=== PATIENT | male | born 1965 | race Caucasian/White ===

== ENCOUNTER → 2019-06-21 | Outpatient (CLI) | payer OTHER, SELFPAY ==
[2019-06-21 08:38] LABS: ALB/GLOB Ratio 1.2 RATIO (0.9-2.4); AST(SGOT) 18 U/L (15-37); Alanine Aminotransfer ALT/SGPT 21 U/L (16-61); Albumin, Serum 4.2 g/dL (3.2-5.0); Alkaline Phosphatase 65 U/L (45-117); Anion Gap 5 (5-15); BUN 21 mg/dL (7-18); BUN/Creat Ratio 21.1 RATIO (10-20); Chloride 108 mmol/L (98-107); Cholesterol 165 mg/dL (200); EST Glomerular Filtration Rate 83 mL/min (>60); Est Glom Filt Rate - Afr Amer 100 mL/min (>60); Globulin 3.4 g/dL (2.2-4.2); Glucose 100 mg/dL (74-106); High Density Lipoprotein 60 mg/dL; Potassium 3.8 mmol/L (3.5-5.1); Protein, Total 7.6 g/dL (6.4-8.2); Sodium Level 138 mmol/L (136-145); T4 Free Direct 0.85 ng/dL (0.76-1.46); Triglycerides 77 mg/dL; Very Low Density Lipoprotein 15 mg/dL (5-40)
[2019-06-24 08:08] LABS: Testosterone, Free 11.79 ng/dL (5.00-21.00)
[2019-06-24 12:48] LABS: Testosterone, % Free 3.12 % (1.50-4.20); Testosterone, Total 378 ng/dL (264-916)
== END | disposition home or self-care (01) ==
PROVIDERS: Referring Provider Internal Medicine Endocrinology, Diabetes & Metabolism; Visit Provider Internal Medicine Endocrinology, Diabetes & Metabolism
DX: E88.81 Metabolic syndrome and other insulin resistance (principal); E78.2 Mixed hyperlipidemia; D35.2 Benign neoplasm of pituitary gland
CPT/HCPCS: 36415; 80053; 80061; 82533; 84153; 84402; 84403; 84439; G0103

== ENCOUNTER → 2019-12-17 06:58 | Outpatient (CLI) | payer OTHER, SELFPAY ==
[2019-12-17 09:44] LABS: PSA,Total- Diagnostic 1.21 ng/mL (0.0-4.0); Prolactin 9.1 ng/mL; T4 Free Direct 1.06 ng/dL (0.76-1.46); Thyroid Stim Hormone (TSH) 1.38 uIU/mL (0.358-3.74)
[2019-12-21 09:07] LABS: Testosterone, % Free 2.95 % (1.50-4.20); Testosterone, Free 9.94 ng/dL (5.00-21.00)
[2019-12-21 12:10] LABS: Insulin Like Growth Factor 90 ng/mL (61-200); Testosterone, Total 337 ng/dL (264-916)
== END ==
PROVIDERS: PCP Internal Medicine; Referring Provider Internal Medicine Endocrinology, Diabetes & Metabolism; Visit Provider Internal Medicine Endocrinology, Diabetes & Metabolism
DX: D35.2 Benign neoplasm of pituitary gland (principal); N42.9 Disorder of prostate, unspecified; E29.1 Testicular hypofunction
CPT/HCPCS: 36415; 84146; 84153; 84305; 84402; 84403; 84439; 84443

== ENCOUNTER → 2020-07-03 06:12 | Outpatient (CLI) | payer OTHER, SELFPAY ==
[2020-07-03 08:15] LABS: ALB/GLOB Ratio 1.2 RATIO (0.9-2.4); AST(SGOT) 17 U/L (15-37); Alanine Aminotransfer ALT/SGPT 24 U/L (16-61); Albumin, Serum 4.1 g/dL (3.2-5.0); Alkaline Phosphatase 57 U/L (45-117); Anion Gap 5 (5-15); BUN 22 mg/dL (7-18); BUN/Creat Ratio 19.8 RATIO (10-20); Calcium,Total 8.9 mg/dL (8.5-10.1); Chloride 106 mmol/L (98-107); Creatinine, Serum 1.11 mg/dL (0.70-1.30); EST Glomerular Filtration Rate 73 mL/min (>60); Est Glom Filt Rate - Afr Amer 88 mL/min (>60); Globulin 3.3 g/dL (2.2-4.2); Glucose 95 mg/dL (74-106); Potassium 3.9 mmol/L (3.5-5.1); Protein, Total 7.4 g/dL (6.4-8.2); Sodium Level 139 mmol/L (136-145); T4 Free Direct 0.99 ng/dL (0.76-1.46); Thyroid Stim Hormone (TSH) 1.59 uIU/mL (0.358-3.74)
[2020-07-06 08:08] LABS: Testosterone, % Free 2.35 % (1.50-4.20)
[2020-07-06 16:39] LABS: Somatomedin C 94 ng/mL (68-247); Testosterone, Total 366 ng/dL (264-916)
== END ==
PROVIDERS: PCP Internal Medicine; Referring Provider Internal Medicine Endocrinology, Diabetes & Metabolism; Visit Provider Internal Medicine Endocrinology, Diabetes & Metabolism
DX: D35.2 Benign neoplasm of pituitary gland (principal); E88.81 Metabolic syndrome and other insulin resistance
CPT/HCPCS: 36415; 80053; 82533; 84146; 84305; 84402; 84403; 84439; 84443

== ENCOUNTER 2020-10-17 09:53 | Emergency (ER) | payer OTHER, SELFPAY ==
[2020-10-17 09:54] VITALS: BP 133/86; PULSE 86; RESP 16; TEMP 36.6; O2SAT 100; BMI 29.0
--- NOTE | 2020-10-17 10:13 | RAD_ITS ---
STUDY: X-RAY - LEFT HAND REASON FOR EXAM: Male, 55 years old. PT''S HAND SWOLLEN SINCE LAST NIGHT. UNSURE WHY, NO INJURY TECHNIQUE: 3 view(s) of the hand. COMPARISON: None. FINDINGS: Normal radiocarpal articulation. Normal distal radioulnar joint. Normal visualized carpal bones. Normal carpal articulations Normal carpometacarpal articulation of the thumb. Normal second through fifth carpometacarpal joints. Normal metacarpi. Normal metacarpophalangeal joint of the thumb. Normal interphalangeal joint of the thumb. Normal proximal and distal phalanges of the thumb. Normal metacarpophalangeal joints of the second through fifth fingers. Normal proximal and distal interphalangeal joints of the second through fifth fingers. Normal phalanges of the second through fifth fingers. Diffuse dorsal soft tissue swelling. There is a 2 cm x 0.3 cm bony density adjacent to the base of the first metacarpal. This may represent either a radiopaque foreign body or ossification secondary to prior injury. RAD/Hand Min 3 Views IMPRESSION: Diffuse dorsal soft tissue swelling. 2 cm x 0.3 cm bony density adjacent to the asymmetry of the first metacarpal. This may represent either calcification secondary to old injury or possible foreign body. Clinical correlation is recommended. Electronically Signed: Eduardo Clemons, at 10:49 EST , Service support ,
--- NOTE | 2020-10-17 10:20 | ED.VIS.GEN ---
History of Present Illness Chief Complaint: Upper Extremity Injury Informant: Patient Onset: Days - Onset of symptoms 2 days ago. Onset of swelling last evening. Onset of redness noted this morning Context: Sudden Onset Timing: Continuous Quality: Pain and swelling Location: located over the dorsal surface proximal phalanx and firs metacarpal L Current Severity: Moderate Maximum Severity: Moderate Worsened by: Movement left thumb Relieved by: Nothing Associated Symptoms: No fever, no chills, no history of trauma, no history of crystal induced ar Narrative: Patient is a 55-year-old [id number] male who presents with swelling of the right wrist/hand that was followed by pain then slight erythema. The area involvement is the left thumb and radial dorsal left hand. He denies paresthesia, anesthesia or motor weakness. He denies history of gout or pseudogout. He states he is unable to touch his thumb to his ring or little finger. He has history of hypertension without renal involvement. He denies history of peptic ulcer disease or diabetes. Prior similar symptoms: No Recent Illness/Hospitalization: No - Past Medical History (1) History of hypertension Status: Acute (2) History of hypercholesterolemia Status: Acute Past Medical History - Allergies and Home Meds Allergies/Adverse Reactions: Allergies atorvastatin [From Lipitor] Allergy (Verified 10/17/20 09:56) Abd cramps/diarrhea Primary Care Physician: Peter Wild DO [Primary Care Provider] - Prior records reviewed: Yes Surgical History: noncontributory Lives: Spouse/ Significant Other Smoking Status: Never smoker Alcohol: Rare Drugs: None Review of Systems General: Denies: Chills, Fever, Malaise, Subjective Cardiovascular: Denies: Chest pain, Palpitations Respiratory: Denies: Dyspnea, Dyspnea on exertion Gastrointestinal: Denies: Nausea, Vomiting Musculoskeletal: Reports: Swelling, Extremity Pain. Denies: Myalgias, Arthralgias, Neck pain Skin: Reports: Rash. Denies: Abscess, Abrasions, Wounds Neurological: Denies: Headache, Weakness, Parasthesia, Numbness Hematologic: Denies: Easy bruising, Easy bleeding Allergy: Denies: Uticaria Physical Exam Vital Signs/Narrative: Vital Signs Temp Pulse Resp BP Pulse Ox 10/17/20 09:54 97.8 F 86 16 133/86 H 100 Inital Vital Signs reviewed: Yes General: Well nourished, Well developed, No Acute Distress Head: Normocephalic, Atraumatic Eyes: Perrl, EOMI. Negative for: Pale conjunctiva ENT: Negative for: Moist mucous membranes Neck: Supple, Nontender Cardiovascular: Regular rate, Regular rhythm Respiratory: No distress Extremities: Tenderness - There is tenderness over the extensor pollicis longus tendon. Positive Que test. There is no fluctuance of the wrist joint. There is no pain with passive flexion extension or radial or ulnar deviation. There is pain with passive range of motion of the thumb. , - - There is erythema without warmth or induration. There is no lymphangitis. There is no epitrochlear lymphadenopathy.. Negative for: Nontender Skin: Normal color, Rash Neurological: Alert, Oriented x3, Cranial nerves II-XII grossly intact, Normal Strength, Normal Sensation Psychological: Normal affect Diagnostic/Tx/Re-eval Chest X-Ray - ED: Read by ED Physician, - - 3 view x-ray of the left hand was obtained. There is calcification of the extensor tendon noted. The radiology interpretation was read and I am in disagreement. - Medical Decision Making With no pain with passive range of motion of the wrist doubt crystal induced or pyogenic arthritis. With a positive Que test soft tissue swelling predominantly radial side of the wrist and pain outpatient over the EPL suspect patient has decreased tenosynovitis. X-ray was obtained. Patient has no contraindication to NSAIDs. ED Disposition - Plan for ED Patient: Disposition: Home or Assisted Living Diagnosis: Calcific tendinitis of hand Instructions: ED Tendinitis Calcific Prescriptions: Naproxen [Naprosyn] 500 mg PO BID #14 tab Transmission [facility]: [id number] Referrals: Peter Wild DO [Primary Care Provider] - Gilmer House DO [STAFF PHYSICIAN] - 5-7 Days Additional Instructions: Near the thumb spica splint during the day.
== END 2020-10-17 11:51 | disposition home or self-care (01) ==
PROVIDERS: Emergency Provider Emergency Medicine; PCP Internal Medicine
DX: M65.242 Calcific tendinitis, left hand (principal); I10 Essential (primary) hypertension; E78.00 Pure hypercholesterolemia, unspecified; Z79.899 Other long term (current) drug therapy
CPT/HCPCS: 73130; 99283

== ENCOUNTER → 2020-10-20 07:54 | Outpatient (CLI) | payer OTHER, SELFPAY ==
[2020-10-17 09:54] VITALS: BMI 29.0
[2020-10-20 09:17] LABS: Hematocrit 44.2 % (40-54); Hemoglobin 14.2 g/dL (13.0-16.5); Mean Corp Hgb Conc 32.1 g/dL (32-36); Mean Corpuscular Hgb 29.6 pg (27.0-32.0); Mean Corpuscular Volume 92.1 fL (80-94); Mean Platelet Vol. 8.5 fl (6.2-12.0); Platelet Count 256 K/mm3 (150-450); RBC Distribution Width CV 12.5 % (11.6-14.6); RBC Distribution Width SD 42.8 fl (35.1-43.9); White Blood Count 4.9 K/mm3 (4.4-11.0)
[2020-10-20 09:48] LABS: ALB/GLOB Ratio 1.2 RATIO (0.9-2.4); AST(SGOT) 22 U/L (15-37); Alanine Aminotransfer ALT/SGPT 40 U/L (16-61); Albumin, Serum 4.1 g/dL (3.2-5.0); Alkaline Phosphatase 75 U/L (45-117); Anion Gap 3 (5-15); BUN 29 mg/dL (7-18); BUN/Creat Ratio 26.4 RATIO (10-20); Calcium,Total 9.1 mg/dL (8.5-10.1); Chloride 108 mmol/L (98-107); Cholesterol 159 mg/dL (200); EST Glomerular Filtration Rate 73 mL/min (>60); Est Glom Filt Rate - Afr Amer 89 mL/min (>60); Globulin 3.4 g/dL (2.2-4.2); Glucose 91 mg/dL (74-106); High Density Lipoprotein 59 mg/dL; PSA,Total - Annual Screen 1.33 ng/mL (0.00-4.00); Potassium 4.2 mmol/L (3.5-5.1); Protein, Total 7.5 g/dL (6.4-8.2); Sodium Level 139 mmol/L (136-145); Thyroid Stim Hormone (TSH) 1.03 uIU/mL (0.358-3.74); Triglycerides 64 mg/dL; Very Low Density Lipoprotein 13 mg/dL (5-40)
== END ==
PROVIDERS: PCP Internal Medicine; Referring Provider Internal Medicine; Visit Provider Internal Medicine
DX: I10 Essential (primary) hypertension (principal); Z12.5 Encounter for screening for malignant neoplasm of prostate; E78.5 Hyperlipidemia, unspecified; Z79.899 Other long term (current) drug therapy
CPT/HCPCS: 80053; 80061; 84153; 84443; 85027; G0103

== ENCOUNTER → 2021-06-25 06:40 | Outpatient (CLI) | payer OTHER, SELFPAY ==
[2021-06-25 07:39] LABS: ALB/GLOB Ratio 1.2 RATIO (0.9-2.4); AST(SGOT) 20 U/L (15-37); Alanine Aminotransfer ALT/SGPT 30 U/L (16-61); Albumin, Serum 4.3 g/dL (3.2-5.0); Alkaline Phosphatase 64 U/L (45-117); Anion Gap 5 (5-15); BUN 20 mg/dL (7-18); Calcium,Total 8.8 mg/dL (8.5-10.1); Chloride 107 mmol/L (98-107); Cholesterol 178 mg/dL (200); Creatinine, Serum 1.25 mg/dL (0.70-1.30); EST Glomerular Filtration Rate 63 mL/min (>60); Est Glom Filt Rate - Afr Amer 77 mL/min (>60); Globulin 3.5 g/dL (2.2-4.2); Glucose 103 mg/dL (74-106); High Density Lipoprotein 68 mg/dL; Potassium 3.8 mmol/L (3.5-5.1); Prolactin 9.9 ng/mL; Protein, Total 7.8 g/dL (6.4-8.2); Sodium Level 138 mmol/L (136-145); T4 Free Direct 0.97 ng/dL (0.76-1.46); Thyroid Stim Hormone (TSH) 1.31 uIU/mL (0.358-3.74); Triglycerides 98 mg/dL; Very Low Density Lipoprotein 20 mg/dL (5-40)
[2021-07-01 03:06] LABS: Testosterone, % Free 3.41 % (1.50-4.20); Testosterone, Free 14.59 ng/dL (5.00-21.00)
[2021-07-02 13:22] LABS: Somatomedin C 101 ng/mL (68-247); Testosterone, Total 428 ng/dL (264-916)
== END ==
PROVIDERS: PCP Internal Medicine; Referring Provider Internal Medicine Endocrinology, Diabetes & Metabolism; Visit Provider Internal Medicine Endocrinology, Diabetes & Metabolism
DX: D35.2 Benign neoplasm of pituitary gland (principal); E78.2 Mixed hyperlipidemia; E29.1 Testicular hypofunction
CPT/HCPCS: 36415; 80053; 80061; 82533; 84146; 84305; 84402; 84403; 84439; 84443

== ENCOUNTER 2021-07-01 16:42 | Emergency (ER) | payer OTHER, SELFPAY ==
[2021-07-01 16:44] VITALS: BP 131/100; PULSE 94; RESP 16; TEMP 36.9; O2SAT 99; BMI 27.6
--- NOTE | 2021-07-01 17:26 | EKG12_ITS ---
Test Reason : Blood Pressure : / mmHG Vent. Rate : 080 BPM Atrial Rate : 080 BPM P-R Int : 184 ms QRS Dur : 108 ms QT Int : 380 ms P-R-T Axes : 037 -32 -07 degrees QTc Int : 438 ms Normal sinus rhythm Left axis deviation Nonspecific ST abnormality Abnormal ECG Confirmed by MODESTO FONTANEZ, BRICE ([id number]), photographic editor TEREZA ANDERSON ([id number]) on 07/05/2021 1:26:36 PM Referred By: CAITLYN Confirmed By:BRICE SALVADOR MD
[2021-07-01 17:54] LABS: Bacteria 0 SEEN /hpf (None Seen); Mucous, Urine 0 SEEN /hpf (<or=2+); Squamous Epithelial Cells - UA 0 SEEN /hpf (0-5); White Blood Cells 0 SEEN /hpf (0-5)
[2021-07-01 17:55] LABS: Absolute Neutrophil Count 4.4 X10^3/uL (2.0-7.7); Basophil# 0.11 X10^3/uL; Basophil% 1.6 % (0-1); Eosinophil# 0.06 X10^3/uL; Eosinophils% 0.9 % (0-5); Hematocrit 45.2 % (40-54); Hemoglobin 15.5 g/dL (13.0-16.5); Lymphocyte % 24.9 % (19-41); Mean Corp Hgb Conc 34.3 g/dL (32-36); Mean Corpuscular Hgb 29.9 pg (27.0-32.0); Mean Corpuscular Volume 87.3 fL (80-94); Mean Platelet Vol. 8.2 fl (6.2-12.0); Monocyte# 0.57 X10^3/uL; Monocyte% 8.3 % (0-10); NRBC Flagged by Analyzer 0 % (0-5); Neutrophil # 4.37 X10^3/uL (2.7-7.7); Platelet Count 240 K/mm3 (150-450); RBC Distribution Width CV 12.2 % (11.6-14.6); RBC Distribution Width SD 39.1 fl (35.1-43.9); Red Blood Count 5.18 M/mm3 (4.6-6.2); White Blood Count 6.8 K/mm3 (4.4-11.0)
[2021-07-01] MEDS: 0.9% Normal Saline 1,000 ML 150 ML IV (17:55)
[2021-07-01 17:58] LABS: Color, Urine Yellow (Yellow); Glucose, Dipstick Normal (Normal); Ketone-Dipstick Negative (Negative); Leukocyte Esterase-Dipstick Negative /ul (Negative); Nitrite-Dipstick Negative (Negative); Occult Blood-Urine 50 /ul (Negative); Protein-Dipstick Negative (Negative); Specific Gravity, Urine 1.015 (1.002-1.030); Urine Bilirubin Dipstick Negative (Negative); Urine Clarity Clear (Clear); Urine Urobilinogen 1 mg/dl (Normal)
[2021-07-01 18:04] LABS: Red Blood Cells-Urine 0-5 SEEN /hpf (0-5)
[2021-07-01 18:21] LABS: AST(SGOT) 20 U/L (15-37); Alanine Aminotransfer ALT/SGPT 29 U/L (16-61); Albumin, Serum 4.1 g/dL (3.2-5.0); Alkaline Phosphatase 66 U/L (45-117); Anion Gap 8 (5-15); BUN 20 mg/dL (7-18); Bilirubin, Direct 0.32 mg/dL (0.00-0.30); Calcium,Total 8.7 mg/dL (8.5-10.1); Chloride 102 mmol/L (98-107); Creatinine, Serum 1.05 mg/dL (0.70-1.30); EST Glomerular Filtration Rate 77 mL/min (>60); Est Glom Filt Rate - Afr Amer 94 mL/min (>60); Estimated Creatinine Clearance 87.72 ml/min; Globulin 3.4 g/dL (2.2-4.2); Glucose 95 mg/dL (74-106); Lipase 148 U/L (73-393); Potassium 3.7 mmol/L (3.5-5.1); Protein, Total 7.5 g/dL (6.4-8.2); Sodium Level 136 mmol/L (136-145); Thyroid Stim Hormone (TSH) 1.31 uIU/mL (0.358-3.74); Troponin-I HS < 3.0 pg/mL (3.0-78.5)
[2021-07-01 18:22] VITALS: BP 137/89; PULSE 78; RESP 18
--- NOTE | 2021-07-01 19:37 | EDS_ITS ---
HPI History of Present Illness Chief Complaint: General Illness Informant: patient and spouse/S.O. Onset/Context/Timing Onset: Weeks (1.5-week) Context: Gradual Onset Current Severity: Moderate Maximum Severity: Moderate Narrative Narrative: Patient presents with generally not feeling well for the last week and a half. He describes weakness and nausea. He does report increasing urination and a 10 pound weight loss over the past week. He describes having hot flashes. He denies fever, chest pain, shortness of breath. He reports a poor appetite but no nausea, vomiting, or diarrhea. He did get the Covid vaccine. He states that he had some blood work drawn Friday and noted there were some abnormalities noted in his kidney tests. He has an appointment to see his doctor the end of July. [facility] Medical History Depression High cholesterol HTN (hypertension) Parotid tumor Pituitary tumor Home Medications amlodipine-benazepril 1 ea PO DAILY 10/17/20 [History Last Taken Unknown] duloxetine 20 mg PO DAILY 10/17/20 [History Last Taken Unknown] pravastatin 80 mg PO QHS 10/17/20 [History Last Taken Unknown] trazodone 50 mg PO QHS 10/17/20 [History Last Taken Unknown] aspirin 81 mg chewable tablet 81 mg PO DAILY 10/23/20 [History Last Taken Unknown] cholecalciferol (vitamin D3) 25 mcg (1,000 unit) capsule 25 mcg PO DAILY 10/23/20 [History Last Taken Unknown] multivitamin 1 tab PO DAILY 10/23/20 [History Last Taken Unknown] Allergy/AdvReac Type Severity Reaction Status Date / Time atorvastatin [From Lipitor] Allergy Abd Verified 07/01/21 16:47 cramps/diarrhea Family History Mother Hypertension Father Heart disease Social History Smoking Status: Never smoker ROS ROS ED Constitutional Constitutional ED: Denies chills or fever(s) Eyes Eyes: Denies change in vision ENT ENT ED: Denies sore throat Cardiovascular Cardiovascular: Denies chest pain Respiratory/Chest Respiratory/Chest: Denies cough or dyspnea Gastrointestinal Gastrointestinal: Denies abdominal pain, diarrhea, nausea or vomiting Genitourinary Genitourinary ED: Reports dysuria and urinary frequency Musculoskeletal Musculoskeletal: Denies back pain Integumentary Denies rash Neurologic Neurologic: Denies headache(s) or weakness Psychiatric Psychiatric: Denies anxiety or depression Endocrine Endocrinology: Denies polydipsia or polyuria Allergic/Immunologic Allergic/Immunologic ED: Denies urticaria EXAM Physical Exam Const Vital Signs: 07/01/21 16:44 07/01/21 17:10 07/01/21 18:22 Temperature 98.4 F Temperature Source Temporal Pulse Rate 94 78 Respiratory Rate 16 18 Respiratory Effort Normal Respiratory Pattern Normal Blood Pressure 131/100 H 137/89 H Blood Pressure Mean 110 105 Pulse Ox 99 Oxygen Delivery Method Room Air 07/01/21 20:08 07/01/21 20:11 Temperature Temperature Source Pulse Rate 74 Respiratory Rate 16 16 Respiratory Effort Respiratory Pattern Blood Pressure 117/93 H Blood Pressure Mean Pulse Ox 98 Oxygen Delivery Method Positive well nourished and well developed General Appearance ED: well developed HEENT Reports normocephalic and head/scalp atraumatic Eyes PERRL and EOMs intact bilaterally Neck supple Chest Wall inspection of chest normal and palpation of chest normal Resp normal respiratory effort and clear to auscultation bilaterally Cardio regular rate and regular rhythm GI non-tender Auscultation: hypoactive bowel sounds Palpation: soft Back/Spine no CVA tenderness Extremity normal to inspection Neuro oriented x3 and no sensory deficits noted Neuro Narrative: No focal neurologic deficits. Sensorium / Orientation: alert Motor Exam: strength 5/5 throughout Psych mental status grossly normal Skin no rashes or lesions noted MDM MDM MDM Narrative Medical decision making narrative: Lab work and EKG are obtained. Urinalysis is obtained. Lab Data Attestation: I reviewed the patient's lab results. Labs: Laboratory Results - last 24 hr 07/01/21 07/01/21 07/01/21 17:45 17:45 17:45 WBC 6.8 RBC 5.18 Hgb 15.5 Hct 45.2 MCV 87.3 MCH 29.9 MCHC 34.3 RDW Std Deviation 39.1 RDW Coeff of Miguel 12.2 Plt Count 240 MPV 8.2 Immature Gran % (Auto) 0.300 Neut % (Auto) 64.0 Lymph % (Auto) 24.9 [place] % (Auto) 8.3 Eos % (Auto) 0.9 Baso % (Auto) 1.6 H Absolute Neuts (auto) 4.4 Absolute Lymphs (auto) 1.70 Nucleated RBC % 0 Sodium 136 Potassium 3.7 Chloride 102 Carbon Dioxide 26.0 Anion Gap 8 BUN 20 H Creatinine 1.05 Estim Creat Clear Calc 87.72 Est GFR (MDRD) Af Amer 94 Est GFR (MDRD) Non-Af 77 BUN/Creatinine Ratio 19.0 Glucose 95 Calcium 8.7 Total Bilirubin 1.50 H Direct Bilirubin 0.32 H AST 20 ALT 29 Alkaline Phosphatase 66 Troponin I High Sens < 3.0 L Total Protein 7.5 Albumin 4.1 Globulin 3.4 Lipase 148 TSH 1.31 Urine Color Yellow Urine Clarity Clear Urine pH 6.0 Ur Specific [place] 1.015 Urine Protein Negative Urine Glucose (UA) Normal Urine Ketones Negative Urine Occult Blood 50 H Urine Nitrite Negative Urine Bilirubin Negative Urine Urobilinogen 1 H Ur Leukocyte Esterase Negative Urine RBC 0-5 SEEN Urine WBC 0 SEEN Ur Squamous Epith Cells 0 SEEN Urine Bacteria 0 SEEN Urine Mucus 0 SEEN EKG Initial EKG: Attestation: I personally reviewed and interpreted this EKG as follows: Interpretation: Sinus Rhythm (Sinus 80 with no acute ischemia.) Treatment and Re-Evaluation Comments:: Test results reviewed with patient and at bedside. Patient's GFR has been slowly dropping over the past couple years but today seems to be improved. TSH is normal. Remainder of labs and urinalysis are unremarkable. Patient will continue with his current supportive care and follow-up with his doctor. I did recommend calling the office to see if he can be placed on a cancellation list to potentially be seen sooner. Discharge Plan Triage Chief Complaint: General Illness ED Provider: Lulú Snowden Dx/Rx/DC Orders Clinical Impression: Fatigue Instructions: ED Weakness (Uncertain Cause) Prescriptions: No Action multivitamin Tablet 1 tab PO DAILY RF: 0 cholecalciferol (vitamin D3) 25 mcg (1,000 unit) capsule 25 mcg PO DAILY RF: 0 aspirin 81 mg tablet,chewable 81 mg PO DAILY RF: 0 trazodone 50 MG tablet 50 mg PO QHS RF: 0 pravastatin 80 MG tablet 80 mg PO QHS RF: 0 amlodipine-benazepril 1 EACH capsule 1 ea PO DAILY RF: 0 duloxetine 20 MG capsule 20 mg PO DAILY RF: 0 Primary Care Provider: Peter Wild Referrals: Peter Wild DO [Primary Care Provider] - As soon as possible Disposition Disposition: Home, Self Care Discharge Date/Time: 07/01/21 20:13
[2021-07-01 20:08] VITALS: BP 117/93; PULSE 74; RESP 16; O2SAT 98
[2021-07-01 20:11] VITALS: RESP 16
== END 2021-07-01 20:13 | disposition home or self-care (01) ==
PROVIDERS: Emergency Provider Emergency Medicine; PCP Internal Medicine
DX: R53.83 Other fatigue (principal); R53.1 Weakness; R11.0 Nausea; R30.0 Dysuria; R35.0 Frequency of micturition; I10 Essential (primary) hypertension; F32.9 Major depressive disorder, single episode, unspecified; E78.00 Pure hypercholesterolemia, unspecified; Z79.82 Long term (current) use of aspirin; Z79.899 Other long term (current) drug therapy
CPT/HCPCS: 80048; 80076; 81001; 83690; 84443; 84484; 85025; 93005; 96360; 96361; 99284; J7030

== ENCOUNTER → 2021-08-25 08:28 | Outpatient (CLI) | payer OTHER, SELFPAY ==
[2021-08-25 09:02] LABS: Hematocrit 44.5 % (40-54); Hemoglobin 14.9 g/dL (13.0-16.5); Mean Corp Hgb Conc 33.5 g/dL (32-36); Mean Corpuscular Hgb 30.2 pg (27.0-32.0); Mean Corpuscular Volume 90.3 fL (80-94); Mean Platelet Vol. 8.3 fl (6.2-12.0); Platelet Count 220 K/mm3 (150-450); RBC Distribution Width CV 12.5 % (11.6-14.6); RBC Distribution Width SD 41.3 fl (35.1-43.9); Red Blood Count 4.93 M/mm3 (4.6-6.2); White Blood Count 5.6 K/mm3 (4.4-11.0)
[2021-08-25 09:03] LABS: Color, Urine Yellow (Yellow); Glucose, Dipstick Normal (Normal); Ketone-Dipstick Negative (Negative); Leukocyte Esterase-Dipstick Negative /ul (Negative); Nitrite-Dipstick Negative (Negative); Occult Blood-Urine 10 /ul (Negative); Protein-Dipstick Negative (Negative); Specific Gravity, Urine 1.015 (1.002-1.030); Urine Bilirubin Dipstick Negative (Negative); Urine Clarity Clear (Clear); Urine Urobilinogen Normal (Normal)
[2021-08-25 09:12] LABS: Protein, Urine (Random) < 6.0 mg/dL (<11.9)
[2021-08-25 09:22] LABS: Anion Gap 7 (5-15); BUN 23 mg/dL (7-18); Calcium,Total 8.7 mg/dL (8.5-10.1); Chloride 103 mmol/L (98-107); Creatinine, Serum 1.21 mg/dL (0.70-1.30); EST Glomerular Filtration Rate 66 mL/min (>60); Est Glom Filt Rate - Afr Amer 79 mL/min (>60); Ferritin 31 ng/mL (26-388); Glucose 99 mg/dL (74-106); Iron 69 ug/dL (65-175); Iron Binding Capacity,Total 351 ug/dL (250-450); PERCENT IRON SATURATION 19.7 % (15.0-55.0); Sodium Level 135 mmol/L (136-145); Uric Acid 5.6 mg/dL (3.5-7.2)
[2021-08-27 08:43] LABS: PTHIN 70.5 pg/mL (18.4-80.1)
[2021-08-27 08:46] LABS: Vitamin D,25 Hydroxy 42.7 ng/mL
== END ==
PROVIDERS: PCP Internal Medicine; Referring Provider Student in an Organized Health Care Education/Training Program; Visit Provider Student in an Organized Health Care Education/Training Program
DX: N40.1 Benign prostatic hyperplasia with lower urinary tract symptoms (principal); N18.2 Chronic kidney disease, stage 2 (mild); I12.9 Hypertensive chronic kidney disease with stage 1 through stage 4 chronic kidney disease, or unspecified chronic kidney disease
CPT/HCPCS: 36415; 80048; 81002; 82306; 82570; 82728; 83540; 83550; 83970; 84156; 84550; 85027

== ENCOUNTER → 2021-08-27 08:42 | Outpatient (CLI) | payer OTHER, SELFPAY ==
--- NOTE | 2021-08-27 08:45 | US_ITS ---
STUDY: RENAL ULTRASOUND - COMPLETE REASON FOR EXAM: Male, 56 years old. CKDIII/IV TECHNIQUE: Ultrasound evaluation of the kidneys was performed with real-time and static bashir-scale imaging. COMPARISON: None. FINDINGS: RIGHT KIDNEY: Normal location of the right kidney, which is normal in size. The right kidney measures 11.3 cm x 5.7 cm x 5.2 cm. There is a normal cortex of the right kidney. The renal cortex measures 1.9 cm. There is a 9.6 x 8.4 cm x 7.7 cm cyst in the upper pole of the kidney. There are no right renal calculi. There is no right hydronephrosis. DISTAL RIGHT URETER: There is non-visualization of the distal right ureter. There is no demonstrated right ureterovesical junction calculus. There is a visualized right ureteral jet. LEFT KIDNEY: Normal location of the left kidney, which is normal in size. The left kidney measures 12.5 cm x 6.3 cm x 6.7 cm. There is a normal cortex of the left kidney. The renal cortex measures 2 cm. There is no left renal mass or cyst. There are no left renal calculi. There is no left hydronephrosis. DISTAL LEFT URETER: There is non-visualization of the distal left ureter. There is no demonstrated left ureterovesical junction calculus. There is a visualized left ureteral jet. BLADDER: The distended urinary bladder has a volume of 632 ml. There is a normal wall thickness of the distended urinary bladder. There is no demonstrated mass within the urinary bladder. There are no demonstrated bladder calculi. US/Kidney and Bladder IMPRESSION: 9.6 cm x 8.4 cm x 7.7 cm cyst in the upper pole of the right kidney. Electronically Signed: Eduardo Clemons MD at 11:07 EDT , Service support ,
== END ==
PROVIDERS: PCP Internal Medicine; Referring Provider Student in an Organized Health Care Education/Training Program; Visit Provider Student in an Organized Health Care Education/Training Program
DX: I12.9 Hypertensive chronic kidney disease with stage 1 through stage 4 chronic kidney disease, or unspecified chronic kidney disease (principal); N40.1 Benign prostatic hyperplasia with lower urinary tract symptoms; N18.2 Chronic kidney disease, stage 2 (mild)
CPT/HCPCS: 76770

== ENCOUNTER → 2021-10-17 06:14 | Outpatient (CLI) | payer OTHER, SELFPAY ==
[2021-10-17 07:37] LABS: Hematocrit 42.8 % (40-54); Hemoglobin 14.7 g/dL (13.0-16.5); Mean Corp Hgb Conc 34.3 g/dL (32-36); Mean Corpuscular Hgb 30.5 pg (27.0-32.0); Mean Corpuscular Volume 88.8 fL (80-94); Mean Platelet Vol. 8.7 fl (6.2-12.0); Platelet Count 207 K/mm3 (150-450); RBC Distribution Width CV 12.6 % (11.6-14.6); RBC Distribution Width SD 41.4 fl (35.1-43.9); Red Blood Count 4.82 M/mm3 (4.6-6.2); White Blood Count 5.3 K/mm3 (4.4-11.0)
[2021-10-17 08:10] LABS: ALB/GLOB Ratio 1.1 RATIO (0.9-2.4); AST(SGOT) 35 U/L (15-37); Alanine Aminotransfer ALT/SGPT 47 U/L (16-61); Albumin, Serum 3.8 g/dL (3.2-5.0); Alkaline Phosphatase 53 U/L (45-117); Anion Gap 4 (5-15); BUN 19 mg/dL (7-18); BUN/Creat Ratio 18.3 RATIO (10-20); Calcium,Total 8.9 mg/dL (8.5-10.1); Chloride 105 mmol/L (98-107); Cholesterol 156 mg/dL (200); Creatinine, Serum 1.04 mg/dL (0.70-1.30); EST Glomerular Filtration Rate 78 mL/min (>60); Est Glom Filt Rate - Afr Amer 94 mL/min (>60); Globulin 3.6 g/dL (2.2-4.2); Glucose 96 mg/dL (74-106); High Density Lipoprotein 60 mg/dL; Protein, Total 7.4 g/dL (6.4-8.2); Sodium Level 136 mmol/L (136-145); Triglycerides 89 mg/dL; Very Low Density Lipoprotein 18 mg/dL (5-40)
== END ==
PROVIDERS: PCP Internal Medicine; Referring Provider Internal Medicine; Visit Provider Internal Medicine
DX: I10 Essential (primary) hypertension (principal); Z79.899 Other long term (current) drug therapy
CPT/HCPCS: 36415; 80053; 80061; 85027

== ENCOUNTER → 2022-04-11 | Outpatient (CLI) | payer BC, SELFPAY ==
[2022-04-11 08:15] LABS: Absolute Lymphocyte Count 1.49 X10^3/uL (0.83-4.51); Absolute Neutrophil Count 3.8 X10^3/uL (2.0-7.7); Basophil# 0.12 X10^3/uL; Eosinophil# 0.09 X10^3/uL; Eosinophils% 1.5 % (0-5); Hematocrit 43.1 % (40-54); Hemoglobin 14.6 g/dL (13.0-16.5); Lymphocyte # 1.49 X10^3/ul (0.83-4.51); Lymphocyte % 25.2 % (19-41); Mean Corp Hgb Conc 33.9 g/dL (32-36); Mean Corpuscular Hgb 30.3 pg (27.0-32.0); Mean Corpuscular Volume 89.4 fL (80-94); Mean Platelet Vol. 8.3 fl (6.2-12.0); Monocyte# 0.44 X10^3/uL; Monocyte% 7.4 % (0-10); NRBC Flagged by Analyzer 0 % (0-5); Neutrophil # 3.75 X10^3/uL (2.7-7.7); Neutrophil % 63.6 % (47-70); Platelet Count 222 K/mm3 (150-450); RBC Distribution Width CV 12.3 % (11.6-14.6); RBC Distribution Width SD 40.4 fl (35.1-43.9); Red Blood Count 4.82 M/mm3 (4.6-6.2); White Blood Count 5.9 K/mm3 (4.4-11.0)
[2022-04-11 08:49] LABS: ALB/GLOB Ratio 1.2 RATIO (0.9-2.4); AST(SGOT) 29 U/L (15-37); Alanine Aminotransfer ALT/SGPT 37 U/L (16-61); Alkaline Phosphatase 54 U/L (45-117); Anion Gap 4 (5-15); BUN 20 mg/dL (7-18); BUN/Creat Ratio 18.2 RATIO (10-20); Calcium,Total 8.9 mg/dL (8.5-10.1); Chloride 104 mmol/L (98-107); Cholesterol 158 mg/dL (200); EST Glomerular Filtration Rate 73 mL/min (>60); Est Glom Filt Rate - Afr Amer 88 mL/min (>60); Globulin 3.2 g/dL (2.2-4.2); Glucose 98 mg/dL (74-106); High Density Lipoprotein 57 mg/dL; PSA,Total - Annual Screen 1.15 ng/mL (0.00-4.00); Potassium 3.9 mmol/L (3.5-5.1); Protein, Total 7.2 g/dL (6.4-8.2); Sodium Level 136 mmol/L (136-145); Thyroid Stim Hormone (TSH) 1.02 uIU/mL (0.358-3.74); Triglycerides 76 mg/dL; Very Low Density Lipoprotein 15 mg/dL (5-40)
== END | disposition home or self-care (01) ==
LOC: LAB 07:24
PROVIDERS: PCP Internal Medicine; Referring Provider Internal Medicine; Visit Provider Internal Medicine
DX: Z00.00 Encounter for general adult medical examination without abnormal findings (principal); Z12.5 Encounter for screening for malignant neoplasm of prostate
CPT/HCPCS: 36415; 80053; 80061; 84153; 84443; 85025; G0103

== ENCOUNTER → 2022-07-03 | Outpatient (CLI) | payer BC, SELFPAY ==
[2022-07-03 08:32] LABS: ALB/GLOB Ratio 1.3 RATIO (0.9-2.4); AST(SGOT) 28 U/L (15-37); Alanine Aminotransfer ALT/SGPT 32 U/L (16-61); Albumin, Serum 4.1 g/dL (3.2-5.0); Alkaline Phosphatase 57 U/L (45-117); Anion Gap 6 (5-15); BUN 19 mg/dL (7-18); BUN/Creat Ratio 15.8 RATIO (10-20); Calcium,Total 8.8 mg/dL (8.5-10.1); Chloride 104 mmol/L (98-107); Cholesterol 157 mg/dL (200); EST Glomerular Filtration Rate 66 mL/min (>60); Est Glom Filt Rate - Afr Amer 80 mL/min (>60); Globulin 3.2 g/dL (2.2-4.2); Glucose 98 mg/dL (74-106); High Density Lipoprotein 55 mg/dL; Prolactin 10.1 ng/mL; Protein, Total 7.3 g/dL (6.4-8.2); Sodium Level 136 mmol/L (136-145); T4 Free Direct 1.05 ng/dL (0.76-1.46); Thyroid Stim Hormone (TSH) 1.09 uIU/mL (0.358-3.74); Triglycerides 88 mg/dL; Very Low Density Lipoprotein 18 mg/dL (5-40)
[2022-07-08 16:09] LABS: Testosterone, % Free 2.55 % (1.50-4.20); Testosterone, Free 10.63 ng/dL (5.00-21.00)
[2022-07-08 16:52] LABS: Somatomedin C 80 ng/mL (68-247); Testosterone, Total 417 ng/dL (264-916)
== END | disposition home or self-care (01) ==
PROVIDERS: PCP Internal Medicine
DX: D35.2 Benign neoplasm of pituitary gland (principal); E78.2 Mixed hyperlipidemia
CPT/HCPCS: 36415; 80053; 80061; 82533; 84146; 84305; 84402; 84403; 84439; 84443

== ENCOUNTER → 2023-04-09 | Outpatient (CLI) | payer BC, SELFPAY ==
[2023-04-09 08:12] LABS: ALB/GLOB Ratio 1.2 RATIO (0.9-2.4); AST(SGOT) 27 U/L (15-37); Alanine Aminotransfer ALT/SGPT 33 U/L (16-61); Alkaline Phosphatase 59 U/L (45-117); Anion Gap 4 (5-15); BUN 20 mg/dL (7-18); BUN/Creat Ratio 17.4 RATIO (10-20); Calcium,Total 8.7 mg/dL (8.5-10.1); Chloride 108 mmol/L (98-107); Cholesterol 168 mg/dL (200); Creatinine, Serum 1.15 mg/dL (0.70-1.30); EST Glomerular Filtration Rate 69 mL/min (>60); Est Glom Filt Rate - Afr Amer 84 mL/min (>60); Globulin 3.4 g/dL (2.2-4.2); Glucose 107 mg/dL (74-106); High Density Lipoprotein 58 mg/dL; Potassium 3.9 mmol/L (3.5-5.1); Protein, Total 7.4 g/dL (6.4-8.2); Sodium Level 138 mmol/L (136-145); Triglycerides 96 mg/dL; Very Low Density Lipoprotein 19 mg/dL (5-40)
== END | disposition home or self-care (01) ==
LOC: LAB 07:10
PROVIDERS: PCP Internal Medicine; Referring Provider Internal Medicine; Visit Provider Internal Medicine
DX: E78.5 Hyperlipidemia, unspecified (principal); Z79.899 Other long term (current) drug therapy; I10 Essential (primary) hypertension
CPT/HCPCS: 36415; 80053; 80061

== ENCOUNTER → 2023-06-11 | Outpatient (CLI) | payer BC, SELFPAY ==
[2023-06-11 08:30] LABS: ALB/GLOB Ratio 1.2 RATIO (0.9-2.4); AST(SGOT) 21 U/L (15-37); Alanine Aminotransfer ALT/SGPT 28 U/L (16-61); Alkaline Phosphatase 55 U/L (45-117); Anion Gap 4 (5-15); BUN 21 mg/dL (7-18); BUN/Creat Ratio 18.4 RATIO (10-20); Calcium,Total 8.8 mg/dL (8.5-10.1); Chloride 106 mmol/L (98-107); Cholesterol 170 mg/dL (200); Creatinine, Serum 1.14 mg/dL (0.70-1.30); EST Glomerular Filtration Rate 70 mL/min (>60); Est Glom Filt Rate - Afr Amer 85 mL/min (>60); Globulin 3.4 g/dL (2.2-4.2); Glucose 96 mg/dL (74-106); High Density Lipoprotein 58 mg/dL; Potassium 3.7 mmol/L (3.5-5.1); Protein, Total 7.4 g/dL (6.4-8.2); Sodium Level 137 mmol/L (136-145); T4 Free Direct 0.95 ng/dL (0.76-1.46); Thyroid Stim Hormone (TSH) 1.12 uIU/mL (0.358-3.74); Triglycerides 113 mg/dL; Very Low Density Lipoprotein 23 mg/dL (5-40)
[2023-06-18 12:09] LABS: Somatomedin C 83 ng/mL (68-247); Testosterone, % Free 3.16 % (1.50-4.20); Testosterone, Free 10.71 ng/dL (5.00-21.00); Testosterone, Total 339 ng/dL (264-916)
== END | disposition home or self-care (01) ==
LOC: LAB 07:13
PROVIDERS: PCP Internal Medicine; Referring Provider Internal Medicine Endocrinology, Diabetes & Metabolism; Visit Provider Internal Medicine Endocrinology, Diabetes & Metabolism
DX: D35.2 Benign neoplasm of pituitary gland (principal); E78.2 Mixed hyperlipidemia; E88.81 Metabolic syndrome and other insulin resistance
CPT/HCPCS: 36415; 80053; 80061; 84146; 84305; 84402; 84403; 84439; 84443

== ENCOUNTER → 2023-06-19 | Outpatient (CLI) | payer BC, SELFPAY | END | disposition home or self-care (01) | PROVIDERS: PCP Internal Medicine; Referring Provider Internal Medicine Endocrinology, Diabetes & Metabolism; Visit Provider Internal Medicine Endocrinology, Diabetes & Metabolism | DX: D35.2 Benign neoplasm of pituitary gland (principal) | CPT/HCPCS: 36415; 82533 ==

== ENCOUNTER → 2023-10-10 | Outpatient (CLI) | payer BC, SELFPAY ==
[2023-10-10 08:12] LABS: PSA,Total - Annual Screen 1.58 ng/mL (0.00-4.00)
== END | disposition home or self-care (01) ==
LOC: LAB 06:56
PROVIDERS: PCP Internal Medicine; Referring Provider Internal Medicine; Visit Provider Internal Medicine
DX: Z12.5 Encounter for screening for malignant neoplasm of prostate (principal)
CPT/HCPCS: 36415; 84153; G0103

== ENCOUNTER → 2024-04-15 | Outpatient (CLI) | payer OTHER, SELFPAY ==
[2024-04-15 07:40] LABS: Hematocrit 42.3 % (40-54); Hemoglobin 13.9 g/dL (13.0-16.5); Mean Corp Hgb Conc 32.9 g/dL (32-36); Mean Corpuscular Hgb 28.6 pg (27.0-32.0); Mean Platelet Vol. 8.8 fl (6.2-12.0); Platelet Count 275 K/mm3 (150-450); RBC Distribution Width CV 13.1 % (11.6-14.6); RBC Distribution Width SD 41.7 fl (35.1-43.9); Red Blood Count 4.86 M/mm3 (4.6-6.2); White Blood Count 5.6 K/mm3 (4.4-11.0)
[2024-04-15 08:32] LABS: ALB/GLOB Ratio 1.2 RATIO (0.9-2.4); AST(SGOT) 22 U/L (15-37); Alanine Aminotransfer ALT/SGPT 27 U/L (16-61); Alkaline Phosphatase 56 U/L (45-117); Anion Gap 6 (5-15); BUN 26 mg/dL (7-18); Calcium,Total 8.8 mg/dL (8.5-10.1); Chloride 106 mmol/L (98-107); Creatinine, Serum 1.04 mg/dL (0.70-1.30); EST Glomerular Filtration Rate 77 mL/min (>60); Est Glom Filt Rate - Afr Amer 94 mL/min (>60); Globulin 3.4 g/dL (2.2-4.2); Glucose 94 mg/dL (74-106); Potassium 3.7 mmol/L (3.5-5.1); Protein, Total 7.4 g/dL (6.4-8.2); Sodium Level 135 mmol/L (136-145); Thyroid Stim Hormone (TSH) 1.21 uIU/mL (0.358-3.74)
[2024-04-16 15:08] LABS: Folate, Hemolysate Test > 620.0 ng/mL (Not Estab.); Folate, RBC (Hct) Test 42.4 % (37.5-51.0); Folates, RBC Test > 1462 ng/mL (>498)
== END | disposition home or self-care (01) ==
LOC: LAB 06:17
PROVIDERS: PCP Internal Medicine; Referring Provider Internal Medicine; Visit Provider Internal Medicine
DX: Z00.00 Encounter for general adult medical examination without abnormal findings (principal)
CPT/HCPCS: 36415; 80053; 82747; 84443; 85014; 85027

== ENCOUNTER → 2024-04-20 | Outpatient (CLI) | payer OTHER, SELFPAY ==
[2024-04-20 08:48] LABS: Cholesterol 184 mg/dL (200); High Density Lipoprotein 55 mg/dL; Triglycerides 148 mg/dL; Very Low Density Lipoprotein 30 mg/dL (5-40)
== END | disposition home or self-care (01) ==
LOC: LAB 06:14
PROVIDERS: PCP Internal Medicine; Referring Provider Internal Medicine; Visit Provider Internal Medicine
DX: E78.5 Hyperlipidemia, unspecified (principal)
CPT/HCPCS: 36415; 80061

== ENCOUNTER → 2024-06-04 | Outpatient (CLI) | payer OTHER, SELFPAY ==
[2024-06-04 07:36] LABS: ALB/GLOB Ratio 1.2 RATIO (0.9-2.4); AST(SGOT) 30 U/L (15-37); Alanine Aminotransfer ALT/SGPT 32 U/L (16-61); Albumin, Serum 4.1 g/dL (3.2-5.0); Alkaline Phosphatase 57 U/L (45-117); Anion Gap 7 (5-15); BUN 18 mg/dL (7-18); BUN/Creat Ratio 15.1 RATIO (10-20); Calcium,Total 9.2 mg/dL (8.5-10.1); Chloride 105 mmol/L (98-107); Cholesterol 175 mg/dL (200); Creatinine, Serum 1.19 mg/dL (0.70-1.30); EST Glomerular Filtration Rate 66 mL/min (>60); Est Glom Filt Rate - Afr Amer 80 mL/min (>60); Globulin 3.5 g/dL (2.2-4.2); Glucose 97 mg/dL (74-106); High Density Lipoprotein 54 mg/dL; Potassium 3.9 mmol/L (3.5-5.1); Protein, Total 7.6 g/dL (6.4-8.2); Sodium Level 137 mmol/L (136-145); T4 Free Direct 0.94 ng/dL (0.76-1.46); Thyroid Stim Hormone (TSH) 1.33 uIU/mL (0.358-3.74); Triglycerides 132 mg/dL; Very Low Density Lipoprotein 26 mg/dL (5-40)
[2024-06-04 14:10] LABS: Prolactin 13.5 ng/mL
[2024-06-09 11:10] LABS: Testosterone, % Free 2.44 % (1.50-4.20); Testosterone, Free 9.13 ng/dL (5.00-21.00); Testosterone, Total 374 ng/dL (264-916)
== END | disposition home or self-care (01) ==
PROVIDERS: PCP Internal Medicine; Referring Provider Internal Medicine Endocrinology, Diabetes & Metabolism; Visit Provider Internal Medicine Endocrinology, Diabetes & Metabolism
DX: D35.2 Benign neoplasm of pituitary gland (principal); E29.1 Testicular hypofunction; E78.2 Mixed hyperlipidemia
CPT/HCPCS: 36415; 80053; 80061; 82533; 84146; 84402; 84403; 84439; 84443

== ENCOUNTER → 2024-09-23 | Outpatient (CLI) | payer OTHER, SELFPAY ==
--- NOTE | 2024-09-23 07:25 | RAD_ITS ---
STUDY: X-RAY - ABDOMEN/PELVIS REASON FOR EXAM: Male, 59 years old. Sitz marker3 TECHNIQUE: Two AP supine views of the abdomen and pelvis. COMPARISON: None. FINDINGS: Sitz markers are in the ascending colon, ileocolic junction, distal transverse colon, and the proximal aspect of the descending colon. Moderate stool retention is present from the base of the cecum to the splenic flexure. Normal visualized lung bases. There is an unremarkable bowel gas pattern. Surgical clips are present in the right lower quadrant as well as the left and right upper abdominal regions. The visualized liver, spleen and kidneys are grossly normal in size and morphology. Normal soft tissue structures. There are diffuse degenerative changes of the visualized lumbar spine. RAD/Abdomen Single View IMPRESSION: 1. Sitz markers are in the ascending colon, ileocolic junction, distal transverse colon, and the proximal aspect of the descending colon. Moderate stool retention is present from the base of the cecum to the splenic flexure. Electronically Signed: Saleem Loya MD at 11:06 EDT ,
--- OUTSIDE RECORDS SUMMARY | 2024-09-23 07:37 | XMS RPT_ITS | CCD ---
Author Organization [facility] Care Team Providers Care Community Development Manager Name Role Phone KORABLEVA, BRODY B Unavailable Unavailable KORCANVA, BRODY B Unavailable Unavailable HILDA BRODY B Unavailable Unavailable CK KC Unavailable Unavailable PROVIDER, UNKNOWN Unavailable Unavailable PROVIDER, UNKNOWN Unavailable Unavailable FRANCISCO DOMINIQUE MD Unavailable Unavailable FRANCISCO DOMINIQUE MD Unavailable Unavailable FRANCISCO DOMINIQUE MD Unavailable Unavailable CK KC Unavailable Unavailable PROVIDER, UNKNOWN Unavailable Unavailable PROVIDER, UNKNOWN Unavailable Unavailable DAHLIAVA, BRODY B Unavailable Unavailable HILDA, BRODY B Unavailable Unavailable Ck Gale DO Primary Care Provider [phone] YAMINI CASAS, DR. CK Rene Attending Venessa KC DO, DR. CK Rene Primary Care DR. CK Byrne DO Attending Venessa KC DO, DR. CK Rene Primary Care Ck Calzada DO Primary Care Provider [phone] Ck Gale DO Primary Care Provider [phone] CK GALE Primary Care Unavailable MISBAH CRAWFORD Attending Unavailable CK GALE Primary Care Unavailable ENRIQUETA STANLEY Attending Unavailable CK GALE Primary Care Unavailable MADIE APODACA Referring Unavailable Allergies Allergy Classification Reported Allergen(s) Allergy Type Date of Onset Reaction(s) Facility HMG-CoA Reductase Inhibitors (statins) (1 source) atorvastatin Drug Allergy 08-18-2019 Myalgia [facility] (16 sources) atorvastatin; Translations: [ATORVASTATIN] Drug Allergy 08-18-2019 Myalgia [facility] Work Phone: Medications Current Medications Medication Drug Class(es) Dates Sig (Normalized) Sig (Original) ALPRAZolam 0.5 mg oral tablet (9 sources) Benzodiazepine Start: 01-20-2022 take 1 tablet by mouth every twelve hours as needed ALPRAZolam (XANAX) 0.5 mg tablet Take 0.5 mg by mouth twice daily as needed. 0 01/20/2022 Active Comment on above: Take 0.5 mg by mouth twice daily as needed. amLODIPine 10 mg / benazepril hydrochloride 20 mg oral capsule (11 sources) Dihydropyridine Calcium Channel Ariel, Angiotensin Converting Enzyme Inhibitor Start: 08-28-2020 take 1 capsule by mouth once daily in the evening amLODIPine-benazep ril (LOTREL) 10-20 mg per capsule Take 1 capsule by mouth every evening. 0 08/28/2020 Active Comment on above: Take 1 capsule by mo ut every evening. aspirin 81 mg oral tablet (11 sources) Platelet Aggregation Inhibitor, Nonsteroidal Anti-inflammatory Drug take 81 mg by mouth once daily BABY ASPIRIN ORAL Take 81 mg by mouth once daily. 0 Active Comment on above: Take 81 mg by mouth once daily. calcium polycarbophil (9 sources) calcium polycarbophil (FIBERCON ORAL) Take by mouth once daily. 0 Active Comment on above: Take by mouth once d aily. cholecalciferol 0.05 mg oral capsule (11 sources) Vitamin D take 1 capsule by mouth once daily Cholecalciferol, Vitamin D3, 50 mcg (2,000 unit) cap Take 2,000 Units by mouth once daily. 0 Active Comment on above: Take 2,000 Units by mouth once daily. DULoxetine 30 mg delayed release oral capsule (12 sources) Serotonin and Norepinephrine Reuptake Inhibitor Start: 04-28-2022 take 1 capsule by mouth once daily DULoxetine (CYMBALTA) 30 mg capsule Take 30 mg by mouth once daily. 0 04/28/2022 Active Start: 08-28-2020 End: 05-01-2022 take 1 capsule by mouth once daily in the evening DULoxetine (CYMBALTA) 20 mg capsule Take 1 capsule by mouth every evening. 0 08/28/2020 05/01/2022 Discontinued (Other) Comment on above: Take 1 capsule by mo uth every evening. 30 mg once daily. famotidine 20 mg oral tablet (9 sources) Histamine-2 Receptor Antagonist famotidine (PEPCID) 20 mg tablet Take 20 mg by mouth as needed. 0 Active Comment on above: Take 20 mg by mouth as needed. linseed oil 1000 mg oral capsule (11 sources) take 1 capsule by mouth once daily Flaxseed Oil 1,000 mg cap Take 1,000 mg by mouth once daily. 0 Active Comment on above: Take 1,000 mg by bruce th once daily. MULTIVITAMIN ORAL (9 sources) Start: 9 MULTIVITAMIN ORAL Take by mouth once daily. 0 07/26/2009 Active Comment on above: Take by mouth once d aily. pravastatin sodium 80 mg oral tablet (11 sources) HMG-CoA Reductase Inhibitor Start: 0 take 1 tablet by mouth once daily in the evening pravastatin (PRAVACHOL) 80 mg tablet Take 1 tablet by mouth every evening. 0 08/28/2020 Active Comment on above: Take 1 tablet by bruce th every evening. traZODone hydrochloride 50 mg oral tablet (11 sources) Serotonin Reuptake Inhibitor traZODone (DESYREL) 50 mg tablet Take 75 mg by mouth daily at bedtime. 0 Active Comment on above: Take 75 mg by mouth daily at bedtime. Completed/Discontinued Medications Medication Drug Class(es) Dates Sig (Normalized) Sig (Original) bisacodyl 5 mg delayed release oral tablet (3 sources) Stimulant Laxative Start: 06-28-2021 End: 05-01-2022 Bisacodyl (DULCOLAX) 5 mg tab Indications: Gastroesophageal reflux disease, unspecified whether esophagitis present , Constipation, unspecified constipation type , History of colonic polyps Use as directed for Miralax / Gatorade Bowel Prep Kit 4 tablet 0 06/28/2021 05/01/2022 Discontinued (Other) Comment on above: Use as directed for Miralax / Gatorade Bowel Prep Kit esomeprazole 20 mg delayed release oral capsule (3 sources) Proton Pump Inhibitor End: 05-01-2022 take 1 capsule by mouth once daily as needed esomeprazole (NEXIUM) 20 mg capsule Take 20 mg by mouth once daily as needed. 0 05/01/2022 Discontinued (Other) Comment on above: Take 20 mg by mouth once daily as needed. Gatorade Sports Drink (3 sources) Start: 06-28-2021 End: 05-01-2022 Gatorade Sports Drink Indications: Gastroesophageal reflux disease, unspecified whether esophagitis present , Constipation, unspecified constipation type , History of colonic polyps Use as directed for Miralax / Gatorade Bowel Prep Kit 64 oz 0 06/28/2021 05/01/2022 Discontinued (Other) Comment on above: Use as directed for Miralax / Gatorade Bowel Prep Kit Magnesium Sulfate / potassium sulfate / sodium sulfate (3 sources) Start: 06-28-2021 End: 05-01-2022 sodium sulfate-potassium sulfate-magnesium sulfate (SUPREP BOWEL PREP KIT) 17.5-3.13-1.6 gram oral liquid Indications: Gastroesophageal reflux disease, unspecified whether esophagitis present , Constipation, unspecified constipation type , History of colonic polyps Refer to instructions given by your provider. 1 Kit 0 06/28/2021 05/01/2022 Discontinued (Other) Comment on above: Refer to instruction s given by your provider. polyethylene glycol 3350 76946 mg powder for oral solution (8 sources) Osmotic Laxative Start: 06-28-2021 End: 05-10-2024 polyethylene glycol 3350 (MIRALAX, GLYCOLAX) 17 gram/dose powder Indications: Gastroesophageal reflux disease, unspecified whether esophagitis present , Constipation, unspecified constipation type , History of colonic polyps Use as directed for Miralax / Gatorade Bowel Prep Kit 238 g 0 06/28/2021 05/10/2024 Discontinued (Other) Comment on above: Use as directed for Miralax / Gatorade Bowel Prep Kit Problems Active Problems Problem Classification Problem Date Documented Da te Episodic/Chronic Disorders of lipid metabolism (17 sources) Mixed hyperlipidemia; Translations: [Mixed hyperlipidemia] Onset: 08-19-2019 04-25-2022 Chronic Essential hypertension (20 sources) Benign essential hypertension; Translations: [Essential (primary) hypertension] Onset: 08-19-2019 Resolved: 04-25-2022 Chronic Mood disorders (14 sources) Depressive disorder; Translations: [Depression] Onset: 08-19-2019 08-19-2019 Chronic Other and unspecified benign neoplasm (3 sources) Pituitary adenoma; Translations: [Benign neoplasm of pituitary gland] Episodic Other and unspecified benign neoplasm (1 source) Benign neoplasm of pituitary gland; Translations: [Pituitary adenoma (HCC)] Onset: 05-31-2024 Episodic Other screening for suspected conditions (not mental disorders or infectious disease) (2 sources) Encounter for screening for malignant neoplasm of prostate; Translations: [Encounter for screening for malignant neoplasm of prostate] Onset: 10-23-2022 Episodic Residual codes; unclassified (1 source) Never smoked tobacco; Translations: [Other specified health status] 05-08-2024 Episodic Residual codes; unclassified (1 source) Other specified health status; Translations: [Never smoked cigarettes] Onset: 05-10-2024 Episodic Unclassified (1 source) Unknown / UNK(Unknown) Onset: 07-06-2018 Past or Other Problems Problem Classification Problem Date Documented Date Episodic/Chronic Blindness and vision defects (14 sources) Unspecified amblyopia, right eye; Translations: [Amblyopia, unspecified] Onset: 1965 08-19-2019 Episodic Diseases of mouth; excluding dental (14 sources) Lesion of salivary gland; Translations: [Disease of salivary gland, unspecified] Onset: 08-23-2020 08-23-2020 Episodic Neoplasms of unspecified nature or uncertain behavior (15 sources) Neoplasm of pituitary gland; Translations: [Neoplasm of unspecified behavior of endocrine glands and other parts of nervous system] Onset: 07-26-2019 08-19-2019 Episodic Nonspecific chest pain (14 sources) Chest pain; Translations: [Chest pain, unspecified] Onset: 04-18-2020 04-18-2020 Episodic Other connective tissue disease (3 sources) Adhesive capsulitis of left shoulder; Translations: [Adhesive capsulitis of left shoulder] Onset: 10-09-2017 Episodic Residual codes; unclassified (16 sources) History of cardiac catheterization; Translations: [Other specified postprocedural states] Onset: 01-18-2010 04-25-2022 Episodic Residual codes; unclassified (16 sources) Past history of procedure; Translations: [Personal history of other medical treatment] Onset: 02-05-2010 04-25-2022 Episodic Residual codes; unclassified (15 sources) Non-smoker; Translations: [Other specified health status] Onset: 04-30-2022 04-30-2022 Episodic Residual codes; unclassified (1 source) Other specified postprocedural states; Translations: [History of cardiac cath] Onset: 04-25-2022 Episodic Residual codes; unclassified (1 source) Personal history of other medical treatment; Translations: [History of stress test] Onset: 04-25-2022 Episodic Unclassified (1 source) 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 Palm. Is he concerned about growth? Patient requesting return call ? Yes Enriqueta Stanley APRN.[facility] 07/05/2024 1:29 PM Signed Reviewed case with Dr. Apodaca who states growth is so minimalover 2yr. At this rate of growth, hewould expect it would take >10yr more likely 15-20yr to reach his eye nerves and start causing any symptoms also offered GK.Patient wishes to continue with observation and will get new MRI in two years. Enriqueta Stanley APRN.[facility] Allergies As of Date: 07/05/2024 Noted Allergy Reaction ATORVASTATIN 08/18/2019 17 - Myalgia Date Reviewed: 05/10/2024 Reviewed by: Angi Carbajal Tech - Fully Assessed Reason for Visit: Patient Question [2127] Prescriptions as of 07/05/2024 - ALPRAZolam (XANAX) 0.5 mg tablet Take 0.5 mg by mouth twice daily as needed. - DULoxetine (CYMBALTA) 30 mg capsule Take 30 mg by mouth once daily. - MULTIVITAMIN ORAL Take by mouth once daily. - calcium polycarbophil (FIBERCON ORAL) Take by mouth once daily. - famotidine (PEPCID) 20 mg tablet Take 20 mg by mouth as needed. - pravastatin (PRAVACHOL) 80 mg tablet Take 1 tablet by mouth every evening. - amLODIPine-benazepril (LOTREL) 10-20 mg per capsule Take 1 capsule by mouth every evening. - traZODone (DESYREL) 50 mg tablet Take 75 mg by mouth daily at bedtime. - BABY ASPIRIN ORAL Take 81 mg by mouth once daily. - Cholecalciferol, Vitamin D3, 50 mcg (2,000 unit) cap Take 2,000 Units by mouth once daily. - Flaxseed Oil 1,000 mg cap Take 1,000 mg by mouth once daily. Problem List As Of Date 07/05/2024 Noted Resolved Pituitary tumor [D49.7] 07/26/2019 Hypertension [I10] 08/19/2019 04/25/2022 Mixed hyperlipidemia [E78.2] 08/19/2019 Depression [F32.A] 08/19/2019 Amblyopia ex anopsia of right eye [H53.001] 1965 Chest pain in adult [R07.9] 04/18/2020 Essential hypertension, benign [I10] 04/18/2020 Lesion of parotid gland [K11.9] 08/23/2020 History of cardiac cath [Z98.890] 01/18/2010 History of stress test [Z92.89] 02/05/2010 Non-smoker [Z78.9] 04/30/2022 Encounter Status:Closed by ENRIQUETA STANLEY on 07/05/24 Normal [facility] MR Pituitary and Sella turci ca WO and W contrast Grady 05-31-2024 IMPRESSION: Slight interval increase in volume of enhancing soft tissue within the lateral aspects of the sella bilaterally following transsphenoidal hypophysectomy, compatible with residual/recurrent adenoma. No substantial suprasellar extension or mass effect on the optic chiasm, however there is likely mild invasion of the cavernous sinuses bilaterally. Fur Mixer Operator: PSCB Transcribe Date/Time: May 31 2024 9:25A Dictated by : HE HERNANDEZ MD This examination was interpreted and the report reviewed and electronically signed by: HE HERNANDEZ MD on May 31 2024 9:36AM [facility] DIVISION OF RADIOLOGY * * *Final Report* * * DATE OF EXAM: May 31 2024 8:57AM [facility] 0314 - MRI PITUITARY WO/W IVCON / PROCEDURE REASON: Pituitary adenoma (HCC) * * * * Physician Interpretation * * * * EXAMINATION: MRI PITUITARY WO/W IVCON CLINICAL HISTORY: Pituitary adenoma TECHNIQUE: High resolution sagittal and coronal T1, coronal T2, and gadolinium enhanced, fat-suppressed sagittal and coronal T1-weighted images of the pituitary region. Contrast: 10 mL Dotarem IV COMPARISON: MRI 05/22/2022 RESULT: Adenohypophysis: Postsurgical changes of transsphenoidal hypophysectomy and partial resection of pituitary adenoma. Slight interval increase in volume of enhancing soft tissue within lateral aspects of the sella bilaterally measuring up to 12 mm in greatest craniocaudal dimension in the left aspect of the sella. Neurohypophysis: Not well evaluated. Suprasellar Region: No evidence of a suprasellar mass. The optic apparatus is normal in appearance. Cavernous Sinuses: Similar insinuation of the aforementioned enhancing sellar soft tissue into the cavernous sinuses bilaterally extending at least to the median intercarotid line without evidence of circumferential encasement of the cavernous ICAs. Brain Parenchyma: The overlying hypothalamus is normal in appearance. The visualized parenchyma is otherwise normal in signal intensity and morphology. Skull Base: No evidence of a marrow replacement process in the underlying skull base. DIVISION OF RADIOLOGY Provider, [facility] - 05/31/2024 * * *Final Report* * * DATE OF EXAM: May 31 2024 8:57AM [facility] 0314 - MRI PITUITARY WO/W IVCON / PROCEDURE REASON: Pituitary adenoma (HCC) * * * * Physician Interpretation * * * * EXAMINATION: MRI PITUITARY WO/W IVCON CLINICAL HISTORY: Pituitary adenoma TECHNIQUE: High resolution sagittal and coronal T1, coronal T2, and gadolinium enhanced, fat-suppressed sagittal and coronal T1-weighted images of the pituitary region. Contrast: 10 mL Dotarem IV COMPARISON: MRI 05/22/2022 RESULT: Adenohypophysis: Postsurgical changes of transsphenoidal hypophysectomy and partial resection of pituitary adenoma. Slight interval increase in volume of enhancing soft tissue within lateral aspects of the sella bilaterally measuring up to 12 mm in greatest craniocaudal dimension in the left aspect of the sella. Neurohypophysis: Not well evaluated. Suprasellar Region: No evidence of a suprasellar mass. The optic apparatus is normal in appearance. Cavernous Sinuses: Similar insinuation of the aforementioned enhancing sellar soft tissue into the cavernous sinuses bilaterally extending at least to the median intercarotid line without evidence of circumferential encasement of the cavernous ICAs. Brain Parenchyma: The overlying hypothalamus is normal in appearance. The visualized parenchyma is otherwise normal in signal intensity and morphology. Skull Base: No evidence of a marrow replacement process in the underlying skull base. IMPRESSION IMPRESSION: Slight interval increase in volume of enhancing soft tissue within the lateral aspects of the sella bilaterally following transsphenoidal hypophysectomy, compatible with residual/recurrent adenoma. No substantial suprasellar extension or mass effect on the optic chiasm, however there is likely mild invasion of the cavernous sinuses bilaterally. Fur Mixer Operator: DEVONTE Transcribe Date/Time: May 31 2024 9:25A Dictated by : HE HERNANDEZ MD This examination was interpreted and the report reviewed and electronically signed by: HE HERNANDEZ MD on May 31 2024 9:36AM EST [facility] Radiology Study observation (narrative) [facility] MR Pituitary and Sella turci ca WO and W contrast IVOrdered By: [facility] Provider on 05-31-2024 [facility] MRI PITUITARY WO/W IVCONon 0 05-31-2024 MRI PITUITARY WO/W IVCON * * *Final Report* * * DATE OF EXAM: May 31 2024 8:57AM [facility] 0314 - MRI PITUITARY WO/W IVCON / PROCEDURE REASON: Pituitary adenoma (HCC) * * * * Physician Interpretation * * * * EXAMINATION: MRI PITUITARY WO/W IVCON CLINICAL HISTORY: Pituitary adenoma TECHNIQUE: High resolution sagittal and coronal T1, coronal T2, and gadolinium enhanced, fat-suppressed sagittal and coronal T1-weighted images of the pituitary region. Contrast: 10 mL Dotarem IV COMPARISON: MRI 05/22/2022 RESULT: Adenohypophysis: Postsurgical changes of transsphenoidal hypophysectomy and partial resection of pituitary adenoma. Slight interval increase in volume of enhancing soft tissue within lateral aspects of the sella bilaterally measuring up to 12 mm in greatest craniocaudal dimension in the left aspect of the sella. Neurohypophysis: Not well evaluated. Suprasellar Region: No evidence of a suprasellar mass. The optic apparatus is normal in appearance. Cavernous Sinuses: Similar insinuation of the aforementioned enhancing sellar soft tissue into the cavernous sinuses bilaterally extending at least to the median intercarotid line without evidence of circumferential encasement of the cavernous ICAs. Brain Parenchyma: The overlying hypothalamus is normal in appearance. The visualized parenchyma is otherwise normal in signal intensity and morphology. Skull Base: No evidence of a marrow replacement process in the underlying skull base. IMPRESSION: Slight interval increase in volume of enhancing soft tissue within the lateral aspects of the sella bilaterally following transsphenoidal hypophysectomy, compatible with residual/recurrent adenoma. No substantial suprasellar extension or mass effect on the optic chiasm, however there is likely mild invasion of the cavernous sinuses bilaterally. Fur Mixer Operator: [facility] Transcribe Date/Time: May 31 2024 9:25A Dictated by : HE HERNANDEZ MD This examination was interpreted and the report reviewed and electronically signed by: HE HERNANDEZ MD on May 31 2024 9:36AM EST [id number] Normal [facility] CNOVon 05-10-2024 CNOV Office Visit ([facility] ) -- CARLOS BACON ([id number]) 1965 M Date Time Provider Department 05/10/24 7:40 AM MISBAH CRAWFORD During your visit today, we recorded the following information about you: Pulse Blood pressure Weight Height 72/minute 130/88 105.7 kg 1.854 m Misbah Crawford APRN.NURSING HOME ASSISTANT ADMINISTRATOR 05/10/2024 8:48 AM Signed [facility] Department of Cardiology Referring Provider: No ref. provider found Date: May 10, 2024 Chief Complaint: Hypertension Subjective: Carlos Bacon is a 59 year old male who presents established patient for hypertension and hyperlipidemia assessment management. Patient denies any headaches, dizziness, syncope or near syncopal episodes. Patient has had no chest pain, palpitations, PND, or orthopnea. ALLERGIES Allergen Reactions Atorvastatin Myalgia PAST MEDICAL HISTORY: PAST MEDICAL HISTORY Diagnosis Date Amblyopia of eye, right Depression GERD (gastroesophageal reflux disease) History of cardiac cath 01/18/2010 normal L ventricular function normal L ventricular hemodynamics normal coronary cineangiography History of stress test 02/05/2010 small anteroapical scar no reversible ischemia small inferior wall scar no reversible ischemia evidence of R ventricular strain suggesting elevated R ventricular pressures normal wall motion EF 55% History of stress test 05/03/2020 no evidence of reversible ischemia or infarction EF 59% Hyperlipidemia Hypertension Poor vision Right eye PAST SURGICAL HISTORY Procedure Laterality Date HYPOPHYSECTOMY-TRANSPHEN APROACH W/PIT KATHY 01/2002 PAST SURGICAL HISTORY OF 08/2020 benign tumor removed from L cheek TONSILLECTOMY AND ADENOIDECTOMY HX FAMILY HISTORY Problem Relation Age of Onset Hypertension Mother Migraines Father Coronary Artery Disease Father other ([place] in 50's) Father SOCIAL HISTORY: Tobacco Use: Never Alcohol Use: Approximately .78 oz/week [which includes 1 Mixed Drinks per week] (OCCATIONALLY) Drug Use: Never Employer And Job Title: None on file Years Of Education Completed: Not specified Marital Status: MEDICATIONS: Current Outpatient Medications Medication Sig ALPRAZolam (XANAX) 0.5 mg tablet Take 0.5 mg by mouth twice daily as needed. DULoxetine (CYMBALTA) 30 mg capsule Take 30 mg by mouth once daily. MULTIVITAMIN ORAL Take by mouth once daily. calcium polycarbophil (FIBERCON ORAL) Take by mouth once daily. famotidine (PEPCID) 20 mg tablet Take 20 mg by mouth as needed. pravastatin (PRAVACHOL) 80 mg tablet Take 1 tablet by mouth every evening. amLODIPine-benazepril (LOTREL) 10-20 mg per capsule Take 1 capsule by mouth every evening. traZODone (DESYREL) 50 mg tablet Take 75 mg by mouth daily at bedtime. Cholecalciferol, Vitamin D3, 50 mcg (2,000 unit) cap Take 2,000 Units by mouth once daily. Flaxseed Oil 1,000 mg cap Take 1,000 mg by mouth once daily. polyethylene glycol 3350 (MIRALAX, GLYCOLAX) 17 gram/dose powder Use as directed for Miralax / Gatorade Bowel Prep Kit BABY ASPIRIN ORAL Take 81 mg by mouth once daily. (Patient not taking: Reported on 05/10/2024) No current facility-administered medications for this visit. I have personally reviewed the patients past medical history including social, family, surgical, diagnostics, and medications./AB REVIEW OF SYSTEMS: Review of Systems Constitutional: Negative for chills and fatigue. Respiratory: Negative for chest tightness and shortness of breath. Cardiovascular: Negative for chest pain, palpitations and leg swelling. Neurological: Positive for dizziness. Negative for syncope, weakness and light-headedness. Hematological: Does not bruise/bleed easily. Psychiatric/Behavioral: Negative for confusion and hallucinations. Vitals: BP 130/88 (BP Site: Left Arm, BP Position: Sitting) Pulse 72 Ht 185.4 cm (6' 1 ) Wt 105.7 kg (233 lb 0.4 oz) BMI 30.74 kg/m? PHYSICAL EXAMINATION: BP 130/88 (BP Site: Left Arm, BP Position: Sitting) Pulse 72 Ht 185.4 cm (6' 1 ) Wt 105.7 kg (233 lb 0.4 oz) BMI 30.74 kg/m? Last 3 Encounter BP Readings: Date: BP: 05/07/2023 142/84 05/01/2022 132/84 04/23/2021 122/82 Last 3 Encounter Pulse Readings: Date: Pulse: 05/07/2023 62 05/01/2022 73 04/23/2021 72 Last 3 Encounter Wt Readings: Date: Wt: 05/07/2023 103.9 kg (229 lb 1.3 oz) 05/01/2022 102.1 kg (225 lb) 08/09/2021 101.2 kg (223 lb) Physical Exam Vitals reviewed. Constitutional: General: He is not in acute distress. Appearance: Normal appearance. He is not ill-appearing or diaphoretic. HENT: Head: Normocephalic. Right Ear: External ear normal. Left Ear: External ear normal. Nose: Nose normal. Mouth/Throat: Mouth: Mucous membranes are moist. Eyes: Extraocular Movements: Extraocular movements intact. Cardiovascular: Rate and Rhythm: Normal rate and regul (more content not included)... Normal [facility] ECG COMPLETEon 05-10-2024 ECG COMPLETE Ventricular Rate : 7 2 BPM Atrial Rate : 72 BPM P-R Interval : 180 ms QRS Duration : 108 ms Q-T Interval : 400 ms QTC Calculation(Bazett) : 438 ms Calculated P Perry : 41 degrees Calculated R Perry : -33 degrees Calculated T Perry : 15 degrees Normal sinus rhythm Left axis deviation Nonspecific ST abnormality Confirmed by LEW GUNTER DO ([id number]) on 05/14/2024 5:15:18 AM NAME : CARLOS BACON PID : [id number] : 1965 Gender : Male Race : ORD : [id number] Procedure Date : May 10 2024 07:53:21 Edit Date : May 14 2024 05:15:22 Diagnosis: Normal sinus rhythm Left axis deviation Nonspecific ST abnormality Confirmed by LEW GUNTER DO ([id number]) on 05/14/2024 5:15:18 AM Test Reason : HCS Location : 2 : [facility] Overread By : LEW GUNTER DO Edited By : LEW GUNTER DO Referred By : , Acquired by : , [facility] PSAon 10-23-2022 Prostate Specific Antigen 1.75 ng/mL Normal 0.00-4.00 [facility] ([place]) Comment on above: Performed By: #### P #### [address] [address] MRI PITUITARY WO/W IVCONon 0 05-22-2022 [facility] SURGICALon 07-25-2021 SURGICAL ANTRUM - GE JUNCTION - COLON BIOPSY 35 CM - POLYP FINAL DIAGNOSIS: A. GASTRIC MUCOSAL, BIOPSY: MINIMAL CHRONIC INFLAMMATION. NO HELICOBACTER-LIKE ORGANISM IS IDENTIFIED. B. GE JUNCTION, BIOPSY: BENIGN ESOPHAGEAL SQUAMOUS MUCOSA AND ADJACENT GASTRIC MUCOSA WITH A MILD CHRONIC GASTRITIS. NO SPECIALIZED INTESTINAL (GOBLET CELL) METAPLASIA. C. COLON, POLYP AT 35 CM: COLONIC MUCOSAL BENIGN TUBULAR ADENOMATOUS CHANGE. Dictated by: [facility] UP D.O MICROSCOPIC DESCRIPTION: Slide(s) reviewed. [facility] 07/27/2021 GROSS DESCRIPTION: Specimen received in three appropriately labeled containers. A. The first is antrum biopsy. Specimen consists of one portion of boswell tissue, 2 mm in diameter. (1,ns). B. Next specimen is designated GE junction biopsy. Specimen consists of one portion of boswell tissue, 2 mm in diameter. (1,ns) C. Colon polyp at 35 cm. Specimen consists of one portion of boswell tissue, 3 mm in diameter. (1,ns) [facility] 07/26/2021 CLINICAL DATA: PROCEDURE: EGD/Colonoscopy - A. Antrum biopsy, B. GE junction biopsy, C. Colon polyp at 35 cm PRE-OP: Heartburn, constipation, colon polyps POST-OP: Same, esophagitis, mild gastritis, diverticulosis HISTORY: N/A Signed *Electronically Signed* [facility] UP D.O 07/27/21 1306 [facility] Comment on above: Performed By: #### P -S #### ML - [facility] [address] [place] [address] CARD.[facility] 05-03-2020 CARD.[facility] Patient Name: CARLOS BACON [address] Date of : [address] [address] Unit Number: [id number] Stress Test (EKG) Patient Status: REG CLI Attending Doctor: Lew Gunter DO Service Date: 05/03/20 1219 Stress Test EKG Study Date: 05/03/20 Allergies: Coded Allergies: LOVASTATIN (MUSCLE ACHES 04/25/20) Summary: Stress test EKG portion report: Reason for study: chest pain, hypertension, hyperlipidemia, family history of premature CAD. Stress Protocol: Standard Bernardo Tread mill stress: Total exercise time 9: 00 minutes and achieved 10.10 METS. Reason for termination of test: Fatigue. No chest pain noted Rest: Heart rate 66 bpm. Blood pressure 137/71 mm of Hg EKG: NSR 68 bpm with incomplete right bundle branch block without significant ST-T abnormalities Stress: Peak heart rate 142 bpm, 86 % MPHR, Peak blood pressure 140/80 mm of Hg EKG: sinus rhythm without any significant ST-T abnormalities to suggest ischemia. No any significant cardiac arrthymias were noted. Radiopharmaceutical was injected 1 minute prior to termination of stress test. Impression: 1. Average exercise tolerance. 2. Blunted blood pressure hemodynamic response to exercise. 3. No Chest pain during treadmill stress. 4. EKG is not suggestive of stress induced ischemia. 5. Please see separate report of nuclear stress test portion. Disclaimer This dictation was created using voice recognition software. Phonetic and/or minor grammatical errors may exist. eSign Date and Time Alonzo Urbina MD Verified/Reviewed by 05/03/20 [facility] Stress Test (EKG) [facility] CARD.[facility] 05-03-2020 CARD.[facility] Patient Name: CARLOS BACON [address] Date of : [address] [address] Unit Number: [id number] Stress Test (Nuclear) Patient Status: REG CLI Attending Doctor: Lew Gunter DO Service Date: 05/03/20 1222 Stress Test Nuclear Imaging Study Date: 05/03/20 Allergies: Coded Allergies: LOVASTATIN (MUSCLE ACHES 04/25/20) Summary: Nuclear Stress Myocardial Perfusion Report: Reason for study: Chest pain, hypertension, hyperlipidemia, family history of premature CAD. Stress test data: Standard Bernardo protocol with adequate heart rate response, workload achieved 10.10 METS Radionuclide data: Rest 12.3 mCi, Tc99m, Myoview IV. Stress 33.1 mCi, Tc99m, Myoview IV. Single day protocol, [employer] low dose rest and high dose stress SPECT images were acquired after appropriate delay post rest and stress separately. Stress SPECT images were acquired in supine position. SPECT images were constructed and reoriented in short, vertical and horizontal tomography views. EKG gating was done for construction of gated SPECT for calculation of LVEF. Analysis of data: At the time of stress SPECT reveals normal myocardial perfusion in all segments of the left ventricle. At rest SPECT shows no significant change from Stress SPECT. Computer generated myocardial perfusion quantification map correlates with SPECT findings. Total perfusion defect is 3 % at stress and 0 % at rest. Gated SPECT shows normal size left ventricle with normal wall motion and contractility with LVEF 64 % post stress and 59 % at post rest. Transient ischemic index is 0.84 and lung heart ratio is 0.35. Rotating planar images reveal no significant motion artifact. Mild diaphragmatic attenuation artifact is noted. Conclusion: 1. Normal study 2. No evidence of reversible ischemia or prior myocardial infarction. 3. Normal Left ventricle ejection fraction. 4. Test predicts low probability of obstructive coronary artery disease. Disclaimer This dictation was created using voice recognition software. Phonetic and/or minor grammatical errors may exist. eSign Date and Time Alonzo Urbina MD Verified/Reviewed by 05/03/20 1224 Normal [facility] Stress Test (Nuclear) Normal [facility] MRI BRAIN W/WO CONTRASTon MRI BRAIN W/WO CONTRAST [place] [address]Name: CARLOS BACON DPhys: BRODY STEVENS M.D.: 63 Age: 53 Sex: MAcct: [id number] Loc: RAD MRIExam Date: 07/06/18 Status: REG CLIRadiology No.: [id number] Number: [id number] # [id number] MRI / MRI BRAIN W/WO CONTRASTPROCEDURE:MAGNETIC RESONANCE IMAGING OF THE BRAIN:HISTORY: Benign neoplasm of the pituitary gland, prior surgical resection.Followup exam..TECHNIQUE: Multiplanar, multiphasic MRI of the brain without contrast wasperformed.COMPARISON: 08/02/2011 and 07/05/2009 MRI brain and pituitary..FINDINGS:Residu al enhancing tissue in the posterior aspect of the sella hassignificantly increased in size compared to the prior study, it measuresapproximately 2.2 x 0.8 x 0.8 cm in transverse by AP by craniocaudaldimensions on today's exam, it measured approximately 1.8 x 0.6 x 0.5 cm onthe prior study, there is now a 5 mm cystic component in the left aspect ofthe lesion. The lesion does not appear to infiltrate or encase the carotidarteries.Pituitary stalk is in the midline. Optic chiasm is unremarkable.There is no restricted diffusion. No intracranial hemmorhage. No intra orextra-axial fluid collections. The major intracranial flow voids arepreserved. The ventricles and sulci are normal in size and configuration.The brain stem, thalami and basal ganglia are normal. No mass effect ormidline shift. The sellar, pineal gland and cerebellopontine angle regionsare free of abnormality otherwise. The mastoids, paranasal sinuses and orbitsare unremarkable in appearance.IMPRESSION:Inte rval increase in the size of the posterior pituitary lesion compared tothe prior study, there is now a small cystic component on the left, this isconsistent with new or recurrence of the pituitary neoplasmProfessional interpretation provided by [facility]60.Thank you for this referral.< >Reported By: CK BARAHONA M.D.Signed In NovaPro By: CK BARAHONA M.D. << Signature on File>> Reported By: CK BARAHONA M.D. Signed By: CK BARAHONA M.D.Tests performed at:[address] [phone] Normal [facility] CMPon 07-03-2018 A:G RATIO 1.81 Normal 1.1-2.5 [facility] Comment on above: Performed By: #### L 100.0005, L100.0040, L304.0140, L304.0155, L304.0295, L304.0162, L304.0480 ####ML - [facility] HJPNLXOPTH455 [place] [address] Albumin mass conc 4.9 g/dL Normal 3.5-5.2 [facility] Comment on above: Performed By: #### L 100.0005, L100.0040, L304.0140, L304.0155, L304.0295, L304.0162, L304.0480 ####[facility] SNPLVTLNER058 [place] [address] ALK. PHOS 61 U/L Normal 40-130 [facility] Comment on above: Performed By: #### L 100.0005, L100.0040, L304.0140, L304.0155, L304.0295, L304.0162, L304.0480 ####[facility] [address] [place] [address] ALT enzyme act/vol 13 U/L Normal 5-41 [facility] Comment on above: Performed By: #### L 100.0005, L100.0040, L304.0140, L304.0155, L304.0295, L304.0162, L304.0480 ####[facility] FETSGRZMJJ090 [place] [address] Anion gap 3 molar conc 19.0 mmol/L Normal 15-22 [facility] Comment on above: Performed By: #### L 100.0005, L100.0040, L304.0140, L304.0155, L304.0295, L304.0162, L304.0480 ####[facility] KWXHRUFTOJ694 [place] [address] AST enzyme act/vol 17 U/L Normal 5-40 [facility] Comment on above: Performed By: #### L 100.0005, L100.0040, L304.0140, L304.0155, L304.0295, L304.0162, L304.0480 ####[facility] DWWQLJEDWR167 [place] [address] Bilirubin Ql (U) 1.5 mg/dL High 0.2-1.2 [facility] Comment on above: Performed By: #### L 100.0005, L100.0040, L304.0140, L304.0155, L304.0295, L304.0162, L304.0480 ####[facility] VOXUSNKFXT022 [place] [address] Calcium mass conc 9.8 mg/dL Normal 8.6-10.0 [facility] Comment on above: Performed By: #### L 100.0005, L100.0040, L304.0140, L304.0155, L304.0295, L304.0162, L304.0480 ####[facility] MECGEKJKQK463 [place] [address] Chloride molar conc 102 mmol/L Normal 98-107 [facility] Comment on above: Performed By: #### L 100.0005, L100.0040, L304.0140, L304.0155, L304.0295, L304.0162, L304.0480 ####[facility] [address] [place] [address] Creatinine mass conc 1.00 mg/dL Normal 0.70-1.20 [facility] Comment on above: Performed By: #### L 100.0005, L100.0040, L304.0140, L304.0155, L304.0295, L304.0162, L304.0480 ####[facility] DAZNGKLXCD899 [place] [address] eGFR if AFR MAGGIE > 60 ml/min/1.73m2 Normal [facility] Comment on above: Result Comment: eGFR >= 60 Indicates normal kidney function. * eGFR IS AN ESTIMATE * (AFR MAGGIE = ) (non-AFR AM = NON-) _ MDRD calculation used in the eGFR should not be used to dose medications. For further limitations of the eGFR please refer to the Physician Website or the National Kidney Disease Education Program website (www.nkdep.nih.gov). Performed By: #### L 100.0005, L100.0040, L304.0140, L304.0155, L304.0295, L304.0162, L304.0480 ####[facility] ZLCWWPNNKZ205 [place] [address] eGFR nonAFR Maggie > 60 ml/Min/1.73m2 Normal U [facility] Comment on above: Performed By: #### L 100.0005, L100.0040, L304.0140, L304.0155, L304.0295, L304.0162, L304.0480 ####[facility] [address]ALV[address] [place] [address] Globulin Calculated mass conc (S) 2.7 g/dL Normal 1.5-4.5 [facility] Comment on above: Performed By: #### L 100.0005, L100.0040, L304.0140, L304.0155, L304.0295, L304.0162, L304.0480 ####[facility] [address]ZJQCOEXJ[address] [place] [address] Glucose mass conc 89 mg/dL Normal 74-106 [facility] Comment on above: Performed By: #### L 100.0005, L100.0040, L304.0140, L304.0155, L304.0295, L304.0162, L304.0480 ####[facility] [address]NSF[address] [place] [address] Potassium molar conc 4.0 mmol/L Normal 3.5-5.0 [facility] Comment on above: Performed By: #### L 100.0005, L100.0040, L304.0140, L304.0155, L304.0295, L304.0162, L304.0480 ####[facility] Z[address]VIJA[address] [place] [address] Protein mass conc 7.6 g/dL Normal 6.4-8.3 [facility] Comment on above: Performed By: #### L 100.0005, L100.0040, L304.0140, L304.0155, L304.0295, L304.0162, L304.0480 ####[facility] EMJAMVEPMD156 [place] [address] Sodium molar conc 141 mmol/L Normal 135-145 [facility] Comment on above: Performed By: #### L 100.0005, L100.0040, L304.0140, L304.0155, L304.0295, L304.0162, L304.0480 ####[facility] QFAPGACUCV656 [place] [address] TCO2 24 mmol/L Normal 22-29 [facility] Comment on above: Performed By: #### L 100.0005, L100.0040, L304.0140, L304.0155, L304.0295, L304.0162, L304.0480 ####[facility] XLZEESGIQV473 [place] [address] Urea nitrogen mass conc 23 mg/dL High 6-20 [facility] Comment on above: Performed By: #### L 100.0005, L100.0040, L304.0140, L304.0155, L304.0295, L304.0162, L304.0480 ####[facility] [address] [place] [address] CORTISOL (RANDOon 07-03-2018 CORTISOL (RANDO 15.6 ug/dL Normal 2.7-18.4 [facility] Comment on above: Performed By: #### L 100.0005, L100.0040, L304.0140, L304.0155, L304.0295, L304.0162, L304.0480 ####[facility] EAESQPUTBW837 [place] [address] Free T4on 07-03-2018 T4 free mass conc 1.29 ng/dL Normal 0.93-1.7 [facility] Comment on above: Performed By: #### L 100.0005, L100.0040, L304.0140, L304.0155, L304.0295, L304.0162, L304.0480 ####[facility] PHLDFOURGD830 [place] [address] LIPID PANELon 07-03-2018 Cholesterol in HDL mass conc 58 mg/dL [facility] Comment on above: Result Comment: Sylvia onal Cholesterol Education Program (NCEP) guidelines:<40 mg/dL: Low HDL-Cholesterol(major risk factor for CHD)> or = 60 mg/dL: High HDL-Cholesterol(negative risk factor for CHD)HDL-cholesterol is affected by a number of factors,e.g., smoking, exercise, hormones, sex, and age.4th Generation Test; Results may be approximately 7% lowerthan previous values. Performed By: #### L 100.0005, L100.0040, L304.0140, L304.0155, L304.0295, L304.0162, L304.0480 ####ML [facility] EKCRNYLEDO616 [place] [address] Cholesterol in LDL mass conc 96 mg/dL [facility] Comment on above: Result Comment: LDL: OPTIMAL FOR PEOPLE AT VERY HIGH RISK <70 OPTIMAL <100 NEAR OPTIMAL 100-129 BORDERLINE HIGH 130-159 HIGH 160-189 VERY HIGH >=190Source: 2008 NCEP ATP III, ADA GuidelinesReviewed: March, Performed By: #### L 100.0005, L100.0040, L304.0140, L304.0155, L304.0295, L304.0162, L304.0480 ####[facility] VBJUESKYLW245 [place] [address] Cholesterol in LDL/Cholesterol in HDL mass ratio 1.7 [facility] Comment on above: Performed By: #### L 100.0005, L100.0040, L304.0140, L304.0155, L304.0295, L304.0162, L304.0480 ####[facility] GCEBPHUDUY588 [place] [address] Cholesterol in VLDL mass conc 15 mg/dL [place] [address] Comment on above: Performed By: #### L 100.0005, L100.0040, L304.0140, L304.0155, L304.0295, L304.0162, L304.0480 ####ML - [facility] QQLOWFNGVH007 [place] [address] Cholesterol mass conc 169 mg/dL Normal 130-200 [facility] Comment on above: Performed By: #### L 100.0005, L100.0040, L304.0140, L304.0155, L304.0295, L304.0162, L304.0480 ####ML - [facility] [address]DS[address] [place] [address] Triglyceride mass conc 76 mg/dL Normal [facility] Comment on above: Result Comment: TRIG : DESIRABLE: <150 mg/dL Performed By: #### L 100.0005, L100.0040, L304.0140, L304.0155, L304.0295, L304.0162, L304.0480 ####ML - [facility] KCZQKZDQXP589 [place] [address] TESTOSTERONE TOon 07-03-2018 TESTOSTERONE TO 339.0 ng/dL Normal 193-740 [facility] Comment on above: Performed By: #### L 100.0005, L100.0040, L304.0140, L304.0155, L304.0295, L304.0162, L304.0480 ####ML - [facility] FKOMGXWVYP200 [place] [address] TSHon 07-03-2018 Thyrotropin Qn 1.81 uIU/mL Normal 0.45-4.50 [facility] Comment on above: Performed By: #### L 100.0005, L100.0040, L304.0140, L304.0155, L304.0295, L304.0162, L304.0480 ####ML - [facility] [place] [address] CORTISOL (AM) [QUEST]on 05-31 CORTISOL (AM) [QUEST] Normal [facility] Comment on above: Result Comment: _COR TISOL (AM)_CORTISOL, A.M.Reported: 06/17/2017 16:37 Status=F TEST RESULT FLAG RANGE UNITS CORTISOL, A.M. 6.6 4.0-22.0 mcg/dL 06/17/17.1649.Ju.AMRR .9813-7Test Performed by Kenzei Burdette,[facility],[address] [place] [address]Uthgivamichi Robison M.D., Ph.D., Director of [phone], [facility] [id number] Performed By: #### 2 96532 ####[facility],[address] [place] [address] DHEA-SULFATE [QUEST]on 06-16 DHEA-SULFATE [QUEST] Normal [facility] Comment on above: Result Comment: _DHE Z-ZRZIJIW_FIZM-UGCCBYHUpjixsni: 06/16/2017 11:24 Status=F TEST RESULT FLAG RANGE UNITS DHEA-SULFATE 45 38-313 mcg/dL 06/16/17.1135.rflTHOMAS.AMRR .4529-7DPNO-A values fall with advancing age. For reference,the reference intervals for 31-40 year old patientsare: Female 23-266 mcg/dL and Male 106-464 mcg/dL.Test Performed by [facility],[employer] [employer],[address] [place] [address] 799[address]UcqxzghTyson Robison M.D., Ph.D., Director of [phone], [place] [id number] Performed By: #### 2 61181 ####[facility],[address] [place] [address] TESTOSTERONE, TOTALon 2016 Testosterone Normal [facility] Comment on above: Result Comment: _TES TOSTERONE, TOTAL_TESTOSTERONE,TOT,MALEADULTReported: 06/16/2017 09:18 Status=F TEST RESULT FLAG RANGE UNITS TESTOSTERONE,TOT,MALEADUL 256 250-827 ng/dL 06/16/17.0929.rflTHOMAS.AMRR .2986-8TMen with clinically significant hypogonadal symptomsand testosterone values repeatedly less than approxi-mately 300 ng/dL may benefit from testosteronetreatment after adequate risk and benefits counseling.Test Performed by [facility],[address] [address], [place] [address]Aovzctumichi Robison M.D., Ph.D., Director of [phone], DWAIN [id number] Performed By: #### 2 27380 ####[facility],[address] [place] [address] CMP with eGFRon 06-14-2017 Age 52 years Normal [facility] Comment on above: Performed By: #### 2 73292 ####[facility],[address] [place] [address] Albumin 4.5 g/dL Normal 3.4 - 4.8 [facility] Comment on above: Performed By: #### 2 62361 ####[facility],[address] [place], [place] [id number] Albumin/Globulin Ratio 1.7 {ratio} High 0.9 - 1.6 [facility] Comment on above: Performed By: #### 2 77497 ####[facility],[address] [place] [address] ALK PHOS 49 U/L Normal 38 - 126 [facility] Comment on above: Performed By: #### 2 04063 ####[facility],[address] [place] [address] ALT/SGPT 21 U/L Normal 10 - 40 [facility] Comment on above: Performed By: #### 2 42814 ####[facility],[address] [place] [address] Anion gap 11 mmol/L Normal 10 - 20 [facility] Comment on above: Performed By: #### 2 75572 ####[facility],[address] [place] [address] AST/SGOT 19 U/L Normal 13 - 39 [facility] Comment on above: Performed By: #### 2 02318 ####[facility],[address] [place] [address] B/C RATIO 23 ratio Normal 0 - 30 [facility] Comment on above: Performed By: #### 2 39425 ####[facility],[address] [place] [address] Bilirubin (total) 1.5 mg/dL Normal 0.0 - 1.5 [facility] Comment on above: Performed By: #### 2 71803 ####[facility],[address] [place] [address] Calcium 9.3 mg/dL Normal 8.6 - 10.2 [facility] Comment on above: Performed By: #### 2 29065 ####[facility],[address] [place] [address] Chloride 106 mmol/L Normal 98 - 107 [facility] Comment on above: Performed By: #### 2 32942 ####[facility],[address] [place] [address]270 CO2 24.5 mmol/L Normal 21.0 - 31.0 [facility] Comment on above: Performed By: #### 2 99918 ####[facility],[address] [place] [address] Creatinine 1.0 mg/dL Normal 0.7 - 1.3 [facility] Comment on above: Performed By: #### 2 28179 ####[facility],[address] [place] [address] eGFR (non-black) Normal [facility] Comment on above: Result Comment: COMP REHENSIVE METABOLIC PANEL Performed By: #### 2 00544 ####[facility],[address] [place] [address]993 eGFR (non-black) mL/min/{1.73_m2} Normal 60 - 999 [facility] Comment on above: Performed By: #### 2 68546 ####[facility],[address] [place] [address] Result Comment: ACCO RDING TO THE NATIONAL KIDNEY DISEASE EDUCATION PROGRAM(NKDE), A NORMAL eGFRIS A VALUE GREATER THAN OR EQUAL TO 60 ML/MIN/1.73 SQ METERS.CHRONIC KIDNEY DISEASE: <60mL/MIN/1.73 SQ METERSKIDNEY FAILURE: <15mL/MIN/1.73 SQ METERSTHIS TEST SHOULD ONLY BE USED FOR PATIENTS 18 YEARS OF AGE AND OLDER. Globulin 2.7 g/dL Normal 1.5 - 3.8 [facility] Comment on above: Performed By: #### 2 74292 ####[facility],[address] [place] [address] Glucose mass conc 92 mg/dL Normal 74 - 106 [facility] Comment on above: Performed By: #### 2 75387 ####[facility],[address] [place] [address] Potassium molar conc 3.8 mmol/L Normal 3.5 - 5.1 [facility] Comment on above: Performed By: #### 2 34667 ####[facility],[address] [place] [address] Protein 7.2 g/dL Normal 6.4 - 8.3 [facility] Comment on above: Performed By: #### 2 78569 ####[facility],[address] [place] [address] Sodium 138 mmol/L Normal 136 - 145 [facility] Comment on above: Performed By: #### 2 78843 ####[facility],[address] [address] [place], [place] [id number] Urea nitrogen 23 mg/dL High 6 - 20 [facility] Comment on above: Performed By: #### [id number] ####[facility],[address] [place], [place] [id number] PSA CANCER SCREENING (G0103) on 06-14-2017 PSA 0.91 ng/ml Normal 0.00 - 4.00 [facility] Comment on above: Performed By: #### [id number] ####[facility],[address] [place] [address] T4-FREE (FREE THYROXINE)on 0 06-14-2017 Thyroxine (T4) free 0.80 ng/dL Normal 0.61 - 1.12 [facility] Comment on above: Result Comment: *SPE CIMENS FROM PATIENTS WHO ARE UNDERGOING BIOTIN THERAPY AND/OR INGESTINGBIOTIN SUPPLEMENTS MAY HAVE FALSE HIGH RESULTS. Performed By: #### 2 [id number] ####[facility],[address] [place] [address] TSHon 06-14-2017 Thyroid stimulating hormone (TSH) 0.87 uIU/ml Normal 0.34 - 5.60 [facility] Comment on above: Performed By: #### 2 [id number] ####[facility],[address] [place] [address] SURGICAL PATHOLOGY, CONVERTE Don 01-08-2012 [facility] SURGICAL PATHOLOGY, CONVERTE Don 06-06-2009 [facility] SURGICAL PATHOLOGY, CONVERTE Don 10-29-2006 [facility] Vital Signs Date Time Vital Sign Value Performing Clinician Riaz jovel 05-10-2024 07:50-0400 Body height 185.4 cm Misbah Crawford APRN.CNP Work Phone: [facility] 05-10-2024 07:50-0400 Body mass index (BMI) [Ratio] 30.74 kg/m2 Misbah Crawford APRN.CNP Work Phone: [facility] 05-10-2024 07:50-0400 Body weight 105.7 kg Misbah Crawford APRN.NURSING HOME ASSISTANT ADMINISTRATOR Work Phone: [facility] 05-10-2024 07:50-0400 Diastolic blood pressure 88 mm[Hg] Misbah Crawford APRN.NURSING HOME ASSISTANT ADMINISTRATOR Work Phone: [facility] 05-10-2024 07:50-0400 Heart rate 72 /min Misbah Crawford APRN.NURSING HOME ASSISTANT ADMINISTRATOR Work Phone: [facility] 05-10-2024 07:50-0400 Systolic blood pressure 130 mm[Hg] Misbah Crawford APRN.NURSING HOME ASSISTANT ADMINISTRATOR Work Phone: [facility] 05-01-2022 13:170400 Body height 185.4 cm LewPharmAssistant Work Phone: [facility] 05-01-2022 13:17040 Body weight 102.06 kg LewPharmAssistant Work Phone: [facility] 05-01-2022 13:17-0400 Diastolic blood pressure 84 mm[Hg] LewPharmAssistant Work Phone: [facility] 05-01-2022 13:17-0400 Heart rate 73 /min LewPharmAssistant Work Phone: [facility] 05-01-2022 13:17-0400 Systolic blood pressure 132 mm[Hg] LewPharmAssistant Work Phone: [facility] Encounters Encounter Date Encounter Type Care Provider Facility Start: 07-05-2024 Telephone encounter Enriqueta carlos APRN.NURSING HOME ASSISTANT ADMINISTRATOR Work Phone: [facility] Comment on above: Patient Question Start: 06-02-2024 End: 06-02-2024 ambulatory Enriqueta Stanley APRN.NURSING HOME ASSISTANT ADMINISTRATOR Work Phone: [facility] Comment on above: Pituitary tumor (Marleni morgan Dx) Start: 06-02-2024 End: 06-02-2024 Telemedicine consultation with patient Enriqueta Stanley APRN.NURSING HOME ASSISTANT ADMINISTRATOR Work Phone: [facility] Start: 05-31-2024 End: 05-31-2024 ambulatory [facility] Facility:[facility] Start: 05-31-2024 End: 05-31-2024 Subsequent hospital visit by physician Mri [facility] (I-Stat/1.5t) Work Phone: Radiology Comment on above: Pituitary adenoma (H CC) [D35.2] Start: 05-10-2024 End: 05-10-2024 Patient encounter procedure Misbah Crawford APRN.NURSING HOME ASSISTANT ADMINISTRATOR Work Phone: [facility] Comment on above: Essential hypertensi on, benign (Primary Dx); Mixed hyperlipidemia; History of cardiac cath; History of stress test; Never smoked cigarettes Start: 05-10-2024 End: 05-10-2024 ambulatory CK GALE Facility:[id number] Start: 10-23-2022 End: 10-28-[address] CK KC DO Facility:B Start: 05-31-2022 End: 05-31-2022 ambulatory Madie Apodaca MD Work Phone: [facility] Comment on above: Pituitary adenoma (H CC) (Primary Dx) Start: 05-31-2022 End: 05-31-2022 Telemedicine consultation with patient Madie Apodaca MD Work Phone: [facility] Start: 05-22-2022 End: 05-22-2022 Subsequent hospital visit by physician [facility] (I-Stat/1.5t) Work Phone: Radiology Comment on above: Pituitary adenoma (H CC) [D35.2] Start: 05-07-2022 Telephone encounter Madie ivey MD Work Phone: [facility] Comment on above: Patient Question Start: 05-01-2022 End: 05-01-2022 Orders Only Lew Gunter DO Work Phone: [facility] Comment on above: Essential hypertensi on, benign (Primary Dx) Essential hypertensi on, benign (Primary Dx); Mixed hyperlipidemia; History of stress test; History of cardiac cath; Non-smoker Start: 07-06-2018 Patient encounter procedure BRODY STEVENS Facility:[facility] Start: 07-03-2018 Patient encounter procedure BRODYBea STEVENS Facility:[facility] Start: 10-09-2017 End: 10-31-2017 Ambulatory FRANCISCO DOMINIQUE [facility] Start: 06-14-2017 End: 06-14-2017 Ambulatory BRODY STEVENS [facility] Start: 01-08-2012 Documentation procedure Stephen Carter MD Work Phone: [facility] Start: 01-08-2012 Historic EMR Stephen houston MD Work Phone: [facility] Start: 06-07-2009 Documentation procedure Mc Evans Work Phone: [facility] Start: 06-07-2009 Historic EMR Mc Agrawal shobha Work Phone: [facility] Start: 10-30-2006 Documentation procedure Stephen Carter MD Work Phone: [facility] Start: 10-30-2006 Historic EMR Stephen houston MD Work Phone: [facility] Procedures Date Procedure Procedure Detail Performing Clinician Start: 05-31-2024 Mri brain brain stem w/o w/contrast material Madie Apodaca MD Work Phone: Start: 05-10-2024 Ecg routine ecg w/le ast 12 lds i&r only Misbah Crawford HOTEL BAGGAGE HANDLER.NURSING HOME ASSISTANT ADMINISTRATOR Work Phone: Start: 05-22-2022 Mri brain brain stem w/o w/contrast material Madie Apodaca MD Work Phone: Start: 07-25-2021 Colonoscopy Lew Antonio s DO Work Phone: Start: 07-03-2018 PSA screening BRODY JOSEPH Comment on above: Result Comment: Limi tations:Elevations may also be associated with urethralinstrumentation including catheterization of the bladder,TUR, prostatic needle biopsy, urinary retention, orprostatic infarct.Because PSA is also present in para-urethral and analglands, as well as in breast tissue or with breast cancer,low levels of PSA can also be detected in sera from women.PSA may still be detectable even after radicalprostatectomy. Performed By: #### L 100.0005, L100.0040, L304.0140, L304.0155, L304.0295, L304.0162, L304.0480 ####[facility] - [facility] [id number] [place] [address] Start: 07-03-2018 Lipid 1996 panel - S sofia or Plasma Stephen Carter MD Work Phone: Start: 01-08-2012 SURGICAL PATHOLOGY, CONVERTED Stephen Carter MD Work Phone: Start: 06-06-2009 SURGICAL PATHOLOGY, CONVERTED Mc Evans Work Phone: Start: 10-29-2006 SURGICAL PATHOLOGY, CONVERTED Stephen Carter MD Work Phone: Plan of Treatment Date Care Activity Detail Author Start: 05-10-2025 End: 05-10-2025 Patient encounter procedure [facility] Comment on above: 1 year follow up, hx of HTN. Start: 08-01-2024 Influenza vaccination Influenza Vacc ine (#1) [facility] Start: 06-02-2024 End: 06-02-2024 Follow-up encounter 06/02/2024 8:45 AM EDT [facility] [address] [place] [address] Enriqueta Stanley, CARLOS ALBERTO.NURSING HOME ASSISTANT ADMINISTRATOR [address] [place] [address] 2 year follow up/Pituitary adenoma (HCC) [D35.2] [facility] Comment on above: 2 year follow up/Pit uitary adenoma (HCC) [D35.2] Start: 05-31-2024 End: 05-31-2024 Patient encounter procedure 05/31/2024 8:40 AM EDT Appointment Radiology [address] [place] [address] Pituitary adenoma (HCC) [D35.2] Radiology Comment on above: Pituitary adenoma (H CC) [D35.2] Start: 2024 RSV Vaccine (1 - 1-d ose 60+ series) RSV Vaccine (1 - 1-dose 60+ series) [facility] Start: 08-31-2023 DIABETES SCREEN DIABETES SCREEN [facility] Start: 08-31-2023 Diabetes Screening Diabetes Screenin g [facility] Start: 08-01-2023 Influenza vaccination Influenza Vacc ine (#1) [facility] Start: 07-03-2023 Lipid 1996 panel - S sofia or Plasma Lipid Screening [facility] Start: 07-03-2023 Lipid panel Lipid Screening [facility] Start: 07-03-2023 LIPID SCREEN LIPID SCREEN [facility] Start: 07-03-2023 PROSTATE CANCER SCREENING DISCUSSION PROSTATE CANCER SCREENING DISCUSSION [facility] Start: 07-03-2023 Prostate specific antigen measurement Prostate Cancer Screening Discussion [facility] Start: 09-01-2022 COVID-19 VACCINE (4 - Booster for Moderna series) COVID-19 VACCINE (4 - Booster for Moderna series) [facility] Start: 08-01-2022 Influenza vaccination INFLUENZA (#1) [facility] Start: 07-25-2022 Colonoscopy COLONOSCOPY [facility] Start: 07-25-2022 COLORECTAL CANCER SCREENING COLORECTAL CANCER SCREENING [facility] Start: 07-25-2022 Screening for malign ant neoplasm of colon [facility] Start: 03-19-2022 COVID-19 VACCINE (3 - Booster for Moderna series) COVID-19 VACCINE (3 - Booster for Moderna series) [facility] Start: 02-06-2014 SHINGRIX VACCINE (1 of 2) SHINGRIX VACCINE (1 of 2) [facility] Start: 02-06-2009 COLOGUARD (FIT-DNA) COLOGUARD (FIT-D NA) [facility] Start: 02-06-[address] [facility] Start: 02-06-2009 FECAL OCCULT BLOOD FECAL OCCULT BLOO D [facility] Start: 02-06-2009 Screening for malign ant neoplasm of colon [facility] Start: 02-06-2009 SIGMOIDOSCOPY SIGMOIDOSCOPY [facility] Start: 02-06-1983 Urine microalbumin profile [facility] Start: 02-06-1982 ANNUAL PCP TEAM HEALTH SAFETY INSTRUCTOR FARRUKH DISEASE VISIT ANNUAL PCP TEAM CHRONIC DISEASE VISIT [facility] Start: 02-06-1982 Anxiety Screening Anxiety Screening [facility] Start: 02-06-1982 BP CONTROLLED (<130/80) BP CONTROLLE D (<130/80) [facility] Start: 02-06-1982 HEPATITIS C SCREENING HEPATITIS C [facility] Start: 02-06-1982 Hepatitis C screening Hepatitis C [place] Start: 02-06-1982 HIV SCREENING HIV SCREENING [facility] Start: 02-06-1982 HIV screening HIV Screening [facility] ECG B/O W INTERP (ME D OFFICE) ECG B/O W INTERP (MED OFFICE) ECG Routine Essential hypertension, benign Ordered: 05/01/2022 [facility] Work Phone: Comment on above: Ordered: 05/01/2022 ECG COMPLETE ECG COMPLETE ECG Routine Essential hypertension, benign 05/01/2022 1:13 PM EDT [facility] Work Phone: End: 05-01-2023 ECG COMPLETE ECG COMPLETE ECG Routine Essential hypertension, benign 1 Occurrences starting 05/01/2022 until 05/01/2023 [facility] Work Phone: Comment on above: 1 Occurrences starti ng 05/01/2022 until 05/01/2023 ECG COMPLETE ECG COMPLETE ECG Routine Essential hypertension, benign 05/10/2024 7:53 AM EDT [facility] Work Phone: [facility] Immunizations Immunization Date Immunization Notes Care Provider Jerrell kenyon 08-28-2023 influenza virus vacc ine, unspecified formulation Mri (I-Stat/1.5t) Work Phone: [facility] 08-30-2022 influenza virus vacc ine, unspecified formulation Stephen Carter MD Work Phone: [facility] 08-31-2020 influenza, injectabl e, quadrivalent, preservative free Lew Gross DO Work Phone: [facility] 10-01-2019 influenza virus vacc ine, unspecified formulation Lew Gross DO Work Phone: [facility] 10-05-2018 influenza virus vacc ine, unspecified formulation Lew Gross DO Work Phone: [facility] 08-28-2015 influenza virus vacc ine, unspecified formulation Lew Gross DO Work Phone: [facility] Payers Date Payer Category Payer Private Health Insurance [facility] [employer] [id number] 2023-Present [phone] [address] [address] [place] [address] HMO [id number] 2023 Unknown [id number] 2022 Unknown [id number] 2021 Unknown AN[employer] BLUE CARD PPO OOS [id number] 2021-Present [phone] [address] [place] [address] PPO [id number] 2016 Unknown [id number] 2001 Unknown MMO [employer] MED PLUS [id number] 2001-2019 [address] [place] [address] PPO [id number] 1964 Unknown [id number] 1964 Unknown [id number] Unknown [id number] Unknown [id number] Social History Date Type Detail Facility Start: 08-18-2019 End: 05-07-2023 Tobacco smoking status NHIS Never smoked tobacco [facility] Work Phone: Start: 08-18-2019 End: 05-07-2023 Tobacco use and exposure Smokeless tobacco non-user [facility] Work Phone: Start: 05-01-2022 End: 05-10-2024 Alcohol intake Current drinker of alcohol (finding) [facility] Start: 05-01-2022 End: 05-07-2023 Alcohol intake [facility] Start: 09-11-2020 History SDOH Alcohol Frequency 2 [facility] Start: 09-11-2020 History SDOH Alcohol Std Drinks 1 [facility] Start: 1965 Sex Assigned At Male [facility] Start: 04-21-2022 End: 05-22-2022 Exposure to SARS-CoV-2 (event) Not sure [facility] Tobacco smoking stat us NHIS Tobacco smoking consumption unknown [facility] Start: 09-11-2020 End: 05-07-2023 Alcohol Use Disorder Identification Test - Consumption [AUDIT-C] [facility] How often to you hav e a drink containing alcohol? Monthly or less [facility] How many standard dr inks containing alcohol do you have on a typical day? 1 or 2 [facility] How often do you hav e 6 or more drinks on 1 occasion? Never [facility] National Score (1-10 0), lower number is lower risk 35 [facility] Start: 08-13-2019 Gender identity Identifies as male gender (finding) [facility] Start: 08-13-2019 Sexual orientation Heterosexual (finding) [facility] Start: 05-07-2023 Alcohol Comment OCCATIONALLY [facility] Goals Date Patient Goal Desired Activity /State Personal health goal Clinical Notes 08-19-2019 to 07-05-2024 Telephone Encounter - Enriqueta Stanley APRN.CNP - 07/05/2024 1:28 PM EDTTelephone Encounter - Enriqueta Stanley APRN.CNP - 07/05/2024 1:28 PM Enriqueta Pressley APRN.CNP - 06/02/2024 8:45 AM EDT Note Date & Type Note Facility 07-05-2024 Telephone encounter Note Reviewed case with Dr. Apodaca who states growth is so minimalover 2yr. At this rate of growth, hewould expect it would take >10yr more likely 15-20yr to reach his eye nerves and start causing any symptoms also offered GK.Patient wishes to continue with observation and will get new MRI in two years. Enriqueta Stanley APRN.CNP [facility] Work Phone: 07-05-2024 Miscellaneous Notes Reviewed case with Dr. Apodaca who states growth is so minimalover 2yr. At this rate of growth, hewould expect it would take >10yr more likely 15-20yr to reach his eye nerves and start causing any symptoms also offered GK.Patient wishes to continue with observation and will get new MRI in two years. Enriqueta Stanley APRN.YOSELYN General Call Caller : Jania Contact Reason for Call : Wanted to make sure you reviewed CT results with Dr. Palm. Is he concerned about growth? Patient requesting return call ? Yes documented in this encounter [facility] 07-05-2024 Telephone encounter Note General Call Caller : Jania Contact Reason for Call : Wanted to make sure you reviewed CT results with Dr. Palm. Is he concerned about growth? Patient requesting return call ? Yes [facility] 06-02-2024 History of Presen t illness Narrative Images from the original note were not included. Neurological [facility] NEURO-ONCOLOGY VIRTUAL VISIT NOTE I have communicated my name and active licensure. The patient's identity and physical location were verified at the time of this visit. Either the patient or their legal traffic representative has been informed of the risks and benefits of -- and alternatives to -- treatment through a remote evaluation and consents to proceed with the evaluation remotely. This is a virtual visit using [employer] Zoom Video Visit. It required patient-provider interaction for the medical decision making as documented below. PURPOSE OF VISIT: Ongoing patient management CHIEF COMPLAINT : Non-functional pituitary adenoma s/p resection in 01/2002 (pathology c/w non-secretory benign pituitary adenoma) Subjective HISTORY OF PRESENT ILLNESS: Carlos Bacon is a 59 year old year old male who is here for a follow-up visit for a Non-functional pituitary adenoma s/p resection in 01/2002 (pathology c/w non-secretory benign pituitary adenoma) and right amblyopia (baseline poor vision in right eye). The patient last saw Dr. Apodaca on 05/31/22 and the residual tumor showed a slight interval growth since 2010. The plan was observation with a new MRI pituitary in 2 years. He follows with Dr. Marquez from endocrine. He presents today for follow up. INTERVAL HISTORY 06/02/24 He is feeling well. Saw Dr. Marquez from endocrine and had a full endocrine panel and states all labs normal. SOCIAL HISTORY: Social History Tobacco Use Smoking status: Never Smokeless tobacco: Never Vaping Use Vaping Use: Never used Substance Use Topics Alcohol use: Yes Alcohol/week: 1.3 standard drinks of alcohol Types: 1 Mixed Drinks per week Comment: OCCATIONALLY Drug use: Never PAST MEDICAL HISTORY Diagnosis Date Amblyopia of eye, right Depression GERD (gastroesophageal reflux disease) History of cardiac cath 01/18/2010 normal L ventricular function normal L ventricular hemodynamics normal coronary cineangiography History of stress test 02/05/2010 small anteroapical scar no reversible ischemia small inferior wall scar no reversible ischemia evidence of R ventricular strain suggesting elevated R ventricular pressures normal wall motion EF 55% History of stress test 05/03/2020 no evidence of reversible ischemia or infarction EF 59% Hyperlipidemia Hypertension Poor vision Right eye FAMILY HISTORY Problem Relation Age of Onset Hypertension Mother Migraines Father Coronary Artery Disease Father other ([place] in 50's) Father Current Outpatient Medications Medication Sig ALPRAZolam (XANAX) 0.5 mg tablet Take 0.5 mg by mouth twice daily as needed. DULoxetine (CYMBALTA) 30 mg capsule Take 30 mg by mouth once daily. MULTIVITAMIN ORAL Take by mouth once daily. calcium polycarbophil (FIBERCON ORAL) Take by mouth once daily. famotidine (PEPCID) 20 mg tablet Take 20 mg by mouth as needed. pravastatin (PRAVACHOL) 80 mg tablet Take 1 tablet by mouth every evening. amLODIPine-benazepril (LOTREL) 10-20 mg per capsule Take 1 capsule by mouth every evening. traZODone (DESYREL) 50 mg tablet Take 75 mg by mouth daily at bedtime. BABY ASPIRIN ORAL Take 81 mg by mouth once daily. (Patient not taking: Reported on 05/10/2024) Cholecalciferol, Vitamin D3, 50 mcg (2,000 unit) cap Take 2,000 Units by mouth once daily. Flaxseed Oil 1,000 mg cap Take 1,000 mg by mouth once daily. No current facility-administered medications for this visit. REVIEW OF SYSTEMS: Neurological : No complaint of headache No complaint of tinnitus No complaint of decreased hearing No complaint of diplopia No complaints of blurred vision. No complaint of arm/leg numbness No problem with limb coordination No complaint of syncope No complaints of seizures. No complaints of memory changes or disorientation. General : Constitutional: No recent fever or weight loss. Eyes: No history of glaucoma or cataracts ENMT: No recent ear infection, nasal congestion, mouth sores or sore throat. CV: No history of chest pain, palpitations or leg swelling Respiratory: No history of SOB, wheezing or recent cough. Gastrointestinal: No history of nausea, vomiting, dysphagia or abdominal pain. Genitourinary: No history of hematuria or dysuria. Musculoskeletal: No complaint of arthritis, unstable gait or arm/leg weakness Psychiatric: No history of hallucinations, depression, or anxiety Objective PHYSICAL EXAMINATION: VIDEO EXAM: (if completed, performed via video enabled technology) NEUROLOGICAL EXAM: Higher integrative functions: Oriented to person, place & time. Memory: Good recent and remote. Attention Span and Concentration: Good. Language: Accurate naming of objects. Good comprehension. Fund of Knowledge: Good. IMAGING STUDIES: MRI Pituitary WO/W IVCON 05/31/24 MRI Pituitary Report MRI PITUITARY WO/W IVCON Exam End: 05/31/2024 9:08 AM (Final result) Narrative: * * *Final Report* * * DATE OF EXAM: May 31 2024 8:57AM [facility] [id number] - MRI PITUITARY WO/W IVCON / PROCEDURE REASON: Pituitary adenoma (HCC) * * * * Physician Interpretation * * * * EXAMINATION: MRI PITUITARY WO/W IVCON CLINICAL HISTORY: Pituitary adenoma TECHNIQUE: High resolution sagittal and coronal T1, coronal T2, and gadolinium enhanced, fat-suppressed sagittal and coronal T1-weighted images of the pituitary region. Contrast: 10 mL Dotarem IV COMPARISON: MRI 05/22/2022 RESULT: Adenohypophysis: Postsurgical changes of transsphenoidal hypophysectomy and partial resection of pituitary adenoma. Slight interval increase in volume of enhancing soft tissue within lateral aspects of the sella bilaterally measuring up to 12 mm in greatest craniocaudal dimension in the left aspect of the sella. Neurohypophysis: Not well evaluated. Suprasellar Region: No evidence of a suprasellar mass. The optic apparatus is normal in appearance. Cavernous Sinuses: Similar insinuation of the aforementioned enhancing sellar soft tissue into the cavernous sinuses bilaterally extending at least to the median intercarotid line without evidence of circumferential encasement of the cavernous ICAs. Brain Parenchyma: The overlying hypothalamus is normal in appearance. The visualized parenchyma is otherwise normal in signal intensity and morphology. Skull Base: No evidence of a marrow replacement process in the underlying skull base. Impression: IMPRESSION: Slight interval increase in volume of enhancing soft tissue within the lateral aspects of the sella bilaterally following transsphenoidal hypophysectomy, compatible with residual/recurrent adenoma. No substantial suprasellar extension or mass effect on the optic chiasm, however there is likely mild invasion of the cavernous sinuses bilaterally. Fur Mixer Operator: PSCB Transcribe Date/Time: May 31 2024 9:25A Dictated by : HE HERNANDEZ MD This examination was interpreted and the report reviewed and electronically signed by: HE HERNANDEZ MD on May 31 2024 9:36AM EST K[employer] and [employer] Provider Data Form MEDICAL DECISION MAKING Assessment & Plan 1. Non-functional pituitary adenoma s/p resection in 01/2002 (pathology c/w non-secretory benign pituitary adenoma) - MRI Pituitary today appears to show slight increase in size of pituitary adenoma - Images reviewed with the patient - Recommend follow up appointment with myself via virtual and new MRI Pituitary in 2 years - Reviewed signs and symptoms that would prompt sooner evaluation - The patient has our contact information and was advised to call if new symptoms, questions or concerns arise prior to next scheduled visit. - All questions were answered. I spent a total of 20 minutes on the date of the service which included completing clinical documentation and obtaining and/or reviewing separately obtained history Enriqueta Stanley APRN.CNP Certified Nurse Practitioner cc: Madie Apodaca MD--EPIC documented in this encounter [facility] 06-02-2024 Note HNO ID: [id number] Author: ENRIQUETA STANLEY APRN.CNP Service: ? Author Type: Nurse Practitioner Type: Progress Notes Filed: 06/02/2024 08:50 Note Text: [facility] [place] [facility] NEURO-ONCOLOGY VIRTUAL VISIT NOTE I have communicated my name and active licensure. The patient's identity and physical location were verified at the time of this visit. Either the patient or their legal traffic representative has been informed of the risks and benefits of -- and alternatives to -- treatment through a remote evaluation and consents to proceed with the evaluation remotely. This is a virtual visit using [employer] Zoom Video Visit. It required patient-provider interaction for the medical decision making as documented below. PURPOSE OF VISIT: Ongoing patient management CHIEF COMPLAINT : Non-functional pituitary adenoma s/p resection in 01/2002 (pathology c/w non-secretory benign pituitary adenoma) Subjective HISTORY OF PRESENT ILLNESS: Carlos Bacon is a 59 year old year old male who is here for a follow-up visit for a Non-functional pituitary adenoma s/p resection in 01/2002 (pathology c/w non-secretory benign pituitary adenoma) and right amblyopia (baseline poor vision in right eye). The patient last saw Dr. Apodaca on 05/31/22 and the residual tumor showed a slight interval growth since 2010. The plan was observation with a new MRI pituitary in 2 years. He follows with Dr. Marquez from endocrine. He presents today for follow up. INTERVAL HISTORY 06/02/24 He is feeling well. Saw Dr. Marquez from endocrine and had a full endocrine panel and states all labs normal. SOCIAL HISTORY: Social History Tobacco Use Smoking status: Never Smokeless tobacco: Never Vaping Use Vaping Use: Never used Substance Use Topics Alcohol use: Yes Alcohol/week: 1.3 standard drinks of alcohol Types: 1 Mixed Drinks per week Comment: OCCATIONALLY Drug use: Never PAST MEDICAL HISTORY Diagnosis Date Amblyopia of eye, right Depression GERD (gastroesophageal reflux disease) History of cardiac cath 01/18/2010 normal L ventricular function normal L ventricular hemodynamics normal coronary cineangiography History of stress test 02/05/2010 small anteroapical scar no reversible ischemia small inferior wall scar no reversible ischemia evidence of R ventricular strain suggesting elevated R ventricular pressures normal wall motion EF 55% History of stress test 05/03/2020 no evidence of reversible ischemia or infarction EF 59% Hyperlipidemia Hypertension Poor vision Right eye FAMILY HISTORY Problem Relation Age of Onset Hypertension Mother Migraines Father Coronary Artery Disease Father other ([place] in 50's) Father Current Outpatient Medications Medication Sig ALPRAZolam (XANAX) 0.5 mg tablet Take 0.5 mg by mouth twice daily as needed. DULoxetine (CYMBALTA) 30 mg capsule Take 30 mg by mouth once daily. MULTIVITAMIN ORAL Take by mouth once daily. calcium polycarbophil (FIBERCON ORAL) Take by mouth once daily. famotidine (PEPCID) 20 mg tablet Take 20 mg by mouth as needed. pravastatin (PRAVACHOL) 80 mg tablet Take 1 tablet by mouth every evening. amLODIPine-benazepril (LOTREL) 10-20 mg per capsule Take 1 capsule by mouth every evening. traZODone (DESYREL) 50 mg tablet Take 75 mg by mouth daily at bedtime. BABY ASPIRIN ORAL Take 81 mg by mouth once daily. (Patient not taking: Reported on 05/10/2024) Cholecalciferol, Vitamin D3, 50 mcg (2,000 unit) cap Take 2,000 Units by mouth once daily. Flaxseed Oil 1,000 mg cap Take 1,000 mg by mouth once daily. No current facility-administered medications for this visit. REVIEW OF SYSTEMS: Neurological : No complaint of headache No complaint of tinnitus No complaint of decreased hearing No complaint of diplopia No complaints of blurred vision. No complaint of arm/leg numbness No problem with limb coordination No complaint of syncope No complaints of seizures. No complaints of memory changes or disorientation. General : Constitutional: No recent fever or weight loss. Eyes: No history of glaucoma or cataracts ENMT: No recent ear infection, nasal congestion, mouth sores or sore throat. CV: No history of chest pain, palpitations or leg swelling Respiratory: No history of SOB, wheezing or recent cough. Gastrointestinal: No history of nausea, vomiting, dysphagia or abdominal pain. Genitourinary: No history of hematuria or dysuria. Musculoskeletal: No complaint of arthritis, unstable gait or arm/leg weakness Psychiatric: No history of hallucinations, depression, or anxiety Objective PHYSICAL EXAMINATION: VIDEO EXAM: (if completed, performed via video enabled technology) NEUROLOGICAL EXAM: Higher integrative functions: Oriented to person, place AND time. Memory: Good recent and remote. Attention Span and Concentration: Good. Language: Accurate naming of objects. Good comprehension. Fund of Knowledge: Good. (more content not included)... [facility] 05-31-2024 History of Presen t illness Narrative Radiology Service Progress Note DATE OF SERVICE: May 31, 2024 TIME: 8:46 AM PATIENT IDENTITY VERIFICATION COMPLETED USING TWO (2) STANDARD IDENTIFIERS: Name and Date of confirmed by patient verbally. FALL SCREENING: Has the patient had 2 falls in the last year or 1 fall with injury or currently using an Ambulatory Assistive Device (Walker, Cane, Wheelchair, Crutches, etc.)? No PATIENT GENDER DATA: Male PATIENT RELEVANT IMPLANT DATA REVIEWED: Yes PATIENT PRESENTS WITH AN IMPLANTABLE OR ATTACHED CIRCUS ARTIST: No ALLERGIES: Reviewed and unchanged CONTRAST ALLERGY: NO. EXAM: MRI - CONTRAST TYPE: GROUP II PERIPHERAL IV DATA: Ambulatory: A peripheral IV was started in the Right antecubital site with a Angio cath: 22 gauge. RADIOLOGY DEPARTMENT: MR; Exam(s) Completed: Head: Pituitary SIGNATURE: RT Russell(Juan Pablo) PATIENT NAME: Carlos Bacon DATE: May 31, 2024 TIME: 8:46 AM documented in this encounter [facility] 05-31-2024 Note HNO ID: [id number] Author: TERI GUTIERREZ RT (R) Service: ? Author Type: Technologist Type: Progress Notes Filed: 05/31/2024 08:46 Note Text: Radiology Service Progress Note DATE OF SERVICE: May 31, 2024 TIME: 8:46 AM PATIENT IDENTITY VERIFICATION COMPLETED USING TWO (2) STANDARD IDENTIFIERS: Name and Date of confirmed by patient verbally. FALL SCREENING: Has the patient had 2 falls in the last year or 1 fall with injury or currently using an Ambulatory Assistive Device (Walker, Cane, Wheelchair, Crutches, etc.)? No PATIENT GENDER DATA: Male PATIENT RELEVANT IMPLANT DATA REVIEWED: Yes PATIENT PRESENTS WITH AN IMPLANTABLE OR ATTACHED CIRCUS ARTIST: No ALLERGIES: Reviewed and unchanged CONTRAST ALLERGY: NO. EXAM: MRI - CONTRAST TYPE: GROUP II PERIPHERAL IV DATA: Ambulatory: A peripheral IV was started in the Right antecubital site with a Angio cath: 22 gauge. RADIOLOGY DEPARTMENT: MR; Exam(s) Completed: Head: Pituitary SIGNATURE: RT Russell(Juan Pablo) PATIENT NAME: Carlos Bacon DATE: May 31, 2024 TIME: 8:46 AM [facility] 05-10-2024 Note HNO ID: [id number] Author: MISBAH CRAWFORD APRN.NURSING HOME ASSISTANT ADMINISTRATOR Service: ? Author Type: Nurse Practitioner Type: Progress Notes Filed: 05/10/2024 08:48 Note Text: [facility] Department of Cardiology Referring Provider: No ref. provider found Date: May 10, 2024 Chief Complaint: Hypertension Subjective: Carlos Bacon is a 59 year old male who presents established patient for hypertension and hyperlipidemia assessment management. Patient denies any headaches, dizziness, syncope or near syncopal episodes. Patient has had no chest pain, palpitations, PND, or orthopnea. ALLERGIES Allergen Reactions Atorvastatin Myalgia PAST MEDICAL HISTORY: PAST MEDICAL HISTORY Diagnosis Date Amblyopia of eye, right Depression GERD (gastroesophageal reflux disease) History of cardiac cath 01/18/2010 normal L ventricular function normal L ventricular hemodynamics normal coronary cineangiography History of stress test 02/05/2010 small anteroapical scar no reversible ischemia small inferior wall scar no reversible ischemia evidence of R ventricular strain suggesting elevated R ventricular pressures normal wall motion EF 55% History of stress test 05/03/2020 no evidence of reversible ischemia or infarction EF 59% Hyperlipidemia Hypertension Poor vision Right eye PAST SURGICAL HISTORY Procedure Laterality Date HYPOPHYSECTOMY-TRANSPHEN APROACH W/PIT KATHY 01/2002 PAST SURGICAL HISTORY OF 08/2020 benign tumor removed from L cheek TONSILLECTOMY AND ADENOIDECTOMY HX FAMILY HISTORY Problem Relation Age of Onset Hypertension Mother Migraines Father Coronary Artery Disease Father other ([place] in 50's) Father SOCIAL HISTORY: Tobacco Use: Never Alcohol Use: Approximately .78 oz/week [which includes 1 Mixed Drinks per week] (OCCATIONALLY) Drug Use: Never Employer And Job Title: None on file Years Of Education Completed: Not specified Marital Status: MEDICATIONS: Current Outpatient Medications Medication Sig ALPRAZolam (XANAX) 0.5 mg tablet Take 0.5 mg by mouth twice daily as needed. DULoxetine (CYMBALTA) 30 mg capsule Take 30 mg by mouth once daily. MULTIVITAMIN ORAL Take by mouth once daily. calcium polycarbophil (FIBERCON ORAL) Take by mouth once daily. famotidine (PEPCID) 20 mg tablet Take 20 mg by mouth as needed. pravastatin (PRAVACHOL) 80 mg tablet Take 1 tablet by mouth every evening. amLODIPine-benazepril (LOTREL) 10-20 mg per capsule Take 1 capsule by mouth every evening. traZODone (DESYREL) 50 mg tablet Take 75 mg by mouth daily at bedtime. Cholecalciferol, Vitamin D3, 50 mcg (2,000 unit) cap Take 2,000 Units by mouth once daily. Flaxseed Oil 1,000 mg cap Take 1,000 mg by mouth once daily. polyethylene glycol 3350 (MIRALAX, GLYCOLAX) 17 gram/dose powder Use as directed for Miralax / Gatorade Bowel Prep Kit BABY ASPIRIN ORAL Take 81 mg by mouth once daily. (Patient not taking: Reported on 05/10/2024) No current facility-administered medications for this visit. I have personally reviewed the patients past medical history including social, family, surgical, diagnostics, and medications./AB REVIEW OF SYSTEMS: Review of Systems Constitutional: Negative for chills and fatigue. Respiratory: Negative for chest tightness and shortness of breath. Cardiovascular: Negative for chest pain, palpitations and leg swelling. Neurological: Positive for dizziness. Negative for syncope, weakness and light-headedness. Hematological: Does not bruise/bleed easily. Psychiatric/Behavioral: Negative for confusion and hallucinations. Vitals: BP 130/88 (BP Site: Left Arm, BP Position: Sitting) Pulse 72 Ht 185.4 cm (6' 1 ) Wt 105.7 kg (233 lb 0.4 oz) BMI 30.74 kg/m? PHYSICAL EXAMINATION: BP 130/88 (BP Site: Left Arm, BP Position: Sitting) Pulse 72 Ht 185.4 cm (6' 1 ) Wt 105.7 kg (233 lb 0.4 oz) BMI 30.74 kg/m? Last 3 Encounter BP Readings: Date: BP: 05/07/2023 142/84 05/01/2022 132/84 04/23/2021 122/82 Last 3 Encounter Pulse Readings: Date: Pulse: 05/07/2023 62 05/01/2022 73 04/23/2021 72 Last 3 Encounter Wt Readings: Date: Wt: 05/07/2023 103.9 kg (229 lb 1.3 oz) 05/01/2022 102.1 kg (225 lb) 08/09/2021 101.2 kg (223 lb) Physical Exam Vitals reviewed. Constitutional: General: He is not in acute distress. Appearance: Normal appearance. He is not ill-appearing or diaphoretic. HENT: Head: Normocephalic. Right Ear: External ear normal. Left Ear: External ear normal. Nose: Nose normal. Mouth/Throat: Mouth: Mucous membranes are moist. Eyes: Extraocular Movements: Extraocular movements intact. Cardiovascular: Rate and Rhythm: Normal rate and regular rhythm. Pulses: Normal pulses. Carotid pulses are 2+ on the right side and 2+ on the left side. Radial pulses are 2+ on the right side and 2+ on the left side. Posterior tibial pulses are 2+ on the right side and 2+ on the left side. Heart s (more content not included)... [facility] 05-10-2024 History of Presen t illness Narrative Images from the original note were not included. [facility] Department of Cardiology Referring Provider: No ref. provider found Date: May 10, 2024 Chief Complaint: Hypertension Subjective: Cralos Bacon is a 59 year old male who presents established patient for hypertension and hyperlipidemia assessment management. Patient denies any headaches, dizziness, syncope or near syncopal episodes. Patient has had no chest pain, palpitations, PND, or orthopnea. ALLERGIES Allergen Reactions Atorvastatin Myalgia PAST MEDICAL HISTORY: PAST MEDICAL HISTORY Diagnosis Date Amblyopia of eye, right Depression GERD (gastroesophageal reflux disease) History of cardiac cath 01/18/2010 normal L ventricular function normal L ventricular hemodynamics normal coronary cineangiography History of stress test 02/05/2010 small anteroapical scar no reversible ischemia small inferior wall scar no reversible ischemia evidence of R ventricular strain suggesting elevated R ventricular pressures normal wall motion EF 55% History of stress test 05/03/2020 no evidence of reversible ischemia or infarction EF 59% Hyperlipidemia Hypertension Poor vision Right eye PAST SURGICAL HISTORY Procedure Laterality Date HYPOPHYSECTOMY-TRANSPHEN APROACH W/PIT KATHY 01/2002 PAST SURGICAL HISTORY OF 08/2020 benign tumor removed from L cheek TONSILLECTOMY AND ADENOIDECTOMY HX FAMILY HISTORY Problem Relation Age of Onset Hypertension Mother Migraines Father Coronary Artery Disease Father other ([place] in 50's) Father SOCIAL HISTORY: Tobacco Use: Never Alcohol Use: Approximately .78 oz/week [which includes 1 Mixed Drinks per week] (OCCATIONALLY) Drug Use: Never Employer And Job Title: None on file Years Of Education Completed: Not specified Marital Status: MEDICATIONS: Current Outpatient Medications Medication Sig ALPRAZolam (XANAX) 0.5 mg tablet Take 0.5 mg by mouth twice daily as needed. DULoxetine (CYMBALTA) 30 mg capsule Take 30 mg by mouth once daily. MULTIVITAMIN ORAL Take by mouth once daily. calcium polycarbophil (FIBERCON ORAL) Take by mouth once daily. famotidine (PEPCID) 20 mg tablet Take 20 mg by mouth as needed. pravastatin (PRAVACHOL) 80 mg tablet Take 1 tablet by mouth every evening. amLODIPine-benazepril (LOTREL) 10-20 mg per capsule Take 1 capsule by mouth every evening. traZODone (DESYREL) 50 mg tablet Take 75 mg by mouth daily at bedtime. Cholecalciferol, Vitamin D3, 50 mcg (2,000 unit) cap Take 2,000 Units by mouth once daily. Flaxseed Oil 1,000 mg cap Take 1,000 mg by mouth once daily. polyethylene glycol 3350 (MIRALAX, GLYCOLAX) 17 gram/dose powder Use as directed for Miralax / Gatorade Bowel Prep Kit BABY ASPIRIN ORAL Take 81 mg by mouth once daily. (Patient not taking: Reported on 05/10/2024) No current facility-administered medications for this visit. I have personally reviewed the patients past medical history including social, family, surgical, diagnostics, and medications./AB REVIEW OF SYSTEMS: Review of Systems Constitutional: Negative for chills and fatigue. Respiratory: Negative for chest tightness and shortness of breath. Cardiovascular: Negative for chest pain, palpitations and leg swelling. Neurological: Positive for dizziness. Negative for syncope, weakness and light-headedness. Hematological: Does not bruise/bleed easily. Psychiatric/Behavioral: Negative for confusion and hallucinations. Vitals: BP 130/88 (BP Site: Left Arm, BP Position: Sitting) Pulse 72 Ht 185.4 cm (6' 1 ) Wt 105.7 kg (233 lb 0.4 oz) BMI 30.74 kg/m PHYSICAL EXAMINATION: BP 130/88 (BP Site: Left Arm, BP Position: Sitting) Pulse 72 Ht 185.4 cm (6' 1 ) Wt 105.7 kg (233 lb 0.4 oz) BMI 30.74 kg/m Last 3 Encounter BP Readings: Date: BP: 05/07/2023 142/84 05/01/2022 132/84 04/23/2021 122/82 Last 3 Encounter Pulse Readings: Date: Pulse: 05/07/2023 62 05/01/2022 73 04/23/2021 72 Last 3 Encounter Wt Readings: Date: Wt: 05/07/2023 103.9 kg (229 lb 1.3 oz) 05/01/2022 102.1 kg (225 lb) 08/09/2021 101.2 kg (223 lb) Physical Exam Vitals reviewed. Constitutional: General: He is not in acute distress. Appearance: Normal appearance. He is not ill-appearing or diaphoretic. HENT: Head: Normocephalic. Right Ear: External ear normal. Left Ear: External ear normal. Nose: Nose normal. Mouth/Throat: Mouth: Mucous membranes are moist. Eyes: Extraocular Movements: Extraocular movements intact. Cardiovascular: Rate and Rhythm: Normal rate and regular rhythm. Pulses: Normal pulses. Carotid pulses are 2+ on the right side and 2+ on the left side. Radial pulses are 2+ on the right side and 2+ on the left side. Posterior tibial pulses are 2+ on the right side and 2+ on the left side. Heart sounds: Normal heart sounds. No murmur heard. Pulmonary: Effort: Pulmonary effort is normal. Breath sounds: Normal breath sounds. No wheezing, rhonchi or rales. Abdominal: General: Abdomen is flat. Bowel sounds are normal. Palpations: Abdomen is soft. Tenderness: There is no abdominal tenderness. There is no guarding. Musculoskeletal: General: Normal range of motion. Cervical back: Normal range of motion. Right lower leg: No edema. Left lower leg: No edema. Skin: General: Skin is warm. Capillary Refill: Capillary refill takes 2 to 3 seconds. Coloration: Skin is not jaundiced or pale. Findings: No bruising, rash or wound. Neurological: General: No focal deficit present. Mental Status: He is alert and oriented to person, place, and time. Mental status is at baseline. Coordination: Coordination is intact. Psychiatric: Mood and Affect: Mood normal. Thought Content: Thought content normal. Judgment: Judgment normal. LABS: Glucose (mg/dL) Date Value 08/31/2020 156 Potassium (mmol/L) Date Value 08/31/2020 4.0 Sodium (mmol/L) Date Value 08/31/2020 137 Chloride (mmol/L) Date Value 08/31/2020 101 CO2 (mmol/L) Date Value 08/31/2020 21 Creatinine (mg/dL) Date Value 08/31/2020 0.83 BUN (mg/dL) Date Value 08/31/2020 18 Anion Gap (mmol/L) Date Value 08/31/2020 15 Calcium (mg/dL) Date Value 08/31/2020 8.8 Protein, Total (g/dL) Date Value 07/03/2018 7.6 Albumin (g/dL) Date Value 07/03/2018 4.9 Bilirubin, Total (mg/dL) Date Value 07/03/2018 1.5 Alkaline Phosphatase (U/L) Date Value 07/03/2018 61 AST (U/L) Date Value 07/03/2018 17 ALT (U/L) Date Value 07/03/2018 13 Hemoglobin (g/dL) Date Value 08/31/2020 13.5 Hematocrit (%) Date Value 08/31/2020 40.3 WBC (k/uL) Date Value 08/31/2020 7.52 Cholesterol, Total (mg/dL) Date Value 07/03/2018 169 HDL Cholesterol (mg/dL) Date Value 07/03/2018 58 LDL (mg/dL) Date Value 07/03/2018 96 Triglyceride (mg/dL) Date Value 07/03/2018 76 EKG: .I have provided a picture of today's EKG for your convenience and easy access. please note the interpretation on the EKG image is computer-generated and not the official interpretation. DIAGNOSTIC RESULTS: ASSESSMENT/PLAN: 1. Essential hypertension, benign - ICD9: 401.1, ICD10: I10 (primary diagnosis) - Controlled - Continue current medications - Recommend home blood pressure monitoring, to bring results to next visit - Encouraged sodium restriction, DASH or Mediterranean diet - Recommend regular aerobic exercise 2. Mixed hyperlipidemia - ICD9: 272.2, ICD10: E78.2 -LDL from 04/20/2024 is 99 decreased (labs are scanned in) -Patient currently taking pravastatin 80 mg nightly 3. History of cardiac cath - ICD9: V45.89, ICD10: Z98.890 -History of a cardiac stent catheterization 01/18/2010 -Normal L ventricular function normal L ventricular hemodynamics normal coronary cineangiography 4. History of stress test - ICD9: V15.89, ICD10: Z92.89 History of cardiac stress test 05/03/2020 -No evidence of reversible ischemia or infarction EF 59% 5. Never smoked cigarettes - ICD9: V49.89, ICD10: Z78.9 Misbah Crawford APRN.CNP Follow up in: 1 year-hypertension/hyperlipidemi a Greater than 50% of this > 20 minute visit was spent face to face discussing current diagnosis and treatment plan consisting of above outlined plan. Follow-up as documented above. I have discussed the recommended treatment, alternative treatments and other treatment options in detail. I have discussed the risks, benefits and side effect of the recommended treatment. I have attempted to answer all their questions to their satisfaction and understanding of the explanation has been voiced. With approval we will pursue the recommended treatment. During this office visit I reviewed the patients previous Cardiac testing and procedures results and reviewed the results with the patient. I, Misbah Crawford CNP have reviewed and agree with the information in the medical record transcribed by Magali Loo. Misbah Crawford APRN.CNP This patient note was partially generated from using the [employer] voice recognition system. There may be some incorrect words, spelling, and punctuation that were not noted in checking the note prior to saving documented in this encounter [facility] 05-31-2022 History of Presen t illness Narrative Images from the original note were not included. SECTION OF SKULL BASE SURGERY MINIMALLY INVASIVE CRANIAL BASE & PITUITARY SURGERY PROGRAM [facility] [place], [facility] TELEMEDICINE FOLLOW-UP VISIT This is a virtual visit. It required patient-provider interaction for the medical decision making as documented below. Carlos Bacon has consented for this telemedicine encounter CC: Patient Care Team: Ck Gale DO as PCP - General (Internal Medicine) Dr. Ana Marquez ([facility]) Eliel Michael (Ophtho) Assessment/Plan: Carlos Bacon presents for follow-up of recurrent Non-functional pituitary adenoma s/p resection in 01/2002 (pathology c/w non-secretory benign pituitary adenoma) and right amblyopia (baseline poor vision in right eye). 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 We discussed observation vs radiosurgery vs surgery. We agreed for observation [facility] and virtual visit with our [facility]. He will see Dr. Marquez for continued endocrine follow-up. I spent approximately 20 minutes of total time for evaluation and management services provided on the date of the encounter which included preparing to see the patient, [id number] patient care, completing clinical documentation, performing a medically appropriate examination, counseling and educating the patient/family/caregiver, communicating with other HCPs, independently interpreting results and care coordination. Madie Apodaca MD Staff, Skull Base & Cerebrovascular Surgery Department of Neurological Surgery [facility] Subjective: Patient is accompanied by . 1wk ago sinoplasty by local [facility] No KURTZ, no vision complaints No new endocrinopathy Medications Current Outpatient Medications Medication Sig ALPRAZolam (XANAX) 0.5 mg tablet Take 0.5 mg by mouth twice daily as needed. DULoxetine (CYMBALTA) 30 mg capsule 30 mg once daily. MULTIVITAMIN ORAL Take by mouth once daily. calcium polycarbophil (FIBERCON ORAL) Take by mouth once daily. famotidine (PEPCID AC) 20 mg tablet Take 20 mg by mouth as needed. polyethylene glycol 3350 (MIRALAX, GLYCOLAX) 17 gram/dose powder Use as directed for Miralax / Gatorade Bowel Prep Kit pravastatin (PRAVACHOL) 80 mg tablet Take 1 tablet by mouth every evening. amLODIPine-benazepril (LOTREL) 10-20 mg per capsule Take 1 capsule by mouth every evening. traZODone (DESYREL) 50 mg tablet Take 75 mg by mouth daily at bedtime. BABY ASPIRIN ORAL Take 81 mg by mouth once daily. Cholecalciferol, Vitamin D3, (VITAMIN D-3) 2,000 unit cap Take 2,000 Units by mouth once daily. Flaxseed Oil 1,000 mg cap Take 1,000 mg by mouth once daily. No current facility-administered medications for this visit. Exam: Awake, alert, conversant Oriented to person, place, and time Speech: Normal fluency and comprehension EOMI grossly intact Face symmetric No gross motor deficits Data: MRI pituitary wwo: stable from 2019, mild increase from 2010; no suprasellar extension documented in this encounter [facility] 05-22-2022 History of Presen t illness Narrative Radiology Service Progress Note DATE OF SERVICE: May 22, 2022 TIME: 9:16 AM PATIENT IDENTITY VERIFICATION COMPLETED USING TWO (2) STANDARD IDENTIFIERS: Name and Date of confirmed by patient verbally. FALL SCREENING: Has the patient had 2 falls in the last year or 1 fall with injury or currently using an Ambulatory Assistive Device (Walker, Cane, Wheelchair, Crutches, etc.)? No PATIENT GENDER DATA: Male PATIENT RELEVANT IMPLANT DATA REVIEWED: Yes ALLERGIES: Reviewed and unchanged CONTRAST ALLERGY: NO. EXAM: MRI - CONTRAST TYPE: GROUP II PERIPHERAL IV DATA: Ambulatory: A peripheral IV was started in the Right antecubital site with a Angio cath: 22 gauge. RADIOLOGY DEPARTMENT: MR; Exam(s) Completed: Head: Pituitary SIGNATURE: RT Russell(R) PATIENT NAME: Carlos Bacon DATE: May 22, 2022 TIME: 9:16 AM documented in this encounter [facility] 05-07-2022 Miscellaneous Notes Called and spoke with Jania. Ok to reschedule MRI and appointment with Dr. Apodaca. Patient is agreeable to this plan and verbalized understanding. Patient is aware to call with any change in condition, questions or concerns. AMISH Boyd, RN Baseball Inspector General Call Caller : Patient's spouse/Jania Contact Reason for Call : Patient is expected to have MRI on 05/22, but is also scheduled to have a balloon sinuplasty on 05/20. Spouse would like to know if patient should still have MRI post sinuplasty procedure Patient requesting return call ? Yes documented in this encounter [facility] 05-01-2022 History of Presen t illness Narrative Referring Provider: Lew Gunter, Date: May 01, 2022 Chief Complaint: Established Patient Follow-Up (1 year follow up for HTN) HISTORY OF PRESENT ILLNESS: Carlos Bacon is a 57 year old male who presents for Established Patient Follow-Up (1 year follow up for HTN). ALLERGIES Allergen Reactions Atorvastatin Myalgia PAST MEDICAL HISTORY: PAST MEDICAL HISTORY Diagnosis Date Amblyopia of eye, right Depression GERD (gastroesophageal reflux disease) History of cardiac cath 01/18/2010 normal L ventricular function normal L ventricular hemodynamics normal coronary cineangiography History of stress test 02/05/2010 small anteroapical scar no reversible ischemia small inferior wall scar no reversible ischemia evidence of R ventricular strain suggesting elevated R ventricular pressures normal wall motion EF 55% History of stress test 05/03/2020 no evidence of reversible ischemia or infarction EF 59% Hyperlipidemia Hypertension Poor vision Right eye io PAST SURGICAL HISTORY Procedure Laterality Date HYPOPHYSECTOMY-TRANSPHEN APROACH W/PIT KATHY 01/2002 PAST SURGICAL HISTORY OF 08/2020 benign tumor removed from L cheek TONSILLECTOMY AND ADENOIDECTOMY HX ns Medication Sig ALPRAZolam (XANAX) 0.5 mg tablet Take 0.5 mg by mouth twice daily as needed. DULoxetine (CYMBALTA) 30 mg capsule 30 mg once daily. MULTIVITAMIN ORAL Take by mouth once daily. calcium polycarbophil (FIBERCON ORAL) Take by mouth once daily. famotidine (PEPCID AC) 20 mg tablet Take 20 mg by mouth as needed. polyethylene glycol 3350 (MIRALAX, GLYCOLAX) 17 gram/dose powder Use as directed for Miralax / Gatorade Bowel Prep Kit pravastatin (PRAVACHOL) 80 mg tablet Take 1 tablet by mouth every evening. amLODIPine-benazepril (LOTREL) 10-20 mg per capsule Take 1 capsule by mouth every evening. traZODone (DESYREL) 50 mg tablet Take 75 mg by mouth daily at bedtime. BABY ASPIRIN ORAL Take 81 mg by mouth once daily. Cholecalciferol, Vitamin D3, (VITAMIN D-3) 2,000 unit cap Take 2,000 Units by mouth once daily. Flaxseed Oil 1,000 mg cap Take 1,000 mg by mouth once daily. No current facility-administered medications for this visit. I have personally reviewed the patients past medical history including social, family, surgical, diagnostics, and medications./AB REVIEW OF SYSTEMS: Review of Systems Constitutional: Negative for chills and fatigue. Respiratory: Negative for chest tightness and shortness of breath. Cardiovascular: Negative for chest pain, palpitations and leg swelling. Neurological: Negative for dizziness, syncope, weakness and light-headedness. Hematological: Does not bruise/bleed easily. Psychiatric/Behavioral: Negative for confusion and hallucinations. Vitals: BP 132/84 Pulse 73 Ht 185.4 cm (6' 1 ) Wt 102.1 kg (225 lb) BMI 29.69 kg/m PHYSICAL EXAMINATION: BP 132/84 Pulse 73 Ht 185.4 cm (6' 1 ) Wt 102.1 kg (225 lb) BMI 29.69 kg/m Last 3 Encounter BP Readings: Date: BP: 04/23/2021 122/82 08/28/2020 113/73 08/10/2020 153/86 Last 3 Encounter Pulse Readings: Date: Pulse: 04/23/2021 72 08/28/2020 75 08/10/2020 82 Last 3 Encounter Wt Readings: Date: Wt: 08/09/2021 101.2 kg (223 lb) 04/23/2021 101.2 kg (223 lb) 08/28/2020 102.1 kg (225 lb) Physical Exam Vitals reviewed. Constitutional: General: He is not in acute distress. Appearance: Normal appearance. HENT: Head: Normocephalic. Right Ear: External ear normal. Left Ear: External ear normal. Nose: Nose normal. Mouth/Throat: Mouth: Mucous membranes are moist. Eyes: Extraocular Movements: Extraocular movements intact. Cardiovascular: Rate and Rhythm: Normal rate and regular rhythm. Pulses: Normal pulses. Carotid pulses are 2+ on the right side and 2+ on the left side. Radial pulses are 2+ on the right side and 2+ on the left side. Posterior tibial pulses are 2+ on the right side and 2+ on the left side. Heart sounds: Normal heart sounds. No murmur heard. Pulmonary: Effort: Pulmonary effort is normal. Breath sounds: Normal breath sounds. Abdominal: General: Abdomen is flat. Bowel sounds are normal. Palpations: Abdomen is soft. Tenderness: There is no abdominal tenderness. Musculoskeletal: General: Normal range of motion. Cervical back: Normal range of motion. Right lower leg: No edema. Left lower leg: No edema. Skin: General: Skin is warm. Capillary Refill: Capillary refill takes 2 to 3 seconds. Findings: No rash or wound. Neurological: General: No focal deficit present. Mental Status: He is alert and oriented to person, place, and time. Mental status is at baseline. Coordination: Coordination is intact. Psychiatric: Mood and Affect: Mood normal. Thought Content: Thought content normal. Judgment: Judgment normal. LABS: Glucose (mg/dL) Date Value 08/31/2020 156 Potassium (mmol/L) Date Value 08/31/2020 4.0 Sodium (mmol/L) Date Value 08/31/2020 137 Chloride (mmol/L) Date Value 08/31/2020 101 CO2 (mmol/L) Date Value 08/31/2020 21 Creatinine (mg/dL) Date Value 08/31/2020 0.83 BUN (mg/dL) Date Value 08/31/2020 18 Anion Gap (mmol/L) Date Value 08/31/2020 15 Calcium (mg/dL) Date Value 08/31/2020 8.8 Protein, Total (g/dL) Date Value 07/03/2018 7.6 Albumin (g/dL) Date Value 07/03/2018 4.9 Bilirubin, Total (mg/dL) Date Value 07/03/2018 1.5 Alkaline Phosphatase (U/L) Date Value 07/03/2018 61 AST (U/L) Date Value 07/03/2018 17 ALT (U/L) Date Value 07/03/2018 13 Hemoglobin (g/dL) Date Value 08/31/2020 13.5 Hematocrit (%) Date Value 08/31/2020 40.3 WBC (k/uL) Date Value 08/31/2020 7.52 Cholesterol, Total (mg/dL) Date Value 07/03/2018 169 HDL Cholesterol (mg/dL) Date Value 07/03/2018 58 LDL (mg/dL) Date Value 07/03/2018 96 Triglyceride (mg/dL) Date Value 07/03/2018 76 EKG: DIAGNOSTIC TEST RESULTS: Recent Results (from the past 24 hour(s)) ECG COMPLETE Collection Time: 05/01/22 1:13 PM Result Value Ref Range Ventricular Rate 73 BPM Atrial Rate 73 BPM P-R Interval 186 ms QRS Duration 112 ms QT Interval 396 ms QTC Calculation (Bazett) 436 ms Calculated P Perry 23 degrees Calculated R Perry -32 degrees Calculated T Perry 1 degrees Narrative NAME : CARLOS BACON PID : [id number] : 1965 Gender : Male Race : ORD : [id number] Procedure Date : May 01 2022 13:13:45 Edit Date : May 01 2022 13:14:47 Diagnosis: NORMAL SINUS RHYTHM LEFT AXIS DEVIATION LEFT VENTRICULAR HYPERTROPHY NONSPECIFIC ST ABNORMALITY ABNORMAL ECG Test Reason : Location : [facility] [place] : [facility] Overread By : , Edited By : , Referred By : LEW GUNTER Acquired by : [id number], Impression NORMAL SINUS RHYTHM LEFT AXIS DEVIATION LEFT VENTRICULAR HYPERTROPHY NONSPECIFIC ST ABNORMALITY ABNORMAL ECG ASSESSMENT/PLAN: 1. Essential hypertension, benign - ICD9: 401.1, ICD10: I10 (primary diagnosis) Patient's blood pressure in the office today was recorded as 132/84. Target systolic BP 140 or less and diastolic BP 90 or less. Continue current medications. EKG done in office today. 2. Mixed hyperlipidemia - ICD9: 272.2, ICD10: E78.2 Patient is currently taking Pravastatin 80 mg every day. Patients last BW was 04/11/22 and the LDL was 86. Lipids are managed by PCP. 3. History of stress test - ICD9: V15.89, ICD10: Z92.89 Patient had Stress Test done on 05/03/20 and it showed no evidence of reversible ischemia or infarction EF 59% 4. History of cardiac cath - ICD9: V45.89, ICD10: Z98.890 Patient had Cath done on 01/18/10 and it showed normal L ventricular function normal L ventricular hemodynamics normal coronary cineangiography. 5. Non-smoker - ICD9: V49.89, ICD10: Z78.9 Patient has never been a smoker. I, Nasrin Javier MA, scribing for Dr. Lew Gunter. Follow up in: 1 year follow up for HTN Prior to entering the room, I reviewed the last progress note including the diagnosis and plan of action. When available, I then reviewed the last heart catheterization, stress test, echocardiogram and EKG. I proceeded to review the medial therapy and any side effects the patient may have had in the past. I was able to look at the past several EKG's. A new EKG was performed today and interpretation was noted. I reviewed this interpretation with the patient, and the family when available, and compared it to the previous EKG's that we have in the medical record. Since my office visit was carried out with a scribe, while in the exam room I was able to devote one hundred percent of my time in [id number] conversation with the patient. I answered all the questions and explained the diagnosis of high blood pressure. Greater that 51% of my time was spent with [id number] conversation with the patient. I have discussed the recommended treatment, alternative therapies and other options in detail. I've discussed the best benefit and side effects of these recommended treatments. I've attempted to answer all the questions to the patient's satisfaction and understanding. With approval, we would recommend an pursue the current therapy such as no change . After leaving the exam room, I went back into the patient's chart and coordinated care with my nurse ordering the proper testing and medicinal changes. Letter was performed with voice recognition algorithms and sent to the referring team. The chart was completed. Including the pre-exam, exam and post-exam, the total time spent in the patient's management was greater than 15 minutes I, Dr. Lew Gunter, have reviewed and agree with the information in the medical record. Lew Gunter DO documented in this encounter [facility] 08-19-2019 History of Past i llness Narrative Problem Noted Date Resolved Date Hypertension 08/19/2019 04/25/2022 documented as of this encounter (statuses as of 05/01/2022) [facility] History of Past illness Narrative* Problem Noted Date Resolved Date Hypertension 08/19/2019 04/25/2022 documented as of this encounter (statuses as of 05/01/2022) [address]19-2019 History of Past illness Narrative* Problem Noted Date Resolved Date Hypertension 08/19/2019 04/25/2022 documented as of this encounter (statuses as of 05/01/2022) [address]19-2019 History of Past illness Narrative* Problem Noted Date Resolved Date Hypertension 08/19/2019 04/25/2022 documented as of this encounter (statuses as of 05/05/2022) [address]19-2019 History of Past illness Narrative* Problem Noted Date Resolved Date Hypertension 08/19/2019 04/25/2022 documented as of this encounter (statuses as of 05/07/2022) [address]19-2019 History of Past illness Narrative* Problem Noted Date Resolved Date Hypertension 08/19/2019 04/25/2022 documented as of this encounter (statuses as of 05/23/2022) [address]19-2019 History of Past illness Narrative* Problem Noted Date Resolved Date Hypertension 08/19/2019 04/25/2022 documented as of this encounter (statuses as of 06/13/2022) [address]19-2019 History of Past illness Narrative* Problem Noted Date Diagnosed Date Resolved Date Hypertension 08/19/2019 04/25/2022 documented as of this encounter (statuses as of 08/21/2023) [address]19-2019 History of Past illness Narrative* Problem Noted Date Diagnosed Date Resolved Date Hypertension 08/19/2019 04/25/2022 documented as of this encounter (statuses as of 08/22/2023) [facility] [place] [facility] Diagnosis Essential hypertension, benign- [facility], benign- [facility] Essential hypertension, benign- Primary [facility] Diagnosis Essential hypertension, benign- Primary Mixed hyperlipidemia History of stress test Other specified conditions influencing health status History of cardiac cath Other postprocedural status Non-smoker Other specified conditions influencing health status [facility] Diagnosis Pituitary adenoma (HCC) Benign neoplasm of pituitary gland and craniopharyngeal duct (pouch) documented in this encounter [facility] note* Diagnosis Pituitary adenoma (HCC)- Primary Benign neoplasm of pituitary gland and craniopharyngeal duct (pouch) documented in this encounter [facility] note* Diagnosis Essential hypertension, benign- Primary Mixed hyperlipidemia History of cardiac cath Other postprocedural status History of stress test Other specified conditions influencing health status Never smoked cigarettes Other specified conditions influencing health status documented in this encounter [facility] note* Diagnosis Pituitary adenoma (HCC) Benign neoplasm of pituitary gland and craniopharyngeal duct (pouch) documented in this encounter [facility] note* Diagnosis Pituitary tumor- Primary Neoplasm of unspecified nature of endocrine glands and other parts of nervous system documented in this encounter [facility] for referral (narrative)* Outpatient Procedure (Routine) - Pending Review Specialty Diagnoses / Procedures Referred By Wendy houston Referred To [facility] [place] Diagnoses Essential hypertension, benign Procedures ECG COMPLETE ECG ROUTINE ECG W/LEAST 12 LDS W/I&R Lew Gunter DO [address] [place] [address] [facility] [id number] [place] [address] Referral ID Status Reason Start Date Expiration Date Visits Requested Visits Authorized [id number] Pending Review Auto-Generat ed Referral 05/01/2022 05/01/[address] [facility] for referral (narrative)* Outpatient Procedure (Routine) - Pending Review Specialty Diagnoses / Procedures Referred By Wendy houston Referred To [facility] Diagnoses Essential hypertension, benign Procedures ECG COMPLETE ECG ROUTINE ECG W/LEAST 12 LDS W/I&R Lew Gunter DO [address] [place] [address] [address] Referral ID Status Reason Start Date Expiration Date Visits Requested Visits Authorized [id number] Pending Review Auto-Generat ed Referral 05/01/2022 05/01/[address] [facility] for referral (narrative)* Diagnostic Procedure Only (Routine) - Closed Specialty Diagnoses / Procedures Referred By Contac t Referred To Contact [facility] IMAGING Diagnoses Pituitary adenoma (HCC) Procedures MRI PITUITARY WO/W IVCON MRI BRAIN Madie Sarmiento MD [address] [place] [address] Mr Imaging Referral ID Status Reason Start Date Expiration Date V isits Requested Visits Authorized [id number] Closed Auto-Generat ed Referral Clearance Not Met - Admin/Chairm an/Director Advise to Postpone/Res chedule or Not Proceed 05/22/2022 06/21/[address] [facility] for referral (narrative)* Outpatient Procedure (Routine) - Pending Review Specialty Diagnoses / Procedures Referred By Contac t Referred [facility] Diagnoses Essential hypertension, benign Procedures ECG COMPLETE ECG ROUTINE ECG W/LEAST 12 LDS W/I&R Misbah Crawford, HOTEL BAGGAGE HANDLER.NURSING HOME ASSISTANT ADMINISTRATOR [address] [place] [id number] [facility] [address] [address] Referral ID Status Reason Start Date Expiration Date Visits Requested Visits Authorized [id number] Pending Review Auto-Generat ed Referral 05/10/2024 05/10/[address] [facility] for visit Narrative* Diagnostic Procedure Only (Routine) - Closed Specialty Diagnoses / Procedures Referred By Contac t Referred To Contact MR IMAGING Diagnoses Pituitary adenoma (HCC) Procedures MRI PITUITARY WO/W IVCON MRI BRAIN Madie Sarmiento MD [address] [place] [address] Mr Imaging Referral ID Status Reason Start Date Expiration Date V isits Requested Visits Authorized [id number] Closed Auto-Generat ed Referral Clearance Not Met - Admin/Chairm an/Director Advise to Postpone/Res chedule or Not Proceed 05/22/2022 06/21/2022 1 1 [facility] Diagnostic Procedure Only (Routine) - Closed Specialty Diagnoses / Procedures Referred By Wendy houston Referred To Contact RADIO [facility] Diagnoses Pituitary adenoma (HCC) Pituitary adenoma (HCC) [D35.2] Procedures MRI BRAIN BRAIN STEM W/O W/CONTRAST MATERIAL MRI WWO NEU1 B 300 MRI PITUITARY WO/W IVCON Madie Apodaca MD [address] [place] [address] [facility] [address] [place] [address] Referral ID Status Reason Start Date Expiration Date V isits Requested Visits Authorized [id number] Closed Patient Cleared - Admin/Chairm an/Director advise to proceed or did not respond 05/27/2024 05/31/2024 1 1 [facility] Summary Purpose Family History No Family History Records FoundNo Family History Records FoundNo Family History Records FoundNo Family History Records FoundNo Family History Records FoundNo Family History Records FoundNo Family History Records Found Advance Directives No Advanced Directives Records FoundDocuments on File Type Date Recorded 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 Advance Directive(s) 08/30/2020 11:49 AM Documents on File Type Date Recorded 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 Advance Directive(s) 08/30/2020 11:49 AM Reason for Referral Specialty Diagnoses / Procedures Referred By Wendy houston Referred To Contact MR IMAGING Diagnoses Pituitary adenoma (HCC) Procedures MRI PITUITARY WO/W IVCON MRI BRAIN BRAIN STEM W/O W/CONTRAST MATERIAL Madie Apodaca MD [address] [place] [address] Mr Imaging [place] [address] Referral ID Status Reason Start Date Expiration Date V isits Requested Visits Authorized [id number] Closed Auto-Generate d Referral 05/27/2024 05/31/2024 1 1 Additional Source Comments (unrecognized sect ion and content) No Status Records FoundNo Status Records FoundNo Status Records FoundNo Status Records FoundNo Status Records FoundNo Status Records FoundNo Status Records Found INFORMATION SOURCE (unrecogn ized section and content) DATE CREATED AUTHOR 05/26/2018 Edwin Munozduyen [facility] DATE CREATED AUTHOR AUTHOR'S ORGANIZ ATION 11/09/2018 [facility] DATE CREATED AUTHOR AUTHOR'S ORGANIZ ATION 05/11/2020 [facility] rao Nielsen DATE CREATED AUTHOR AUTHOR'S ORGANIZ ATION 08/03/2021 [facility] DATE CREATED AUTHOR AUTHOR'S ORGANIZ ATION 10/28/2022 [facility] ([place]) DATE CREATED AUTHOR AUTHOR'S ORGANIZ ATION 05/15/2024 [facility] DATE CREATED AUTHOR AUTHOR'S ORGANIZ ATION 07/07/2024 [facility] Source Comments (unrecognize d section and content) In the event this informatio n is protected by the Federal Confidentiality of Alcohol and Drug Abuse Patient Records regulations: The Federal rules restrict any use of the information to criminally investigate or prosecute any alcohol or drug abuse patient.[facility] the event this information is protected by the Federal Confidentiality of Alcohol and Drug Abuse Patient Records regulations: The Federal rules restrict any use of the information to criminally investigate or prosecute any alcohol or drug abuse patient.[facility] the event this information is protected by the Federal Confidentiality of Alcohol and Drug Abuse Patient Records regulations: The Federal rules restrict any use of the information to criminally investigate or prosecute any alcohol or drug abuse patient.[facility] the event this information is protected by the Federal Confidentiality of Alcohol and Drug Abuse Patient Records regulations: The Federal rules restrict any use of the information to criminally investigate or prosecute any alcohol or drug abuse patient.[facility] the event this information is protected by the Federal Confidentiality of Alcohol and Drug Abuse Patient Records regulations: The Federal rules restrict any use of the information to criminally investigate or prosecute any alcohol or drug abuse patient.[facility] the event this information is protected by the Federal Confidentiality of Alcohol and Drug Abuse Patient Records regulations: The Federal rules restrict any use of the information to criminally investigate or prosecute any alcohol or drug abuse patient.[facility] the event this information is protected by the Federal Confidentiality of Alcohol and Drug Abuse Patient Records regulations: The Federal rules restrict any use of the information to criminally investigate or prosecute any alcohol or drug abuse patient.[facility] the event this information is protected by the Federal Confidentiality of Alcohol and Drug Abuse Patient Records regulations: The Federal rules restrict any use of the information to criminally investigate or prosecute any alcohol or drug abuse patient.[facility] the event this information is protected by the Federal Confidentiality of Alcohol and Drug Abuse Patient Records regulations: The Federal rules restrict any use of the information to criminally investigate or prosecute any alcohol or drug abuse patient.[facility] Hospital[facility] the event this information is protected by the Federal Confidentiality of Alcohol and Drug Abuse Patient Records regulations: The Federal rules restrict any use of the information to criminally investigate or prosecute any alcohol or drug abuse patient.[facility] Hospital[facility] the event this information is protected by the Federal Confidentiality of Alcohol and Drug Abuse Patient Records regulations: The Federal rules restrict any use of the information to criminally investigate or prosecute any alcohol or drug abuse patient.[facility] Hospital[facility] the event this information is protected by the Federal Confidentiality of Alcohol and Drug Abuse Patient Records regulations: The Federal rules restrict any use of the information to criminally investigate or prosecute any alcohol or drug abuse patient.[facility] Hospital[facility] the event this information is protected by the Federal Confidentiality of Alcohol and Drug Abuse Patient Records regulations: The Federal rules restrict any use of the information to criminally investigate or prosecute any alcohol or drug abuse patient.[facility] Hospital[facility] the event this information is protected by the Federal Confidentiality of Alcohol and Drug Abuse Patient Records regulations: The Federal rules restrict any use of the information to criminally investigate or prosecute any alcohol or drug abuse patient.[facility] HospitalIn the event this information is protected by the Federal Confidentiality of Alcohol and Drug Abuse Patient Records regulations: The Federal rules restrict any use of the information to criminally investigate or prosecute any alcohol or drug abuse patient.[facility] Teams (unrecognized sec tion and content) Community Development Manager Relationship Specialty Start Date End Date Ck Gale, DO PCP - General Internal Medicine 08/18/19 Community Development Manager Relationship Specialty Start Date End Date Ck Gale DO PCP - General Internal Medicine 08/18/19 Community Development Manager Relationship Specialty Start Date End Date Ck Gale DO PCP - General Internal Medicine 08/18/19 Community Development Manager Relationship Specialty Start Date End Date Ck Gale DO PCP - General Internal Medicine 08/18/19 Community Development Manager Relationship Specialty Start Date End Date Ck Gale DO PCP - General Internal Medicine 08/18/19 Community Development Manager Relationship Specialty Start Date End Date Ck Gale DO PCP - General Internal Medicine 08/18/19 Community Development Manager Relationship Specialty Start Date End Date Ck Gale DO PCP - General Internal Medicine 08/18/19 Community Development Manager Relationship Specialty Start Date End Date Ck Gale DO PCP - General Internal Medicine 08/18/19 Community Development Manager Relationship Specialty Start Date End Date Ck Gale, DO PCP - General Internal Medicine 08/18/19 Community Development Manager Relationship Specialty Start Date End Date Ck Gale, DO PCP - General Internal Medicine 08/18/19 Community Development Manager Relationship Specialty Start Date End Date Ck Gale, DO PCP - General Internal Medicine 08/18/19 Reason for Visit (unrecogniz ed section and content) Reason Comments Established Patient Follow-Up 1 year fol low up for HTN Reason Comments Patient Question Reason Comments Established Patient Reason Comments Established Patient 1 yr follow up Reason Comments Follow Up FOR RECORDS PERTAINING TO PATIENTS WHO ARE OR HAVE BEEN ENROLLED IN A CHEMICAL DEPENDENCY/SUBSTANCEABUSE PROGRAM, SOME INFORMATION MAY BE OMITTED. This clinical summary was aggregated from multiple sources. Caution should be exercised in using it in the provision of clinical care. This summary normalizes information from multiple sources, and as a consequence, information in this document may materially change the coding, format and clinical context of patient data. In addition, data may be omitted in some cases. CLINICAL DECISIONS SHOULD BE BASED ON THE PRIMARY CLINICAL RECORDS. [facility] provides no warranty or guarantee of the accuracy or completeness of information in this document.
== END | disposition home or self-care (01) ==
LOC: RAD 07:22
PROVIDERS: PCP Internal Medicine; Referring Provider Internal Medicine Gastroenterology; Visit Provider Internal Medicine Gastroenterology
DX: K59.00 Constipation, unspecified (principal)
CPT/HCPCS: 74018

== ENCOUNTER → 2024-09-25 | Outpatient (CLI) | payer OTHER, SELFPAY ==
--- OUTSIDE RECORDS SUMMARY | 2024-09-25 07:29 | XMS RPT_ITS | CCD ---
Author Organization [facility] Care Team Providers Care Chief Minister Name Role Phone KORABLEVA, BRODY B Unavailable [...] Ck Gale DO Primary Care Provider [phone] YAMINI CASAS, DR. CK Rene Attending Venessa KC DO, DR. CK Rene Primary Care DR. CK Byrne DO Attending Venessa KC DO, DR. CK Rene Primary Care Ck Calzada DO Primary Care Provider Ck Gale DO Primary Care Provider [phone] CK GALE Primary Care Unavailable MISBAH CRAWFORD Attending Unavailable CK GALE Primary Care Unavailable ENRIQUETA STANLEY Attending Unavailable CK GALE Primary Care Unavailable MADIE APODACA Referring Unavailable Allergies Allergy Classification Reported Allergen(s) Allergy Type Date of Onset Reaction(s) Facility HMG-CoA Reductase Inhibitors (statins) (1 source) atorvastatin Drug Allergy 08-18-2019 Myalgia [facility] (16 sources) atorvastatin; Translations: [ATORVASTATIN] Drug Allergy 08-18-2019 Myalgia [facility] Work Phone: Medications Current Medications Medication Drug [...] given by your provider. polyethylene glycol 3350 09821 mg powder for oral solution (8 sources) [...] Test Name Value Interpretation Reference Range Facility [facility] -- CARLOS BACON ([id number]) 1965 M Date Time Provider Department 07/05/24 ENRIQUETA STANLEY [facility] During your visit today, we recorded the following information about you: Teri Almaraz 07/05/2024 12:21 PM Signed General Call Caller : Jania Contact Reason for Call : Wanted to make sure you reviewed CT results with Dr. Palm. Is he concerned about growth? Patient requesting return call ? Yes Enriqueta Stanley APRN.[facility] 07/05/2024 1:29 PM Signed Reviewed case with Dr. Apodaca who states growth is so minimalover 2yr. At this rate of growth, hewould expect it would take >10yr more likely 15-20yr to reach his eye nerves and start causing any symptoms also offered GK.Patient wishes to continue with observation and will get new MRI in two years. Enriqueta Stanley APRN.[facility] Allergies As of Date: 07/05/2024 Noted Allergy Reaction ATORVASTATIN 08/18/2019 17 - Myalgia Date Reviewed: 05/10/2024 Reviewed by: Angi Carbajal Tech - Fully Assessed Reason for Visit: Patient Question [5117] Prescriptions as of 07/05/2024 - ALPRAZolam (XANAX) [...] Status:Closed by ENRIQUETA STANLEY on 07/05/24 Normal [facility] MR Pituitary and Sella turci ca WO and W contrast Grady 05-31-2024 IMPRESSION: Slight interval increase in volume of enhancing soft tissue within the lateral aspects of the sella bilaterally following transsphenoidal hypophysectomy, compatible with residual/recurrent adenoma. No substantial suprasellar extension or mass effect on the optic chiasm, however there is likely mild invasion of the cavernous sinuses bilaterally. Plant Electrical Engineer: PSCB Transcribe Date/Time: May 31 2024 9:25A Dictated by : HE HERNANDEZ MD This examination was interpreted and the report reviewed and electronically signed by: HE HERNANDEZ MD on May 31 2024 9:36AM [facility] DIVISION OF RADIOLOGY * * *Final Report* * * DATE OF EXAM: May 31 2024 8:57AM [facility] 0314 - MRI PITUITARY WO/W IVCON [...] DATE OF EXAM: May 31 2024 8:57AM [facility] 0314 - MRI PITUITARY WO/W IVCON [...] mild invasion of the cavernous sinuses bilaterally. Plant Electrical Engineer: DEVONTE Transcribe Date/Time: May 31 2024 9:25A Dictated by : HE HERNANDEZ MD This examination was interpreted and the report reviewed and electronically signed by: HE HERNANDEZ MD on May 31 2024 9:36AM EST [facility] Radiology Study observation (narrative) [facility] MR Pituitary and Sella turci ca WO and W contrast IVOrdered By: Ccf Provider on 05-31-2024 [facility] MRI PITUITARY WO/W IVCONon 0 05-31-2024 MRI PITUITARY WO/W IVCON * * *Final Report* * * DATE OF EXAM: May 31 2024 8:57AM [facility] 0314 - MRI PITUITARY WO/W IVCON [...] mild invasion of the cavernous sinuses bilaterally. Plant Electrical Engineer[facility] Transcribe Date/Time: May 31 2024 9:25A Dictated by : HE HERNANDEZ MD This examination was interpreted and the report reviewed and electronically signed by: HE HERNANDEZ MD on May 31 2024 9:36AM EST [id number] Normal [facility] CNOVon 05-10-2024 CNOV Office Visit ([facility]DO ) -- CARLOS BACON ([id number]) 1965 M Date Time Provider Department 05/10/24 7:40 AM MISBAH CRAWFORD During your visit today, we recorded the following information about you: Pulse Blood pressure Weight Height 72/minute 130/88 105.7 kg 1.854 m Misbah Crawford APRN.PLANT MAINTENANCE MECHANIC 05/10/2024 8:48 AM Signed [facility] Department of Cardiology Referring Provider: No [...] Migraines Father Coronary Artery Disease Father other (DE in 50's) Father SOCIAL HISTORY: Tobacco Use: [...] and regul (more content not included)... Normal [facility] ECG COMPLETEon 05-10-2024 ECG COMPLETE Ventricular Rate : 7 2 BPM Atrial Rate : 72 BPM P-R Interval : 180 ms QRS Duration : 108 ms Q-T Interval : 400 ms QTC Calculation(Bazett) : 438 ms Calculated P Smiley : 41 degrees Calculated R Smiley : -33 degrees Calculated T Smiley : 15 degrees Normal sinus rhythm Left axis deviation Nonspecific ST abnormality Confirmed by LEW GUNTER DO ([id number]) on 05/14/2024 5:15:18 AM NAME : CARLOS BACON PID : [id number] : 1965 Gender : Male Race : ORD : [id number] Procedure Date : May 10 2024 07:53:21 Edit Date : May 14 2024 05:15:22 Diagnosis: Normal sinus rhythm Left axis deviation Nonspecific ST abnormality Confirmed by LEW GUNTER DO ([id number]) on 05/14/2024 5:15:18 AM Test Reason : HCS Location : 2 : [place] Overread By : LEW GUNTER DO Edited By : LEW GUNTER DO Referred By : , Acquired by : , [facility] PSAon 10-23-2022 Prostate Specific Antigen 1.75 ng/mL Normal 0.00-4.00 [facility] ([place]) Comment on above: Performed By: #### P #### [address] [address] MRI PITUITARY WO/W IVCONon 0 05-22-2022 [facility] SURGICALon 07-25-2021 SURGICAL ANTRUM - GE JUNCTION [...] [facility] D.O MICROSCOPIC DESCRIPTION: Slide(s) reviewed. [facility] 07/27/2021 GROSS DESCRIPTION: Specimen received in [...] boswell tissue, 3 mm in diameter. (1,ns) [facility] 07/26/2021 CLINICAL DATA: PROCEDURE: EGD/Colonoscopy - A. Antrum biopsy, B. GE junction biopsy, C. Colon polyp at 35 cm PRE-OP: Heartburn, constipation, colon polyps POST-OP: Same, esophagitis, mild gastritis, diverticulosis HISTORY: N/A Signed *Electronically Signed* [facility] D.O 07/27/21 1306 [facility] Comment on above: Performed By: #### P -S #### [facility] [address] [place] [address] CARD.[facility] 05-03-2020 CARD.[facility] Patient Name: CARLOS BACON [id number] [employer] Date of : [address] [place] [address] Unit Number: [id number] Stress Test (EKG) Patient Status: REG CLI [...] Time Alonzo Urbina MD Verified/Reviewed by 05/03/20 [facility] Stress Test (EKG) [facility] CARD.[facility] 05-03-2020 CARD.[facility] Patient Name: CARLOS BACON [id number] [employer] Date of : [address] [place] [address] Unit Number: [id number] Stress Test (Nuclear) Patient Status: REG CLI [...] Urbina MD Verified/Reviewed by 05/03/20 1224 Normal [facility] Stress Test (Nuclear) Normal [facility] MRI BRAIN W/WO CONTRASTon MRI BRAIN W/WO CONTRAST [place] [id number]: CARLOS BACON DPhys: BRODY STEVENS M.D.: 63 Age: 53 Sex: MAcct: [id number] Loc: RAD MRIExam Date: 07/06/18 Status: REG CLIRadiology No.: [id number] Number: [id number] # Type/[id number] MRI / MRI BRAIN W/WO CONTRASTPROCEDURE:MAGNETIC RESONANCE [...] neoplasmProfessional interpretation provided by [facility]60.Thank you for this referral.< >Reported By: CK BARAHONA M.D.Signed In NovaPro By: CK BARAHONA M.D. << Signature on File>> Reported By: CK BARAHONA M.D. Signed By: CK BARAHONA M.D.Tests performed at:[address] [phone] Normal [facility] CMPon 07-03-2018 A:G RATIO 1.81 Normal 1.1-2.5 [facility] Comment on above: Performed By: #### L 100.0005, L100.0040, L304.0140, L304.0155, L304.0295, L304.0162, L304.0480 ####[facility] - [facility] [id number] [place] [address] Albumin mass conc 4.9 g/dL Normal 3.5-5.2 [facility] Comment on above: Performed By: #### L 100.0005, L100.0040, L304.0140, L304.0155, L304.0295, L304.0162, L304.0480 ####[facility] FRWAELLHNH639 [place] [address] ALK. PHOS 61 U/L Normal 40-130 [facility] Comment on above: Performed By: #### L 100.0005, L100.0040, L304.0140, L304.0155, L304.0295, L304.0162, L304.0480 ####[facility] [address] [place] [address] ALT enzyme act/vol 13 U/L Normal 5-41 [facility] Comment on above: Performed By: #### L 100.0005, L100.0040, L304.0140, L304.0155, L304.0295, L304.0162, L304.0480 ####[facility] HKEYIHLIPF707 [place] [address] Anion gap 3 molar conc 19.0 mmol/L Normal 15-22 [facility] Comment on above: Performed By: #### L 100.0005, L100.0040, L304.0140, L304.0155, L304.0295, L304.0162, L304.0480 ####[facility] CBSLXJFYIL985 [place] [address] AST enzyme act/vol 17 U/L Normal 5-40 [facility] Comment on above: Performed By: #### L 100.0005, L100.0040, L304.0140, L304.0155, L304.0295, L304.0162, L304.0480 ####[facility] LPEGRQYYUG374 [place] [address] Bilirubin Ql (U) 1.5 mg/dL High 0.2-1.2 [facility] Comment on above: Performed By: #### L 100.0005, L100.0040, L304.0140, L304.0155, L304.0295, L304.0162, L304.0480 ####[facility] MYEGPQPEQE489 [place] [address] Calcium mass conc 9.8 mg/dL Normal 8.6-10.0 [facility] Comment on above: Performed By: #### L 100.0005, L100.0040, L304.0140, L304.0155, L304.0295, L304.0162, L304.0480 ####[facility] FZXROGNLLW438 [place] [address] Chloride molar conc 102 mmol/L Normal 98-107 [facility] Comment on above: Performed By: #### L 100.0005, L100.0040, L304.0140, L304.0155, L304.0295, L304.0162, L304.0480 ####[facility] [address] [place] [address] Creatinine mass conc 1.00 mg/dL Normal 0.70-1.20 [facility] Comment on above: Performed By: #### L 100.0005, L100.0040, L304.0140, L304.0155, L304.0295, L304.0162, L304.0480 ####[facility] ZVVSYRQZGZ169 [place] [address] eGFR if AFR MAGGIE > 60 ml/min/1.73m2 Normal U [facility] Comment on above: Result Comment: eGFR >= [...] 100.0005, L100.0040, L304.0140, L304.0155, L304.0295, L304.0162, L304.0480 ####[facility] YCIXEJWJGY670 [place] [address] eGFR nonAFR Maggie > 60 ml/Min/1.73m2 Normal U [facility] Comment on above: Performed By: #### L 100.0005, L100.0040, L304.0140, L304.0155, L304.0295, L304.0162, L304.0480 ####[facility] [address] [place] [address] Globulin Calculated mass conc (S) 2.7 g/dL Normal 1.5-4.5 [facility] Comment on above: Performed By: #### L 100.0005, L100.0040, L304.0140, L304.0155, L304.0295, L304.0162, L304.0480 ####[facility] [address] [place] [address] Glucose mass conc 89 mg/dL Normal 74-106 [facility] Comment on above: Performed By: #### L 100.0005, L100.0040, L304.0140, L304.0155, L304.0295, L304.0162, L304.0480 ####[facility] [address] [place] [address] Potassium molar conc 4.0 mmol/L Normal 3.5-5.0 [facility] Comment on above: Performed By: #### L 100.0005, L100.0040, L304.0140, L304.0155, L304.0295, L304.0162, L304.0480 ####[facility] [address] [place] [address] Protein mass conc 7.6 g/dL Normal 6.4-8.3 [facility] Comment on above: Performed By: #### L 100.0005, L100.0040, L304.0140, L304.0155, L304.0295, L304.0162, L304.0480 ####[facility] CCSGNMECAT996 [place] [address] Sodium molar conc 141 mmol/L Normal 135-145 [facility] Comment on above: Performed By: #### L 100.0005, L100.0040, L304.0140, L304.0155, L304.0295, L304.0162, L304.0480 ####[facility] AGJKRMDLEJ675 [place] [address] TCO2 24 mmol/L Normal 22-29 [facility] Comment on above: Performed By: #### L 100.0005, L100.0040, L304.0140, L304.0155, L304.0295, L304.0162, L304.0480 ####[facility] XCFALSQHNH265 [place] [address] Urea nitrogen mass conc 23 mg/dL High 6-20 [facility] Comment on above: Performed By: #### L 100.0005, L100.0040, L304.0140, L304.0155, L304.0295, L304.0162, L304.0480 ####[facility] [address] [place] [address] CORTISOL (RANDOon 07-03-2018 CORTISOL (RANDO 15.6 ug/dL Normal 2.7-18.4 [facility] Comment on above: Performed By: #### L 100.0005, L100.0040, L304.0140, L304.0155, L304.0295, L304.0162, L304.0480 ####[facility] VTGPRGUJJT193 [place] [address] Free T4on 07-03-2018 T4 free mass conc 1.29 ng/dL Normal 0.93-1.7 [facility] Comment on above: Performed By: #### L 100.0005, L100.0040, L304.0140, L304.0155, L304.0295, L304.0162, L304.0480 ####[facility] WOAQYQPFMV655 [place] [address] LIPID PANELon 07-03-2018 Cholesterol in HDL mass conc 58 mg/dL [facility] Comment on above: Result Comment: Sylvia onal [...] L100.0040, L304.0140, L304.0155, L304.0295, L304.0162, L304.0480 ####ML [facility] [id number] [place] [address] Cholesterol in LDL mass conc 96 mg/dL [facility] Comment on above: Result Comment: LDL: OPTIMAL FOR PEOPLE AT VERY HIGH RISK <70 OPTIMAL <100 NEAR OPTIMAL 100-129 BORDERLINE HIGH 130-159 HIGH 160-189 VERY HIGH >=190Source: 2008 NCEP ATP III, ADA GuidelinesReviewed: March, Performed By: #### L 100.0005, L100.0040, L304.0140, L304.0155, L304.0295, L304.0162, L304.0480 ####[facility] QIAGKUBXZY695 [place] [address] Cholesterol in LDL/Cholesterol in HDL mass ratio 1.7 [facility] Comment on above: Performed By: #### L 100.0005, L100.0040, L304.0140, L304.0155, L304.0295, L304.0162, L304.0480 ####[facility] KVVRMOBIQV760 [place] [address] Cholesterol in VLDL mass conc 15 mg/dL [place] [address] Comment on above: Performed By: #### L 100.0005, L100.0040, L304.0140, L304.0155, L304.0295, L304.0162, L304.0480 ####[facility] - [facility] UOFJWDRGZF508 [place] [address] Cholesterol mass conc 169 mg/dL Normal 130-200 [facility] Comment on above: Performed By: #### L 100.0005, L100.0040, L304.0140, L304.0155, L304.0295, L304.0162, L304.0480 ####ML - [facility] [place] [address] Triglyceride mass conc 76 mg/dL Normal [facility] Comment on above: Result Comment: TRIG : DESIRABLE: <150 mg/dL Performed By: #### L 100.0005, L100.0040, L304.0140, L304.0155, L304.0295, L304.0162, L304.0480 ####[facility] - [facility] EXWUSYEALG508 [place] [address] TESTOSTERONE TOon 07-03-2018 TESTOSTERONE TO 339.0 ng/dL Normal 193-740 [facility] Comment on above: Performed By: #### L 100.0005, L100.0040, L304.0140, L304.0155, L304.0295, L304.0162, L304.0480 ####[facility] - [facility] CDVKEVNFWH109 [place] [address] TSHon 07-03-2018 Thyrotropin Qn 1.81 uIU/mL Normal 0.45-4.50 [facility] Comment on above: Performed By: #### L 100.0005, L100.0040, L304.0140, L304.0155, L304.0295, L304.0162, L304.0480 ####ML - [facility] [place] [address] CORTISOL (AM) [QUEST]on 05-31 CORTISOL (AM) [QUEST] Normal [facility] Comment on above: Result Comment: _COR TISOL (AM)_CORTISOL, A.M.Reported: 06/17/2017 16:37 Status=F TEST RESULT FLAG RANGE UNITS CORTISOL, A.M. 6.6 4.0-22.0 mcg/dL 06/17/17.1649.Ju.AMRR .9813-7Test Performed by [facility] [place],[facility],[address] [place] [address] 524[address]Tlwdkysmichi Robison M.D., Ph.D., Director of [phone], [facility] [id number] Performed By: #### 2 18305 ####[facility],[address] [place] [address] DHEA-SULFATE [QUEST]on 06-16 DHEA-SULFATE [QUEST] Normal [facility] Comment on above: Result Comment: _DHE R-OPPIYCC_BMTY-MBLITHJFgomjuwb: 06/16/2017 11:24 Status=F TEST RESULT FLAG RANGE UNITS DHEA-SULFATE 45 38-313 mcg/dL 06/16/17.1135.rflTHOMAS.AMRR .3220-8FQSG-I values fall with advancing age. For reference,the reference intervals for 31-40 year old patientsare: Female 23-266 mcg/dL and Male 106-464 mcg/dL.Test Performed by [facility],[address] [place] [address] 62[address]LkugllgTyson Robison M.D., Ph.D., Director of [phone], [place] [id number] Performed By: #### 2 78342 ####[facility],[address] [place] [address] TESTOSTERONE, TOTALon 2016 Testosterone Normal [facility] Comment on above: Result Comment: _TES TOSTERONE, TOTAL_TESTOSTERONE,TOT,MALEADULTReported: 06/16/2017 09:18 Status=F TEST RESULT FLAG RANGE UNITS TESTOSTERONE,TOT,MALEADUL 256 250-827 ng/dL 06/16/17.0929.rflTHOMAS.AMRR .2986-8TMen with clinically significant hypogonadal symptomsand testosterone values repeatedly less than approxi-mately 300 ng/dL may benefit from testosteronetreatment after adequate risk and benefits counseling.Test Performed by [facility],[address] [place], [place] [address]Ciyflzkmichi Robison M.D., Ph.D., Director of [phone], [place] [id number] Performed By: #### 2 71988 ####[facility],[address] [place] [address] CMP with eGFRon 06-14-2017 Age 52 years Normal [facility] Comment on above: Performed By: #### 2 99402 ####[facility],[address] [place] [address] Albumin 4.5 g/dL Normal 3.4 - 4.8 [facility] Comment on above: Performed By: #### 2 76633 ####[facility],[address] [place], [place] [address] Albumin/Globulin Ratio 1.7 {ratio} High 0.9 - 1.6 [facility] Comment on above: Performed By: #### 2 58099 ####[facility],[address] [place] [address] ALK PHOS 49 U/L Normal 38 - 126 [facility] Comment on above: Performed By: #### 2 97169 ####[facility],[address] [place] [address] ALT/SGPT 21 U/L Normal 10 - 40 [facility] Comment on above: Performed By: #### 2 72603 ####[facility],[address] [place] [address] Anion gap 11 mmol/L Normal 10 - 20 [facility] Comment on above: Performed By: #### 2 39152 ####[facility],[address] [place] [address] AST/SGOT 19 U/L Normal 13 - 39 [facility] Comment on above: Performed By: #### 2 67271 ####[facility],[address] [place] [address] B/C RATIO 23 ratio Normal 0 - 30 [facility] Comment on above: Performed By: #### 2 00886 ####[facility],[address] [place] [address] Bilirubin (total) 1.5 mg/dL Normal 0.0 - 1.5 [facility] Comment on above: Performed By: #### 2 83084 ####[facility],[address] [place] [address] Calcium 9.3 mg/dL Normal 8.6 - 10.2 [facility] Comment on above: Performed By: #### 2 12532 ####[facility],[address] [place] [address] Chloride 106 mmol/L Normal 98 - 107 [facility] Comment on above: Performed By: #### 2 02721 ####[facility],[address] [place] [address] CO2 24.5 mmol/L Normal 21.0 - 31.0 [facility] Comment on above: Performed By: #### 2 38838 ####[facility],[address] [place] [address] Creatinine 1.0 mg/dL Normal 0.7 - 1.3 [facility] Comment on above: Performed By: #### 2 38329 ####[facility],[address] [place] [address] eGFR (non-black) Normal [facility] Comment on above: Result Comment: COMP REHENSIVE METABOLIC PANEL Performed By: #### 2 86756 ####[facility],[address] [place] [address]158 eGFR (non-black) mL/min/{1.73_m2} Normal 60 - 999 [facility] Comment on above: Performed By: #### 2 25717 ####[facility],[address] [place] [address] Result Comment: ACCO RDING TO THE NATIONAL KIDNEY DISEASE EDUCATION PROGRAM(NKDE), A NORMAL eGFRIS A VALUE GREATER THAN OR EQUAL TO 60 ML/MIN/1.73 SQ METERS.CHRONIC KIDNEY DISEASE: <60mL/MIN/1.73 SQ METERSKIDNEY FAILURE: <15mL/MIN/1.73 SQ METERSTHIS TEST SHOULD ONLY BE USED FOR PATIENTS 18 YEARS OF AGE AND OLDER. Globulin 2.7 g/dL Normal 1.5 - 3.8 [facility] Comment on above: Performed By: #### 2 88435 ####[facility],[address] [place] [address] Glucose mass conc 92 mg/dL Normal 74 - 106 [facility] Comment on above: Performed By: #### 2 43140 ####[facility],[address] [place] [address] Potassium molar conc 3.8 mmol/L Normal 3.5 - 5.1 [facility] Comment on above: Performed By: #### 2 74987 ####[facility],[address] [place] [address] Protein 7.2 g/dL Normal 6.4 - 8.3 [facility] Comment on above: Performed By: #### 2 96801 ####[facility],[address] [place] [address] Sodium 138 mmol/L Normal 136 - 145 [facility] Comment on above: Performed By: #### 2 11251 ####[facility],[address] [place], [place] [address] Urea nitrogen 23 mg/dL High 6 - 20 [facility] Comment on above: Performed By: #### 2 99923 ####[facility],[address] [place], [place] [address] PSA CANCER SCREENING (G0103) on 06-14-2017 PSA 0.91 ng/ml Normal 0.00 - 4.00 [facility] Comment on above: Performed By: #### 2 73970 ####[facility],[address] [place] [address] T4-FREE (FREE THYROXINE)on 0 06-14-2017 Thyroxine (T4) free 0.80 ng/dL Normal 0.61 - 1.12 [facility] Comment on above: Result Comment: *SPE CIMENS FROM PATIENTS WHO ARE UNDERGOING BIOTIN THERAPY AND/OR INGESTINGBIOTIN SUPPLEMENTS MAY HAVE FALSE HIGH RESULTS. Performed By: #### 2 72698 ####[facility],[address] [place] [address] TSHon 06-14-2017 Thyroid stimulating hormone (TSH) 0.87 uIU/ml Normal 0.34 - 5.60 [facility] Comment on above: Performed By: #### 2 31444 ####[facility],[address] [place] [address] SURGICAL PATHOLOGY, CONVERTE Don 01-08-2012 [facility] SURGICAL PATHOLOGY, CONVERTE Don 06-06-2009 [facility] SURGICAL PATHOLOGY, CONVERTE Don 10-29-2006 [facility] Vital Signs Date Time Vital Sign Value Performing Clinician Riaz jovel 05-10-2024 07:50-0400 Body height 185.4 cm Misbah Crawford APRN.CNP Work Phone: [facility] 05-10-2024 07:50-0400 Body mass index (BMI) [Ratio] 30.74 kg/m2 Misbah Crawford APRN.CNP Work Phone: [facility] 05-10-2024 07:50-0400 Body weight 105.7 kg Misbah Crawford APRN.PLANT MAINTENANCE MECHANIC Work Phone: [facility] 05-10-2024 07:50-0400 Diastolic blood pressure 88 mm[Hg] Misbah Crawford APRN.PLANT MAINTENANCE MECHANIC Work Phone: [facility] 05-10-2024 07:50-0400 Heart rate 72 /min Misbah Crawford APRN.PLANT MAINTENANCE MECHANIC Work Phone: [facility] 05-10-2024 07:50-0400 Systolic blood pressure 130 mm[Hg] Misbah Crawford APRN.PLANT MAINTENANCE MECHANIC Work Phone: [facility] 05-01-2022 13:170400 Body height 185.4 cm [employer]itick Work Phone: [facility] 05-01-2022 13:17040 Body weight 102.06 kg [employer] Work Phone: [facility] 05-01-2022 13:17-0400 Diastolic blood pressure 84 mm[Hg] [employer] Work Phone: [facility] 05-01-2022 13:17-0400 Heart rate 73 /min [employer] Work Phone: [facility] 05-01-2022 13:17-0400 Systolic blood pressure 132 mm[Hg] [employer] Work Phone: [facility] Encounters Encounter Date Encounter Type Care Provider Facility Start: 07-05-2024 Telephone encounter Enriqueta carlos APRN.PLANT MAINTENANCE MECHANIC Work Phone: [facility] Comment on above: Patient Question Start: 06-02-2024 End: 06-02-2024 ambulatory Enriqueta Stanley APRN.PLANT MAINTENANCE MECHANIC Work Phone: [facility] Comment on above: Pituitary tumor (Marleni morgan Dx) Start: 06-02-2024 End: 06-02-2024 Telemedicine consultation with patient Enriqueta Stanley APRN.PLANT MAINTENANCE MECHANIC Work Phone: [facility] Start: 05-31-2024 End: 05-31-2024 ambulatory [facility] Facility:[facility] Start: 05-31-2024 End: 05-31-2024 Subsequent hospital visit by physician Mri Radio [facility] (I-Stat/1.5t) Work Phone: Radiology Comment on above: Pituitary adenoma (H CC) [D35.2] Start: 05-10-2024 End: 05-10-2024 Patient encounter procedure Misbah Crawford APRN.PLANT MAINTENANCE MECHANIC Work Phone: [facility] Comment on above: Essential hypertensi on, benign (Primary Dx); Mixed hyperlipidemia; History of cardiac cath; History of stress test; Never smoked cigarettes Start: 05-10-2024 End: 05-10-2024 ambulatory CK GALE Facility:[id number] Start: 10-23-2022 End: 10-28-[address] CK KC DO Facility:B Start: 05-31-2022 End: 05-31-2022 ambulatory Madie Apodaca MD Work Phone: [facility] Comment on above: Pituitary adenoma (H CC) (Primary Dx) Start: 05-31-2022 End: 05-31-2022 Telemedicine consultation with patient Madie Apodaca MD Work Phone: [facility] Start: 05-22-2022 End: 05-22-2022 Subsequent hospital visit by physician Mri Radio [facility] (I-Stat/1.5t) Work Phone: Radiology Comment on above: Pituitary adenoma (H CC) [D35.2] Start: 05-07-2022 Telephone encounter Madie ivey MD Work Phone: [facility] Comment on above: Patient Question Start: 05-01-2022 End: 05-01-2022 Orders Only Lew Gunter DO Work Phone: [facility] Comment on above: Essential hypertensi on, benign (Primary Dx) Essential hypertensi on, benign (Primary Dx); Mixed hyperlipidemia; History of stress test; History of cardiac cath; Non-smoker Start: 07-06-2018 Patient encounter procedure BRODY STEVENS Facility:[facility] Start: 07-03-2018 Patient encounter procedure BRODYBea STEVENS Facility:[facility] Start: 10-09-2017 End: 10-31-2017 Ambulatory FRANCISCO DOMINIQUE [facility] Start: 06-14-2017 End: 06-14-2017 Ambulatory BRODY STEVENS [facility] Start: 01-08-2012 Documentation procedure Stephen Carter MD Work Phone: [facility] Start: 01-08-2012 Historic EMR Stephen houston MD Work Phone: [facility] Start: 06-07-2009 Documentation procedure Mc Evans Work Phone: [facility] Start: 06-07-2009 Historic EMR Mc Agrawal shobha Work Phone: [facility] Start: 10-30-2006 Documentation procedure Stephen Carter MD Work Phone: [facility] Start: 10-30-2006 Historic EMR Stephen houston MD Work Phone: [facility] Procedures Date Procedure Procedure Detail Performing Clinician Start: 05-31-2024 Mri brain brain stem w/o w/contrast material Madie Apodaca MD Work Phone: Start: 05-10-2024 Ecg routine ecg w/le ast 12 lds i&r only Misbah Crawford TENNIS BALL COVERER HAND.PLANT MAINTENANCE MECHANIC Work Phone: Start: 05-22-2022 Mri brain brain [...] L304.0155, L304.0295, L304.0162, L304.0480 ####ML - [facility] [id number] [place] [address] Start: 07-03-2018 Lipid 1996 panel - S sofia or Plasma Stephen Carter MD Work Phone: Start: 01-08-2012 SURGICAL PATHOLOGY, CONVERTED Stephen Carter MD Work Phone: Start: 06-06-2009 SURGICAL PATHOLOGY, CONVERTED Mc Evans Work Phone: Start: 10-29-2006 SURGICAL PATHOLOGY, CONVERTED Stephen Carter MD Work Phone: Plan of Treatment Date Care Activity Detail Author Start: 05-10-2025 End: 05-10-2025 Patient encounter procedure [facility] Comment on above: 1 year follow up, hx of HTN. Start: 08-01-2024 Influenza vaccination Influenza Vacc ine (#1) [facility] Start: 06-02-2024 End: 06-02-2024 Follow-up encounter 06/02/2024 8:45 AM EDT [facility] [place] [address] [place] [address] Enriqueta Stanley, CARLOS ALBERTO.PLANT MAINTENANCE MECHANIC [address] [place] [address] 2 year follow up/Pituitary adenoma (HCC) [D35.2] [facility] [place] Comment on above: 2 year follow up/Pit uitary adenoma (HCC) [D35.2] Start: 05-31-2024 End: 05-31-2024 Patient encounter procedure 05/31/2024 8:40 AM EDT Appointment Radiology [address] [place] [address] Pituitary adenoma (HCC) [D35.2] Radiology Comment on above: Pituitary adenoma (H CC) [D35.2] Start: 2024 RSV Vaccine (1 - 1-d ose 60+ series) RSV Vaccine (1 - 1-dose 60+ series) [facility] Start: 08-31-2023 DIABETES SCREEN DIABETES SCREEN [facility] Start: 08-31-2023 Diabetes Screening Diabetes Screenin g [facility] Start: 08-01-2023 Influenza vaccination Influenza Vacc ine (#1) [facility] Start: 07-03-2023 Lipid 1996 panel - S sofia or Plasma Lipid Screening [facility] Start: 07-03-2023 Lipid panel Lipid Screening [facility] Start: 07-03-2023 LIPID SCREEN LIPID SCREEN [facility] Start: 07-03-2023 PROSTATE CANCER SCREENING DISCUSSION PROSTATE CANCER SCREENING DISCUSSION [facility] Start: 07-03-2023 Prostate specific antigen measurement Prostate Cancer Screening Discussion [facility] Start: 09-01-2022 COVID-19 VACCINE (4 - Booster for Moderna series) COVID-19 VACCINE (4 - Booster for Moderna series) [facility] Start: 08-01-2022 Influenza vaccination INFLUENZA (#1) [facility] Start: 07-25-2022 Colonoscopy COLONOSCOPY [facility] Start: 07-25-2022 COLORECTAL CANCER SCREENING COLORECTAL CANCER SCREENING [facility] Start: 07-25-2022 Screening for malign ant neoplasm of colon [facility] Start: 03-19-2022 COVID-19 VACCINE (3 - Booster for Moderna series) COVID-19 VACCINE (3 - Booster for Moderna series) [facility] Start: 02-06-2014 SHINGRIX VACCINE (1 of 2) SHINGRIX VACCINE (1 of 2) [facility] Start: 02-06-2009 COLOGUARD (FIT-DNA) COLOGUARD (FIT-D NA) [facility] Start: 02-06-[address] COLONOGRAPHY [facility] Start: 02-06-2009 FECAL OCCULT BLOOD FECAL OCCULT BLOO D [facility] Start: 02-06-2009 Screening for malign ant neoplasm of colon [facility] Start: 02-06-2009 SIGMOIDOSCOPY SIGMOIDOSCOPY [facility] Start: 02-06-1983 Urine microalbumin profile [facility] Start: 02-06-1982 ANNUAL PCP TEAM CREDIT HISTORIAN FARRUKH DISEASE VISIT ANNUAL PCP TEAM CHRONIC DISEASE VISIT [facility] Start: 02-06-1982 Anxiety Screening Anxiety Screening [facility] Start: 02-06-1982 BP CONTROLLED (<130/80) BP CONTROLLE D (<130/80) [facility] Start: 02-06-1982 HEPATITIS C SCREENING HEPATITIS C [facility] Start: 02-06-1982 Hepatitis C screening Hepatitis C [facility] Start: 02-06-1982 HIV SCREENING HIV SCREENING [facility] Start: 02-06-1982 HIV screening HIV Screening [facility] ECG B/O W INTERP (ME D OFFICE) ECG B/O W INTERP (MED OFFICE) ECG Routine Essential hypertension, benign Ordered: 05/01/2022 [facility] Work Phone: Comment on above: Ordered: 05/01/2022 ECG COMPLETE ECG COMPLETE ECG Routine Essential hypertension, benign 05/01/2022 1:13 PM EDT [facility] Work Phone: End: 05-01-2023 ECG COMPLETE ECG COMPLETE ECG Routine Essential hypertension, benign 1 Occurrences starting 05/01/2022 until 05/01/2023 [facility] Work Phone: Comment on above: 1 Occurrences starti ng 05/01/2022 until 05/01/2023 ECG COMPLETE ECG COMPLETE ECG Routine Essential hypertension, benign 05/10/2024 7:53 AM EDT [facility] Immunizations Immunization Date Immunization Notes Care Provider Jerrell kenyon 08-28-2023 influenza virus vacc ine, unspecified formulation Mri (I-Stat/1.5t) Work Phone: [facility] 08-30-2022 influenza virus vacc ine, unspecified formulation Stephen Carter MD Work Phone: [facility] 08-31-2020 influenza, injectabl e, quadrivalent, preservative free Lew Gross DO Work Phone: [facility] 10-01-2019 influenza virus vacc ine, unspecified formulation Lew Gross DO Work Phone: [facility] 10-05-2018 influenza virus vacc ine, unspecified formulation Lew Gross DO Work Phone: [facility] 08-28-2015 influenza virus vacc ine, unspecified formulation Lew Gross DO Work Phone: [facility] Payers Date Payer Category Payer Private Health Insurance [facility] UMR CHOICE PLUS [id number] 2023-Present [phone] [address] [address] [place] [address] HMO [id number] 2023 Unknown [id number] 2022 Unknown [id number] 2021 Unknown ANTHEM BLUE CARD PPO OOS [id number] 2021-Present [phone] [address] [place] [address] PPO [id number] 2016 Unknown [id number] 2001 Unknown MMO [employer] SU[employer] MED PLUS [id number] 2001-2019 [address] [place] [address] PPO [id number] 1964 Unknown [id number] 1964 Unknown [id number] Unknown [id number] Unknown [id number] Social History Date Type Detail Facility Start: 08-18-2019 End: 05-07-2023 Tobacco smoking status NHIS Never smoked tobacco [facility] Work Phone: Start: 08-18-2019 End: 05-07-2023 Tobacco use and exposure Smokeless tobacco non-user [facility] Work Phone: Start: 05-01-2022 End: 05-10-2024 Alcohol intake Current drinker of alcohol (finding) [facility] Start: 05-01-2022 End: 05-07-2023 Alcohol intake [facility] Start: 09-11-2020 History SDOH Alcohol Frequency 2 [facility] Start: 09-11-2020 History SDOH Alcohol Std Drinks 1 [facility] Start: 1965 Sex Assigned At Male [facility] Start: 04-21-2022 End: 05-22-2022 Exposure to SARS-CoV-2 (event) Not sure [facility] Tobacco smoking stat us NHIS Tobacco smoking consumption unknown [facility] Start: 09-11-2020 End: 05-07-2023 Alcohol Use Disorder Identification Test - Consumption [AUDIT-C] [facility] How often to you hav e a drink containing alcohol? Monthly or less [facility] How many standard dr inks containing alcohol do you have on a typical day? 1 or 2 [facility] How often do you hav e 6 or more drinks on 1 occasion? Never [facility] National Score (1-10 0), lower number is lower risk 35 [facility] Start: 08-13-2019 Gender identity Identifies as male gender (finding) [facility] Start: 08-13-2019 Sexual orientation Heterosexual (finding) [facility] Start: 05-07-2023 Alcohol Comment OCCATIONALLY [facility] Goals Date Patient Goal Desired Activity /State [...] MRI in two years. Enriqueta Stanley APRN.CNP [facility] Work Phone: 07-05-2024 Miscellaneous Notes Reviewed case [...] call ? Yes documented in this encounter [facility] 07-05-2024 Telephone encounter Note General Call Caller : Jania Contact Reason for Call : Wanted to make sure you reviewed CT results with Dr. Palm. Is he concerned about growth? Patient requesting return call ? Yes [facility] 06-02-2024 History of Presen t illness Narrative Images from the original note were not included. [facility] [place] [facility] NEURO-ONCOLOGY VIRTUAL VISIT NOTE I have communicated my name and active licensure. The patient's identity and physical location were verified at the time of this visit. Either the patient or their legal retention representative has been informed of the risks and benefits of -- and alternatives to -- treatment through a remote evaluation and consents to proceed with the evaluation remotely. This is a virtual visit using [employer] Zoom Video Visit. It required patient-provider interaction [...] Migraines Father Coronary Artery Disease Father other ([place] in 50's) Father Current Outpatient Medications Medication [...] DATE OF EXAM: May 31 2024 8:57AM [facility] 0314 - MRI PITUITARY WO/W IVCON [...] mild invasion of the cavernous sinuses bilaterally. Plant Electrical Engineer: PSCB Transcribe Date/Time: May 31 2024 9:25A [...] Madie Apodaca MD--EPIC documented in this encounter [facility] 06-02-2024 Note HNO ID: [id number] Author: ENRIQUETA STANLEY APRN.CNP Service: ? Author Type: Nurse Practitioner Type: Progress Notes Filed: 06/02/2024 08:50 Note Text: [facility] [place] [facility] NEURO-ONCOLOGY VIRTUAL VISIT NOTE I have communicated my name and active licensure. The patient's identity and physical location were verified at the time of this visit. Either the patient or their legal retention representative has been informed of the risks and benefits of -- and alternatives to -- treatment through a remote evaluation and consents to proceed with the evaluation remotely. This is a virtual visit using [employer] Zoom Video Visit. It required patient-provider interaction [...] Migraines Father Coronary Artery Disease Father other ([place] in 50's) Father Current Outpatient Medications Medication [...] of Knowledge: Good. (more content not included)... [facility] 05-31-2024 History of Presen t illness Narrative [...] PATIENT PRESENTS WITH AN IMPLANTABLE OR ATTACHED GEOLOGY INSTRUCTOR: No ALLERGIES: Reviewed and unchanged CONTRAST ALLERGY: NO. EXAM: MRI - CONTRAST TYPE: GROUP II PERIPHERAL IV DATA: Ambulatory: A peripheral IV was started in the Right antecubital site with a Angio cath: 22 gauge. RADIOLOGY DEPARTMENT: MR; Exam(s) Completed: Head: Pituitary SIGNATURE: RT Russell(Juan Pablo) PATIENT NAME: Carlos Bacon DATE: May 31, 2024 TIME: 8:46 AM documented in this encounter [facility] 05-31-2024 Note HNO ID: [id number] Author: TERI GUTIERREZ RT (R) Service: ? [...] PATIENT PRESENTS WITH AN IMPLANTABLE OR ATTACHED GEOLOGY INSTRUCTOR: No ALLERGIES: Reviewed and unchanged CONTRAST ALLERGY: NO. EXAM: MRI - CONTRAST TYPE: GROUP II PERIPHERAL IV DATA: Ambulatory: A peripheral IV was started in the Right antecubital site with a Angio cath: 22 gauge. RADIOLOGY DEPARTMENT: MR; Exam(s) Completed: Head: Pituitary SIGNATURE: RT Russell(Juan Pablo) PATIENT NAME: Carlos Bacon DATE: May 31, 2024 TIME: 8:46 AM [facility] 05-10-2024 Note HNO ID: [id number] Author: MISBAH CRAWFORD APRN.PLANT MAINTENANCE MECHANIC Service: ? Author Type: Nurse Practitioner Type: Progress Notes Filed: 05/10/2024 08:48 Note Text: [facility] Department of Cardiology Referring Provider: No [...] Migraines Father Coronary Artery Disease Father other ([place] in 50's) Father SOCIAL HISTORY: Tobacco Use: [...] side. Heart s (more content not included)... [facility] 05-10-2024 History of Presen t illness Narrative Images from the original note were not included. [facility] Department of Cardiology Referring Provider: No [...] HISTORY Procedure Laterality Date HYPOPHYSECTOMY-TRANSPHEN APROACH W/PIT KATYH 01/2002 PAST SURGICAL HISTORY OF 08/2020 benign tumor removed from L cheek TONSILLECTOMY AND ADENOIDECTOMY HX FAMILY HISTORY Problem Relation Age of Onset Hypertension Mother Migraines Father Coronary Artery Disease Father other ([place] in 50's) Father SOCIAL HISTORY: Tobacco Use: [...] note was partially generated from using the [employer] voice recognition system. There may be some incorrect words, spelling, and punctuation that were not noted in checking the note prior to saving documented in this encounter [facility] 05-31-2022 History of Presen t illness Narrative Images from the original note were not included. SECTION OF SKULL BASE SURGERY MINIMALLY INVASIVE CRANIAL BASE & PITUITARY SURGERY PROGRAM [facility] [place] TELEMEDICINE FOLLOW-UP VISIT This is a virtual visit. It required patient-provider interaction for the medical decision making as documented below. Carlos Bacon has consented for this telemedicine encounter CC: Patient Care Team: Ck Gale DO as PCP - General (Internal Medicine) Dr. Ana Marquez ([facility]) Eliel Michael (Ophtho) Assessment/Plan: Carlos Bacon presents [...] [facility] and virtual visit with our VERENA. He will see Dr. Marquez for continued endocrine follow-up. I spent approximately 20 minutes of total time for evaluation and management services provided on the date of the encounter which included preparing to see the patient, coqc-[id number] patient care, completing clinical documentation, performing a medically appropriate examination, counseling and educating the patient/family/caregiver, communicating with other HCPs, independently interpreting results and care coordination. Madie Apodaca MD Staff, Skull Base & Cerebrovascular Surgery Department of Neurological Surgery [facility] Subjective: Patient is accompanied by . 1wk ago sinoplasty by local [facility] No KRUTZ, no vision complaints No new endocrinopathy Medications [...] no suprasellar extension documented in this encounter [facility] 05-22-2022 History of Presen t illness Narrative [...] TIME: 9:16 AM documented in this encounter [facility] 05-07-2022 Miscellaneous Notes Called and spoke with Jania. Ok to reschedule MRI and appointment with Dr. Apodaca. Patient is agreeable to this plan and verbalized understanding. Patient is aware to call with any change in condition, questions or concerns. AMISH Boyd, RN Wellness Coordinator General Call Caller : Patient's spouse/Jania Contact Reason for Call : Patient is expected to have MRI on 05/22, but is also scheduled to have a balloon sinuplasty on 05/20. Spouse would like to know if patient should still have MRI post sinuplasty procedure Patient requesting return call ? Yes documented in this encounter [facility] 05-01-2022 History of Presen t illness Narrative [...] QTC Calculation (Bazett) 436 ms Calculated P Smiley 23 degrees Calculated R Smiley -32 degrees Calculated T Smiley 1 degrees Narrative NAME : CARLOS BACON PID : [id number] : 1965 Gender : Male Race : ORD : [id number] Procedure Date : May 01 2022 13:13:45 Edit Date : May 01 2022 13:14:47 Diagnosis: NORMAL SINUS RHYTHM LEFT AXIS DEVIATION LEFT VENTRICULAR HYPERTROPHY NONSPECIFIC ST ABNORMALITY ABNORMAL ECG Test Reason : Location : [facility] [place] : [facility] Overread By : , Edited By [...] one hundred percent of my time in gwym-ea-[id number] conversation with the patient. I answered all the questions and explained the diagnosis of high blood pressure. Greater that 51% of my time was spent with [id number]-[id number] conversation with the patient. I have discussed [...] Lew Gunter DO documented in this encounter [facility] 08-19-2019 History of Past i llness Narrative Problem Noted Date Resolved Date Hypertension 08/19/2019 04/25/2022 documented as of this encounter (statuses as of 05/01/2022) [facility] of Past illness Narrative* Problem Noted Date Resolved Date Hypertension 08/19/2019 04/25/2022 documented as of this encounter (statuses as of 05/01/2022) [address]19-2019 History of Past illness Narrative* Problem Noted Date Resolved Date Hypertension 08/19/2019 04/25/2022 documented as of this encounter (statuses as of 05/01/2022) [address]19[address]2019 History of Past illness Narrative* Problem Noted Date Resolved Date Hypertension 08/19/2019 04/25/2022 documented as of this encounter (statuses as of 05/05/2022) [address]19[address]2019 History of Past illness Narrative* Problem Noted Date Resolved Date Hypertension 08/19/2019 04/25/2022 documented as of this encounter (statuses as of 05/07/2022) [address]19[address]2019 History of Past illness Narrative* Problem Noted Date Resolved Date Hypertension 08/19/2019 04/25/2022 documented as of this encounter (statuses as of 05/23/2022) [address]19[address]2019 History of Past illness Narrative* Problem Noted Date Resolved Date Hypertension 08/19/2019 04/25/2022 documented as of this encounter (statuses as of 06/13/2022) [address]19[address]2019 History of Past illness Narrative* Problem Noted Date Diagnosed Date Resolved Date Hypertension 08/19/2019 04/25/2022 documented as of this encounter (statuses as of 08/21/2023) [address] History of Past illness Narrative* Problem Noted Date Diagnosed Date Resolved Date Hypertension 08/19/2019 04/25/2022 documented as of this encounter (statuses as of 08/22/2023) [facility] Diagnosis Essential hypertension, benign- Primary [facility] Essential hypertension, benign- Primary [facility] Essential hypertension, benign- Primary [facility] Diagnosis Essential hypertension, benign- Primary Mixed hyperlipidemia History of stress test Other specified conditions influencing health status History of cardiac cath Other postprocedural status Non-smoker Other specified conditions influencing health status [facility] Pituitary adenoma (HCC) Benign neoplasm of pituitary gland and craniopharyngeal duct (pouch) documented in this encounter [facility] note* Diagnosis Pituitary adenoma (HCC)- Primary Benign neoplasm of pituitary gland and craniopharyngeal duct (pouch) documented in this encounter [facility] note* Diagnosis Essential hypertension, benign- Primary Mixed hyperlipidemia History of cardiac cath Other postprocedural status History of stress test Other specified conditions influencing health status Never smoked cigarettes Other specified conditions influencing health status documented in this encounter [facility] note* Diagnosis Pituitary adenoma (HCC) Benign neoplasm of pituitary gland and craniopharyngeal duct (pouch) documented in this encounter [facility] note* Diagnosis Pituitary tumor- Primary Neoplasm of unspecified nature of endocrine glands and other parts of nervous system documented in this encounter [facility] for referral (narrative)* Outpatient Procedure (Routine) - Pending Review Specialty Diagnoses / Procedures Referred By Wendy houston Referred To [facility] VASCULAR LANSING Diagnoses Essential hypertension, benign Procedures ECG COMPLETE ECG ROUTINE ECG W/LEAST 12 LDS W/I&R Lew Gunter DO [address] [place] [address] [facility] Vascular [id number] [place] [address] Referral ID Status Reason Start Date Expiration Date Visits Requested Visits Authorized [id number] Pending Review Auto-Generat ed Referral 05/01/2022 05/01/2023 1 1 [facility] for referral (narrative)* Outpatient Procedure (Routine) - Pending Review Specialty Diagnoses / Procedures Referred By Wendy houston Referred To [facility] Diagnoses Essential hypertension, benign Procedures ECG COMPLETE ECG ROUTINE ECG W/LEAST 12 LDS W/I&R Lew Gunter DO [address] [place] [address] [address] Referral ID Status Reason Start Date Expiration Date Visits Requested Visits Authorized [id number] Pending Review Auto-Generat ed Referral 05/01/2022 05/01/2023 1 1 [facility] for referral (narrative)* Diagnostic Procedure Only (Routine) - Closed Specialty Diagnoses / Procedures Referred By Contac t Referred To Contact MR IMAGING Diagnoses Pituitary adenoma (HCC) Procedures MRI PITUITARY WO/W IVCON MRI BRAIN Madie Sarmiento MD [address] [place] [address] Mr Imaging Referral ID Status Reason Start Date Expiration Date V isits Requested Visits Authorized [id number] Closed Auto-Generat ed Referral Clearance Not Met - Admin/Chairm an/Director Advise to Postpone/Res chedule or Not Proceed 05/22/2022 06/21/2022 1 1 [facility] for referral (narrative)* Outpatient Procedure (Routine) - Pending Review Specialty Diagnoses / Procedures Referred By Contac t Ref[facility] Diagnoses Essential hypertension, benign Procedures ECG COMPLETE ECG ROUTINE ECG W/LEAST 12 LDS W/I&R Misbah Crawford, TENNIS BALL COVERER HAND.PLANT MAINTENANCE MECHANIC [address] [place] [address] [facility] Vascular [address] [address] Referral ID Status Reason Start Date Expiration Date Visits Requested Visits Authorized [id number] Pending Review Auto-Generat ed Referral 05/10/2024 05/10/2025 1 1 T [facility] for visit Narrative* Diagnostic Procedure Only (Routine) - Closed Specialty Diagnoses / Procedures Referred By Contac t Referred To Contact MR IMAGING Diagnoses Pituitary adenoma (HCC) Procedures MRI PITUITARY WO/W IVCON MRI BRAIN Madie Sarmiento MD [address] [place] [address] Mr Imaging Referral ID Status Reason Start Date Expiration Date V isits Requested Visits Authorized [id number] Closed Auto-Generat ed Referral Clearance Not Met - Admin/Chairm an/Director Advise to Postpone/Res chedule or Not Proceed 05/22/2022 06/21/2022 1 1 [facility] Diagnostic Procedure Only (Routine) - Closed Specialty Diagnoses / Procedures Referred By Wendy houston Referred To Contact RADIO MRI [facility] Diagnoses Pituitary adenoma (HCC) Pituitary adenoma (HCC) [D35.2] Procedures MRI BRAIN BRAIN STEM W/O W/CONTRAST MATERIAL MRI WWO NEU1 B 300 MRI PITUITARY WO/W IVCON Madie Apodaca MD [address] [place] [address] [facility] [address] [place] [address] Referral ID Status Reason Start Date Expiration Date V isits Requested Visits Authorized [id number] Closed Patient Cleared - Admin/Chairm an/Director advise to proceed or did not respond 05/27/2024 05/31/2024 1 1 [facility] Summary Purpose Family History No Family History Records FoundNo Family History Records FoundNo Family History Records FoundNo Family History Records FoundNo Family History Records FoundNo Family History Records FoundNo Family History Records Found Advance Directives No Advanced Directives Records FoundDocuments on File Type Date Recorded 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 Advance Directive(s) 08/30/2020 11:49 AM Documents on File Type Date Recorded 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 Advance Directive(s) 08/30/2020 11:49 AM Reason for Referral Specialty Diagnoses / Procedures Referred By Wendy houston Referred To Contact MR IMAGING Diagnoses Pituitary adenoma (HCC) Procedures MRI PITUITARY WO/W IVCON MRI BRAIN BRAIN STEM W/O W/CONTRAST MATERIAL Madie Apodaca MD [address] [place] [address] Mr Imaging [place] [address] Referral ID Status Reason Start Date Expiration Date V isits Requested Visits Authorized [id number] Closed Auto-Generate d Referral 05/27/2024 05/31/2024 1 1 Additional Source Comments (unrecognized sect ion and content) No Status Records FoundNo Status Records FoundNo Status Records FoundNo Status Records FoundNo Status Records FoundNo Status Records FoundNo Status Records Found INFORMATION SOURCE (unrecogn ized section and content) DATE CREATED AUTHOR 05/26/2018 Edwin Munozduyen [facility] DATE CREATED AUTHOR AUTHOR'S ORGANIZ ATION 11/09/2018 [facility] DATE CREATED AUTHOR AUTHOR'S ORGANIZ ATION 05/11/2020 [facility] rao Nielsen DATE CREATED AUTHOR AUTHOR'S ORGANIZ ATION 08/03/2021 [facility] DATE CREATED AUTHOR AUTHOR'S ORGANIZ ATION 10/28/2022 [facility] ([place]) DATE CREATED AUTHOR AUTHOR'S ORGANIZ ATION 05/15/2024 [facility] DATE CREATED AUTHOR AUTHOR'S ORGANIZ ATION 07/07/2024 [facility] Source Comments (unrecognize d section and content) In the event this informatio n is protected by the Federal Confidentiality of Alcohol and Drug Abuse Patient Records regulations: The Federal rules restrict any use of the information to criminally investigate or prosecute any alcohol or drug abuse patient.[facility] the event this information is protected by the Federal Confidentiality of Alcohol and Drug Abuse Patient Records regulations: The Federal rules restrict any use of the information to criminally investigate or prosecute any alcohol or drug abuse patient.[facility] System[facility] the event this information is protected by the Federal Confidentiality of Alcohol and Drug Abuse Patient Records regulations: The Federal rules restrict any use of the information to criminally investigate or prosecute any alcohol or drug abuse patient.[facility] System[facility] the event this information is protected by the Federal Confidentiality of Alcohol and Drug Abuse Patient Records regulations: The Federal rules restrict any use of the information to criminally investigate or prosecute any alcohol or drug abuse patient.[facility] System[facility] the event this information is protected by the Federal Confidentiality of Alcohol and Drug Abuse Patient Records regulations: The Federal rules restrict any use of the information to criminally investigate or prosecute any alcohol or drug abuse patient.[facility] SystemIn the event this information is protected by the Federal Confidentiality of Alcohol and Drug Abuse Patient Records regulations: The Federal rules restrict any use of the information to criminally investigate or prosecute any alcohol or drug abuse patient.[facility] System[facility] the event this information is protected by the Federal Confidentiality of Alcohol and Drug Abuse Patient Records regulations: The Federal rules restrict any use of the information to criminally investigate or prosecute any alcohol or drug abuse patient.[facility] System[facility] the event this information is protected by the Federal Confidentiality of Alcohol and Drug Abuse Patient Records regulations: The Federal rules restrict any use of the information to criminally investigate or prosecute any alcohol or drug abuse patient.[facility] SystemIn the event this information is protected by the Federal Confidentiality of Alcohol and Drug Abuse Patient Records regulations: The Federal rules restrict any use of the information to criminally investigate or prosecute any alcohol or drug abuse patient.[facility] SystemIn the event this information is protected by the Federal Confidentiality of Alcohol and Drug Abuse Patient Records regulations: The Federal rules restrict any use of the information to criminally investigate or prosecute any alcohol or drug abuse patient.[facility] System[facility] the event this information is protected by the Federal Confidentiality of Alcohol and Drug Abuse Patient Records regulations: The Federal rules restrict any use of the information to criminally investigate or prosecute any alcohol or drug abuse patient.[facility] System[facility] the event this information is protected by the Federal Confidentiality of Alcohol and Drug Abuse Patient Records regulations: The Federal rules restrict any use of the information to criminally investigate or prosecute any alcohol or drug abuse patient.[facility] SystemIn the event this information is protected by the Federal Confidentiality of Alcohol and Drug Abuse Patient Records regulations: The Federal rules restrict any use of the information to criminally investigate or prosecute any alcohol or drug abuse patient.[facility] SystemIn the event this information is protected by the Federal Confidentiality of Alcohol and Drug Abuse Patient Records regulations: The Federal rules restrict any use of the information to criminally investigate or prosecute any alcohol or drug abuse patient.[facility] SystemIn the event this information is protected by the Federal Confidentiality of Alcohol and Drug Abuse Patient Records regulations: The Federal rules restrict any use of the information to criminally investigate or prosecute any alcohol or drug abuse patient.[facility] Teams (unrecognized sec tion and content) Chief Minister Relationship Specialty Start Date End Date Ck Gale, DO PCP - General Internal Medicine 08/18/19 Chief Minister Relationship Specialty Start Date End Date Ck Gale DO PCP - General Internal Medicine 08/18/19 Chief Minister Relationship Specialty Start Date End Date Ck Gale DO PCP - General Internal Medicine 08/18/19 Chief Minister Relationship Specialty Start Date End Date Ck Gale DO PCP - General Internal Medicine 08/18/19 Chief Minister Relationship Specialty Start Date End Date Ck Gale DO PCP - General Internal Medicine 08/18/19 Chief Minister Relationship Specialty Start Date End Date Ck Gale DO PCP - General Internal Medicine 08/18/19 Chief Minister Relationship Specialty Start Date End Date Ck Gale DO PCP - General Internal Medicine 08/18/19 Chief Minister Relationship Specialty Start Date End Date Ck Gale DO PCP - General Internal Medicine 08/18/19 Chief Minister Relationship Specialty Start Date End Date Ck Gale, DO PCP - General Internal Medicine 08/18/19 Chief Minister Relationship Specialty Start Date End Date Ck Gale, DO PCP - General Internal Medicine 08/18/19 Chief Minister Relationship Specialty Start Date End Date Ck [...] BE BASED ON THE PRIMARY CLINICAL RECORDS. [employer] [facility]. provides no warranty or guarantee of the accuracy or completeness of information in this document.
--- NOTE | 2024-09-25 07:30 | RAD_ITS ---
INDICATION: Sitz Marker EXAMINATION/TECHNIQUE: X-RAY - XR Abdomen 1 View COMPARISON: 09/23/2024 FINDINGS: Stable bowel gas pattern with extensive colonic fecal retention. No significant change in the distribution of the Sitzmarks markers. RAD/Abdomen Single View IMPRESSION: No significant interval change. Electronically Signed: Rogerio Silva MD at 20:00 EDT ,
== END | disposition home or self-care (01) ==
LOC: RAD 07:26
PROVIDERS: PCP Internal Medicine; Referring Provider Internal Medicine Gastroenterology; Visit Provider Internal Medicine Gastroenterology
DX: K59.00 Constipation, unspecified (principal)
CPT/HCPCS: 74018

== ENCOUNTER 2024-10-26 11:57 | Day surgery (SDC) | payer OTHER, SELFPAY ==
[2024-10-26] VITALS (8 sets, daily range): BP systolic 105–118; BP diastolic 68–87; PULSE 68–89; RESP 12–18; TEMP 36.1–36.6; O2SAT 95–99; BMI 29.9
--- NOTE | 2024-10-26 | ESO_PTH ---
PATIENT: CARLOS MACKEY LOC: EN U#:[id number] AGE/SX: 59/M ROOM: RE10/26/[address]: Dr. Boyd Gama DO : 1965 BED: DIS: 10/26/2024 SPEC #: [id number] RECD: 10/26/24 18:17 STATUS: NADIRA REElvia #: [id number] EDUARD: 10/26/24 00:[address]: Boyd Gama DEPT: SURGICAL PATHOLOGY RECD BY: Acosta Saavedra ENTERED: 10/27/24 12:14 SP TYPE: VENTURA ZALDIVAR DR: Dr. Peter Wild DO Tissues: A - Esophagus, NOS B - Duodenum, NOS C - Sigmoid colon biopsy Procedures: Surgery Specimen Level IV HEADER OPERATION: Colonoscopy with biopsy, EGD with biopsy PRE-OP DIAGNOSIS: GERD, irritable bowel syndrome TISSUE SUBMITTED: A- Distal esophagus biopsy, B- Duodenum biopsy, C- Sigmoid colon biopsy MICROSCOPIC DIAGNOSIS A. Distal esophagus, biopsy: Gastroesophageal junctional mucosa with mild chronic inflammation. Focal changes of reflux. No evidence of goblet cell metaplasia. See comment. B. Duodenum, biopsy: Mild non-specific chronic inflammation. Fragments of gastric mucosa with mild chronic inflammation. See comment. C. Sigmoid colon, biopsy: No pathologic change. . 10/29/2024 COMMENT A. Alcian blue/PAS stain with matched control supports the above diagnosis. B. Gastric metaplasia is a possibility. Clinical correlation is suggested. MICROSCOPIC DESCRIPTION Slides are reviewed. GROSS DESCRIPTION A. Received in fixative is one container labeled with the patient's name and designated Distal esophagus biopsy. The specimen consists of multiple irregular fragments of light boswell soft tissue that in aggregate measure 1.5 x 0.5 x 0.1 cm. The specimen is totally submitted in one cassette. B. Received in fixative is one container labeled with the patient's name and designated Duodenum biopsy. The specimen consists of multiple irregular fragments of light boswell soft tissue that in aggregate measure 2.0 x 0.6 x 0.1 cm. The specimen is totally submitted in one cassette. C. Received in fixative is one container labeled with the patient's name and designated Sigmoid colon biopsy. The specimen consists of multiple irregular fragments of light boswell soft tissue that in aggregate measure 1.0 x 0.3 x 0.1 cm. The specimen is totally submitted in one cassette. 10/27/2024 TC:3 CPT:34513r6
--- NOTE | 2024-10-26 12:23 | HP.PCM_ITS ---
History and Physical Date of Admission: 10/26/24 CARLOS MACKEY, is a 59 M who presents to the office today for initial consult. PCP referred for acid reflux. States he's had reflux for over 20 years. Is controlled with prn OTC Omeprazole. Denied nausea, vomiting or dysphagia. Also has IBS. Intermittent abdominal pain and cramping. Will have constipation for 5- 6 days and then will have a day of diarrhea. Says last scopes were 5 years ago. He was told he Has a tortuous colon. He feels like his IBS is getting worse. He has worsening abdominal pain, bloating and some intermittent nausea. He has a 30-year history of hypertension. He has not lost any weight. He does not have any chest pain or shortness of breath. He does not take any medicines for IBS. He does eat a very high fiber diet and tries to maintain good nutritional health. He does get full sometimes. He denies any rashes, arthralgia or weakness. He does struggle with anxiety, stress and depression. I do not think he has been in a vicious cycle between recurrent IBS, helplessness, avoidance of responsibility,and anxious/stressful conditions. ROS Const Constitutional: No fatigue, fever(s) or weight change ENT ENT: No difficulty swallowing Gastro GI: Positive for abdominal pain and constipation; No belching, bloating, change in bowel habits, change in stool character, coffee ground emesis, cramping, diarrhea, heartburn, difficulty swallowing, feeling full early, excessive flatus, incontinent of stools, Vomiting blood/hematemesis, Blood in stool, loose stools, Black,tarry stools, nausea/dyspepsia, pain with swallowing, vomiting or other Musc Musculoskeletal: No joint pain Skin Skin: No yellowing of the eye or itchy eyes Psych Psychiatric: Positive for anxiety and No depression Endo Endocrine: No fatigue or weight change Aller/Imm Allergy/Immunologic: No itchy eyes Daniel/Lymp Hematologic/Lymphatic: No easy bleeding or easy bruising Exam Const General: cooperative and comfortable Nutritional Appearance: average body habitus and well nourished [facility] Head: normal to inspection Ears: hearing grossly normal bilaterally Nose: external nose normal Face and sinus: normal facial exam Mouth: oral mucosae normal Throat: posterior oropharynx normal Eyes General: appearance normal, both eyes and all related structures Neck Neck: normal visual inspection Chest Chest palpation & inspection: normal inspection of the chest and normal palpation of entire chest wall Resp Effort & Inspection: normal respiratory effort Auscultation: Bilateral: Clear to Auscultation Cardio Palpation: normal PMI Rate: regular rate Rhythm: regular rhythm GI Inspection: normal to inspection Auscultation: normal bowel sounds Percussion: normal to percussion Palpation: no hepatosplenomegaly Skin General: no rashes or lesions noted Neuro General: patient alert Extrem General: normal to inspection Psych Affect: normal affect Assessment and Plan Assessment and Plan (1) GERD (gastroesophageal reflux disease): Status: Acute (2) Irritable bowel syndrome with constipation: Status: Acute Plan: 59-year-old gentleman with past medical history of anxiety and depression presents with a longstanding history of abdominal pain, bloating and chronic idiopathic constipation. We will undergo biochemical testing along with a sits marker test to hopefully determine his colonic transit and whether it is slow transit constipation or pelvic floor dysfunction or both. Once he undergoes endoscopic evaluation and biochemical testing along with functional testing hopefully will have a better hold on his GI motility problems. Orders: Orders Abdomen Single View 09/17/24 K59.00 - Constipation, unspecified Abdomen Single View 3 Days K59.00 - Constipation, unspecified I have examined the patient and the H&P has been reviewed. There are no clinical changes since date of exam.
--- NOTE | 2024-10-26 12:41 | PCM.PRE.AN2 ---
ASA Classification* ASA Classification ASA Classification: 2 Assessment & Plan Anesthesia* Anesthesia Assessment Anesthesia Assessment: Discussed sedation and/or anesthesia options, risks, benefits, and alternatives with patient/parents/legal guardian/POA. Questions invited. The patient/parents/legal guardian/POA seems to understand and agrees to proceed with anesthesia plan. Reviewed the physical assessment, medical history, allergy history and patient home medications list prior to surgery/procedure/anesthetic and documented any changes. Performed airway and anesthesia risk assessments. Anesthesia Type Anesthesia Type: MAC (see written pre anesthesia record for full assessment) Anesthesia Focused Assessment* Temperature: 97.8 F Pulse Rate: 89 Blood Pressure: 118/87 Respiratory Rate: 16 Pulse Ox: 99 Airway Assessment Mouth opens: >3 cm Mallampati Score: II Focused Labs Anesthesia Preop lab: CBC WBC 5.6 K/mm3 (4.4-11.0) 04/15/24 06:22 RBC 4.86 M/mm3 (4.6-6.2) 04/15/24 06:22 Hgb 13.9 g/dL (13.0-16.5) 04/15/24 06:22 Hct 42.3 % (40-54) 04/15/24 06:22 Plt Count 275 K/mm3 (150-450) 04/15/24 06:22 CHEMISTRY Potassium 3.9 mmol/L (3.5-5.1) 06/04/24 06:18 Sodium 137 mmol/L (136-145) 06/04/24 06:18 BUN 18 mg/dL (7-18) 06/04/24 06:18 Creatinine 1.19 mg/dL (0.70-1.30) 06/04/24 06:18 Glucose 97 mg/dL (74-106) 06/04/24 06:18 TSH 1.33 uIU/mL (0.358-3.74) 06/04/24 06:18 COAG Pre-Assessment Diagnosis/Proposed Procedure Planned Operative Procedure(s): egd, cscope Anesthesia History 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 When Was Last Pacemaker Check QUESTION #4 FULL TEXT: You/Your Family Experience fever (hyperthermia) with Anesthesia Last Oral Intake Last Oral intake: Last Oral Intake NPO since Meds taken in AM with sips of water? Meds patient instructed to take am of surgery PONV PONV - internet security specialist: PONV - internet security specialist Female No 10/21/24 15:39 HX of Motion Sickness No 10/21/24 15:39 HX of N/V After Surgery No 10/21/24 15:39 Non-Smoker Yes 10/21/24 15:39 Duration of Surgery greater No 10/21/24 15:39 than 60 minutes Number of Risk Factors 1 10/21/24 15:39 PONV Score Low Risk 10/21/24 15:39 Height & Weight Height & Weight: Anesthesia: Height & Weight Height 6 ft 1 in 10/26/24 12:25 Weight: 102.9 kg 10/26/24 12:25 Body Mass Index (BMI) 29.9 10/26/24 12:25 Respiratory Assessment Respiratory Assessment - internet security specialist: Respiratory Tract Infection Hx - internet security specialist Hx Respiratory Tract Infection No 10/21/24 15:39 STOP Sleep Apnea STOP Sleep Apnea - internet security specialist: STOP Sleep Apnea - internet security specialist Hx Hypertension Yes: controlled with med 10/21/24 15:39 Hx Sleep Apnea No 10/21/24 15:39 CPAP BIPAP Do you snore loudly (louder No 10/21/24 15:39 than talking or can be heard Do you often feel tired/ No 10/21/24 15:39 fatigued/ sleepy during daytime? Has anyone observed you stop No 10/21/24 15:39 breathing during sleep? STOP Results Negative 10/21/24 15:39 QUESTION #5 FULL TEXT : Do you snore loudly (louder than talking or can be heard through closed doors)? 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 Specify any problems Hx of Preganancy in last 3 N/A 10/21/24 15:39 Months Nurse Filling Out Transfusion NBUCHER 10/21/24 15:39 & Questions: Date: 10/21/24 10/21/24 15:39 Time: 15:40 10/21/24 15:39 Patient unable to answer at this time (ie. confused, unrespo /Reproduction History /Reproductive History - internet security specialist: /Reproductive Hx- internet security specialist Hx Now No 10/21/24 15:39 Gestational Age (in weeks): EDC: Hx Hx Para Hx Section SAB No 10/21/24 15:39 PFSH Medical History Wears glasses Alcohol use History of IBS Non-smoker History of echocardiogram History of stress test Cardiology follow-up encounter Neoplasm of left cheek Hypogonadism GERD (gastroesophageal reflux disease) Pituitary tumor Parotid tumor Depression High cholesterol HTN (hypertension) Home Medications ?Medication ?Instructions ?Recorded ?Last Taken ?Type amlodipine 10 mg-benazepril 20 mg 1 ea PO DAILY 10/17/20 Unknown History capsule duloxetine 20 mg capsule,delayed 20 mg PO DAILY 10/17/20 Unknown History release pravastatin 80 mg tablet 80 mg PO QHS 10/17/20 Unknown History trazodone 50 mg tablet 50 mg PO QHS 10/17/20 Unknown History aspirin 81 mg chewable tablet 81 mg PO DAILY 10/23/20 10/21/24 History cholecalciferol (vitamin D3) 25 25 mcg PO DAILY 10/23/20 Unknown History mcg (1,000 unit) capsule multivitamin 1 tab PO DAILY 10/23/20 Unknown History alprazolam 0.5 mg tablet 0.5 mg PO DAILY PRN anxiety 03/18/24 Unknown History linaclotide 145 mcg capsule 145 mcg PO QAM #30 caps 10/11/24 Unknown Rx (Linzess) Allergy/AdvReac Type Severity Reaction Status Date / Time atorvastatin (From Lipitor) Allergy Abd Verified 10/26/24 12:24 cramps/diarrhea Family History Mother Hypertension Father Heart disease Parkinson disease Myocardial infarction Surgical History History of tonsillectomy and adenoidectomy History of cardiac cath History of esophagogastroduodenoscopy (EGD) Social History Smoking Status: Never smoker alcohol intake: current alcohol intake frequency: holidays/special occasions only substance use type: does not use Review of Systems (Anesthesia) ROS Narrative System reviewed and no additional complaints, except as documented.
--- NOTE | 2024-10-26 14:04 | OP.CCLET_ITS ---
10/26/2024 Peter Beard Do Re : Upper GI endoscopy procedure for Zak Bacon Dear Kisha This procedure was performed on Saturday, October 26, 2024. My impressions and recommendations are as follows: Impressions : - LA Grade C erosive esophagitis with no bleeding. Biopsied. - Gastroparesis, idiopathic etiology. Biopsied. - Non-bleeding duodenal ulcers with no stigmata of bleeding. Biopsied. Recommendations : - Discharge patient to home. - Resume previous diet. - No aspirin, ibuprofen, naproxen, or other non-steroidal anti-inflammatory drugs for 8 weeks. My findings are described in the full procedure note, which is enclosed. If I can be of further assistance, please feel free to contact me at . Sincerely, Boyd Friend, 10/26/2024 2:04:22 PM This report has been signed electronically.
--- NOTE | 2024-10-26 14:04 | OP.EGD_ITS ---
Patient Name: Zak Bacon Procedure Date: 10/26/2024 1:18 PM Date of : 1965 Age: 59 Procedure: Upper GI endoscopy Indications: Epigastric abdominal pain, Heartburn Providers: Boyd Gama DO Referring MD: Peter Beard Do Medicines: Monitored Anesthesia Care Patient Profile: This is a 59 year old male. Refer to note in patient chart for documentation of history and physical. Patient has symptoms of chronic abdominal cramping, chronic epigastric abdominal pain, chronic dyspepsia and chronic heartburn. Complications: No immediate complications. Procedure: Pre-Anesthesia Assessment: - Prior to the procedure, a History and Physical was performed, and patient medications and allergies were reviewed. The patient is competent. The risks and benefits of the procedure and the sedation options and risks were discussed with the patient. All questions were answered and informed consent was obtained. Patient identification and proposed procedure were verified by the physician in the pre-procedure area. Mental Status Examination: normal. Airway Examination: normal oropharyngeal airway and neck mobility. Respiratory Examination: clear to auscultation. CV Examination: normal. Prophylactic Antibiotics: The patient does not require prophylactic antibiotics. Prior Anticoagulants: The patient has taken no anticoagulant or antiplatelet agents except for NSAID medication. ASA Grade Assessment: II - A patient with mild systemic disease. After reviewing the risks and benefits, the patient was deemed in satisfactory condition to undergo the procedure. The anesthesia plan was to use monitored anesthesia care (MAC). Immediately prior to administration of medications, the patient was re-assessed for adequacy to receive sedatives. The heart rate, respiratory rate, oxygen saturations, blood pressure, adequacy of pulmonary ventilation, and response to care were monitored throughout the procedure. The physical status of the patient was re-assessed after the procedure. After obtaining informed consent, the endoscope was passed under direct vision. Throughout the procedure, the patient's blood pressure, pulse, and oxygen saturations were monitored continuously. The Colonoscope was introduced through the mouth, and advanced to the second part of duodenum. The upper GI endoscopy was accomplished without difficulty. The patient tolerated the procedure well. Scope In: 1:28:11 PM Scope Out: 1:35:27 PM Total Procedure Duration Time 0 hours 7 minutes 16 seconds Findings: LA Grade C (one or more mucosal breaks continuous between tops of 2 or more mucosal folds, less than 75% circumference) esophagitis with no bleeding was found 37 to 40 cm from the incisors. Biopsies were taken with a cold forceps for histology. Verification of patient identification for the specimen was done. Estimated blood loss was minimal. Suspect gastroparesis due to absence of peristalsis and patient symptoms. Biopsies were taken with a cold forceps for histology. Verification of patient identification for the specimen was done. Estimated blood loss was minimal. Few non-bleeding superficial duodenal ulcers with no stigmata of bleeding were found in the duodenal bulb, in the first portion of the duodenum and in the second portion of the duodenum. The largest lesion was 3 mm in largest dimension. Biopsies were taken with a cold forceps for histology. Verification of patient identification for the specimen was done. Estimated blood loss was minimal. Impression: - LA Grade C erosive esophagitis with no bleeding. Biopsied. - Gastroparesis, idiopathic etiology. Biopsied. - Non-bleeding duodenal ulcers with no stigmata of bleeding. Biopsied. Recommendation: - Discharge patient to home. - Resume previous diet. - No aspirin, ibuprofen, naproxen, or other non-steroidal anti-inflammatory drugs for 8 weeks. Procedure Code(s): --- Professional --- 75250, Esophagogastroduodenoscopy, flexible, transoral; with biopsy, single or multiple CPT copyright 2021 [employer]. All rights reserved. The codes documented in this report are preliminary and upon drapery installer review may be revised to meet current compliance requirements. Boyd Gama DO 10/26/2024 2:04:22 PM This report has been signed electronically. Number of Addenda: 0 Note Initiated On: 10/26/2024 1:18 PM
--- NOTE | 2024-10-26 14:04 | PCM.POST.ANE ---
Anesthesia: Postop Eval I Current Vital Signs Temperature: 97 F Pulse Rate: 71 Blood Pressure: 107/68 Respiratory Rate: 16 Pulse Ox: 96 Oxygen Delivery Method: Room Air Assessment Airway patent: Yes Spontaneous unlabored respirations: Yes Mental status: Asleep nausea: No Vomiting: No Anesthesia Complication: No Fluid Hydration Crystalloid volume administer (ml): 60 Total IV fluid infused: 60 Progress Note Anesthesia document: Postop Eval 1 completed: Yes
--- NOTE | 2024-10-26 14:12 | OP.COLON_ITS ---
Patient Name: Zak Bacon Procedure Date: 10/26/2024 1:35 PM Date of : 1965 Age: 59 Procedure: Colonoscopy Indications: Generalized abdominal pain, Abnormal abdominal x-ray of the GI tract Providers: Boyd Gama DO Referring MD: Peter Beard Do Medicines: Monitored Anesthesia Care Patient Profile: This is a 59 year old male. Refer to note in patient chart for documentation of history and physical. Patient has symptoms of chronic abdominal cramping, chronic epigastric abdominal pain, chronic dyspepsia and chronic heartburn. Last Colonoscopy: date unknown. Unable to locate last colonoscopy report. Complications: No immediate complications. Procedure: Pre-Anesthesia Assessment: - Prior to the procedure, a History and Physical was performed, and patient medications and allergies were reviewed. The patient is competent. The risks and benefits of the procedure and the sedation options and risks were discussed with the patient. All questions were answered and informed consent was obtained. Patient identification and proposed procedure were verified by the physician in the pre-procedure area. Mental Status Examination: normal. Airway Examination: normal oropharyngeal airway and neck mobility. Respiratory Examination: clear to auscultation. CV Examination: normal. Prophylactic Antibiotics: The patient does not require prophylactic antibiotics. Prior Anticoagulants: The patient has taken no anticoagulant or antiplatelet agents except for NSAID medication. ASA Grade Assessment: II - A patient with mild systemic disease. After reviewing the risks and benefits, the patient was deemed in satisfactory condition to undergo the procedure. The anesthesia plan was to use monitored anesthesia care (MAC). Immediately prior to administration of medications, the patient was re-assessed for adequacy to receive sedatives. The heart rate, respiratory rate, oxygen saturations, blood pressure, adequacy of pulmonary ventilation, and response to care were monitored throughout the procedure. The physical status of the patient was re-assessed after the procedure. After I obtained informed consent, the scope was passed under direct vision. Throughout the procedure, the patient's blood pressure, pulse, and oxygen saturations were monitored continuously. The Colonoscope was introduced through the anus and advanced to the cecum, identified by the appendiceal orifice, ileocecal valve and palpation. The colonoscopy was performed without difficulty. The patient tolerated the procedure well. The quality of the bowel preparation was adequate. Scope In: 1:37:27 PM Scope Withdrawal Time 0 hours 8 minutes 59 seconds Scope Out: 1:53:53 PM Total Procedure Duration Time 0 hours 16 minutes 26 seconds Findings: The perianal and digital rectal examinations were normal. A few small-mouthed diverticula were found in the sigmoid colon. An area of congested mucosa was found in the recto-sigmoid colon. Biopsies were taken with a cold forceps for histology. Verification of patient identification for the specimen was done. Estimated blood loss was minimal. A benign-appearing, intrinsic moderate stenosis measuring 3 cm (in length) was found at the hepatic flexure and was traversed. Impression: - Diverticulosis in the sigmoid colon. - Congested mucosa in the recto-sigmoid colon. Biopsied. - Stricture at the hepatic flexure. Recommendation: - Discharge patient to home. - Resume previous diet. - Continue present medications. - Await pathology results. - Repeat colonoscopy in 5 years for surveillance. Procedure Code(s): --- Professional --- 23441, Colonoscopy, flexible; with biopsy, single or multiple CPT copyright 2021 [employer]. All rights reserved. The codes documented in this report are preliminary and upon sales porter review may be revised to meet current compliance requirements. Boyd Gama DO 10/26/2024 2:11:26 PM This report has been signed electronically. Number of Addenda: 0 Note Initiated On: 10/26/2024 1:35 PM
--- NOTE | 2024-10-26 14:12 | OP.CCLET_ITS ---
10/26/2024 Peter Beard Do Re : Colonoscopy procedure for Zak Bacon Dear Kisha This procedure was performed on Saturday, October 26, 2024. My impressions and recommendations are as follows: Impressions : - Diverticulosis in the sigmoid colon. - Congested mucosa in the recto-sigmoid colon. Biopsied. - Stricture at the hepatic flexure. Recommendations : - Discharge patient to home. - Resume previous diet. - Continue present medications. - Await pathology results. - Repeat colonoscopy in 5 years for surveillance. My findings are described in the full procedure note, which is enclosed. If I can be of further assistance, please feel free to contact me at . Sincerely, Boyd Gama, 10/26/2024 2:11:26 PM This report has been signed electronically.
--- NOTE | 2024-10-26 14:23 | PCM.POSTANE2 ---
Anesthesia Postop Eval I Sum Postop Eval Completion status Anesthesia document: Postop Eval 1 completed: Yes Anesthesia Postop Eval I Summary Anesthesia Postop Eval I Summary: Anesthesia Postop Eval I: Assessment Summary Airway patent Yes 10/26/24 14:04 [email or web address] Spontaneous unlabored Yes 10/26/24 14:04 [email or web address] respirations Mental status Asleep 10/26/24 14:04 [email or web address] nausea No 10/26/24 14:04 [email or web address] Vomiting No 10/26/24 14:04 [email or web address] Anesthesia Postop Eval I: Fluid Summary Crystalloid volume administer 60 10/26/24 14:04 [email or web address] (ml) Colloids volume administered ( ml) Blood Product volume administered (ml) Total IV fluid infused 60 10/26/24 14:04 [email or web address] Anesthesia Postop Eval I: Summary Notes Anesthesia Complication No 10/26/24 14:04 [email or web address] Anesthesia Complication Comment: Post-operative progress note Anesthesia: Postop Eval II Evaluation Mental status: Awake Pain Level: 0 nausea: No Vomiting: No
== END 2024-10-26 14:52 | disposition home or self-care (01) ==
LOC: EN 11:58 → AC 11:59
PROVIDERS: PCP Internal Medicine; Referring Provider Internal Medicine; Visit Provider Internal Medicine Gastroenterology
PROC: 0DJD8ZZ Inspection of Lower Intestinal Tract, Via Natural or Artificial Opening Endoscopic (ICD-10-PCS; CPT 45378; principal; 2024-10-26 12:55)
DX: K21.00 Gastro-esophageal reflux disease with esophagitis, without bleeding (principal); K56.609 Unspecified intestinal obstruction, unspecified as to partial versus complete obstruction; K57.30 Diverticulosis of large intestine without perforation or abscess without bleeding; K26.9 Duodenal ulcer, unspecified as acute or chronic, without hemorrhage or perforation; K31.84 Gastroparesis; K58.9 Irritable bowel syndrome, unspecified; I10 Essential (primary) hypertension; E78.00 Pure hypercholesterolemia, unspecified; Z79.899 Other long term (current) drug therapy; Z79.82 Long term (current) use of aspirin
CPT/HCPCS: 43239; 45380; 88305; A4216; J2405

== ENCOUNTER → 2025-02-09 | Outpatient (CLI) | payer OTHER, SELFPAY ==
[2025-02-09 08:40] LABS: Erythrocyte Sedimentation Rate 3 mm/hr (0-20)
[2025-02-09 08:49] LABS: CRP < 3.00 mg/L (0.0-3.0)
[2025-02-14 16:08] LABS: ACCA 59 units (0-90); ALCA 5 units (0-60); AMCA 25 units (0-100); Deamidated Gliadin IgA 4 units (0-19); Deamidated Gliadin IgG 2 units (0-19); Endomysial Antibody IgA Negative (Negative); Immunoglobulin A 160 mg/dL (61-437); gASCA 38 units (0-50); t-Transglutaminase IgA <2 U/mL (0-3)
== END | disposition home or self-care (01) ==
LOC: LAB 07:20
PROVIDERS: PCP Internal Medicine; Referring Provider Internal Medicine Gastroenterology; Visit Provider Internal Medicine Gastroenterology
DX: K58.1 Irritable bowel syndrome with constipation (principal); K21.9 Gastro-esophageal reflux disease without esophagitis
CPT/HCPCS: 36415; 82784; 83516; 85652; 86036; 86140; 86255; 86671

== ENCOUNTER → 2025-04-13 | Outpatient (CLI) | payer OTHER, SELFPAY ==
[2025-04-13 06:41] LABS: Hematocrit 44.5 % (40-54); Hemoglobin 14.7 g/dL (13.0-16.5); Mean Corpuscular Hgb 27.5 pg (27.0-32.0); Mean Corpuscular Volume 83.3 fL (80-94); Mean Platelet Vol. 8.7 fl (6.2-12.0); Platelet Count 223 K/mm3 (150-450); RBC Distribution Width CV 14.5 % (11.6-14.6); RBC Distribution Width SD 43.6 fl (35.1-43.9); Red Blood Count 5.34 M/mm3 (4.6-6.2); White Blood Count 5.8 K/mm3 (4.4-11.0)
[2025-04-13 07:19] LABS: ALB/GLOB Ratio 1.7 RATIO (0.9-2.4); AST(SGOT) 44 U/L (<=37); Alanine Aminotransfer ALT/SGPT 30 U/L (<=46); Albumin, Serum 4.5 g/dL (3.4-4.8); Alkaline Phosphatase 65 U/L (40-129); Anion Gap 10 (5-15); BUN 23 mg/dL (4-19); BUN/Creat Ratio 19.5 RATIO (10-20); Calcium,Total 9.3 mg/dL (7.6-11.0); Carbon Dioxide 23.3 mmol/L (21.0-32.0); Chloride 102 mmol/L (98-108); Cholesterol 164 mg/dL (<=200); Creatinine, Serum 1.16 mg/dL (0.70-1.20); EST Glomerular Filtration Rate 72 (>60); Globulin 2.7 g/dL (2.2-4.2); Glucose 98 mg/dL (70-99); High Density Lipoprotein 54 mg/dL; Low Density Lipoprotein Calc. 95 mg/dL; PSA,Total - Annual Screen 1.39 ng/mL (0.02-4.00); Potassium 3.9 mmol/L (3.3-5.1); Protein, Total 7.2 g/dL (5.9-8.4); Sodium Level 136 mmol/L (133-145); Triglycerides 76 mg/dL; Very Low Density Lipoprotein 15 mg/dL (5-40); cholesterol:hdl ratio screen 3.03
== END | disposition home or self-care (01) ==
PROVIDERS: PCP Internal Medicine; Referring Provider Internal Medicine; Visit Provider Internal Medicine
DX: Z00.00 Encounter for general adult medical examination without abnormal findings (principal); Z12.5 Encounter for screening for malignant neoplasm of prostate; Z13.220 Encounter for screening for lipoid disorders
CPT/HCPCS: 36415; 80053; 80061; 84153; 85027; G0103

== ENCOUNTER → 2025-06-14 | Outpatient (CLI) | payer OTHER, SELFPAY ==
--- OUTSIDE RECORDS SUMMARY | 2025-06-14 07:21 | XMS RPT_ITS | CCD ---
Author Organization [facility] Care Team Providers Care Computer Network Engineer Name Role Phone KORABLEVA, BRODY B Unavailable Unavailable KORABLEVA, BRODY B Unavailable Unavailable HILDA BRODY B Unavailable Unavailable CK KC Unavailable Unavailable PROVIDER, UNKNOWN Unavailable Unavailable PROVIDER, UNKNOWN Unavailable Unavailable FRANCISCO DOMINIQUE MD Unavailable Unavailable FRANCISCO DOMINIQUE MD Unavailable Unavailable FRANCISOC DOMINIQUE MD Unavailable Unavailable CK KC Unavailable Unavailable PROVIDER, UNKNOWN Unavailable Unavailable PROVIDER, UNKNOWN Unavailable Unavailable KORABLEVA, BRODY B Unavailable Unavailable HILDA, BRODY B Unavailable Unavailable Ck Gale DO Primary Care Provider [phone] YAMINI CASAS, DR. CK Rene Attending Venessa KC DO, DR. CK Rene Primary Care DR. CK Byrne DO Attending Venessa KC DO, DR. CK Rene Primary Care Ck Calzada DO Primary Care Provider [phone] Ck Gale DO Primary Care Provider [phone] CK GALE Primary Care Unavailable KATHRYN DAVILA Attending Unavailable CK GALE Primary Care Unavailable MADIE MARSHALL Referring Unavailable Friend , Dr. Nix Attending Provider Dr. Ck Kc DO Primary Care Provider Dr. Ck Kc DO Referring Provider Friend Dr. Boyd CASAS Other Provider Friend , Dr. Nix Referring Provider Dr. Ck Kc DO Primary Care Provider [phone] Friend , Dr. Nix Attending Provider Dr. Ck Kc DO Referring Provider Dr. Ck Kc DO Attending Provider [phone] Friend, Boyd Attending Unavailable Friend, Boyd Referring Unavailable Yamini, Ck Primary Care Unavailable Yamini, Ck Primary Care Unavailable Friend, Boyd Attending Unavailable Friend, Boyd Referring Unavailable Yamini, Ck Primary Care Unavailable RunAna fleming Attending Unavailable RunAna fleming Referring Unavailable CIPRIANO ROSARIO Consulting Unavailable Yamini, Ck Primary Care Unavailable Yamini, Ck Attending Unavailable Yamini, Ck Referring Unavailable Yamini, Ck Attending Unavailable Yamini, Ck Referring Unavailable Yamini, Ck Primary Care Unavailable Yamini, Ck Primary Care Unavailable Friend, Boyd Attending Unavailable Yamini, Ck Referring Unavailable Friend, Boyd Referring Unavailable Friend, Boyd Attending Unavailable Yamini, Ck Primary Care Unavailable Friend, Boyd Attending Unavailable Yamini, Ck Referring Unavailable Yamini, Ck Primary Care Unavailable Friend, Boyd Attending Unavailable Yamini, Ck Referring Unavailable Friend, Boyd Attending Unavailable Yamini, Ck Referring Unavailable Friend, Boyd Attending Unavailable Friend, Boyd Consulting Unavailable Yamini, Ck Referring Unavailable Yamini, Ck Primary Care Unavailable Ck Kc DO Primary Care Provider [phone] LEW ROSALES Attending Unavailable CK KC Primary Care Unavailable Allergies Allergy Classification Reported Allergen(s) Allergy Type Date of Onset Reaction(s) Facility HMG-CoA Reductase Inhibitors (statins) (1 source) atorvastatin Drug Allergy 08-18-2019 Myalgia [facility] (20 sources) atorvastatin; Translations: [ATORVASTATIN] Drug Allergy 08-18-2019 Myalgia [facility] Work Phone: (1 source) atorvastatin Drug Allergy 10-26-2024 [facility] Repository Medications Current Medications Medication Drug Class(es) Dates Sig (Normalized) Sig (Original) ALPRAZolam 0.5 mg oral tablet (12 sources) Benzodiazepine Start: 03-18-2024 take 1 tablet by mouth once daily as needed for anxiety Alprazolam 0.5 mg tablet Active 0.5 mg PO DAILY as needed for anxiety March 18, 2024 12:00am Start: 01-20-2022 take 1 tablet by bruce th every twelve hours as needed ALPRAZolam (XANAX) 0.5 mg tablet Take 0.5 mg by mouth twice daily as needed. 01/20/2022 Active Comment on above: Take 0.5 mg by mouth twice daily as needed. amLODIPine 10 mg / benazepril hydrochloride 20 mg oral capsule (20 sources) Dihydropyridine Calcium Channel Ariel, Angiotensin Converting Enzyme Inhibitor Start: 10-17-2020 Amlodipine-Benazepr il Active 1 EACH PO DAILY October 17, 2020 12:00am Start: 08-28-2020 take 1 capsule by mo uth once daily in the evening amLODIPine-benazepril (LOTREL) 10-20 mg per capsule Take 1 capsule by mouth every evening. 08/28/2020 Active Comment on above: Take 1 capsule by mo uth every evening. calcium polycarbophil (10 sources) calcium polycarb ophil (FIBERCON ORAL) Take by mouth once daily. Active calcium polycarb ophil (FIBERCON ORAL) Take by mouth once daily. 0 Active Comment on above: Take by mouth once d aily. cholecalciferol 0.025 mg oral capsule (20 sources) Vitamin D Start: 10-23-20 take 1 capsule by mouth once daily Cholecalciferol (Vitamin D3) 25 mcg (1,000 unit) capsule Active 25 ug PO DAILY October 23, 2020 1:00am take 1 capsule by mouth once cara ly Cholecalciferol, Vitamin D3, 50 mcg (2,000 unit) cap Take 2,000 Units by mouth once daily. Active Comment on above: Take 2,000 Units by mouth once daily. DULoxetine 30 mg delayed release oral capsule (20 sources) Serotonin and Norepinephrine Reuptake Inhibitor Start: 2 take 1 capsule by mouth once daily DULoxetine (CYMBALTA) 30 mg capsule Take 30 mg by mouth once daily. 04/28/2022 Active Start: 08-28-2020 End: 05-01-2022 take 1 capsule by mouth once daily Duloxetine 20 MG capsule Active 20 mg PO DAILY October 17, 2020 1:00am Comment on above: Take 1 capsule by mo uth every evening. 30 mg once daily. linseed oil 1000 mg oral capsule (12 sources) take 1 capsule by mouth once daily Flaxseed Oil 1,000 mg cap Take 1,000 mg by mouth once daily. Active Comment on above: Take 1,000 mg by bruce th once daily. MULTIVITAMIN ORAL (10 sources) Start: 9 MULTIVITAMIN ORAL Take by mouth once daily. 07/26/2009 Active Start: 07-26-2009 MULTIVITAMIN O RAL Take by mouth once daily. 0 07/26/2009 Active Comment on above: Take by mouth once d aily. Multivitamin preparation (6 sources) Start: 10-23-2020 take 1 tablet by mouth once daily Multivitamin Active 1 TABLET PO DAILY October 23, 2020 9:23am Start: 10-23-2020 take 1 tablet by bruce th once daily Multivitamin Active 1 TABLET PO DAILY October 23, 2020 12:00am Start: 10-23-2020 take 1 tablet by bruce th once daily Multivitamin Active 1 TABLET PO DAILY October 23, 2020 1:00am Multivitamin tablet (2 sources) Start: 10-23-2020 Multivitamin t ablet Active 1 {tbl} PO DAILY October 23, 2020 1:00am pantoprazole 40 mg delayed release oral tablet (6 sources) Proton Pump Inhibitor Start: 02-23-2025 take 1 tablet by mouth once daily Pantoprazole 40 mg tablet,delayed release (DR/EC) Active 40 mg PO daily February 23, 2025 9:14am Start: 10-26-2024 End: 02-23-2025 take 1 tablet by mouth twice daily Pantoprazole 40 mg tablet,delayed release (DR/EC) Discontinued 40 mg PO TWICE A DAY 180 90 December 02, 2024 3:18pm February 23, 2025 9:15am pravastatin sodium 80 mg oral tablet (20 sources) HMG-CoA Reductase Inhibitor Start: 08-28-2020 take 1 tablet by mouth once daily in the evening pravastatin (PRAVACHOL) 80 mg tablet Take 1 tablet by mouth every evening. 08/28/2020 Active Comment on above: Take 1 tablet by bruce th every evening. traZODone hydrochloride 50 mg oral tablet (20 sources) Serotonin Reuptake Inhibitor Start: 10-17-2020 take 1 tablet by mouth at bedtime Trazodone 50 MG tablet Active 50 mg PO AT BEDTIME October 17, 2020 1:00am traZODone (DESYR EL) 50 mg tablet Take 75 mg by mouth daily at bedtime. Active Comment on above: Take 75 mg by mouth daily at bedtime. Completed/Discontinued Medications Medication Drug Class(es) Dates Sig (Normalized) Sig (Original) aspirin 81 mg chewable tablet (20 sources) Platelet Aggregation Inhibitor, Nonsteroidal Anti-inflammatory Drug Start: 10-23-2020 End: 11-26-2024 take 1 tablet by mouth once daily Aspirin 81 mg tablet,chewable Discontinued 81 mg PO DAILY October 23, 2020 1:00am November 26, 2024 9:23am take 81 mg by mouth once daily B RADHA ASPIRIN ORAL Take 81 mg by mouth once daily. Active Comment on above: Take 81 mg by mouth once daily. bisacodyl 5 mg delayed release oral tablet (3 sources) Stimulant Laxative Start: 06-28-20 End: 05-01-20 22 Bisacodyl (DULCOLAX) 5 mg tab Indications: Gastroesophageal [...] capsule (3 sources) Proton Pump Inhibitor End: 05-01-20 take 1 capsule by mouth once daily as needed esomeprazole (NEXIUM) 20 mg capsule Take 20 mg by mouth once daily as needed. 0 05/01/2022 Discontinued (Other) Comment on above: Take 20 mg by mouth once daily as needed. famotidine 20 mg oral tablet (10 sources) Histamine-2 Receptor Antagonist End: 05-18-20 famotidine (PEPCID) 20 mg tablet Take 20 mg by mouth as needed. 05/18/2025 Discontinued (Other) Comment on above: Take 20 mg by mouth as needed. Gatorade Sports Drink (3 sources) Start: 06-28-20 End: 05-01-20 22 Gatorade Sports Drink Indications: Gastroesophageal reflux disease, unspecified whether esophagitis present , Constipation, unspecified constipation type , History of colonic polyps Use as directed for Miralax / Gatorade Bowel Prep Kit 64 oz 0 06/28/2021 05/01/2022 Discontinued (Other) Comment on above: Use as directed for Miralax / Gatorade Bowel Prep Kit linaclotide 0.145 mg oral capsule (2 sources) Guanylate Cyclase-C Agonist Start: 10-11-20 End: 11-26-20 take 1 capsule by mouth once daily in the morning Linaclotide (Linzess) 145 mcg capsule Discontinued 145 ug PO EVERY MORNING October 11, 2024 1:00am November 26, 2024 9:23am Magnesium Sulfate / potassium sulfate / sodium sulfate (3 sources) Start: 06-28-20 End: 05-01-20 sodium sulfate-potassium sulfate-magnesium sulfate (SUPREP BOWEL PREP KIT) 17.5-3.13-1.6 gram oral liquid Indications: Gastroesophageal reflux disease, unspecified whether esophagitis present , Constipation, unspecified constipation type , History of colonic polyps Refer to instructions given by your provider. 1 Kit 0 06/28/2021 05/01/2022 Discontinued (Other) Comment on above: Refer to instruction s given by your provider. polyethylene glycol 3350 71434 mg powder for oral solution (8 sources) Osmotic Laxative Start: 06-28-20 End: 05-10-20 polyethylene glycol 3350 (MIRALAX, GLYCOLAX) 17 gram/dose [...] Classification Problem Date Documented Da te Episodic/Chronic Allergic reactions (2 sources) Celiac disease; Translations: [Non-celiac gluten sensitivity] 02-23-2025 Chronic Disorders of lipid metabolism (20 sources) Mixed hyperlipidemia; Translations: [Mixed hyperlipidemia] Onset: 9 04-25-2022 Chronic Esophageal disorders (5 sources) Gastroesophageal reflux disease; Translations: [Gastro-esophageal reflux disease without esophagitis] Onset: 4 09-20-2024 Chronic Essential hypertension (20 sources) Benign essential hypertension; Translations: [Essential (primary) hypertension] Onset: 9 Resolved: 2 Chronic Malaise and fatigue (8 sources) Fatigue; Translations: [Other fatigue] 07-01-2021 Episodic Mood disorders (15 sources) Depressive disorder; Translations: [Depression] Onset: 9 08-19-2019 Chronic Other and unspecified benign neoplasm (3 sources) Pituitary adenoma; Translations: [Benign neoplasm of pituitary gland] Episodic Other circulatory disease (8 sources) H/O: hypertension; Translations: [Personal history of other diseases of the circulatory system] 10-17-2020 Episodic Other connective tissue disease (5 sources) Calcific tendinitis; Translations: [Calcific tendinitis, unspecified hand] 10-18-2020 Episodic Other connective tissue disease (3 sources) Calcific tendinitis, unspecified hand; Translations: [Calcific tendinitis of hand] 10-18-2020 Episodic Other gastrointestinal disorders (4 sources) Irritable bowel syndrome characterized by constipation; Translations: [Irritable bowel syndrome with constipation] 09-20-2024 Chronic Other gastrointestinal disorders (1 source) Irritable bowel syndrome with constipation; Translations: [Irritable bowel syndrome with constipation] Onset: 5 Chronic Other nutritional; endocrine; and metabolic disorders (8 sources) History of hypercholesterolemia; Translations: [Personal history of other endocrine, nutritional and metabolic disease] 10-17-2020 Episodic Other screening for suspected conditions (not mental disorders or infectious disease) (2 sources) Encounter for screening for malignant neoplasm of prostate; Translations: [Encounter for screening for malignant neoplasm of prostate] Onset: 2 Episodic Residual codes; unclassified (18 sources) History of cardiac catheterization; Translations: [Other specified postprocedural states] Onset: 0 04-25-2022 Episodic Residual codes; unclassified (18 sources) Past history of procedure; Translations: [Personal history of other medical treatment] Onset: 0 04-25-2022 Episodic Residual codes; unclassified (17 sources) Non-smoker; Translations: [Other specified health status] Onset: 2 04-30-2022 Episodic Residual codes; unclassified (1 source) Never smoked tobacco; Translations: [Other specified health status] 05-08-2024 Episodic Unclassified (1 source) Unknown / UNK(Unknown) Onset: 8 Past or Other Problems Problem Classification Problem Date Documented Da te Episodic/Chronic Blindness and vision defects (15 sources) Unspecified amblyopia, right eye; Translations: [Amblyopia, unspecified] Onset: 1965 08-19-2019 Episodic Diseases of mouth; excluding dental (15 sources) Lesion of salivary gland; Translations: [Disease of salivary gland, unspecified] Onset: 08-23-2020 08-23-2020 Episodic Neoplasms of unspecified nature or uncertain behavior (16 sources) Neoplasm of pituitary gland; Translations: [Neoplasm of unspecified behavior of endocrine glands and other parts of nervous system] Onset: 07-26-2019 08-19-2019 Episodic Nonspecific chest pain (15 sources) Chest pain; Translations: [Chest pain, unspecified] Onset: 04-18-2020 04-18-2020 Episodic Other and unspecified benign neoplasm (2 sources) Benign neoplasm of pituitary gland; Translations: [Pituitary adenoma (HCC)] Onset: 05-31-2024 Episodic Other connective tissue disease (3 sources) Adhesive capsulitis of left shoulder; Translations: [Adhesive capsulitis of left shoulder] Onset: 10-09-2017 Episodic Other gastrointestinal disorders (1 source) Constipation, unspecified; Translations: [Constipation, unspecified] Onset: 10-18-2024 Episodic Residual codes; unclassified (1 source) Other specified postprocedural states; Translations: [History of cardiac cath] Onset: 04-25-2022 Episodic Residual codes; unclassified (1 source) Personal history of other medical treatment; Translations: [History of stress test] Onset: 04-25-2022 Episodic Residual codes; unclassified (1 source) Other specified health status; Translations: [Non-smoker] Onset: 04-30-2022 Episodic Unclassified (1 source) 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 provider found Date: May 18, 2025 Chief Complaint: Established Patient (1 year follow-up HTN) HISTORY OF PRESENT ILLNESS: Carlos Bacon is a 60 year old male who presents for Established Patient (1 year follow-up HTN). ALLERGIES Allergen Reactions Atorvastatin Myalgia PAST [...] Migraines Father Coronary Artery Disease Father other ([place] in 50's) Father SOCIAL HISTORY: Tobacco Use: Never Alcohol Use: Approximately .78 oz/week [which includes 1 Mixed Drinks per week] (Occasional) Drug Use: Never Employer And Job Title: None on file Years Of Education Completed: Not specified Marital Status: MEDICATIONS: Current Outpatient Medications Medication Sig pantoprazole DR (PROTONIX) 40 mg tablet Take 40 mg by mouth once daily. ALPRAZolam (XANAX) 0.5 mg tablet Take 0.5 mg by mouth twice daily as needed. DULoxetine (CYMBALTA) 30 mg capsule Take 30 mg by mouth once daily. MULTIVITAMIN ORAL Take by mouth once daily. calcium polycarbophil (FIBERCON ORAL) Take by mouth once daily. pravastatin (PRAVACHOL) 80 mg tablet Take 1 tablet by mouth every evening. amLODIPine-benazepril (LOTREL) 10-20 mg per capsule Take 1 capsule by mouth every evening. traZODone (DESYREL) 50 mg tablet Take 75 mg by mouth daily at bedtime. BABY ASPIRIN ORAL Take 81 mg by mouth once daily. Cholecalciferol, Vitamin D3, 50 mcg (2,000 unit) cap Take 2,000 Units by mouth once daily. Flaxseed Oil 1,000 mg cap Take 1,000 mg by mouth once daily. famotidine (PEPCID) 20 mg tablet Take 20 mg by mouth as needed. (Patient not taking: Reported on 05/18/2025) No current facility-administered medications for this visit. I have personally reviewed the patients past medical history including social, family, surgical, diagnostics, and medications. REVIEW OF SYSTEMS: Review of Systems Constitutional: Negative for chills and fatigue. Respiratory: Negative for chest tightness and shortness of breath. Cardiovascular: Negative for chest pain, palpitations and leg swelling. Neurological: Positive for dizziness. Negative for syncope, weakness and light-headedness. Hematological: Does not bruise/bleed easily. Psychiatric/Behavioral: Negative for confusion and hallucinations. Vitals: BP 138/88 (BP Site: Left Arm, BP Position: Sitting) Pulse 74 Ht 185.4 cm (6' 1) Wt 106.3 kg (234 lb 5.6 oz) BMI 30.92 kg/m? PHYSICAL EXAMINATION: BP 138/88 (BP Site: Left Arm, BP Position: Sitting) Pulse 74 Ht 185.4 cm (6' 1) Wt 106.3 kg (234 lb 5.6 oz) BMI 30.92 kg/m? Last 3 Encounter BP Readings: Date: BP: 05/10/2024 130/88 05/07/2023 142/84 05/01/2022 132/84 Last 3 Encounter Pulse Readings: Date: Pulse: 05/10/2024 72 05/07/2023 62 05/01/2022 73 Last 3 Encounter Wt Readings: Date: Wt: 05/10/2024 105.7 kg (233 lb 0.4 oz) 05/07/2023 103.9 kg (229 lb 1.3 oz) 05/01/2022 102.1 kg (225 lb) Physical Exam Vitals [...] the left side. Heart sounds: Normal heart juan (more content not included)... Normal [facility] ECG COMPLETEon 05-18-2025 ECG COMPLETE Ventricular Rate : 7 4 BPM Atrial Rate : 74 BPM P-R Interval : 178 ms QRS Duration : 114 ms Q-T Interval : 398 ms QTC Calculation(Bazett) : 441 ms Calculated P [place] : 37 degrees Calculated R [place] : -45 degrees Calculated T [place] : 13 degrees Normal sinus rhythm Incomplete right bundle branch block tall r in v1 Confirmed by LEW ROSALES DO ([id number]) on 05/22/2025 3:41:12 PM NAME : CARLOS BACON PID : [id number] : 1965 Gender : Male Race : ORD : [id number] Procedure Date : May 18 2025 09:29:28 Edit Date : May 22 2025 15:41:15 Diagnosis: Normal sinus rhythm Incomplete right bundle branch block tall r in v1 Confirmed by LEW ROSALES DO ([id number]) on 05/22/2025 3:41:12 PM Test Reason : HCS Location : 2 : [place] Overread By : LEW ROSALES DO Edited By : LEW ROSALES DO Referred By : , Acquired by : , Normal [facility] Anion gap in Serum or Plasma Ordered By: Ck Kc on 04-13-2025 Anion gap [Moles/Vol] 10 mmol/L - [facility] BUN/creatinine ratioOrdered By: Ck Kc on 04-13-2025 Urea nitrogen/Creatinine [Mass ratio] 19.5 mg/mg - [facility] Bilirubin, totalOrdered By: Ck Kc on 04-13-2025 Bilirubin [Mass/Vol] 1.10 mg/dL 0.00-1.30 [facility] CBC-Complete Blood Cnt No Di ffon 04-13-2025 Erythrocyte distribution width (RBC) [Ratio] 14.5 % Normal 11.6-14.6 [facility] Comment on above: Performed By: #### L 3410.2350, L2100.0000, L101.9900, [id number] #### [facility] [address] [place], [address] Hematocrit (Bld) [Volume fraction] 44.5 % Normal 40-54 [facility] Comment on above: Performed By: #### L 3410.2350, L2100.0000, L101.9900, [id number] #### [facility] [address] [place], [address] Hemoglobin (Bld) [Mass/Vol] 14.7 g/dL Normal 13.0-16.5 [facility] Comment on above: Performed By: #### L 3410.2350, L2100.0000, L101.9900, [id number] #### [facility] [address] [place], [address] MCH (RBC) [Entitic mass] 27.5 pg Normal 27.0-32.0 [facility] Comment on above: Performed By: #### L 3410.2350, L2100.0000, L101.9900, [id number] #### [facility] [address] [place], [address] MCHC (RBC) [Mass/Vol] 33.0 g/dL Normal 32-36 [facility] Comment on above: Performed By: #### L 3410.2350, L2100.0000, L101.9900, [id number] #### [facility] [address] [place], [address] MCV (RBC) [Entitic vol] 83.3 fL Normal 80-94 [facility] Comment on above: Performed By: #### L 3410.2350, L2100.0000, L101.9900, [id number] #### [facility] [address] [place], [address] Platelet mean volume (Bld) [Entitic vol] 8.7 fL Normal 6.2-12.0 [facility] Comment on above: Performed By: #### L 3410.2350, L2100.0000, L101.9900, [id number] #### [facility] [address] [place], [address] Platelets (Bld) [#/Vol] 223 10*3/uL Normal 150-450 [facility] Comment on above: Performed By: #### L 3410.2350, L2100.0000, L101.9900, [id number] #### [facility] [address] [place], [address] RBC (Bld) [#/Vol] 5.34 10*6/uL Normal 4.6-6.2 [facility] Comment on above: Performed By: #### L 3410.2350, L2100.0000, L101.9900, [id number] #### [facility] [address] [place], [address] RDW SD 43.6 fl Normal 35.1-43.9 [facility] Comment on above: Performed By: #### L 3410.2350, L2100.0000, L101.9900, [id number] #### [facility] [address] [place], [address] WBC (Bld) [#/Vol] 5.8 10*3/uL Normal 4.4-11.0 [facility] Comment on above: Performed By: #### L 3410.2350, L2100.0000, L101.9900, [id number] #### [facility] [address] [place], [address] Calculated very low density lipoprotein (VLDL) cholesterol measurementOrdered By: Ck Kc on 04-13-2025 Calculated very low density lipoprotein (VLDL) cholesterol measurement 15 mg/dL 5-40 [facility] Carbon dioxide, total [Moles /volume] in Central venous bloodOrdered By: Ck Kc on 04-13-2025 CO2 [Moles/Vol] 23.3 mmol/L 21.0-32.0 [facility] Chloride assayOrdered By: Haydee Kc on 04-13-2025 Chloride [Moles/Vol] 102 mmol/L 98-108 [facility] Comprehensive Metabolic Prof ilon 04-13-2025 Albumin [Mass/Vol] 4.5 g/dL Normal 3.4-4.8 [facility] Comment on above: Performed By: #### L 3410.2350, L2100.0000, L101.9900, [id number] #### [facility] [address] [place], [address] Albumin/Globulin [Mass ratio] 1.7 {ratio} Normal 0.9-2.4 [facility] Comment on above: Performed By: #### L 3410.2350, L2100.0000, L101.9900, [id number] #### [facility] [address] [place], [address] ALK PHOS 65 U/L Normal 40-129 [facility] Comment on above: Performed By: #### L 3410.2350, L2100.0000, L101.9900, [id number] #### [facility] [address] [place], [address] ALT [Catalytic activity/Vol] 30 U/L Normal <=46 [facility] Comment on above: Performed By: #### L 3410.2350, L2100.0000, L101.9900, [id number] #### [facility] [address] [place], [address] AST [Catalytic activity/Vol] 44 U/L High <=37 [facility] Comment on above: Performed By: #### L 3410.2350, L2100.0000, L101.9900, [id number] #### [facility] [address] [place], [address] Bilirubin [Mass/Vol] 1.10 mg/dL Normal 0.00-1.30 [facility] Comment on above: Performed By: #### L 3410.2350, L2100.0000, L101.9900, [id number] #### [facility] [address] [place], [address] BUN/CRE 19.5 RATIO Normal 10-20 [facility] Comment on above: Performed By: #### L 3410.2350, L2100.0000, L101.9900, [id number] #### [facility] [address] [place], [address] Calcium [Mass/Vol] 9.3 mg/dL Normal 7.6-11.0 [facility] Comment on above: Performed By: #### L 3410.2350, L2100.0000, L101.9900, L501.6710 #### [facility] [address] [place], [address] Chloride [Moles/Vol] 102 mmol/L Normal 98-108 [facility] Comment on above: Performed By: #### L 3410.2350, L2100.0000, L101.9900, L501.6710 #### [facility] [address] [place], [address] CO2 [Moles/Vol] 23.3 mmol/L Normal 21.0-32.0 [facility] Comment on above: Performed By: #### L 3410.2350, L2100.0000, L101.9900, L501.6710 #### [facility] [address] [place], [address] Creatinine [Mass/Vol] 1.16 mg/dL Normal 0.70-1.20 [facility] Comment on above: Performed By: #### L 3410.2350, L2100.0000, L101.9900, L501.6710 #### [facility] [address] [place], [address] GAP 10 Normal 5-15 [facility] Comment on above: Performed By: #### L 3410.2350, L2100.0000, L101.9900, L501.6710 #### [facility] [address] [place], [address] GFR/1.73 sq M.predicted among non-blacks MDRD (S/P/Bld) [Vol rate/Area] 72 mL/min/{1.73_m2} Normal >60 [facility] Comment on above: Result Comment: mL/m in/1.73m2 CKD-EPI Creatinine Equation (2020) Performed By: #### L 3410.2350, L2100.0000, L101.9900, L501.6710 #### [facility] [address] [place], [address] Globulin (S) [Mass/Vol] 2.7 g/dL Normal 2.2-4.2 [facility] Comment on above: Performed By: #### L 3410.2350, L2100.0000, L101.9900, L501.6710 #### [facility] [address] [place], [address] Glucose [Mass/Vol] 98 mg/dL Normal 70-99 [facility] Comment on above: Performed By: #### L 3410.2350, L2100.0000, L101.9900, L501.6710 #### [facility] [address] [place], [address] Potassium [Moles/Vol] 3.9 mmol/L Normal 3.3-5.1 [facility] Comment on above: Performed By: #### L 3410.2350, L2100.0000, L101.9900, L501.6710 #### [facility] [address] [place], [address] Sodium [Moles/Vol] 136 mmol/L Normal 133-145 [facility] Comment on above: Performed By: #### L 3410.2350, L2100.0000, L101.9900, L501.6710 #### [facility] [address] [place], [address] T PROT 7.2 g/dL Normal 5.9-8.4 [facility] Comment on above: Performed By: #### L 3410.2350, L2100.0000, L101.9900, L501.6710 #### [facility] [address] [place], [address] Urea nitrogen [Mass/Vol] 23 mg/dL High 4-19 [facility] Comment on above: Performed By: #### L 3410.2350, L2100.0000, L101.9900, L501.6710 #### [facility] [address] [place], [address] Erythrocyte distribution wid th ratioOrdered By: Ck Kc on 04-13-2025 Erythrocyte distribution width (RBC) [Ratio] 14.5 % 11.6-14.6 [facility] Erythrocyte distribution wid th standard deviationOrdered By: Ck Kc on 04-13-2025 Erythrocyte distribution width (RBC) [Ratio] 43.6 fl 35.1-43.9 [facility] Glomerular filtration rate ( GFR) estimation/1.73 sq m using serum, plasma, or whole bOrdered By: Ck Kc on 04-13-2025 GFR/1.73 sq M.predicted among non-blacks MDRD (S/P/Bld) [Vol rate/Area] 72 mL/min/{1.73_m2} >60 [facility] Comment on above: mL/min/1.73m2 CKD-EP I Creatinine Equation (2020) Hematocrit Auto (Bld) [Volum e fraction]Ordered By: Ck Kc on 04-13-2025 Hematocrit (Bld) [Volume fraction] 44.5 % 40-54 [facility] Hemoglobin measurementOrdere d By: Ck Kc on 04-13-2025 Hemoglobin (Bld) [Mass/Vol] 14.7 g/dL 13.0-16.5 [facility] LDL calc ser/plasOrdered By: Ck Kc on 04-13-2025 Cholesterol in LDL [Mass/Vol] 95 mg/dL [facility] Comment on above: Dyorgjtjxn=478-956 m g/dL & Higher Ckfz=859 mg/dL or greater Laboratory - Chemistry and C hemistry - challengeOrdered By: Ck Kc on 04-13-2025 AST [Catalytic activity/Vol] 44 U/L High <38 [facility] Lipid Profileon 04-13-2025 CHOL:HDL 3.03 Normal [facility] Comment on above: Performed By: #### L 3410.2350, L2100.0000, L101.9900, L501.6710 #### [facility] [address] [place], [place], [address] Cholesterol [Mass/Vol] 164 mg/dL Normal <=200 [facility] Comment on above: Result Comment: Chol esterol level, Desirable <200 mg/dL Borderline high cholesterol 200-239 mg/dL High cholesterol >=240 mg/dL Recommendations of the NCEP Adult Treatment Panel for the following risk-cutoff thresholds for the [place] population. Performed By: #### L 3410.2350, L2100.0000, L101.9900, L501.6710 #### [facility] [address] [place], [place], [address] Cholesterol in HDL [Mass/Vol] 54 mg/dL Normal [facility] Comment on above: Result Comment: Sylvia onal Cholesterol Education Program (NCEP) guidelines: <40 mg/dL: Low HDL-cholesterol (major risk factor for CHD) >= 60 mg/dL: High HDL-cholesterol (negative risk factor for CHD) HDL-cholesterol is affected by a number of factors, e.g. smoking, exercise, hormones, sex and age. Performed By: #### L 3410.2350, L2100.0000, L101.9900, L501.6710 #### [facility] [address] [place], [address] Cholesterol in LDL [Mass/Vol] 95 mg/dL Normal [facility] Comment on above: Result Comment: Bord cazrus=633-146 mg/dL Higher Etng=516 mg/dL or greater Performed By: #### L 3410.2350, L2100.0000, L101.9900, L501.6710 #### [facility] [address] [place], [address] Cholesterol in VLDL [Mass/Vol] 15 mg/dL Normal 5-40 [facility] Comment on above: Performed By: #### L 3410.2350, L2100.0000, L101.9900, L501.6710 #### [facility] [address] [place], [address] Triglyceride [Mass/Vol] 76 mg/dL Normal [facility] Comment on above: Result Comment: The drugs N-Acetylcysteine and Metamizole may falsely depress this assay. Normal range: <150 mg/dL Borderline High: 150-199 mg/dL High: 200-499 mg/dL Very High: >500 mg/dL Performed By: #### L 3410.2350, L2100.0000, L101.9900, L501.6710 #### [facility] [address] [place], [address] MCV (mean corpuscular volume ) determinationOrdered By: Ck Kc on 04-13-2025 MCV (RBC) [Entitic vol] 83.3 fL 80-94 [facility] Mean corpuscular hemoglobin (MCH) determinationOrdered By: Ck Kc on 04-13-2025 MCH (RBC) [Entitic mass] 27.5 pg 27.0-32.0 [facility] Mean corpuscular hemoglobin concentration (MCHC) determinationOrdered By: Ck Kc on 04-13-2025 MCHC (RBC) [Mass/Vol] 33.0 g/dL 32-36 [facility] Mean platelet volume determi nationOrdered By: Ck Kc on 04-13-2025 Platelet mean volume (Bld) [Entitic vol] 8.7 fL 6.2-12.0 [facility] PSA,Total - Annual Screenon 04-13-2025 PSA,TOT SCREEN 1.39 ng/mL Normal 0.02-4.00 [facility] Comment on above: Result Comment: This test was performed using the [facility] [employer] tPSA method. Measured values of a patient??sample can vary depending on the testing procedure used. PSA values determined on patient samples by different testing procedures cannot be used interchangeably. If there is a change in PSA assays while monitoring therapy, sequential testing should be performed to confirm baseline values. Performed By: #### L 3410.2350, L2100.0000, L101.9900, L501.6710 #### [facility] [address] [place], [address] Platelet countOrdered By: Haydee Kc on 04-13-2025 Platelets (Bld) [#/Vol] 223 10*3/uL 150-450 [facility] Potassium measurement (mass/ volume)Ordered By: Ck Kc on 04-13-2025 Potassium (Unsp spec) [Mass/Vol] 3.9 mmol/L 3.3-5.1 [facility] RBC Auto (Bld) [#/Vol]Ordere d By: Ck Kc on 04-13-2025 RBC (Bld) [#/Vol] 5.34 10*6/uL 4.6-6.2 [facility] Screening total cholesterol/ high density lipoprotein (HDL) cholesterol ratioOrdered By: Ck Kc on 04-13-2025 Cholesterol.total/Chol esterol in HDL [Mass ratio] 3.03 {ratio} [facility] Serum creatinine measurement (mass/volume)Ordered By: Ck Kc on 04-13-2025 Creatinine [Mass/Vol] 1.16 mg/dL 0.70-1.20 [facility] Serum globulin measurementOr dered By: Ck Kc on 04-13-2025 Globulin (S) [Mass/Vol] 2.7 g/dL 2.2-4.2 [facility] Serum glucose measurement (m ass/volume)Ordered By: Ck Kc on 04-13-2025 Glucose [Mass/Vol] 98 mg/dL 70-99 [facility] Serum or plasma alanine barreto otransferase (ALT) measurementOrdered By: Ck Kc on 04-13-2025 ALT [Catalytic activity/Vol] 30 U/L <47 [facility] Serum or plasma albumin gisela urement (mass/volume)Ordered By: Ck Kc on 04-13-2025 Albumin [Mass/Vol] 4.5 g/dL 3.4-4.8 [facility] Serum or plasma albumin/glob ulin mass ratioOrdered By: Ck Kc on 04-13-2025 Albumin/Globulin [Mass ratio] 1.7 {ratio} 0.9-2.4 [facility] Serum or plasma alkaline maggie sphatase measurementOrdered By: Ck Kc on 04-13-2025 ALP [Catalytic activity/Vol] 65 U/L 40-129 [facility] Serum or plasma calcium gisela urement (mass/volume)Ordered By: Ck Kc on 04-13-2025 Calcium [Mass/Vol] 9.3 mg/dL 7.6-11.0 [facility] Serum or plasma cholesterol in HDL measurement (mass/volume)Ordered By: Ck Kc on 04-13-2025 Cholesterol in HDL [Mass/Vol] 54 mg/dL >40 [facility] Comment on above: National Cholesterol Education Program (NCEP) guidelines:<40 mg/dL: Low HDL-cholesterol (major risk factor for CHD)>= 60 mg/dL: High HDL-cholesterol (negative risk factor for CHD)HDL-cholesterol is affected by a number of factors, e.g. smoking, exercise, hormones, sex and age. Serum or plasma cholesterol measurement (mass/volume)Ordered By: Ck Kc on 04-13-2025 Cholesterol [Mass/Vol] 164 mg/dL <201 [facility] Comment on above: Cholesterol level, D esirable <200 mg/dLBorderline high cholesterol 200-239 mg/dLHigh cholesterol >=240 mg/dLRecommendations of the NCEP Adult Treatment Panel for the following risk-cutoff thresholds for the [place] population. Serum or plasma urea nitroge n measurement (mass/volume)Ordered By: Ck Kc on 04-13-2025 Urea nitrogen [Mass/Vol] 23 mg/dL High 4-19 [facility] Sodium levelOrdered By: Chace eric Yamini on 04-13-2025 Sodium [Moles/Vol] 136 mmol/L 133-145 [facility] Total proteinOrdered By: Ricco Kc on 04-13-2025 Protein [Mass/Vol] 7.2 g/dL 5.9-8.4 [facility] Triglycerides measurementOrd ered By: Ck Kc on 04-13-2025 Triglyceride [Mass/Vol] 76 mg/dL <199 [facility] Comment on above: The drugs N-Acetylcy steine and Metamizole may falsely depress this assay. Normal range: <150 mg/dLBorderline High: 150-199 mg/dLHigh: 200-499 mg/dLVery High: >500 mg/dL White blood cell (WBC) count Ordered By: Ck Kc on 04-13-2025 WBC (Bld) [#/Vol] 5.8 10*3/uL 4.4-11.0 [facility] Gastroenterology Visit Repor ton 02-23-2025 Gastroenterology Visit Report [facility] [address] [place] [address] OFFICE VISIT Date of Service: 02/23/25 MR#: [id number] Acct: [id number] Name: CARLOS BACON Rep #: [id number] : 1965 Provider: Boyd Gama DO Age/Sex: 60/M [place] [facility] [place] Status: Signed Intake Vital Signs 10/26/24 12:25 Height 6 ft 1 in Intake Visit Reasons: 3 M FU Allergies atorvastatin (From Lipitor) Allergy (Verified 10/26/24 12:24) Abd cramps/diarrhea Medications ???Medication ???Instructions ???Recorded ???Confirmed ???Type amlodipine 10 mg-benazepril 20 mg 1 ea PO DAILY 10/17/20 02/23/25 H istory capsule duloxetine 20 mg capsule,delayed 20 mg PO DAILY 10/17/20 02/23/25 H istory release pravastatin 80 mg tablet 80 mg PO QHS 10/17/20 02/23/25 His tory trazodone 50 mg tablet 50 mg PO QHS 10/17/20 02/23/25 His tory cholecalciferol (vitamin D3) 25 25 mcg PO DAILY 10/23/20 02/23/25 History mcg (1,000 unit) capsule multivitamin 1 tab PO DAILY 10/23/20 02/23/25 H istory alprazolam 0.5 mg tablet 0.5 mg PO DAILY PRN anxiety 02/23/25 History pantoprazole 40 mg tablet,delayed 40 mg PO QDAY 02/23/25 History release PFSH Medical History Wears glasses Alcohol use History of IBS Non-smoker History of echocardiogram History of stress test Cardiology follow-up encounter Neoplasm of left cheek Hypogonadism GERD (gastroesophageal reflux disease) Pituitary tumor Parotid tumor Depression High cholesterol HTN (hypertension) Surgical History History of tonsillectomy and adenoidectomy History of cardiac cath History of esophagogastroduodenoscopy (EGD) Family History Mother Hypertension Father Heart disease Parkinson disease Myocardial infarction Social History Smoking Status: Never smoker alcohol intake: current alcohol intake frequency: holidays/special occasions only substance use type: does not use HPI HPI Details: CARLOS BACON, is a 60 M who presents to the office today for follow up. SITZ severe slow transit constipation. Start Linzess 145mcg EGD and Colonoscopy 10.26.24 EGD LA Grade C erosive esophagitis with no bleeding. Biopsied. Gastroparesis, idiopathic etiology. Biopsied. Non-bleeding duodenal ulcers with no stigmata of bleeding. Biopsied. Colonoscopy Diverticulosis in the sigmoid colon. Congested mucosa in the recto-sigmoid colon. Biopsied. Stricture at the hepatic flexure. OV 11.26.26 pt reports continued constipation. Reports he is here to review scope reports and discuss plan of care. Continues with Pantoprazole. OV 02.23.25 pt reports that he is feeling well overall and denies GI symptoms of concern at this time. Reports regular bowel movements. Continues with Pantoprazole 40mg daily and reports that this is effective. ROS Const Constitutional: Positive for weight change (weight gain); No fatigue or fever(s) ENT ENT: No difficulty swallowing Gastro GI: No abdominal pain, belching, bloating, change in bowel habits, change in stool character, coffee ground emesis, constipation, cramping, diarrhea, heartburn, difficulty swallowing, feeling full early, excessive flatus, incontinent of stools, Vomiting blood/hematemesis, Blood in stool, loose stools, Black,tarry stools, nausea/dyspepsia, pain with swallowing, vomiting or other Musc Musculoskeletal: Positive for stiffness; No joint pain Skin Skin: No yellowing of the eye or itchy eyes Psych Psychiatric: No anxiety and Positive for depression Endo Endocrine: Positive for weight change (weight gain); No fatigue Aller/Imm Allergy/Immunologic: No itchy eyes Daniel/Lymp Hematologic/Lymphatic: No easy bleeding or easy bruising Exam Const General: cooperative and comfortable Nutritional Appearance: average body habitus and well nourished [facility] Head: normal to inspection Ears: hearing grossly normal bilaterally Nose: external nose normal Face and sinus: normal facial exam Mouth: oral mucosae normal Throat: posterior oropharynx normal Eyes General: appearance normal, both eyes and all related structures Neck Neck: normal visual inspection Chest Chest palpation inspection: normal inspection of the chest and normal palpation of entire chest wall Resp Effort Inspection: normal respiratory effort Auscultation: Bilateral: Clear to Auscultation Cardio Palpation: normal PMI Rate: regular rate Rhythm: regular rhythm GI Inspection: normal to inspection Auscultation: normal bowel sounds Percussion: normal to percussion Palpation: no hepatosplenom (more content not included)... Normal [facility] Celiac AB,Comprehensiveon ANTIGLIADIN IGA 4 units Normal 0-19 [facility] Comment on above: Result Comment: Nega tive 0 - 19 Weak Positive 20 - 30 Moderate to Strong Positive >30 Performed By: #### L 3410.2350, L2100.0000, L101.9900, L501.6710 #### [facility] [address] [place], [address] ANTIGLIADIN IGG 2 units Normal 0-19 [facility] Comment on above: Result Comment: Nega tive 0 - 19 Weak Positive 20 - 30 Moderate to Strong Positive >30 Performed By: #### L 3410.2350, L2100.0000, L101.9900, L501.6710 #### [facility] [address] [place], [address] ENDOMYSIAL IGA Negative Normal Negative [facility] Comment on above: Performed By: #### L 3410.2350, L2100.0000, L101.9900, L501.6710 #### [facility] [address] [place], [address] IMMUNOGLOB A QN 160 mg/dL Normal 61-437 [facility] Comment on above: Performed By: #### L 3410.2350, L2100.0000, L101.9900, L501.6710 #### [facility] [address] [place], [address] tTG IGA <2 Normal 0-3 [facility] Comment on above: Result Comment: Nega tive 0 - 3 Weak Positive 4 - 10 Positive >10 Tissue Transglutaminase (tTG) has been identified as the endomysial antigen. Studies have demonstr- ated that endomysial IgA antibodies have over 99% specificity for gluten sensitive enteropathy. Performed By: #### L 3410.2350, L2100.0000, L101.9900, L501.6710 #### [facility] [address] [place], [address] tTG IGG 3 U/mL Normal 0-5 [facility] Comment on above: Result Comment: Nega tive 0 - 5 Weak Positive 6 - 9 Positive >9 Performed By: #### L 3410.2350, L2100.0000, L101.9900, L501.6710 #### [facility] [address] [place], [address] L2100.0000on 02-14-2025 ACCA 59 units Normal 0-90 [facility] Comment on above: Result Comment: Nega tive: <80 Equivocal: 80-90 Positive: >90 Performed By: #### L 3410.2350, L2100.0000, L101.9900, L501.6710 #### [facility] [address] [place], [address] ALCA 5 units Normal 0-60 [facility] Comment on above: Result Comment: Nega tive:<55 Equivocal: 55-60 Positive: >60 Performed By: #### L 3410.2350, L2100.0000, L101.9900, L501.6710 #### [facility] [address] [place], [address] AMCA 25 units Normal 0-100 [facility] Comment on above: Result Comment: Nega tive: <90 Equivocal: 90-100 Positive: >100 This test was developed and its performance characteristics determined by [employer]. It has not been cleared or approved by the Food and Drug Administration. The FDA has determined that such clearance or approval is not necessary. Performed By: #### L 3410.2350, L2100.0000, L101.9900, L501.6710 #### [facility] [address] [place], [address] Atypical pANCA Negative Normal Negative [facility] Comment on above: Performed By: #### L 3410.2350, L2100.0000, L101.9900, L501.6710 #### [facility] [address] [place], [place], [address] COMMENT Comment Normal . [facility] Comment on above: Result Comment: Julieta yassine is not suggestive of Inflammatory Bowel Disease Performed at: [facility] [address] [id number] [employer]: Wilver Perez PhD, Phone: [phone] Performed at: - [facility] [id number] [employer]: Harvinder Chacko MD, Phone: [phone] Performed By: #### L 3410.2350, L2100.0000, L101.9900, L501.6710 #### [facility] [address] [place], [place], [address] Jenni 38 units Normal 0-50 [facility] Comment on above: Result Comment: Nega tive: <45 Equivocal: 45-50 Positive: >50 Performed By: #### L 3410.2350, L2100.0000, L101.9900, L501.6710 #### [facility] [address] [place], [place], [address] ASCA IgG abOrdered By: Mariama barriga Friend on 02-09-2025 Saccharomyces cerevisiae (Jenni)IgG 38 units 0-50 [facility] Comment on above: Negative: <45 Equivo oksana: 45-50 Positive: >50 Atypical P-ANCA titerOrdered By: Boyd Friend on 02-09-2025 Neutrophil cytoplasmic Ab.perinuclear.atypica l IF (S) [Titer] Negative Negative [facility] CRPon 02-09-2025 C-REACTIVE PROT < 3.00 Normal 0.0-3.0 [facility] Comment on above: Performed By: #### L 3410.2350, L2100.0000, L101.9900, L501.6710 #### [facility] [address] [place], [address] CRP [Mass/Vol]Ordered By: Ra angela Gama on 02-09-2025 C-Reactive Protein Extended Range < 3.00 mg/L 0.0-3.0 [facility] Chitobioside IgA IA QnOrdere d By: Boyd Gama on 02-09-2025 Chitobioside Carbohydrat (ACCA) IgA 59 units 0-90 [facility] Comment on above: Negative: <80 Equivo oksana: 80-90 Positive: >90 Chitobioside IgA antibody as sayOrdered By: Boyd Gama on 02-09-2025 Chitobioside IgA IA Qn 59 units 0-90 [facility] Comment on above: Negative: <80 Equivo oksana: 80-90 Positive: >90 Deamidated gliadin IgA antib chris assayOrdered By: Boyd Gama on 02-09-2025 Anti-Gliadin IgA Antibody 4 units 0-19 [facility] Comment on above: Negative 0 - 19 Weak Positive 20 - 30 Moderate to Strong Positive >30 Deamidated gliadin IgG antib chris assayOrdered By: Boyd Gama on 02-09-2025 Anti-Gliadin IgG Antibody 2 units 0-19 [facility] Comment on above: Negative 0 - 19 Weak Positive 20 - 30 Moderate to Strong Positive >30 Endomysial IgA antibody assa yOrdered By: Boyd Gama on 02-09-2025 Endomysial IgA Antibody Negative Negative [facility] Erythrocyte Sed Rateon 02-09 SED RATE 3 mm/hr Normal 0-20 [facility] Comment on above: Performed By: #### L 3410.2350, L2100.0000, L101.9900, L501.6710 #### [facility] [address] [place], [address] Erythrocyte sedimentation ra teOrdered By: Boyd Gama on 02-09-2025 ESR (Bld) [Velocity] 3 mm/h 0-20 [facility] - Miscellaneous t estsOrdered By: Boyd Gama on 02-09-2025 Laboratory comment Dhruv (Report) Comment . [facility] Comment on above: Pattern is not sugge stive of Inflammatory Bowel DiseasePerformed at: [address] [id number] Director: Wilver Perez PhD, Phone: [phone] at: [facility] [employer] [id number] Director: Harvinder Chacko MD, Phone: [phone] Laboratory comment Dhruv (Repo rt)Ordered By: Boyd Gama on 02-09-2025 IBD Serology Comment Comment . [facility] Comment on above: Pattern is not sugge stive of Inflammatory Bowel DiseasePerformed at: [address] [id number] Director: Wilver Perez PhD, Phone: [phone] at: [facility] [employer] [id number] Director: Harvinder Chacko MD, Phone: [phone] Laminaribioside IgG IA QnOrd ered By: Boyd Gama on 02-09-2025 Laminaribioside Carbohyd (ALCA) IgG 5 units 0-60 [facility] Comment on above: Negative:<55 Equivoc al: 55-60 Positive: >60 Laminaribioside carbohydrate IgG antibody assayOrdered By: Boyd Gama on 02-09-2025 Laminaribioside IgG IA Qn 5 units 0-60 [facility] Comment on above: Negative:<55 Equivoc al: 55-60 Positive: >60 Mannobioside IgG IA QnOrdere d By: Boyd Gama on 02-09-2025 Mannobioside Carbohydrat (AMCA) IgG 25 units 0-100 [facility] Comment on above: Negative: <90 Equivo oksana: 90-100 Positive: >100 This test was developed and its performance characteristics determined by [employer]. It has not been cleared or approved by the Food and Drug Administration. The FDA has determined that such clearance or approval is not necessary. Neutrophil cytoplasmic Ab.pe rinuclear.atypical IF (S) [Titer]Ordered By: Boyd Gama on 02-09-2025 Atypical p-ANCA Negative Negative [facility] No Panel InformationOrdered By: Boyd Gama on 02-09-2025 Tissue Transglutaminase IgG Ab 3 U/mL 0-5 [facility] Comment on above: Negative 0 - 5 Weak Positive 6 - 9 Positive >9 Serum immunoglobulin A measu rementOrdered By: Boyd Gama on 02-09-2025 Immunoglobulin A 160 mg/dL 61-437 [facility] Serum or plasma C reactive p rotein measurement (mass/volume)Ordered By: Boyd Gama on 02-09-2025 CRP [Mass/Vol] mg/L 0.0-3.0 [facility] Serum or plasma mannobioside IgG antibody assay by immunoassay (units/volume)Ordered By: Boyd Gama on 02-09-2025 Mannobioside IgG IA Qn 25 units 0-100 [facility] Comment on above: Negative: <90 Equ[employer] oksana: 90-100 Positive: >100 This test was developed and its performance characteristics determined by [employer]. It has not been cleared or approved by the Food and Drug Administration. The FDA has determined that such clearance or approval is not necessary. Serum tissue transglutaminas e (tTG) IgA antibody assay (units/volume)Ordered By: Boyd Gama on 02-09-2025 tTG IgA Qn (S) <2 U/mL 0-3 [facility] Comment on above: Negative 0 - 3 Weak Positive 4 - 10 Positive >10 Tissue Transglutaminase (tTG) has been identified as the endomysial antigen. Studies have demonstr- ated that endomysial IgA antibodies have over 99% specificity for gluten sensitive enteropathy. tTG IgA Qn (S)Ordered By: Ra angela Gama on 02-09-2025 Tissue Transglutaminase IgA Ab <2 U/mL 0-3 [facility] Comment on above: Negative 0 - 3 Weak Positive 4 - 10 Positive >10 Tissue Transglutaminase (tTG) has been identified as the endomysial antigen. Studies have demonstr- ated that endomysial IgA antibodies have over 99% specificity for gluten sensitive enteropathy. Gastroenterology Visit Repor ton 11-26-2024 Gastroenterology Visit Report [facility] [address] [place] [address] OFFICE VISIT Date of Service: 11/26/24 MR#: [id number] Acct: [id number] Name: CARLOS BACON Rep #: [id number] : 1965 Provider: Boyd Gama DO Age/Sex: 59/M Location: [facility] Status: Signed Intake Vital Signs 10/26/24 12:25 Height 6 ft 1 in Intake Visit Reasons: 1 M FU Allergies atorvastatin (From Lipitor) Allergy (Verified 10/26/24 12:24) Abd cramps/diarrhea Medications ???Medication ???Instructions ???Recorded ???Confirmed ???Type amlodipine 10 mg-benazepril 20 mg 1 ea PO DAILY 10/17/20 11/26/24 History capsule duloxetine 20 mg capsule,delayed 20 mg PO DAILY 10/17/20 11/26/24 History release pravastatin 80 mg tablet 80 mg PO QHS 10/17/20 11/26/24 History trazodone 50 mg tablet 50 mg PO QHS 10/17/20 11/26/24 History cholecalciferol (vitamin D3) 25 25 mcg PO DAILY 10/23/20 11/26/24 History mcg (1,000 unit) capsule multivitamin 1 tab PO DAILY 10/23/20 11/26/24 History alprazolam 0.5 mg tablet 0.5 mg PO DAILY PRN anxiety 03/18/24 11/26/24 History pantoprazole 40 mg tablet,delayed 40 mg PO BID #60 tabs 10/26/24 11/26/24 Rx release PFSH Medical History Wears glasses Alcohol use History of IBS Non-smoker History of echocardiogram History of stress test Cardiology follow-up encounter Neoplasm of left cheek Hypogonadism GERD (gastroesophageal reflux disease) Pituitary tumor Parotid tumor Depression High cholesterol HTN (hypertension) Surgical History History of tonsillectomy and adenoidectomy History of cardiac cath History of esophagogastroduodenoscopy (EGD) Family History Mother Hypertension Father Heart disease Parkinson disease Myocardial infarction Social History Smoking Status: Never smoker alcohol intake: current alcohol intake frequency: holidays/special occasions only substance use type: does not use HPI HPI Details: CARLOS BACON, is a 59 M who presents to the office today for follow up. SITZ severe slow transit constipation. Start Linzess 145mcg EGD and Colonoscopy 10.26.24 EGD LA Grade C erosive esophagitis with no bleeding. Biopsied. Gastroparesis, idiopathic etiology. Biopsied. Non-bleeding duodenal ulcers with no stigmata of bleeding. Biopsied. Colonoscopy Diverticulosis in the sigmoid colon. Congested mucosa in the recto-sigmoid colon. Biopsied. Stricture at the hepatic flexure. OV 11.26.26 pt reports continued constipation. Reports he is here to review scope reports and discuss plan of care. Continues with Pantoprazole. ROS Const Constitutional: Positive for weight change (weight gain); No fatigue or fever(s) ENT ENT: No difficulty swallowing Gastro GI: Positive for constipation; No abdominal pain, belching, bloating, change in bowel habits, change in stool character, coffee ground emesis, cramping, diarrhea, heartburn, difficulty swallowing, feeling full early, excessive flatus, incontinent of stools, Vomiting blood/hematemesis, Blood in stool, loose stools, Black,tarry stools, nausea/dyspepsia, pain with swallowing, vomiting or other Musc Musculoskeletal: No joint pain Skin Skin: No yellowing of the eye or itchy eyes Psych Psychiatric: Positive for anxiety and No depression Endo Endocrine: Positive for weight change (weight gain); No fatigue Aller/Imm Allergy/Immunologic: No itchy eyes Daniel/Lymp Hematologic/Lymphatic: No easy bleeding or easy bruising Exam Const General: cooperative and comfortable Nutritional Appearance: average body habitus and well nourished [facility] Head: normal to inspection Ears: hearing grossly normal bilaterally Nose: external nose normal Face and sinus: normal facial exam Mouth: oral mucosae normal Throat: posterior oropharynx normal Eyes General: appearance normal, both eyes and all related structures Neck Neck: normal visual inspection Chest Chest palpation inspection: normal inspection of the chest and normal palpation of entire chest wall Resp Effort Inspection: normal respiratory effort Auscultation: Bilateral: Clear to Auscultation Cardio Palpation: normal PMI Rate: regular rate Rhythm: regular rhythm GI Inspection: normal to inspection Auscultation: normal bowel sounds Percussion: normal to percussion Palpation: no hepatosplenomegaly Skin General: no rashes or lesions noted Neuro General: patient alert Extrem General: normal to inspection Psych Affect: normal affect Assessment and Plan Assessment and Plan (1) Irritable bowel syndrome wit (more content not included)... Normal [facility] Colonoscopy Reporton 024 Colonoscopy Report [facility] Medical Records Department [address] [facility] [place] [address] Colonoscopy Report MR#: [id number] Acct: [id number] Name: CARLOS BACON Rep #: [id number] : 1965 59 From: Boyd Gama DO PCP: Dr. Ck Kc DO Status[place] Patient Name: Carlos Bacon Procedure Date: 10/26/2024 1:35 PM Date of : 1965 Age: 59 Procedure: Colonoscopy Indications: Generalized abdominal pain, Abnormal abdominal x-ray of the GI tract Providers: Boyd Gama DO Referring MD: Ck Kc Do Medicines: Monitored Anesthesia Care Patient Profile: This is a 59 year old male. Refer to note in patient chart for documentation of history and physical. Patient has symptoms of chronic abdominal cramping, chronic epigastric abdominal pain, chronic dyspepsia and chronic heartburn. Last Colonoscopy: date unknown. Unable to locate last colonoscopy report. Complications: No immediate complications. Procedure: Pre-Anesthesia Assessment: - Prior to the procedure, a History and Physical was performed, and patient medications and allergies were reviewed. The patient is competent. The risks and benefits of the procedure and the sedation options and risks were discussed with the patient. All questions were answered and informed consent was obtained. Patient identification and proposed procedure were verified by the physician in the pre-procedure area. Mental Status Examination: normal. Airway Examination: normal oropharyngeal airway and neck mobility. Respiratory Examination: clear to auscultation. CV Examination: normal. Prophylactic Antibiotics: The patient does not require prophylactic antibiotics. Prior Anticoagulants: The patient has taken no anticoagulant or antiplatelet agents except for NSAID medication. ASA Grade Assessment: II - A patient with mild systemic disease. After reviewing the risks and benefits, the patient was deemed in satisfactory condition to undergo the procedure. The anesthesia plan was to use monitored anesthesia care (MAC). Immediately prior to administration of medications, the patient was re-assessed for adequacy to receive sedatives. The heart rate, respiratory rate, oxygen saturations, blood pressure, adequacy of pulmonary ventilation, and response to care were monitored throughout the procedure. The physical status of the patient was re-assessed after the procedure. After I obtained informed consent, the scope was passed under direct vision. Throughout the procedure, the patient's blood pressure, pulse, and oxygen saturations were monitored continuously. The Colonoscope was introduced through the anus and advanced to the cecum, identified by the appendiceal orifice, ileocecal valve and palpation. The colonoscopy was performed without difficulty. The patient tolerated the procedure well. The quality of the bowel preparation was adequate. Scope In: 1:37:27 PM Scope Withdrawal Time 0 hours 8 minutes 59 seconds Scope Out: 1:53:53 PM Total Procedure Duration Time 0 hours 16 minutes 26 seconds Findings: The perianal and digital rectal examinations were normal. A few small-mouthed diverticula were found in the sigmoid colon. An area of congested mucosa was found in the recto-sigmoid colon. Biopsies were taken with a cold forceps for histology. Verification of patient identification for the specimen was done. Estimated blood loss was minimal. A benign-appearing, intrinsic moderate stenosis measuring 3 cm (in length) was found at the hepatic flexure and was traversed. Impression: - Diverticulosis in the sigmoid colon. - Congested mucosa in the recto-sigmoid colon. Biopsied. - Stricture at the hepatic flexure. Recommendation: - Discharge patient to home. - Resume previous diet. - Continue present medications. - Await pathology results. - Repeat colonoscopy in 5 years for surveillance. Procedure Code(s): --- Professional --- 89850, Colonoscopy, flexible; with biopsy, single or multiple CPT copyright 2021 [employer]. All rights reserved. The codes documented in this report are preliminary and upon licensed marriage and family therapist review may be revised to meet current compliance requirements. Boyd Gama DO 10/26/2024 2:11:26 PM This report has been signed electronically. Number of Addenda: 0 Note Initiated On: 10/26/2024 1:35 PM 10/26/24 1411 Date Boyd Gama DO Flakita Signature: Date (if indicated) CC: Dr. Ck Kc DO; Boyd Gama DO Date Dictated: 10/26/24 1335 Date Transcribed: Manager Filter: RF Signed Normal [facility] EGD Reporton 10-26-2024 EGD Report [facility] Medical Records Department [address] [facility] [address] EGD Report MR#: [id number] Acct: [id number] Name: CARLOS BACON Rep #: [id number] : 1965 59 From: Boyd Gama DO PCP: Dr. Ck Kc DO [place] Patient Name: Carlos Bacon Procedure Date: 10/26/2024 1:18 PM Date of : 1965 Age: 59 Procedure: Upper GI endoscopy Indications: Epigastric abdominal pain, Heartburn Providers: Boyd Gama DO Referring MD: Ck Kc Do Medicines: Monitored Anesthesia Care Patient Profile: This is a 59 year old male. Refer to note in patient chart for documentation of history and physical. Patient has symptoms of chronic abdominal cramping, chronic epigastric abdominal pain, chronic dyspepsia and chronic heartburn. Complications: No immediate complications. Procedure: Pre-Anesthesia Assessment: - Prior to the procedure, a History and Physical was performed, and patient medications and allergies were reviewed. The patient is competent. The risks and benefits of the procedure and the sedation options and risks were discussed with the patient. All questions were answered and informed consent was obtained. Patient identification and proposed procedure were verified by the physician in the pre-procedure area. Mental Status Examination: normal. Airway Examination: normal oropharyngeal airway and neck mobility. Respiratory Examination: clear to auscultation. CV Examination: normal. Prophylactic Antibiotics: The patient does not require prophylactic antibiotics. Prior Anticoagulants: The patient has taken no anticoagulant or antiplatelet agents except for NSAID medication. ASA Grade Assessment: II - A patient with mild systemic disease. After reviewing the risks and benefits, the patient was deemed in satisfactory condition to undergo the procedure. The anesthesia plan was to use monitored anesthesia care (MAC). Immediately prior to administration of medications, the patient was re-assessed for adequacy to receive sedatives. The heart rate, respiratory rate, oxygen saturations, blood pressure, adequacy of pulmonary ventilation, and response to care were monitored throughout the procedure. The physical status of the patient was re-assessed after the procedure. After obtaining informed consent, the endoscope was passed under direct vision. Throughout the procedure, the patient's blood pressure, pulse, and oxygen saturations were monitored continuously. The Colonoscope was introduced through the mouth, and advanced to the second part of duodenum. The upper GI endoscopy was accomplished without difficulty. The patient tolerated the procedure well. Scope In: 1:28:11 PM Scope Out: 1:35:27 PM Total Procedure Duration Time 0 hours 7 minutes 16 seconds Findings: LA Grade C (one or more mucosal breaks continuous between tops of 2 or more mucosal folds, less than 75% circumference) esophagitis with no bleeding was found 37 to 40 cm from the incisors. Biopsies were taken with a cold forceps for histology. Verification of patient identification for the specimen was done. Estimated blood loss was minimal. Suspect gastroparesis due to absence of peristalsis and patient symptoms. Biopsies were taken with a cold forceps for histology. Verification of patient identification for the specimen was done. Estimated blood loss was minimal. Few non-bleeding superficial duodenal ulcers with no stigmata of bleeding were found in the duodenal bulb, in the first portion of the duodenum and in the second portion of the duodenum. The largest lesion was 3 mm in largest dimension. Biopsies were taken with a cold forceps for histology. Verification of patient identification for the specimen was done. Estimated blood loss was minimal. Impression: - LA Grade C erosive esophagitis with no bleeding. Biopsied. - Gastroparesis, idiopathic etiology. Biopsied. - Non-bleeding duodenal ulcers with no stigmata of bleeding. Biopsied. Recommendation: - Discharge patient to home. - Resume previous diet. - No aspirin, ibuprofen, naproxen, or other non-steroidal anti-inflammatory drugs for 8 weeks. Procedure Code(s): --- Professional --- 69380, Esophagogastroduodenoscopy, flexible, transoral; with biopsy, single or multiple CPT copyright 2021 [employer]. All rights reserved. The codes documented in this report are preliminary and upon licensed marriage and family therapist review may be revised to meet current compliance requirements. Boyd Gama DO 10/26/2024 2:04:22 PM This report has been signed electronically. Number of Addenda: 0 Note Initiated On: 10/26/2024 1:18 PM 10/26/241403 Date Boyd Kang Signature: Date ____ (more content not included)... [facility] MR/POSTOP.[facility] 10-26-2024 MR/POSTOP.[facility] Medical Records Department [address] [place] [address] Anesthesia Postop Eval I 10/26/241403 MR#: [id number] Acct: [id number] Name: CARLOS BACON Rep #: [id number] : 1965 59 From: Bethel Burdick PCP: Dr. Ck Kc, DO Status:REG SDC Y Race: C Location: [place] [address] Anesthesia: Postop Eval I Current Vital Signs Temperature: 97 F Pulse Rate: 71 Blood Pressure: 107/68 Respiratory Rate: 16 Pulse Ox: 96 Oxygen Delivery Method: Room Air Assessment Airway patent: Yes Spontaneous unlabored respirations: Yes Mental status: Asleep nausea: No Vomiting: No Anesthesia Complication: No Fluid Hydration Crystalloid volume administer (ml): 60 Total IV fluid infused: 60 Progress Note Anesthesia document: Postop Eval 1 completed: Yes 10/26/241403 Date Bethel Burdick Cosigner Signature: Date CC: Signed Normal [facility] [id number] 10-26-2024 MR/POSTOPAN2 [facility] Medical Records Department [address] [facility] [place] [address] Anesthesia Postop Eval II 10/26/24 1423 MR#: [id number] Acct: [id number] Name: CARLOS BACON Rep #: [id number] : 1965 59 From: Mathew Boogie MD PCP: Dr. Ck Kc, DO Status:[facility] [place] Race: C Location: [address] Anesthesia Postop Eval I Sum Postop Eval Completion status Anesthesia document: Postop Eval 1 completed: Yes Anesthesia Postop Eval I Summary Anesthesia Postop Eval I Summary: Anesthesia Postop Eval I: Assessment Summary Airway patent Yes 10/26/24 14:04 [email or web address] Spontaneous unlabored Yes 10/26/24 14:04 [email or web address] respirations Mental status Asleep 10/26/24 14:04 [email or web address] nausea No 10/26/24 14:04 [email or web address] Vomiting No 10/26/24 14:04 [email or web address] Anesthesia Postop Eval I: Fluid Summary Crystalloid volume administer 60 10/26/24 14:04 [email or web address] (ml) Colloids volume administered ( ml) Blood Product volume administered (ml) Total IV fluid infused 60 10/26/24 14:04 [email or web address] Anesthesia Postop Eval I: Summary Notes Anesthesia Complication No 10/26/24 14:04 [email or web address] Anesthesia Complication Comment: Post-operative progress note Anesthesia: Postop Eval II Evaluation Mental status: Awake Pain Level: 0 nausea: No Vomiting: No 10/26/241422 Date Mathew Chuyita Boggs Signature: Date CC: Signed Normal [facility] Surgery Specimen Level Grady 10-26-2024 Surgery Specimen Level IV Patient Age/Sex Location Account Attending Physician CARLOS BACON 59/M EN [id number] Boyd Gama DO Specimen: [id number] Received: 10/26/24 Status: NADIRA Blue Num: [id number] Spec Type: VENTURA Harrington Dr: Boyd Friend, DO HEADER OPERATION: Colonoscopy with biopsy, EGD with biopsy PRE-OP DIAGNOSIS: GERD, irritable bowel syndrome TISSUE SUBMITTED: A- Distal esophagus biopsy, B- Duodenum biopsy, C- Sigmoid colon biopsy MICROSCOPIC DIAGNOSIS A. Distal esophagus, biopsy: Gastroesophageal junctional mucosa with mild chronic inflammation. Focal changes of reflux. No evidence of goblet cell metaplasia. See comment. B. Duodenum, biopsy: Mild non-specific chronic inflammation. Fragments of gastric mucosa with mild chronic inflammation. See comment. C. Sigmoid colon, biopsy: No pathologic change. AM. 10/29/2024 COMMENT A. Alcian blue/PAS stain with matched control supports the above diagnosis. B. Gastric metaplasia is a possibility. Clinical correlation is suggested. MICROSCOPIC DESCRIPTION Slides are reviewed. GROSS DESCRIPTION A. Received in fixative is one container labeled with the patient's name and designated Distal esophagus biopsy. The specimen consists of multiple irregular fragments of light boswell soft tissue that in aggregate measure 1.5 x 0.5 x 0.1 cm. The specimen is totally submitted in one cassette. B. Received in fixative is one container labeled with the patient's name and designated Duodenum biopsy. The specimen consists of multiple irregular fragments of light boswell soft tissue that in aggregate measure 2.0 x 0.6 x 0.1 cm. The specimen is totally submitted in one cassette. C. Received in fixative is one container labeled with the patient's name and designated Sigmoid colon biopsy. The specimen consists of multiple irregular fragments of light boswell soft tissue that in aggregate measure 1.0 x 0.3 x 0.1 cm. The specimen is totally submitted in one cassette. AM. 10/27/2024 TC:3 CPT:27446j5 Patient Age/Sex Location Account Attending Physician CARLOS BACON 59/M EN [id number] Boyd Gama, DO Signed (signature on file) Dr. Kun Ray DO 10/29/24 1220 Normal [facility] Comment on above: Performed By: #### L 3410.2350, L2100.0000, L101.9900, L501.6710 #### [facility] [address] [facility] [place], [place], [address] Abdomen Single Viewon 2023 Abdomen Single View [facility] Imaging Services [address] [place], [place] [address] Abdomen Single View MR#: [id number] Acct: [id number] Name: CARLOS BACON Rep #: [id number] : 1965 M 59 From: Rogerio Silva MD PCP: Dr. Ck Kc, Status: REG CLI Study: Abdomen Single View Date of Exam: 09/25/24 Exam# [id number] Ordering Dr: Boyd Gama DO [id number] INDICATION: Sitz Marker EXAMINATION/TECHNIQUE: X-RAY - XR Abdomen 1 View COMPARISON: 09/23/2024 FINDINGS: Stable bowel gas pattern with extensive colonic fecal retention. No significant change in the distribution of the Sitzmarks markers. RAD/Abdomen Single View IMPRESSION: No significant interval change. Electronically Signed: Rogerio Silva MD at 20:00 EDT , CC: Dr. Ck Kc DO; Boyd Gama DO Manager Filter: Signed Normal [facility] Abdomen Single Viewon 2023 Abdomen Single View [facility] Imaging Services [address] [place] [id number] Abdomen Single View MR#: [id number] Acct: [id number] Name: CARLOS BACON Rep #: [id number] : 1965 M 59 From: Saleem bee MD PCP: Dr. Ck Kc DO Status: REG CLI Study: Abdomen Single View Date of Exam: 09/23/24 Exam# [id number] Ordering Dr: Boyd Gama DO [id number] STUDY: X-RAY - ABDOMEN/PELVIS REASON FOR EXAM: Male, 59 years old. Sitz marker3 TECHNIQUE: Two AP supine views of the abdomen and pelvis. COMPARISON: None. FINDINGS: Sitz markers are in the ascending colon, ileocolic junction, distal transverse colon, and the proximal aspect of the descending colon. Moderate stool retention is present from the base of the cecum to the splenic flexure. Normal visualized lung bases. There is an unremarkable bowel gas pattern. Surgical clips are present in the right lower quadrant as well as the left and right upper abdominal regions. The visualized liver, spleen and kidneys are grossly normal in size and morphology. Normal soft tissue structures. There are diffuse degenerative changes of the visualized lumbar spine. RAD/Abdomen Single View IMPRESSION: 1. Sitz markers are in the ascending colon, ileocolic junction, distal transverse colon, and the proximal aspect of the descending colon. Moderate stool retention is present from the base of the cecum to the splenic flexure. Electronically Signed: Saleem Loya MD at 11:06 EDT Reading Location ID and State: [facility] / [place] , Service support , CC: Dr. Ck Kc DO; Boyd Gama DO Manager Filter: Signed Normal [facility] Gastroenterology Visit Repor ton 09-17-2024 Gastroenterology Visit Report [facility] [address] [place] [address] OFFICE VISIT Date of Service: 09/17/24 MR#: [id number] Acct: [id number] Name: CARLOS BACON Rep #: [id number] : 1965 Provider: Boyd Gama DO Age/Sex: 59/M Location: [facility] Status: Signed Intake Vital Signs 07/01/21 16:44 Height 6 ft 1 in Intake Visit Reasons: Acid reflux, IBS Allergies atorvastatin (From Lipitor) Allergy (Verified 09/17/24 09:08) Abd cramps/diarrhea Medications ???Medication ???Instructions ???Recorded ???Confirmed ???Type amlodipine 10 mg-benazepril 20 mg 1 ea PO DAILY 10/17/20 03/18/24 History capsule duloxetine 20 mg capsule,delayed 20 mg PO DAILY 10/17/20 03/18/24 History release pravastatin 80 mg tablet 80 mg PO QHS 10/17/20 03/18/24 History trazodone 50 mg tablet 50 mg PO QHS 10/17/20 03/18/24 History aspirin 81 mg chewable tablet 81 mg PO DAILY 10/23/20 03/18/24 History cholecalciferol (vitamin D3) 25 25 mcg PO DAILY 10/23/20 07/01/21 History mcg (1,000 unit) capsule multivitamin 1 tab PO DAILY 10/23/20 07/01/21 History alprazolam 0.5 mg tablet 0.5 mg PO DAILY 03/18/24 09/17/24 History [facility] Medical History (Updated 09/20/24 @ 19:[address] Nix Friend, DO) Neoplasm of left cheek Hypogonadism GERD (gastroesophageal reflux disease) Pituitary tumor Parotid tumor Depression High cholesterol HTN (hypertension) Surgical History History of tonsillectomy and adenoidectomy History of cardiac cath History of esophagogastroduodenoscopy (EGD) Family History Mother Hypertension Father Heart disease Parkinson disease Myocardial infarction Social History Smoking Status: Never smoker alcohol intake: current alcohol intake frequency: holidays/special occasions only substance use type: does not use HPI HPI Details: CARLOS BACON, is a 59 M who presents to the office today for initial consult. PCP referred for acid reflux. States he's had reflux for over 20 years. Is controlled with prn OTC Omeprazole. Denied nausea, vomiting or dysphagia. Also has IBS. Intermittent abdominal pain and cramping. Will have constipation for 5-6 days and then will have a day of diarrhea. Says last scopes were 5 years ago. He was told he Has a tortuous colon. He feels like his IBS is getting worse. He has worsening abdominal pain, bloating and some intermittent nausea. He has a 30-year history of hypertension. He has not lost any weight. He does not have any chest pain or shortness of breath. He does not take any medicines for IBS. He does eat a very high fiber diet and tries to maintain good nutritional health. He does get full sometimes. He denies any rashes, arthralgia or weakness. He does struggle with anxiety, stress and depression. I do not think he has been in a vicious cycle between recurrent IBS, helplessness, avoidance of responsibility,and anxious/stressful conditions. ROS Const Constitutional: No fatigue, fever(s) or weight change ENT ENT: No difficulty swallowing Gastro GI: Positive for abdominal pain and constipation; No belching, bloating, change in bowel habits, change in stool character, coffee ground emesis, cramping, diarrhea, heartburn, difficulty swallowing, feeling full early, excessive flatus, incontinent of stools, Vomiting blood/hematemesis, Blood in stool, loose stools, Black,tarry stools, nausea/dyspepsia, pain with swallowing, vomiting or other Musc Musculoskeletal: No joint pain Skin Skin: No yellowing of the eye or itchy eyes Psych Psychiatric: Positive for anxiety and No depression Endo Endocrine: No fatigue or weight change Aller/Imm Allergy/Immunologic: No itchy eyes Daniel/Lymp Hematologic/Lymphatic: No easy bleeding or easy bruising Exam Const General: cooperative and comfortable Nutritional Appearance: average body habitus and well nourished [facility] Head: normal to inspection Ears: hearing grossly normal bilaterally Nose: external nose normal Face and sinus: normal facial exam Mouth: oral mucosae normal Throat: posterior oropharynx normal Eyes General: appearance normal, both eyes and all related structures Neck Neck: normal visual inspection Chest Chest palpation inspection: normal inspection of the chest and normal palpation of entire chest wall Resp Effort Inspection: normal respiratory effort Auscultation: Bilateral: Clear to Auscultation Cardio Palpation: normal PMI Rate: regular rate Rhythm: regular rhythm GI Inspection: normal to inspection Auscultation: normal bowel sounds Percussion: normal to percussion Palpation: no hepatosplenomegaly Skin General: no (more content not included)... Normal [facility] 07-05-2024 [facility] Tele[facility] (NSCAMN) CARLOS BACON ([id number]) 1965 M Date Time Provider Department 07/05/[address] [facility] During your visit today, we recorded the following information about you: Teri Almaraz 07/05/2024 12:21 PM Signed General Call Caller : Jania Contact Reason for Call : Wanted to make sure you reviewed CT results with Dr. Palm. Is he concerned about growth? Patient requesting return call ? Yes Kathryn Davila APRN.CNP 07/05/2024 1:29 PM Signed Reviewed case with Dr. Marshall who states growth is so minimalover 2yr. At this rate of growth, hewould expect it would take >10yr more likely 15-20yr to reach his eye nerves and start causing any symptoms also offered GK.Patient wishes to continue with observation and will get new MRI in two years. Kathryn Davila APRN.RESTAURANT GENERAL MANAGER Allergies As of Date: 07/05/2024 Noted Allergy Reaction ATORVASTATIN 08/18/2019 17 - Myalgia Date Reviewed: 05/10/2024 Reviewed by: Angi Carbajal Tech - Fully Assessed Reason for Visit: Patient Question [7507] Prescriptions as of 07/05/2024 - ALPRAZolam (XANAX) [...] 02/05/2010 Non-smoker [Z78.9] 04/30/2022 Encounter Status:Closed by KATHRYN DAVILA on 07/05/24 [facility] LAB TEST Normal [facility] Comment on above: Order Comment: DAVID REYES. FRZIGF 1 [id number] Result Comment: TEST RESULTS LIMITS IGF-1 IGF-1(BL) 65 ng/mL This test was developed and its performance characteristics determined by [employer]. It has not been cleared or approved by the Food and Drug Administration. Reference Range: Range Mean 19 - 20y 281 - 510 371 21 - 30y 155 - 432 289 31 - 40y 132 - 333 226 41 - 50y 121 - 237 160 51 - 60y 68 - 245 153 61 - 70y 60 - 220 132 71 - 80y 36 - 215 131 TESTING PERFORMED AT [facility]. ORIGINAL REPORT ON FILE IN LAB CONTAINS ADDITIONAL TEST SITE INFORMATION. Performed By: #### L 3410.2350, L2100.0000, L101.9900, L501.6710 #### [facility] [address] [place], [address] Testosterone, Total / Freeon 06-09-2024 TESTOSTER,FREE 9.13 ng/dL Normal 5.00-21.00 [facility] Comment on above: Order Comment: N Performed By: #### L 3410.2350, L2100.0000, L101.9900, L501.6710 #### [facility] [address] [place], [address] TESTOSTERONE, T 374 ng/dL Normal 264-916 [facility] Comment on above: Order Comment: N Result Comment: Adul t male reference interval is based on a population of healthy nonobese males (BMI <30) between 19 and 39 years old. pramod Damon.al. JCEM 2017,102;2221-6807. PMID: [id number]. Performed By: #### L 3410.2350, L2100.0000, L101.9900, L501.6710 #### [facility] [address] [place], [address] TESTOSTERONE,%F 2.44 Normal 1.50-4.20 [facility] Comment on above: Order Comment: N Result Comment: Perf ormed at: - [address] [id number] [employer]: Wilver Perez PhD, Phone: [phone] Performed at: - [facility] [id number] [employer]: Harvinder Chacko MD, Phone: [phone] Performed By: #### L 3410.2350, L2100.0000, L101.9900, L501.6710 #### [facility] [address] [place], [place], [address] CORTISOL SERUMon 06-04-2024 CORTISOL 13.60 ug/dL Normal 3.44-22.45 [facility] Comment on above: Result Comment: Adul t (AM) 5.27 - 22.45 ug/dL Adult (PM) 3.44 - 16.76 ug/dL Please note revised CORTISOL reference range effective 2020. Performed By: #### L 3100.5310, L801.1541, L501.9520, L509.6000, L506.0400, L3100.5420, L500.4050, L500.4100 #### [facility] [address] [place], [place], [id number] Comprehensive Metabolic Prof ilon 06-04-2024 Albumin [Mass/Vol] 4.1 g/dL Normal 3.2-5.0 [facility] Comment on above: Order Comment: N Performed By: #### L 3100.5310, L801.1541, L501.9520, L509.6000, L506.0400, L3100.5420, L500.4050, L500.4100 #### [facility] [address] [place], [place], [address] Albumin/Globulin [Mass ratio] 1.2 {ratio} Normal 0.9-2.4 [facility] Comment on above: Order Comment: N Performed By: #### L 3100.5310, L801.1541, L501.9520, L509.6000, L506.0400, L3100.5420, L500.4050, L500.4100 #### [facility] [address] [place], [place], [id number] ALK P 57 U/L Normal 45-117 [facility] Comment on above: Order Comment: N Performed By: #### L 3100.5310, L801.1541, L501.9520, L509.6000, L506.0400, L3100.5420, L500.4050, L500.4100 #### [facility] [address] [place], [address] ALT [Catalytic activity/Vol] 32 U/L Normal 16-61 [facility] Comment on above: Order Comment: N Performed By: #### L 3100.5310, L801.1541, L501.9520, L509.6000, L506.0400, L3100.5420, L500.4050, L500.4100 #### [facility] [address] [place], [address] AST [Catalytic activity/Vol] 30 U/L Normal 15-37 [facility] Comment on above: Order Comment: N Performed By: #### L 3100.5310, L801.1541, L501.9520, L509.6000, L506.0400, L3100.5420, L500.4050, L500.4100 #### [facility] [address] [place], [address] Bilirubin [Mass/Vol] 1.70 mg/dL High 0.20-1.00 [facility] Comment on above: Order Comment: N Result Comment: For patients on eltrombopag therapy, use of Dimension [place] TBIL is not recommended. Performed By: #### L 3100.5310, L801.1541, L501.9520, L509.6000, L506.0400, L3100.5420, L500.4050, L500.4100 #### [facility] [address] [place], [address] BUN/CRE 15.1 RATIO Normal 10-20 [facility] Comment on above: Order Comment: N Performed By: #### L 3100.5310, L801.1541, L501.9520, L509.6000, L506.0400, L3100.5420, L500.4050, L500.4100 #### [facility] [address] [place], [place], [id number] (917) CA,Total 9.2 mg/dL Normal 8.5-10.1 [facility] Comment on above: Order Comment: N Performed By: #### L 3100.5310, L801.1541, L501.9520, L509.6000, L506.0400, L3100.5420, L500.4050, L500.4100 #### [facility] [address] [place], [address] (523) Chloride [Moles/Vol] 105 mmol/L Normal 98-107 [facility] Comment on above: Order Comment: N Performed By: #### L 3100.5310, L801.1541, L501.9520, L509.6000, L506.0400, L3100.5420, L500.4050, L500.4100 #### [facility] [address] [place], [address] (481) CO2 [Moles/Vol] 25.0 mmol/L Normal 21.0-32.0 [facility] Comment on above: Order Comment: N Performed By: #### L 3100.5310, L801.1541, L501.9520, L509.6000, L506.0400, L3100.5420, L500.4050, L500.4100 #### [facility] [address] [place], [address] (233) Creatinine [Mass/Vol] 1.19 mg/dL Normal 0.70-1.30 [facility] Comment on above: Order Comment: N Result Comment: The validity of the calculated GFR GFRAA in patients over 70 years has not been determined. Clinical correlation is essential. Performed By: #### L 3100.5310, L801.1541, L501.9520, L509.6000, L506.0400, L3100.5420, L500.4050, L500.4100 #### [facility] [address] [place], [address] (957) EST GFR - AA 80 mL/min Normal >60 [facility] Comment on above: Order Comment: N Result Comment: Afri can Albanian GFR Calc Performed By: #### L 3100.5310, L801.1541, L501.9520, L509.6000, L506.0400, L3100.5420, L500.4050, L500.4100 #### [facility] [address] [place], [address] GAP 7 Normal 5-15 [facility] Comment on above: Order Comment: N Performed By: #### L 3100.5310, L801.1541, L501.9520, L509.6000, L506.0400, L3100.5420, L500.4050, L500.4100 #### [facility] [address] [place], [address] (573) GFR/1.73 sq M.predicted among non-blacks MDRD (S/P/Bld) [Vol rate/Area] 66 mL/min/{1.73_m2} Normal >60 [facility] Comment on above: Order Comment: N Result Comment: Non- GFR Calc Performed By: #### L 3100.5310, L801.1541, L501.9520, L509.6000, L506.0400, L3100.5420, L500.4050, L500.4100 #### [facility] [address] [place], [place], [id number] (247) Globulin (S) [Mass/Vol] 3.5 g/dL Normal 2.2-4.2 [facility] Comment on above: Order Comment: N Performed By: #### L 3100.5310, L801.1541, L501.9520, L509.6000, L506.0400, L3100.5420, L500.4050, L500.4100 #### [facility] [address] [place], [address] (659) Glucose [Mass/Vol] 97 mg/dL Normal 74-106 [facility] Comment on above: Order Comment: N Performed By: #### L 3100.5310, L801.1541, L501.9520, L509.6000, L506.0400, L3100.5420, L500.4050, L500.4100 #### [facility] [address] [place], [address] Potassium [Moles/Vol] 3.9 mmol/L Normal 3.5-5.1 [facility] Comment on above: Order Comment: N Performed By: #### L 3100.5310, L801.1541, L501.9520, L509.6000, L506.0400, L3100.5420, L500.4050, L500.4100 #### [facility] [address] [place], [address] Sodium [Moles/Vol] 137 mmol/L Normal 136-145 [facility] Comment on above: Order Comment: N Performed By: #### L 3100.5310, L801.1541, L501.9520, L509.6000, L506.0400, L3100.5420, L500.4050, L500.4100 #### [facility] [address] [place], [address] T PROT 7.6 g/dL Normal 6.4-8.2 [facility] Comment on above: Order Comment: N Performed By: #### L 3100.5310, L801.1541, L501.9520, L509.6000, L506.0400, L3100.5420, L500.4050, L500.4100 #### [facility] [address] [place], [address] Urea nitrogen [Mass/Vol] 18 mg/dL Normal 7-18 [facility] Comment on above: Order Comment: N Performed By: #### L 3100.5310, L801.1541, L501.9520, L509.6000, L506.0400, L3100.5420, L500.4050, L500.4100 #### [facility] [address] [place], [address] Lipid Profileon 06-04-2024 Cholesterol [Mass/Vol] 175 mg/dL Normal 200 [facility] Comment on above: Order Comment: N Result Comment: <200 mg/dL Desirable 200-240 mg/dL Borderline >240 mg/dL High Risk Performed By: #### L 3100.5310, L801.1541, L501.9520, L509.6000, L506.0400, L3100.5420, L500.4050, L500.4100 #### [facility] [address] [place], [address] Cholesterol in HDL [Mass/Vol] 54 mg/dL Normal [facility] Comment on above: Order Comment: N Result Comment: The drugs N-Acetylcysteine and Metamizole may falsely depress this assay. Reference Range HDL <40 mg/dL Low HDL Cholesterol HDL >or= 60 mg/dL High HDL Cholesterol Performed By: #### L 3100.5310, L801.1541, L501.9520, L509.6000, L506.0400, L3100.5420, L500.4050, L500.4100 #### [facility] [address] [place], [address] Cholesterol in LDL [Mass/Vol] 95 mg/dL Normal 0-130 [facility] Comment on above: Order Comment: N Performed By: #### L 3100.5310, L801.1541, L501.9520, L509.6000, L506.0400, L3100.5420, L500.4050, L500.4100 #### [facility] [address] [place], [address] Cholesterol in VLDL [Mass/Vol] 26 mg/dL Normal 5-40 [facility] Comment on above: Order Comment: N Performed By: #### L 3100.5310, L801.1541, L501.9520, L509.6000, L506.0400, L3100.5420, L500.4050, L500.4100 #### [facility] [address] [place], [place], [id number] Triglyceride [Mass/Vol] 132 mg/dL Normal [facility] Comment on above: Order Comment: N Result Comment: The drugs N-Acetylcysteine and Metamizole may falsely depress this assay. Serum Triglycerides Reference Interval Normal <150 mg/dL Borderline high 150 - 199 mg/dL High 200 - 499 mg/dL Very High > or = 500 mg/dL Performed By: #### L 3100.5310, L801.1541, L501.9520, L509.6000, L506.0400, L3100.5420, L500.4050, L500.4100 #### [facility] [address] [place], [place], [id number] Prolactinon 06-04-2024 PROLACTIN 13.5 ng/mL Normal [facility] Comment on above: Order Comment: N Result Comment: NORMAL REFERENCE RANGES FEMALE NON- 2.2 - 30.3 ng/mL 8.1 - 347.6 ng/mL POST-MENOPAUSAL 0.7 - 31.5 ng/mL MALE 2.5 - 17.4 ng/mL Performed By: #### L 3410.2350, L2100.0000, L101.9900, L501.6710 #### [facility] [address] [place], [place], [id number] T4 Free Directon 06-04-2024 T4 FREE DIRECT 0.94 ng/dL Normal 0.76-1.46 [facility] Comment on above: Order Comment: N Performed By: #### L 3100.5310, L801.1541, L501.9520, L509.6000, L506.0400, L3100.5420, L500.4050, L500.4100 #### [facility] [address] [place], [address] Thyroid Stim Hormone (TSH)on 06-04-2024 TSH 1.33 uIU/mL Normal 0.358-3.74 [facility] Comment on above: Order Comment: N Performed By: #### L 3100.5310, L801.1541, L501.9520, L509.6000, L506.0400, L3100.5420, L500.4050, L500.4100 #### [facility] [address] [place], [address] MR Pituitary and Sella turci ca WO and W contrast Grady 05-31-2024 IMPRESSION: Slight interval increase in volume of enhancing soft tissue within the lateral aspects of the sella bilaterally following transsphenoidal hypophysectomy, compatible with residual/recurrent adenoma. No substantial suprasellar extension or mass effect on the optic chiasm, however there is likely mild invasion of the cavernous sinuses bilaterally. Manager Filter: DEVONTE Transcribe Date/Time: May 31 2024 9:25A Dictated by : HE HERNANDEZ MD This examination was interpreted and the report reviewed and electronically signed by: HE HERNANDEZ MD on May 31 2024 9:36AM [facility] DIVISION OF RADIOLOGY * * *Final Report* * * DATE OF EXAM: May 31 2024 8:57AM [facility] 0314 - MRI PITUITARY WO/W IVCON / [...] underlying skull base. DIVISION OF RADIOLOGY [facility] * * *Final Report* * * DATE OF EXAM: May 31 2024 8:57AM [facility] 0314 - MRI PITUITARY WO/W IVCON / [...] mild invasion of the cavernous sinuses bilaterally. Manager Filter: DEVONTE Transcribe Date/Time: May 31 2024 9:25A Dictated by : HE HERNANDEZ MD This examination was interpreted and the report reviewed and electronically signed by: HE HERNANDEZ MD on May 31 2024 9:36AM EST [facility] Radiology Study observation (narrative) [facility] MR Pituitary and Sella turci ca WO and W contrast IVOrdered By: Ccf Provider on 05-31-2024 [facility] MRI PITUITARY WO/W IVCONon 0 05-31-2024 MRI PITUITARY WO/W IVCON * * *Final Report* * * DATE OF EXAM: May 31 2024 8:57AM [facility] 0314 - MRI PITUITARY WO/W IVCON / [...] mild invasion of the cavernous sinuses bilaterally. Manager Filter: DEVONTE Transcribe Date/Time: May 31 2024 9:25A Dictated by : HE HERNANDEZ MD This examination was interpreted and the report reviewed and electronically signed by: HE HERNANDEZ MD on May 31 2024 9:36AM EST [id number] Normal [facility] Lipid Profileon 04-20-2024 Cholesterol [Mass/Vol] 184 mg/dL Normal 200 [facility] Comment on above: Result Comment: <200 mg/dL Desirable 200-240 mg/dL Borderline >240 mg/dL High Risk Performed By: #### L 3410.2350, L2100.0000, L101.9900, L501.6710 #### [facility] [address] [place], [address] Cholesterol in HDL [Mass/Vol] 55 mg/dL Normal [facility] Comment on above: Result Comment: The drugs N-Acetylcysteine and Metamizole may falsely depress this assay. Reference Range HDL <40 mg/dL Low HDL Cholesterol HDL >or= 60 mg/dL High HDL Cholesterol Performed By: #### L 3410.2350, L2100.0000, L101.9900, L501.6710 #### [facility] [address] [place], [address] Cholesterol in LDL [Mass/Vol] 99 mg/dL Normal 0-130 [facility] Comment on above: Performed By: #### L 3410.2350, L2100.0000, L101.9900, L501.6710 #### [facility] [address] [place], [address] Cholesterol in VLDL [Mass/Vol] 30 mg/dL Normal 5-40 [facility] Comment on above: Performed By: #### L 3410.2350, L2100.0000, L101.9900, L501.6710 #### [facility] [address] [place], [address] Triglyceride [Mass/Vol] 148 mg/dL Normal [facility] Comment on above: Result Comment: The drugs N-Acetylcysteine and Metamizole may falsely depress this assay. Serum Triglycerides Reference Interval Normal <150 mg/dL Borderline high 150 - 199 mg/dL High 200 - 499 mg/dL Very High > or = 500 mg/dL Performed By: #### L 3410.2350, L2100.0000, L101.9900, L501.6710 #### [facility] [address] [place], [address] No Panel InformationOrdered By: Ck Kc on 10-10-2023 Prostate Specific Antigen Screen 1.58 ng/mL 0.00-4.00 [facility] Comment on above: This test was perfor med using the TPSA assay method for hybris chemistry system. Values obtained with differentassay methods cannot be used interchangably.When changing PSA assays in the course of monitoring apatient, additional sequential testing should be carriedout to confirm baseline values. Serum or plasma cortisol álvaro surement (mass/volume)Ordered By: Ana Marquez on 06-19-2023 Cortisol [Mass/Vol] 17.80 ug/dL 3.44-22.45 [facility] Comment on above: Adult (AM) 5.27 - 22 .45 ug/dL Adult (PM) 3.44 - 16.76 ug/dLPlease note revised CORTISOL reference range effective 2020. Basophil percentageOrdered B y: Ana Marquez on 06-11-2023 Bilirubin [Mass/Vol] 1.60 mg/dL 0.20-1.00 [facility] Comment on above: For patients on eltr ombopag therapy, use of Dimension [place] TBIL is not recommended. Chloride [Moles/Vol] 106 mmol/L 98-107 [facility] Cholesterol [Mass/Vol] 170 mg/dL <200 [facility] Comment on above: <200 mg/dL Desirable 200-240 mg/dL Borderline >240 mg/dL High Risk Glucose [Mass/Vol] 96 mg/dL 74-106 [facility] Potassium [Moles/Vol] 3.7 mmol/L 3.5-5.1 [facility] Protein [Mass/Vol] 7.4 g/dL 6.4-8.2 [facility] Sodium [Moles/Vol] 137 mmol/L 136-145 [facility] Testosterone [Mass/Vol] 339 ng/dL 264-916 [facility] Comment on above: Adult male reference interval is based on a population ofhealthy nonobese males (BMI <30) between 19 and 39 yearsold. Nelson et.al. JCEM 2017,102;5885-2913. PMID:[id number]. Triglyceride [Mass/Vol] 113 mg/dL <199 [facility] Comment on above: The drugs N-Acetylcy steine and Metamizole may falsely depress this assay.Serum Triglycerides Reference Interval Normal <150 mg/dL Borderline high 150 - 199 mg/dL High 200 - 499 mg/dL Very High > or = 500 mg/dL Free testosterone percentage Ordered By: Ana Marquez on 06-11-2023 Testosterone Free/Testosterone.tota l [Mass fraction] 3.16 % 1.50-4.20 [facility] - Chemistry and C hemistry - challengeOrdered By: Ana Marquez on 06-11-2023 ALP [Catalytic activity/Vol] 55 U/L 45-117 [facility] ALT [Catalytic activity/Vol] 28 U/L 16-61 [facility] CO2 [Moles/Vol] 27.0 mmol/L 21.0-32.0 [facility] Free T4 [Mass/Vol] 0.95 ng/dL 0.76-1.46 [facility] Globulin (S) [Mass/Vol] 3.4 g/dL 2.2-4.2 [facility] Urea nitrogen/Creatinine [Mass ratio] 18.4 mg/mg 10-20 [facility] No Panel InformationOrdered By: Ana Marquez on 06-11-2023 Estimated GFR (MDRD) Amer 85 mL/min >60 [facility] Comment on above: GFR Calc Estimated GFR (MDRD) Non-Af Amer 70 mL/min >60 [facility] Comment on above: Non- GFR Calc Somatomedin-C 83 ng/mL 68-247 [facility] Comment on above: Performed at: [address] [id number] Director: Wilver Perez PhD, Phone: [phone] at: [address] [id number] Director: Harvinder Chacko MD, Phone: [phone] Thyroid Stimulating Hormone (TSH) 1.12 uIU/mL 0.358-3.74 [facility] Serum or plasma albumin gisela urement (mass/volume)Ordered By: Ana Marquez on 06-11-2023 Albumin [Mass/Vol] 4.0 g/dL 3.2-5.0 [facility] Serum or plasma albumin/glob ulin mass ratioOrdered By: Ana Marquez on 06-11-2023 Albumin/Globulin [Mass ratio] 1.2 {ratio} 0.9-2.4 [facility] Serum or plasma calcium gisela urement (mass/volume)Ordered By: Ana Marquez on 06-11-2023 Calcium [Mass/Vol] 8.8 mg/dL 8.5-10.1 [facility] Serum or plasma cholesterol in HDL measurement (mass/volume)Ordered By: Ana Marquez on 06-11-2023 Cholesterol in HDL [Mass/Vol] 58 mg/dL >40 [facility] Comment on above: The drugs N-Acetylcy steine and Metamizole may falsely depress this assay. Reference Range HDL <40 mg/dL Low HDL Cholesterol HDL >or= 60 mg/dL High HDL Cholesterol Serum or plasma cholesterol in VLDL measurement (mass/volume)Ordered By: Ana Marquez on 06-11-2023 Cholesterol in VLDL [Mass/Vol] 23 mg/dL 5-40 [facility] Serum or plasma creatinine m easurement (mass/volume)Ordered By: Ana Marquez on 06-11-2023 Creatinine [Mass/Vol] 1.14 mg/dL 0.70-1.30 [facility] Comment on above: The validity of the calculated GFR & GFRAA in patients over 70 years has not been determined. Clinical correlation is essential. Serum or plasma low density lipoprotein (LDL) cholesterol measurement (mass/volume)Ordered By: Ana Marquez on 06-11-2023 Cholesterol in LDL [Mass/Vol] 89 mg/dL 0-130 [facility] Serum or plasma prolactin me asurement (mass/volume)Ordered By: Ana Marquez on 06-11-2023 Prolactin [Mass/Vol] 11.0 ng/mL [facility] Comment on above: NORMAL REFERENCE RAN GES FEMALE NON- 2.2 - 30.3 ng/mL 8.1 - 347.6 ng/mL POST-MENOPAUSAL 0.7 - 31.5 ng/mL MALE 2.5 - 17.4 ng/mL Serum or plasma testosterone free measurement (mass/volume)Ordered By: Ana Marquez on 06-11-2023 Testosterone Free [Mass/Vol] 10.71 ng/dL 5.00-21.00 [facility] Serum or plasma urea nitroge n measurement (mass/volume)Ordered By: Ana Marquez on 06-11-2023 Urea nitrogen [Mass/Vol] 21 mg/dL 7-18 [facility] Thin prep Papanicolaou smear with manual screeningOrdered By: Ana Marquez on 06-11-2023 Thin prep Papanicolaou smear with manual screening 21 U/L 15-37 [facility] Thin prep Papanicolaou smear with manual screening 4 5-15 [facility] Basophil percentageOrdered B y: Dr. Kc on 04-09-2023 Bilirubin [Mass/Vol] 1.50 mg/dL 0.20-1.00 [facility] Comment on above: For patients on eltr ombopag therapy, use of Dimension [place] TBIL is not recommended. Chloride [Moles/Vol] 108 mmol/L 98-107 [facility] Cholesterol [Mass/Vol] 168 mg/dL <200 [facility] Comment on above: <200 mg/dL Desirable 200-240 mg/dL Borderline >240 mg/dL High Risk Glucose [Mass/Vol] 107 mg/dL 74-106 [facility] Comment on above: Fasting Glucose resu lt from 100 to 125 mg/dL suggests IMPAIRED HOMEOSTASIS per A.D.A. criteria. Potassium [Moles/Vol] 3.9 mmol/L 3.5-5.1 [facility] Protein [Mass/Vol] 7.4 g/dL 6.4-8.2 [facility] Sodium [Moles/Vol] 138 mmol/L 136-145 [facility] Triglyceride [Mass/Vol] 96 mg/dL <199 [facility] Comment on above: The drugs N-Acetylcy steine and Metamizole may falsely depress this assay.Serum Triglycerides Reference Interval Normal <150 mg/dL Borderline high 150 - 199 mg/dL High 200 - 499 mg/dL Very High > or = 500 mg/dL Laboratory - Chemistry and C hemistry - challengeOrdered By: Dr. Kc on 04-09-2023 ALP [Catalytic activity/Vol] 59 U/L 45-117 [facility] ALT [Catalytic activity/Vol] 33 U/L 16-61 [facility] CO2 [Moles/Vol] 26.0 mmol/L 21.0-32.0 [facility] Globulin (S) [Mass/Vol] 3.4 g/dL 2.2-4.2 [facility] Urea nitrogen/Creatinine [Mass ratio] 17.4 mg/mg 10-20 [facility] No Panel InformationOrdered By: Dr. Kc on 04-09-2023 Estimated GFR (MDRD) Amer 84 mL/min >60 [facility] Comment on above: GFR Calc Estimated GFR (MDRD) Non-Af Amer 69 mL/min >60 [facility] Comment on above: Non- GFR Calc Serum or plasma albumin gisela urement (mass/volume)Ordered By: Dr. Kc on 04-09-2023 Albumin [Mass/Vol] 4.0 g/dL 3.2-5.0 [facility] Serum or plasma albumin/glob ulin mass ratioOrdered By: Dr. Kc on 04-09-2023 Albumin/Globulin [Mass ratio] 1.2 {ratio} 0.9-2.4 [facility] Serum or plasma calcium gisela urement (mass/volume)Ordered By: Dr. Kc on 04-09-2023 Calcium [Mass/Vol] 8.7 mg/dL 8.5-10.1 [facility] Serum or plasma cholesterol in HDL measurement (mass/volume)Ordered By: Dr. Kc on 04-09-2023 Cholesterol in HDL [Mass/Vol] 58 mg/dL >40 [facility] Comment on above: The drugs N-Acetylcy steine and Metamizole may falsely depress this assay. Reference Range HDL <40 mg/dL Low HDL Cholesterol HDL >or= 60 mg/dL High HDL Cholesterol Serum or plasma cholesterol in VLDL measurement (mass/volume)Ordered By: Dr. Kc on 04-09-2023 Cholesterol in VLDL [Mass/Vol] 19 mg/dL 5-40 [facility] Serum or plasma creatinine m easurement (mass/volume)Ordered By: Dr. Kc on 04-09-2023 Creatinine [Mass/Vol] 1.15 mg/dL 0.70-1.30 [facility] Comment on above: The validity of the calculated GFR & GFRAA in patients over 70 years has not been determined. Clinical correlation is essential. Serum or plasma low density lipoprotein (LDL) cholesterol measurement (mass/volume)Ordered By: Dr. Kc on 04-09-2023 Cholesterol in LDL [Mass/Vol] 91 mg/dL 0-130 [facility] Serum or plasma urea nitroge n measurement (mass/volume)Ordered By: Dr. Kc on 04-09-2023 Urea nitrogen [Mass/Vol] 20 mg/dL 7-18 [facility] Thin prep Papanicolaou smear with manual screeningOrdered By: Dr. Kc on 04-09-2023 Thin prep Papanicolaou smear with manual screening 27 U/L 15-37 [facility] Thin prep Papanicolaou smear with manual screening 4 5-15 [facility] PSAon 10-23-2022 Prostate Specific Antigen 1.75 ng/mL Normal 0.00-4.00 [facility] Comment on above: Performed By: #### P #### [address] [address] Basophil percentageon 2021 Bilirubin [Mass/Vol] 1.70 mg/dL 0.20-1.00 [facility] Work Phone: Comment on above: For patients on eltr ombopag therapy, use of Dimension [place] TBIL is not recommended. Chloride [Moles/Vol] 104 mmol/L 98-107 [facility] Work Phone: Cholesterol [Mass/Vol] 157 mg/dL <200 [facility] Work Phone: Comment on above: <200 mg/dL Desirable 200-240 mg/dL Borderline >240 mg/dL High Risk Glucose [Mass/Vol] 98 mg/dL 74-106 [facility] Work Phone: Potassium [Moles/Vol] 4.0 mmol/L 3.5-5.1 [facility] Work Phone: Protein [Mass/Vol] 7.3 g/dL 6.4-8.2 [facility] Work Phone: Sodium [Moles/Vol] 136 mmol/L 136-145 [facility] Work Phone: Testosterone [Mass/Vol] 417 ng/dL 264-916 [facility] Work Phone: Comment on above: Adult male reference interval is based on a population ofhealthy nonobese males (BMI <30) between 19 and 39 yearsold. pramod Damon.al. JCEM 2017,102;[id number]. PMID:[id number]. Triglyceride [Mass/Vol] 88 mg/dL <199 [facility] Work Phone: Comment on above: The drugs N-Acetylcy steine and Metamizole may falsely depress this assay.Serum Triglycerides Reference Interval Normal <150 mg/dL Borderline high 150 - 199 mg/dL High 200 - 499 mg/dL Very High > or = 500 mg/dL Free testosterone percentage on 07-03-2022 Testosterone Free/Testosterone.tota l [Mass fraction] 2.55 % 1.50-4.20 [facility] Work Phone: Laboratory - Chemistry and C hemistry - challengeon 07-03-2022 ALP [Catalytic activity/Vol] 57 U/L 45-117 [facility] Work Phone: ALT [Catalytic activity/Vol] 32 U/L 16-61 [facility] Work Phone: CO2 [Moles/Vol] 26.0 mmol/L 21.0-32.0 [facility] Work Phone: Free T4 [Mass/Vol] 1.05 ng/dL 0.76-1.46 [facility] Work Phone: Globulin (S) [Mass/Vol] 3.2 g/dL 2.2-4.2 [facility] Work Phone: Urea nitrogen/Creatinine [Mass ratio] 15.8 mg/mg 10-20 [facility] Work Phone: No Panel Informationon 07-03 Estimated GFR (MDRD) Amer 80 mL/min >60 [facility] Work Phone: Comment on above: GFR Calc Estimated GFR (MDRD) Non-Af Amer 66 mL/min >60 [facility] Work Phone: Comment on above: Non- GFR Calc Somatomedin-C 80 ng/mL 68-247 [facility] Work Phone: Comment on above: Performed at: [employer] [address] [id number] Director: Wilver Perez PhD, Phone: [phone] at: - [facility] [id number] Director: Harvinder Chacko MD, Phone: [phone] Thyroid Stimulating Hormone (TSH) 1.09 uIU/mL 0.358-3.74 [facility] Work Phone: Serum or plasma albumin gisela urement (mass/volume)on 07-03-2022 Albumin [Mass/Vol] 4.1 g/dL 3.2-5.0 [facility] Work Phone: Serum or plasma albumin/glob ulin mass ratioon 07-03-2022 Albumin/Globulin [Mass ratio] 1.3 {ratio} 0.9-2.4 [facility] Work Phone: Serum or plasma calcium gisela urement (mass/volume)on 07-03-2022 Calcium [Mass/Vol] 8.8 mg/dL 8.5-10.1 [facility] Work Phone: Serum or plasma cholesterol in HDL measurement (mass/volume)on 07-03-2022 Cholesterol in HDL [Mass/Vol] 55 mg/dL >40 [facility] Work Phone: Comment on above: The drugs N-Acetylcy steine and Metamizole may falsely depress this assay. Reference Range HDL <40 mg/dL Low HDL Cholesterol HDL >or= 60 mg/dL High HDL Cholesterol Serum or plasma cholesterol in VLDL measurement (mass/volume)on 07-03-2022 Cholesterol in VLDL [Mass/Vol] 18 mg/dL 5-40 [facility] Work Phone: Serum or plasma cortisol álvaro surement (mass/volume)on 07-03-2022 Cortisol [Mass/Vol] 8.80 ug/dL 3.44-22.45 [facility] Work Phone: Comment on above: Adult (AM) 5.27 - 22 .45 ug/dL Adult (PM) 3.44 - 16.76 ug/dLPlease note revised CORTISOL reference range effective 2020. Serum or plasma creatinine m easurement (mass/volume)on 07-03-2022 Creatinine [Mass/Vol] 1.20 mg/dL 0.70-1.30 [facility] Work Phone: Comment on above: The validity of the calculated GFR & GFRAA in patients over 70 years has not been determined. Clinical correlation is essential. Serum or plasma low density lipoprotein (LDL) cholesterol measurement (mass/volume)on 07-03-2022 Cholesterol in LDL [Mass/Vol] 84 mg/dL 0-130 [facility] Work Phone: Serum or plasma prolactin me asurement (mass/volume)on 07-03-2022 Prolactin [Mass/Vol] 10.1 ng/mL [facility] Work Phone: Comment on above: NORMAL REFERENCE RAN GES FEMALE NON- 2.2 - 30.3 ng/mL 8.1 - 347.6 ng/mL POST-MENOPAUSAL 0.7 - 31.5 ng/mL MALE 2.5 - 17.4 ng/mL Serum or plasma testosterone free measurement (mass/volume)on 07-03-2022 Testosterone Free [Mass/Vol] 10.63 ng/dL 5.00-21.00 [facility] Work Phone: Serum or plasma urea nitroge n measurement (mass/volume)on 07-03-2022 Urea nitrogen [Mass/Vol] 19 mg/dL 7-18 [facility] Work Phone: Thin prep Papanicolaou smear with manual screeningon 07-03-2022 Thin prep Papanicolaou smear with manual screening 28 U/L 15-37 [facility] Work Phone: Thin prep Papanicolaou smear with manual screening 6 5-15 [facility] Work Phone: MRI PITUITARY WO/W IVCONon 0 05-22-2022 [facility] Absolute lymphocyte counton 04-11-2022 Lymphocytes Auto (Unsp spec) [#/Vol] 1.49 10*3/uL 0.83-4.51 [facility] Work Phone: Basophil percentageon 2021 Basophils/100 WBC (Bld) 2.0 % 0-1 [facility] Work Phone: Bilirubin [Mass/Vol] 1.80 mg/dL 0.20-1.00 [facility] Work Phone: Comment on above: For patients on eltr ombopag therapy, use of Dimension [place] TBIL is not recommended. Chloride [Moles/Vol] 104 mmol/L 98-107 [facility] Work Phone: Cholesterol [Mass/Vol] 158 mg/dL <200 [facility] Work Phone: Comment on above: <200 mg/dL Desirable 200-240 mg/dL Borderline >240 mg/dL High Risk Eosinophils/100 WBC (Bld) 1.5 % 0-5 [facility] Work Phone: Glucose [Mass/Vol] 98 mg/dL 74-106 [facility] Work Phone: Neutrophils (Bld) [#/Vol] 3.8 10*3/uL 2.0-7.7 [facility] Work Phone: Neutrophils/100 WBC (Bld) 63.6 % 47-70 [facility] Work Phone: Potassium [Moles/Vol] 3.9 mmol/L 3.5-5.1 [facility] Work Phone: Protein [Mass/Vol] 7.2 g/dL 6.4-8.2 [facility] Work Phone: Sodium [Moles/Vol] 136 mmol/L 136-145 [facility] Work Phone: Triglyceride [Mass/Vol] 76 mg/dL [facility] Work Phone: Comment on above: The drugs N-Acetylcy steine and Metamizole may falsely depress this assay.Serum Triglycerides Reference Interval Normal <150 mg/dL Borderline high 150 - 199 mg/dL High 200 - 499 mg/dL Very High > or = 500 mg/dL WBC (Bld) [#/Vol] 5.9 10*3/uL 4.4-11.0 [facility] Work Phone: Blood erythrocytes count (nu mber/volume)on 04-11-2022 RBC (Bld) [#/Vol] 4.82 10*6/uL 4.6-6.2 [facility] Work Phone: Blood hemoglobin measurement (mass/volume)on 04-11-2022 Hemoglobin (Bld) [Mass/Vol] 14.6 g/dL 13.0-16.5 [facility] Work Phone: Blood lymphocytes/100 leukoc yteson 04-11-2022 Lymphocytes/100 WBC (Bld) 25.2 % 19-41 [facility] Work Phone: Blood monocytes/100 leukocyt eson 04-11-2022 Monocytes/100 WBC (Bld) 7.4 % 0-10 [facility] Work Phone: Blood platelet mean volumeon 04-11-2022 Platelet mean volume (Bld) [Entitic vol] 8.3 fL 6.2-12.0 [facility] Work Phone: Determination of erythrocyte mean corpuscular volume (MCV)on 04-11-2022 MCV (RBC) [Entitic vol] 89.4 fL 80-94 [facility] Work Phone: Hematocrit Auto (Bld) [Volum e fraction]on 04-11-2022 Hematocrit (Bld) [Volume fraction] 43.1 % 40-54 [facility] Work Phone: Laboratory - Chemistry and C hemistry - challengeon 04-11-2022 ALP [Catalytic activity/Vol] 54 U/L 45-117 [facility] Work Phone: ALT [Catalytic activity/Vol] 37 U/L 16-61 [facility] Work Phone: CO2 [Moles/Vol] 28.0 mmol/L 21.0-32.0 [facility] Work Phone: Globulin (S) [Mass/Vol] 3.2 g/dL 2.2-4.2 [facility] Work Phone: Urea nitrogen/Creatinine [Mass ratio] 18.2 mg/mg 10-20 [facility] Work Phone: Laboratory - Hematology and Cell countson 04-11-2022 Erythrocyte distribution width (RBC) [Entitic vol] 40.4 fL 35.1-43.9 [facility] Work Phone: Erythrocyte distribution width (RBC) [Ratio] 12.3 % 11.6-14.6 [facility] Work Phone: Immature granulocytes/100 WBC (Bld) 0.300 % 0.0-0.9 [facility] Work Phone: Comment on above: IG% - Immature Granu locytes (promyelocytes, myelocytes and metamyelocytes) > 1% indicates that a LEFT SHIFT is Present. MCH (RBC) [Entitic mass] 30.3 pg 27.0-32.0 [facility] Work Phone: Nucleated RBC/100 WBC (Bld) [Ratio] 0 % 0-5 [facility] Work Phone: MCHC Auto (RBC) [Mass/Vol]on 04-11-2022 MCHC (RBC) [Mass/Vol] 33.9 g/dL 32-36 [facility] Work Phone: No Panel Informationon 04-11 Estimated GFR (MDRD) Amer 88 mL/min >60 [facility] Work Phone: Comment on above: GFR Calc Estimated GFR (MDRD) Non-Af Amer 73 mL/min >60 [facility] Work Phone: Comment on above: Non- GFR Calc Prostate Specific Antigen Screen 1.15 ng/mL 0.00-4.00 [facility] Work Phone: Comment on above: This test was perfor med using the TPSA assay method for hybris chemistry system. Values obtained with differentassay methods cannot be used interchangably.When changing PSA assays in the course of monitoring apatient, additional sequential testing should be carriedout to confirm baseline values. Thyroid Stimulating Hormone (TSH) 1.02 uIU/mL 0.358-3.74 [facility] Work Phone: Platelets bldon 04-11-2022 Platelets (Bld) [#/Vol] 222 10*3/uL 150-450 [facility] Work Phone: Serum or plasma albumin gisela urement (mass/volume)on 04-11-2022 Albumin [Mass/Vol] 4.0 g/dL 3.2-5.0 [facility] Work Phone: Serum or plasma albumin/glob ulin mass ratioon 04-11-2022 Albumin/Globulin [Mass ratio] 1.2 {ratio} 0.9-2.4 [facility] Work Phone: Serum or plasma calcium gisela urement (mass/volume)on 04-11-2022 Calcium [Mass/Vol] 8.9 mg/dL 8.5-10.1 [facility] Work Phone: Serum or plasma cholesterol in HDL measurement (mass/volume)on 04-11-2022 Cholesterol in HDL [Mass/Vol] 57 mg/dL [facility] Work Phone: Comment on above: The drugs N-Acetylcy steine and Metamizole may falsely depress this assay. Reference Range HDL <40 mg/dL Low HDL Cholesterol HDL >or= 60 mg/dL High HDL Cholesterol Serum or plasma cholesterol in VLDL measurement (mass/volume)on 04-11-2022 Cholesterol in VLDL [Mass/Vol] 15 mg/dL 5-40 [facility] Work Phone: Serum or plasma creatinine m easurement (mass/volume)on 04-11-2022 Creatinine [Mass/Vol] 1.10 mg/dL 0.70-1.30 [facility] Work Phone: Comment on above: The validity of the calculated GFR & GFRAA in patients over 70 years has not been determined. Clinical correlation is essential. Serum or plasma low density lipoprotein (LDL) cholesterol measurement (mass/volume)on 04-11-2022 Cholesterol in LDL [Mass/Vol] 86 mg/dL 0-130 [facility] Work Phone: Serum or plasma urea nitroge n measurement (mass/volume)on 04-11-2022 Urea nitrogen [Mass/Vol] 20 mg/dL 7-18 [facility] Work Phone: Thin prep Papanicolaou smear with manual screeningon 04-11-2022 Thin prep Papanicolaou smear with manual screening 29 U/L 15-37 [facility] Work Phone: Thin prep Papanicolaou smear with manual screening 4 5-15 [facility] Work Phone: SURGICALon 07-25-2021 SURGICAL ANTRUM - GE JUNCTION [...] [facility] D.O MICROSCOPIC DESCRIPTION: Slide(s) reviewed. [facility] 07/27/2021 GROSS DESCRIPTION: Specimen received in three [...] boswell tissue, 3 mm in diameter. (1,ns) [facility] 07/26/2021 CLINICAL DATA: PROCEDURE: EGD/Colonoscopy - A. Antrum biopsy, B. GE junction biopsy, C. Colon polyp at 35 cm PRE-OP: Heartburn, constipation, colon polyps POST-OP: Same, esophagitis, mild gastritis, diverticulosis HISTORY: N/A Signed *Electronically Signed* [facility] D.O 07/27/21 1306 [facility] Comment on above: Performed By: #### P -S #### ML - [address] [place] [address] CARD.Brittany 05-03-2020 CARD.[facility] Patient Name: CARLOS BACON [address] Date of : [address], [place] [address] Unit Number: [id number] Stress Test (EKG) Patient Status: REG CLI Attending Doctor: Lew Rosales DO Service Date: 05/03/20 1219 Stress Test [...] Time Alonzo Urbina MD Verified/Reviewed by 05/03/20 1222 [facility] Stress Test (EKG) [facility] CARD.[facility] 05-03-2020 CARD.[facility] Patient Name: CARLOS BACON [address] Date of : [address] [place], [place] [address] Unit Number: [id number] Stress Test (Nuclear) Patient Status: REG CLI Attending Doctor: Lew Rosales DO Service Date: 05/03/20 1222 Stress Test [...] Urbina MD Verified/Reviewed by 05/03/20 1224 Normal [facility] Stress Test (Nuclear) Normal [facility] MRI BRAIN W/WO CONTRASTon MRI BRAIN W/WO CONTRAST [facility] [place], [place] [address]Bfsu: CARLOS BACON DPhys: BRODY STEVENS M.D.: 63 Age: 53 Sex: MAcct: [id number] Loc: RAD MRIExam Date: 07/06/18 Status: REG CLIRadiology No.: [id number] Number: [id number] # [id number] MRI / MRI BRAIN W/WO CONTRASTPROCEDURE:MAGNETIC RESONANCE IMAGING OF THE BRAIN:HISTORY: Benign neoplasm of the pituitary gland, prior surgical resection.Followup exam..TECHNIQUE: Multiplanar, multiphasic MRI of the brain without contrast wasperformed.COMPARISON: 08/02/2011 and 07/05/2009 MRI brain and pituitary..FINDINGS:Residua l enhancing tissue in the posterior aspect of [...] mastoids, paranasal sinuses and orbitsare unremarkable in appearance.IMPRESSION:Inter erick increase in the size of the posterior pituitary lesion compared tothe prior study, there is now a small cystic component on the left, this isconsistent with new or recurrence of the pituitary neoplasmProfessional interpretation provided by [facility]--60.Thank you for this referral.< >Reported By: CK BARAHONA M.D.Signed In NovaPro By: CK BARAHONA M.D. << Signature on File>> Reported By: CK BARAHONA M.D. Signed By: CK BARAHONA M.D.Tests performed at:[address] [phone] Normal [facility] 07-03-2018 A:G RATIO 1.81 Normal 1.1-2.5 [facility] Comment on above: Performed By: #### L 100.0005, L100.0040, L304.0140, L304.0155, L304.0295, L304.0162, L304.0480 ####[facility] [id number] [place] [address] Albumin mass conc 4.9 g/dL Normal 3.5-5.2 [facility] Comment on above: Performed By: #### L 100.0005, L100.0040, L304.0140, L304.0155, L304.0295, L304.0162, L304.0480 ####[facility] [id number] [place] [address] ALK. PHOS 61 U/L Normal 40-130 [facility] Comment on above: Performed By: #### L 100.0005, L100.0040, L304.0140, L304.0155, L304.0295, L304.0162, L304.0480 ####[facility] [id number] [place] [address] ALT enzyme act/vol 13 U/L Normal 5-41 [facility] Comment on above: Performed By: #### L 100.0005, L100.0040, L304.0140, L304.0155, L304.0295, L304.0162, L304.0480 ####[facility] [id number] [place] [address] Anion gap 3 molar conc 19.0 mmol/L Normal 15-22 U [facility] Comment on above: Performed By: #### L 100.0005, L100.0040, L304.0140, L304.0155, L304.0295, L304.0162, L304.0480 ####[facility] [id number] [place] [address] AST enzyme act/vol 17 U/L Normal 5-40 [facility] Comment on above: Performed By: #### L 100.0005, L100.0040, L304.0140, L304.0155, L304.0295, L304.0162, L304.0480 ####[facility] [id number] [place] [address] Bilirubin Ql (U) 1.5 mg/dL High 0.2-1.2 [facility] Comment on above: Performed By: #### L 100.0005, L100.0040, L304.0140, L304.0155, L304.0295, L304.0162, L304.0480 ####[facility] [id number] [place] [address] Calcium mass conc 9.8 mg/dL Normal 8.6-10.0 [facility] Comment on above: Performed By: #### L 100.0005, L100.0040, L304.0140, L304.0155, L304.0295, L304.0162, L304.0480 ####[facility] [id number] [place] [address] Chloride molar conc 102 mmol/L Normal 98-107 [facility] Comment on above: Performed By: #### L 100.0005, L100.0040, L304.0140, L304.0155, L304.0295, L304.0162, L304.0480 ####[facility] [id number] [place] [address] Creatinine mass conc 1.00 mg/dL Normal 0.70-1.20 [facility] Comment on above: Performed By: #### L 100.0005, L100.0040, L304.0140, L304.0155, L304.0295, L304.0162, L304.0480 ####[facility] [id number] [place] [address] eGFR if AFR CHASE > 60 ml/min/1.73m2 Normal [facility] Comment on above: Result Comment: eGFR >= 60 Indicates normal kidney function. * eGFR IS AN ESTIMATE * (AFR CHASE = ) (non-AFR AM = NON-) MDRD calculation used in the eGFR should not be used to dose medications. For further limitations of the eGFR please refer to the Physician Website or the National Kidney Disease Education Program website (www.nkdep.nih.gov). Performed By: #### L 100.0005, L100.0040, L304.0140, L304.0155, L304.0295, L304.0162, L304.0480 ####[facility] [id number] [place] [address] eGFR nonAFR Chase > 60 ml/Min/1.73m2 Normal U [facility] Comment on above: Performed By: #### L 100.0005, L100.0040, L304.0140, L304.0155, L304.0295, L304.0162, L304.0480 ####[facility] [id number] [place] [address] Globulin Calculated mass conc (S) 2.7 g/dL Normal 1.5-4.5 [facility] Comment on above: Performed By: #### L 100.0005, L100.0040, L304.0140, L304.0155, L304.0295, L304.0162, L304.0480 ####[facility] [id number] [place] [address] Glucose mass conc 89 mg/dL Normal 74-106 [facility] Comment on above: Performed By: #### L 100.0005, L100.0040, L304.0140, L304.0155, L304.0295, L304.0162, L304.0480 ####[facility] [id number] [place] [address] Potassium molar conc 4.0 mmol/L Normal 3.5-5.0 [facility] Comment on above: Performed By: #### L 100.0005, L100.0040, L304.0140, L304.0155, L304.0295, L304.0162, L304.0480 ####[place] [place] [address] Protein mass conc 7.6 g/dL Normal 6.4-8.3 [facility] Comment on above: Performed By: #### L 100.0005, L100.0040, L304.0140, L304.0155, L304.0295, L304.0162, L304.0480 ####[facility] [id number] [place] [address] Sodium molar conc 141 mmol/L Normal 135-145 [facility] Comment on above: Performed By: #### L 100.0005, L100.0040, L304.0140, L304.0155, L304.0295, L304.0162, L304.0480 ####[address] [address] TCO2 24 mmol/L Normal 22-29 [facility] Comment on above: Performed By: #### L 100.0005, L100.0040, L304.0140, L304.0155, L304.0295, L304.0162, L304.0480 ####[address] [address] Urea nitrogen mass conc 23 mg/dL High 6-20 [facility] Comment on above: Performed By: #### L 100.0005, L100.0040, L304.0140, L304.0155, L304.0295, L304.0162, L304.0480 ####[facility] [id number] [place] [address] CORTISOL (RANDOon 07-03-2018 CORTISOL (RANDO 15.6 ug/dL Normal 2.7-18.4 [facility] Comment on above: Performed By: #### L 100.0005, L100.0040, L304.0140, L304.0155, L304.0295, L304.0162, L304.0480 ####[address] [place] [address] Free T4on 07-03-2018 T4 free mass conc 1.29 ng/dL Normal 0.93-1.7 [facility] Comment on above: Performed By: #### L 100.0005, L100.0040, L304.0140, L304.0155, L304.0295, L304.0162, L304.0480 ####[address] [address] LIPID PANELon 07-03-2018 Cholesterol in HDL mass conc 58 mg/dL Normal [facility] Comment on above: Result Comment: Sylvia onal Cholesterol Education Program (NCEP) guidelines:<40 mg/dL: Low HDL-Cholesterol(major risk factor for CHD)> or = 60 mg/dL: High HDL-Cholesterol(negative risk factor for CHD)HDL-cholesterol is affected by a number of factors,e.g., smoking, exercise, hormones, sex, and age.4th Generation Test; Results may be approximately 7% lowerthan previous values. Performed By: #### L 100.0005, L100.0040, L304.0140, L304.0155, L304.0295, L304.0162, L304.0480 ####[address] [address] Cholesterol in LDL mass conc 96 mg/dL Normal [facility] Comment on above: Result Comment: LDL: OPTIMAL FOR PEOPLE AT VERY HIGH RISK <70 OPTIMAL <100 NEAR OPTIMAL 100-129 BORDERLINE HIGH 130-159 HIGH 160-189 VERY HIGH >=190Source: 2008 NCEP ATP III, ADA GuidelinesReviewed: March, Performed By: #### L 100.0005, L100.0040, L304.0140, L304.0155, L304.0295, L304.0162, L304.0480 ####[facility] [id number] [place] [address] Cholesterol in LDL/Cholesterol in HDL mass ratio 1.7 [facility] Comment on above: Performed By: #### L 100.0005, L100.0040, L304.0140, L304.0155, L304.0295, L304.0162, L304.0480 ####[facility] [id number] [place] [address] Cholesterol in VLDL mass conc 15 mg/dL Normal 6-40 [facility] Comment on above: Performed By: #### L 100.0005, L100.0040, L304.0140, L304.0155, L304.0295, L304.0162, L304.0480 ####[facility] [id number] [place] [address] Cholesterol mass conc 169 mg/dL Normal 130-200 [facility] Comment on above: Performed By: #### L 100.0005, L100.0040, L304.0140, L304.0155, L304.0295, L304.0162, L304.0480 ####[facility] [id number] [place] [address] Triglyceride mass conc 76 mg/dL Normal Un [facility] Comment on above: Result Comment: TRIG : DESIRABLE: <150 mg/dL Performed By: #### L 100.0005, L100.0040, L304.0140, L304.0155, L304.0295, L304.0162, L304.0480 ####[facility] [id number] [place] [address] TESTOSTERONE TOon 07-03-2018 TESTOSTERONE TO 339.0 ng/dL Normal 193-740 [facility] Comment on above: Performed By: #### L 100.0005, L100.0040, L304.0140, L304.0155, L304.0295, L304.0162, L304.0480 ####[facility] [id number] [place] [address] TSHon 07-03-2018 Thyrotropin Qn 1.81 uIU/mL Normal 0.45-4.50 [facility] Comment on above: Performed By: #### L 100.0005, L100.0040, L304.0140, L304.0155, L304.0295, L304.0162, L304.0480 ####[facility] [id number] [place] [address] CORTISOL (AM) [QUEST]on 05-31 CORTISOL (AM) [QUEST] Normal [facility] Comment on above: Result Comment: _COR TISOL (AM)_CORTISOL, A.M.Reported: 06/17/2017 16:37 Status=F TEST RESULT FLAG RANGE UNITS CORTISOL, A.M. 6.6 4.0-22.0 mcg/dL 06/17/17.1649.rfl.COMPLETE.AMRR .9813-7Test Performed by Jackson Cooley,[facility],[address] [place] [address]20[address]Dqwqrknmichi Robison M.D., Ph.D., Director of [phone], [facility] [id number] Performed By: #### 2 25309 ####[facility],[address] [place] [address] DHEA-SULFATE [QUEST]on 06-16 DHEA-SULFATE [QUEST] Normal [facility] Comment on above: Result Comment: _DHE M-TAEFLRN_CEHE-MGGJSKJAuviyfju: 06/16/2017 11:24 Status=F TEST RESULT FLAG RANGE UNITS DHEA-SULFATE 45 38-313 mcg/dL 06/16/17.1135.[facility].COMPLETE.AMRR .0505-9YNZX-Y values fall with advancing age. For reference,the reference intervals for 31-40 year old patientsare: Female 23-266 mcg/dL and Male 106-464 mcg/dL.Test Performed by Cr[facility],[address] [place] [address] 50881Mjcjfkamichi Robison M.D., Ph.D., Director of [phone], [place] [id number] Performed By: #### 2 87336 ####[facility],[address] [place], [place] [id number] TESTOSTERONE, TOTALon 2016 Testosterone Normal [facility] Comment on above: Result Comment: _TES TOSTERONE, TOTAL_TESTOSTERONE,TOT,MALEADULTReported: 06/16/2017 09:18 Status=F TEST RESULT FLAG RANGE UNITS TESTOSTERONE,LAURA SOARES 256 250-827 ng/dL 06/16/17.0929.rfl.COMPLETE.AMRR .2986-8TMen with clinically significant hypogonadal symptomsand testosterone values repeatedly less than approxi-mately 300 ng/dL may benefit from testosteronetreatment after adequate risk and benefits counseling.Test Performed by [facility] [place],[facility],[address] [place] [address] 66327Hwwrjtmmichi Robison M.D., Ph.D., Director of [phone], [facility] [id number] Performed By: #### 2 68475 ####[facility],[address] [place] [address] CMP with eGFRon 06-14-2017 Age 52 years Normal [facility] Comment on above: Performed By: #### 2 34664 ####[address] [address] Albumin 4.5 g/dL Normal 3.4 - 4.[address] [facility] Comment on above: Performed By: #### 2 64167 ####[facility],[address] [place] [address] Albumin/Globulin Ratio 1.7 {ratio} High 0.9 - 1.6 [facility] Comment on above: Performed By: #### 2 56014 ####[facility],[address] [place] [address] ALK PHOS 49 U/L Normal 38 - [address] [facility] Comment on above: Performed By: #### 2 90519 ####[address] [address] ALT/SGPT 21 U/L Normal 10 - [address] [facility] Comment on above: Performed By: #### 2 53870 ####[facility],[address] [place] [address] Anion gap 11 mmol/L Normal 10 - [address] [facility] Comment on above: Performed By: #### 2 64943 ####[facility],[address] [place] [address] AST/SGOT 19 U/L Normal 13 - [address] [facility] Comment on above: Performed By: #### 2 67119 ####[facility],[address] [place] [address] B/C RATIO 23 ratio Normal 0 - [address] [facility] Comment on above: Performed By: #### 2 87367 ####[facility],[address] [place] [address] Bilirubin (total) 1.5 mg/dL Normal 0.0 - 1.[address] [facility] Comment on above: Performed By: #### 2 54116 ####[facility],[address] [place] [address] Calcium 9.3 mg/dL Normal 8.6 - 10.[address] [facility] Comment on above: Performed By: #### 2 32397 ####[facility],[address] [place] [address] Chloride 106 mmol/L Normal 98 - [address] [facility] Comment on above: Performed By: #### 2 80076 ####[facility],[address] [place] [address] CO2 24.5 mmol/L Normal 21.0 - 31.[address] [facility] Comment on above: Performed By: #### 2 22696 ####[facility],[address] [place] [address] Creatinine 1.0 mg/dL Normal 0.7 - 1.[address] [facility] Comment on above: Performed By: #### 2 57928 ####[facility],[address] [place] [address] eGFR (non-black) Normal [facility] Comment on above: Result Comment: COMP REHENSIVE METABOLIC PANEL Performed By: #### 2 24252 ####[facility],[address] [place] [address] eGFR (non-black) mL/min/{1.73_m2} Normal 60 - 999 [facility] Comment on above: Performed By: #### 2 60986 ####[facility],[address] [place], [place] [address] Result Comment: ACCO RDING TO THE NATIONAL KIDNEY DISEASE EDUCATION PROGRAM(NKDE), A NORMAL eGFRIS A VALUE GREATER THAN OR EQUAL TO 60 ML/MIN/1.73 SQ METERS.CHRONIC KIDNEY DISEASE: <60mL/MIN/1.73 SQ METERSKIDNEY FAILURE: <15mL/MIN/1.73 SQ METERSTHIS TEST SHOULD ONLY BE USED FOR PATIENTS 18 YEARS OF AGE AND OLDER. Globulin 2.7 g/dL Normal 1.5 - 3.[address] [facility] Comment on above: Performed By: #### 2 62836 ####[facility],[address] [place], [place] [address] Glucose mass conc 92 mg/dL Normal 74 - [address] [facility] Comment on above: Performed By: #### 2 41394 ####[facility],[address] [place] [address] Potassium molar conc 3.8 mmol/L Normal 3.5 - 5.[address] [facility] Comment on above: Performed By: #### 2 96542 ####[facility],[address] [place] [address] Protein 7.2 g/dL Normal 6.4 - 8.[address] [facility] Comment on above: Performed By: #### 2 09442 ####[facility],[address] [place] [address] Sodium 138 mmol/L Normal 136 - [address] [facility] Comment on above: Performed By: #### 2 88050 ####[facility],[address] [place] [address] Urea nitrogen 23 mg/dL High 6 - [address] [facility] Comment on above: Performed By: #### 2 81342 ####[facility],[address] [place] [address] PSA CANCER SCREENING (G0103) on 06-14-2017 PSA 0.91 ng/ml Normal 0.00 - 4.[address] [facility] Comment on above: Performed By: #### 2 25241 ####[facility],[address] [place] [address] T4-FREE (FREE THYROXINE)on 0 06-14-2017 Thyroxine (T4) free 0.80 ng/dL Normal 0.61 - 1.[address] [facility] Comment on above: Result Comment: *SPE CIMENS FROM PATIENTS WHO ARE UNDERGOING BIOTIN THERAPY AND/OR INGESTINGBIOTIN SUPPLEMENTS MAY HAVE FALSE HIGH RESULTS. Performed By: #### 2 53043 ####[facility],[address] [place], [place] [address] TSHon 06-14-2017 Thyroid stimulating hormone (TSH) 0.87 uIU/ml Normal 0.34 - 5.[address] [facility] Comment on above: Performed By: #### 2 30166 ####[facility],[address] [place] [address] SURGICAL PATHOLOGY, CONVERTE Don 01-08-2012 [facility] SURGICAL PATHOLOGY, CONVERTE Don 06-06-2009 [facility] SURGICAL PATHOLOGY, CONVERTE Don 10-29-2006 [facility] Vital Signs Date Time Vital Sign Value Performing Clinician Riaz jovel 05-18-2025 09:27-0400 Diastolic blood pressure 88 mm[Hg] [employer] Work Phone: [facility] 05-18-2025 09:27-0400 Systolic blood pressure 138 mm[Hg] LewTrainfox Work Phone: [facility] 05-18-2025 09:22-0400 Body height 185.4 cm [employer] Work Phone: [facility] 05-18-2025 09:22-0400 Body mass index (BMI) [Ratio] 30.92 kg/m2 LewTrainfox Work Phone: [facility] 05-18-2025 09:22-0400 Body weight 106.3 kg Lew Bobby DO Work Phone: [facility] 05-18-2025 09:22-0400 Heart rate 74 /min Lew Rosales DO Work Phone: [facility] 10-26-2024 14:18-0500 Body temperature 97 [degF] Dr. Ck Kc DO Work Phone: [facility] 10-26-2024 14:18-0500 Diastolic blood pressure 81 mm[Hg] Dr. Ck Kc DO Work Phone: [facility] 10-26-2024 14:18-0500 Heart rate 74 /min Dr. Ck Kc DO Work Phone: [facility] 10-26-2024 14:18-0500 Respiratory rate 14 /min Dr. Ck Kc DO Work Phone: [facility] 10-26-2024 14:18-0500 SaO2% (BldA) [Mass fraction] 97 % Dr. Ck Kc DO Work Phone: [facility] 10-26-2024 14:18-0500 Systolic blood pressure 107 mm[Hg] Dr. Ck Kc DO Work Phone: [facility] 10-26-2024 12:25-0500 Body height 185.[address] Ck Kc DO Work Phone: [facility] 10-26-2024 12:25-0500 Body mass index (BMI) [Ratio] 29.9 kg/m2 Dr. Ck Kc DO Work Phone: [facility] 10-26-2024 12:25-0500 Body weight 102.[address] Ck Kc DO Work Phone: [facility] 05-10-2024 07:50-0400 Body height 185.4 cm Shanti Haddad APRN.[employer]URANT [employer] MANAGER Work Phone: [facility] 05-10-2024 07:50-0400 Body mass index (BMI) [Ratio] 30.74 kg/m2 Shanti Lizoll ARCHITECTURAL WOOD MODEL MAKER.RE[employer]URANT GENERAL MANAGER Work Phone: [facility] 05-10-2024 07:50-0400 Body weight 105.7 kg Shanti Haddad ARCHITECTURAL WOOD MODEL MAKER.[employer]URANT [employer]AL MANAGER Work Phone: [facility] 05-10-2024 07:50-0400 Diastolic blood pressure 88 mm[Hg] Shanti Lizoll ARCHITECTURAL WOOD MODEL MAKER.RESTAURANT GENERAL MANAGER Work Phone: [facility] 05-10-2024 07:50-0400 Heart rate 72 /min Shanti Lizoll ARCHITECTURAL WOOD MODEL MAKER.RE[employer]URANT GENERAL MANAGER Work Phone: [facility] 05-10-2024 07:50-0400 Systolic blood pressure 130 mm[Hg] Shanti Haddad ARCHITECTURAL WOOD MODEL MAKER.RE[employer]URANT GENERAL MANAGER Work Phone: [facility] 05-01-2022 13:17-0400 Body height 185.4 cm Lew [employer] Work Phone: [facility] 05-01-2022 13:17-0400 Body weight 102.06 kg Lew [employer] Work Phone: [facility] 05-01-2022 13:17-0400 Diastolic blood pressure 84 mm[Hg] Lew [employer] Work Phone: [facility] 05-01-2022 13:17-0400 Heart rate 73 /min Lew [employer] Work Phone: [facility] 05-01-2022 13:17-0400 Systolic blood pressure 132 mm[Hg] Lew [employer] Work Phone: [facility] Encounters Encounter Date Encounter Type Care Provider Facility Start: 05-18-2025 End: 05-18-2025 Patient encounter procedure Lew Rosales DO Work Phone: [facility] Comment on above: Essential hypertensi on, benign (Primary Dx); Mixed hyperlipidemia; History of cardiac cath; History of stress test; Non-smoker Start: 05-18-2025 End: 05-18-2025 ambulatory LEW ROSALES Facility:[id number] Start: 04-16-2025 Encounter for genera l adult medical examination without abnormal findings Ck Kc [facility] Start: 04-13-2025 End: 04-13-[address] Ck Kc DO Work Phone: [facility] Work Phone: Start: 04-13-2025 End: 04-13-[address] Ck Kc DO -Laboratory Work Phone: Start: 04-13-2025 End: 04-13-2025 ambulatory Ck Kc Facility:[facility] Start: 02-23-2025 End: 02-23-2025 Patient encounter procedure Boyd Gama DO -[facility] Work Phone: Start: 02-23-2025 End: 02-23-2025 ambulatory Boyd Gama Facility:[facility] Start: 02-09-2025 End: 02-09-[address] Ck Kc DO Work Phone: [facility] Work Phone: Start: 02-09-2025 End: 02-09-2025 Patient encounter procedure Boyd Gama DO -Laboratory Work Phone: Start: 02-09-2025 End: 02-09-2025 ambulatory Boyd Gama Facility:[facility] Start: 11-26-2024 End: 11-26-2024 Patient encounter procedure Boyd Gama DO -[facility] Work Phone: Start: 11-26-2024 End: 11-26-2024 ambulatory Boyd Gama Facility:[facility] Start: 10-26-2024 Non-patient / Non-visit Boyd Puente nd, DO -[facility] Start: 10-26-2024 End: 10-26-2024 Admission to same day surgery center Boyd Gama DO -Endoscopy Work Phone: Start: 10-26-2024 End: 10-26-2024 ambulatory Ck Kc Facility:[facility] Start: 09-25-2024 End: 09-25-2024 ambulatory Boyd Story Facility:[facility] Start: 09-23-2024 End: 09-23-2024 ambulatory [facility] Facility:[facility] Start: 09-17-2024 End: 09-17-2024 ambulatory Boyd Story Facility:[facility] Start: 07-05-2024 Telephone encounter Kathryn Vamshi breanna CARCAMO.RE[employer]URANT GENERAL MANAGER Work Phone: [facility] Comment on above: Patient Question Start: 06-04-2024 End: 06-04-2024 ambulatory [facility] Facility:[facility] Start: 06-02-2024 End: 06-02-2024 ambulatory Kathryn Davila APRN.CNP Work Phone: [facility] Comment on above: Pituitary tumor (Marleni morgan Dx) Start: 06-02-2024 End: 06-02-2024 Telemedicine consultation with patient Kathryn Marreroharley BRAVORESTAURANT GENERAL MANAGER Work Phone: [facility] Start: 05-31-2024 End: 05-31-2024 ambulatory [facility] Facility:[facility] Start: 05-31-2024 End: 05-31-2024 Subsequent hospital visit by physician [facility] (I-Stat/1.5t) Work Phone: Radiology Comment on above: Pituitary adenoma (H CC) [D35.2] Start: 05-10-2024 End: 05-10-2024 Patient encounter procedure Shanti Haddad APRN.RESTAURANT GENERAL MANAGER Work Phone: [facility] Comment on above: Essential hypertensi on, benign (Primary Dx); Mixed hyperlipidemia; History of cardiac cath; History of stress test; Never smoked cigarettes Start: 04-20-2024 End: 04-20-2024 ambulatory [facility] Facility:[facility] Start: 10-10-2023 End: 10-10-2023 ambulatory [facility] Work Phone: Start: 10-10-2023 End: 10-10-2023 Patient encounter procedure [facility] Work Phone: Start: 06-19-2023 End: 06-19-2023 ambulatory [facility] Work Phone: Start: 06-19-2023 End: 06-19-2023 [facility] Start: 06-11-2023 End: 06-11-2023 ambulatory [facility] Work Phone: Start: 06-11-2023 End: 06-11-2023 [facility] Start: 04-09-2023 End: 04-09-2023 ambulatory [facility] Work Phone: Start: 04-09-2023 End: 04-09-2023 [facility] Start: 10-23-2022 End: 10-28-[address] CK KC DO Facility:[facility] Start: 07-03-2022 End: 07-03-2022 ambulatory [facility] Work Phone: Start: 07-03-2022 End: 07-03-2022 [facility] Start: 05-31-2022 End: 05-31-2022 ambulatory Madie Marshall MD Work Phone: [facility] Comment on above: Pituitary adenoma (H CC) (Primary Dx) Start: 05-31-2022 End: 05-31-2022 Telemedicine consultation with patient Madie Marshall MD Work Phone: [facility] Start: 05-22-2022 End: 05-22-2022 Subsequent hospital visit by physician [facility] (I-Stat/1.5t) Work Phone: Radiology Comment on above: Pituitary adenoma (H CC) [D35.2] Start: 05-07-2022 Telephone encounter Madie ivey MD Work Phone: [facility] Comment on above: Patient Question Start: 05-01-2022 End: 05-01-2022 Orders Only Lew Rosales DO Work Phone: [facility] Comment on above: Essential hypertensi on, benign (Primary Dx) Essential hypertensi on, benign (Primary Dx); Mixed hyperlipidemia; History of stress test; History of cardiac cath; Non-smoker Start: 04-11-2022 End: 04-11-2022 Patient encounter procedure [facility] Start: 07-06-2018 Patient encounter procedure BRODY STEVENS Facility:[facility] Start: 07-03-2018 Patient encounter procedure BRODY STEVENS Facility:[facility] Start: 10-09-2017 End: 10-31-2017 Ambulatory FRANCISCO DOMINIQUE [facility] Start: 06-14-2017 End: 06-14-2017 Ambulatory [facility] Start: 01-08-2012 Documentation procedure Stephen Carter MD Work Phone: [facility] Start: 01-08-2012 Historic EMR Stephen houston MD Work Phone: [facility] Start: 06-07-2009 Documentation procedure Mc Evans Work Phone: [facility] Start: 06-07-2009 Historic EMR Mc yeager Work Phone: [facility] Start: 10-30-2006 Documentation procedure Stephen Carter MD Work Phone: [facility] Start: 10-30-2006 Historic EMR Stephen houston MD Work Phone: [facility] Procedures Date Procedure Procedure Detail Performing Clinician Start: 05-18-2025 Ecg routine ecg w/le ast 12 lds i&r only Lew Rosales DO Work Phone: Start: 04-13-2025 Prostate specific an tigen measurement Dr. Ck Kc DO Work Phone: Comment on above: This test was perfor med using the [facility] tPSA method. Measured values of a patient sample can vary depending on the testing procedure used. PSA values determined on patient samples by different testing procedures cannot be used interchangeably. If there is a change in PSA assays while monitoring therapy, sequential testing should be performed to confirm baseline values. Start: 02-09-[address] Endomys[address] antibody IgA level Dr. Ck Kc DO Work Phone: Start: 02-09-2025 Gliadin antibody, Ig A measurement Dr. Ck Kc DO Work Phone: Comment on above: Negative 0 - 19 Weak Positive 20 - 30 Moderate to Strong Positive >30 Start: 02-09-2025 Gliadin antibody, Ig G measurement Dr. Ck Kc DO Work Phone: Comment on above: Negative 0 - 19 Weak Positive 20 - 30 Moderate to Strong Positive >30 Start: 02-09-2025 Measurement of fungal antibody Dr. Ck Kc DO Work Phone: Comment on above: Negative: <45 Equivo oksana: 45-50 Positive: >50 Start: 02-09-2025 Measurement of immun oglobulin A in serum specimen Dr. Ck Kc DO Work Phone: Start: 05-31-2024 Mri brain brain stem w/o w/contrast material Madie Marshall MD Work Phone: Start: 05-10-2024 Ecg routine ecg w/le ast 12 lds i&r only Shanti Haddad ARCHITECTURAL WOOD MODEL MAKER.[employer] MANAGER Work Phone: Start: 05-22-2022 Mri brain brain stem w/o w/contrast material Madie Marshall MD Work Phone: Start: 07-25-2021 Colonoscopy Lew lainez DO Work Phone: Start: 07-03-2018 PSA screening [...] L304.0155, L304.0295, L304.0162, L304.0480 ####ML - [facility] [id number] [place] [address] Start: 07-03-2018 Lipid 1996 panel - S sofia or Plasma Stephen Carter MD Work Phone: Start: 01-08-2012 SURGICAL PATHOLOGY, CONVERTED Stephen Carter MD Work Phone: Start: 06-06-2009 SURGICAL PATHOLOGY, CONVERTED Mc Cali Evans Work Phone: Start: 10-29-2006 SURGICAL PATHOLOGY, CONVERTED Stephen Carter MD Work Phone: Plan of Treatment Date Care Activity Detail Author Start: 02-06-2039 RSV Vaccine (1 - 1-d ose 75+ series) RSV Vaccine (1 - 1-dose 75+ series) [facility] Start: 05-18-2026 End: 05-18-2026 Patient encounter procedure 05/18/2026 8:40 AM EDT Office Visit [facility] [address] [place] [address] [place] [address] Shanti Haddad APRN.[facility] [address] [place] [address] 1 year f/u HTN [facility] Comment on above: 1 year f/u HTN Start: 05-10-2025 End: 05-10-2025 Patient encounter procedure [facility] Comment on above: 1 year follow up, hx of HTN. Start: 04-23-2025 Urine microalbumin profile DTaP,Tdap,Td Vaccine (1 - Tdap) [facility] Start: 10-26-2024 Colonoscopy w/biopsy single/multiple COLONOSCOPY AND BIOPSY [facility] Start: 10-26-2024 Egd transoral biopsy single/multiple EGD BIOPSY SINGLE/MULTIPLE [facility] Start: 10-26-2024 [facility] Start: 08-01-2024 Influenza vaccination Influenza Vacc ine (#1) [facility] Start: 06-02-2024 End: 06-02-2024 Follow-up encounter 06/02/2024 8:45 AM EDT [facility] [address] [place] [address] Kathryn Davila APRN.RESTAURANT GENERAL MANAGER [address] [place] [address] 2 year follow up/Pituitary adenoma (HCC) [D35.2] [facility] Comment on above: 2 year follow up/Pit uitary adenoma (HCC) [D35.2] Start: 05-31-2024 End: 05-31-2024 Patient encounter procedure 05/31/2024 8:40 AM EDT Appointment Radiology [address] [place], [place] [address] Pituitary adenoma (HCC) [D35.2] Radiology Comment on above: Pituitary adenoma (H CC) [D35.2] Start: 2024 RSV Vaccine (1 - 1-d ose 60+ series) RSV Vaccine (1 - 1-dose 60+ series) [facility] Start: 08-31-2023 DIABETES SCREEN DIABETES SCREEN [facility] Start: 08-31-2023 Diabetes Screening Diabetes Screenin g [facility] Start: 08-01-2023 Influenza vaccination Influenza Vacc ine (#1) [facility] Start: 07-03-2023 Lipid 1996 panel - S sofia or Plasma Lipid Screening [facility] Start: 07-03-2023 Lipid panel Lipid Screening [facility] Start: 07-03-2023 LIPID SCREEN LIPID SCREEN [facility] Start: 07-03-2023 PROSTATE CANCER SCREENING DISCUSSION PROSTATE CANCER SCREENING DISCUSSION [facility] Start: 07-03-2023 Prostate specific antigen measurement Prostate Cancer Screening Discussion [facility] Start: 06-11-2023 [place] Start: 09-01-2022 COVID-19 VACCINE (4 - Booster for Moderna series) COVID-19 VACCINE (4 - Booster for Moderna series) [facility] Start: 08-01-2022 Influenza vaccination INFLUENZA (#1) [facility] Start: 07-25-2022 Colonoscopy COLONOSCOPY [facility] Start: 07-25-2022 COLORECTAL CANCER SCREENING COLORECTAL CANCER SCREENING [facility] Start: 07-25-2022 Screening for malign ant neoplasm of colon [facility] Start: 03-19-2022 COVID-19 VACCINE (3 - Booster for Moderna series) COVID-19 VACCINE (3 - Booster for Moderna series) [facility] Start: 02-06-2014 SHINGRIX VACCINE (1 of 2) SHINGRIX VACCINE (1 of 2) [facility] Start: 02-06-2009 COLOGUARD (FIT-DNA) COLOGUARD (FIT-D NA) [facility] Start: 02-06-[address] COLONOGRAPHY [facility] Start: 02-06-2009 FECAL OCCULT BLOOD FECAL OCCULT BLOO D [facility] Start: 02-06-2009 Screening for malign ant neoplasm of colon [facility] Start: 02-06-2009 SIGMOIDOSCOPY SIGMOIDOSCOPY [facility] Start: 02-06-1983 Urine microalbumin profile [facility] Start: 02-06-1982 ANNUAL PCP TEAM CLINICAL SOCIAL WORK AIDE FARRUKH DISEASE VISIT ANNUAL PCP TEAM CHRONIC DISEASE VISIT [facility] Start: 02-06-1982 Anxiety Screening Anxiety Screening [facility] Start: 02-06-1982 BP CONTROLLED (<130/80) BP CONTROLLE D (<130/80) [facility] Start: 02-06-1982 HEPATITIS C SCREENING HEPATITIS C [facility] Start: 02-06-1982 Hepatitis C screening Hepatitis C [facility] Start: 02-06-1982 HIV SCREENING HIV SCREENING [facility] Start: 02-06-1982 HIV screening HIV Screening [facility] ECG B/O W INTERP (ME D OFFICE) ECG B/O W INTERP (MED OFFICE) ECG Routine Essential hypertension, benign Ordered: 05/01/2022 [facility] Work Phone: Comment on above: Ordered: 05/01/2022 ECG COMPLETE ECG COMPLETE ECG Routine Essential hypertension, benign 05/01/2022 1:13 PM EDT [facility] Work Phone: End: 05-01-2023 ECG COMPLETE ECG COMPLETE ECG Routine Essential hypertension, benign 1 Occurrences starting 05/01/2022 until 05/01/2023 [facility] Work Phone: Comment on above: 1 Occurrences starti ng 05/01/2022 until 05/01/2023 ECG COMPLETE ECG COMPLETE ECG Routine Essential hypertension, benign 05/10/2024 7:53 AM EDT [facility] Work Phone: ECG COMPLETE ECG COMPLETE ECG Routine Essential hypertension, benign 05/18/2025 9:29 AM EDT [facility] Work Phone: Patient referral [facility] Work Phone: Testosterone Free [Mass/volume] in Serum or Plasma [facility] Testosterone measurement [facility] Immunizations Immunization Date Immunization Notes Care Provider Fa isreal 08-28-2023 influenza virus vacc ine, unspecified formulation Mri (I-Stat/1.5t) Work Phone: [facility] 08-30-2022 influenza virus vacc ine, unspecified formulation Stephen Caretr MD Work Phone: [facility] 08-31-2020 influenza, injectabl e, quadrivalent, preservative free Lew Gross DO Work Phone: [facility] 10-01-2019 influenza virus vacc ine, unspecified formulation Lew Gross DO Work Phone: [facility] 10-05-2018 influenza virus vacc ine, unspecified formulation Lew Gross DO Work Phone: [facility] 08-28-2015 influenza virus vacc ine, unspecified formulation Lew Gross DO Work Phone: [facility] Payers Date Payer Category Payer Self-pay [id number] 2023 Private Health Insurance [id number] 2023 Unknown [id number] 2022 Unknown [id number] 2021 Unknown ANTHEM BLUE CARD PPO OOS [id number] 2021-Present [phone] [address] [place] [address] PPO [id number] 2016 Unknown [id number] 2001 Unknown MMO [id number] SU[employer] MED PLUS [id number] 2001-2019 [address] [place] [address] PPO [id number] 1964 Unknown [id number] 27 1964 Unknown [id number] 27 Unknown [id number] 83 Unknown [id number] 83 Unknown [id number] 62 Unknown [id number] 62 Unknown [id number] 62 Unknown [id number] [id number] 62 Unknown [id number] [id number] 62 Unknown [id number] [id number] 62 Unknown [id number] [id number] 62 Unknown [id number] [id number] 62 Unknown [id number] [id number] 62 Unknown [id number] 62 Unknown [id number] 62 Social History Date Type Detail Facility Start: 07-01-2021 End: 07-01-2021 Tobacco smoking status NHIS Unknown if ever smoked [facility] Start: 10-17-2020 Rare [facility] Start: 10-17-2020 None [facility] Start: 10-17-2020 Spouse/ Significant Other [facility] Start: 1965 Sex Assigned At Male [facility] Start: 08-18-2019 End: 05-07-2023 Tobacco smoking status NHIS Never smoked tobacco [facility] Work Phone: Start: 08-18-2019 End: 05-07-2023 Tobacco use and exposure Smokeless tobacco non-user [facility] Work Phone: Start: 05-01-2022 End: 05-18-2025 Alcohol intake Current drinker of alcohol (finding) [facility] Start: 05-01-2022 End: 05-07-2023 Alcohol intake [facility] Start: 09-11-2020 History SDOH Alcohol Frequency 2 [facility] Start: 09-11-2020 History SDOH Alcohol Std Drinks 1 [facility] Start: 04-21-2022 End: 05-22-2022 Exposure to SARS-CoV-2 (event) Not sure [facility] Start: 09-11-2020 End: 05-07-2023 Alcohol Use Disorder Identification Test - Consumption [AUDIT-C] [facility] How often to you hav e a drink containing alcohol? Monthly or less [facility] How many standard dr inks containing alcohol do you have on a typical day? 1 or 2 [facility] How often do you hav e 6 or more drinks on 1 occasion? Never [facility] National Score (1-10 0), lower number is lower risk 35 [facility] Start: 08-13-2019 Gender identity Identifies as male gender (finding) [facility] Start: 08-13-2019 Sexual orientation Heterosexual (finding) [facility] Start: 05-07-2023 Alcohol Comment OCCATIONALLY [facility] Start: 02-18-2025 Sex Male (finding) [facility] Start: 05-18-2025 Alcohol Comment Occasional [facility] Goals Date Patient Goal Desired Activity /State Personal health goal Functional Status Date Assessment Result Facility 08-31-2020 Are you deaf, or do you have serious difficulty hearing No 08/31/2020 2:43 PM EDT Juni Isaac, KEY No [facility] 08-31-2020 Are you blind, or do you have serious difficulty seeing, even when wearing glasses No 08/31/2020 2:43 PM EDT Juni Isaac RN No [facility] 08-31-2020 Do you have serious difficulty walking or climbing stairs No 08/31/2020 2:43 PM EDT Juni Isaac, KEY No [facility] 08-31-2020 Do you have difficul ty dressing or bathing No 08/31/2020 2:43 PM EDT Juni Isaac, KEY No [facility] 08-31-2020 Because of a physica l, mental, or emotional condition, do you have difficulty doing errands alone such as visiting a physician's office or shopping No 08/31/2020 2:43 PM EDT Juni Isaac RN No [facility] Mental Status Date Assessment Result Facility 10-26-2024 Cognitive function Level Of Cons ciousness Sedated [facility] Work Phone: 10-26-2024 Cognitive function Voice/Name [facility] Work Phone: 08-31-2020 Because of a physica l, mental, or emotional condition, do you have serious difficulty concentrating, remembering, or making decisions No 08/31/2020 2:43 PM EDT Juni Isaac, KEY No [facility] Clinical Notes 08-19-2019 to 05-18-2025 Lew Rosales DO - 05/18/2025 9:17 AM EDT Note Date & Type Note Facility 05-18-2025 Note HNO ID: [id number] Author: LEW ROSALES DO Service: ? Author Type: Physician Type: Progress Notes Filed: 05/19/2025 05:32 Note Text: Referring Provider: No ref. provider found Date: May 18, 2025 Chief Complaint: Established Patient (1 year follow-up HTN) HISTORY OF PRESENT ILLNESS: Carlos Bacon is a 60 year old male who presents for Established Patient (1 year follow-up HTN). ALLERGIES Allergen Reactions Atorvastatin Myalgia PAST [...] Migraines Father Coronary Artery Disease Father other (HI in 50's) Father SOCIAL HISTORY: Tobacco Use: Never Alcohol Use: Approximately .78 oz/week [which includes 1 Mixed Drinks per week] (Occasional) Drug Use: Never Employer And Job Title: None on file Years Of Education Completed: Not specified Marital Status: MEDICATIONS: Current Outpatient Medications Medication Sig pantoprazole DR (PROTONIX) 40 mg tablet Take 40 mg by mouth once daily. ALPRAZolam (XANAX) 0.5 mg tablet Take 0.5 mg by mouth twice daily as needed. DULoxetine (CYMBALTA) 30 mg capsule Take 30 mg by mouth once daily. MULTIVITAMIN ORAL Take by mouth once daily. calcium polycarbophil (FIBERCON ORAL) Take by mouth once daily. pravastatin (PRAVACHOL) 80 mg tablet Take 1 tablet by mouth every evening. amLODIPine-benazepril (LOTREL) 10-20 mg per capsule Take 1 capsule by mouth every evening. traZODone (DESYREL) 50 mg tablet Take 75 mg by mouth daily at bedtime. BABY ASPIRIN ORAL Take 81 mg by mouth once daily. Cholecalciferol, Vitamin D3, 50 mcg (2,000 unit) cap Take 2,000 Units by mouth once daily. Flaxseed Oil 1,000 mg cap Take 1,000 mg by mouth once daily. famotidine (PEPCID) 20 mg tablet Take 20 mg by mouth as needed. (Patient not taking: Reported on 05/18/2025) No current facility-administered medications for this visit. I have personally reviewed the patients past medical history including social, family, surgical, diagnostics, and medications. REVIEW OF SYSTEMS: Review of Systems Constitutional: Negative for chills and fatigue. Respiratory: Negative for chest tightness and shortness of breath. Cardiovascular: Negative for chest pain, palpitations and leg swelling. Neurological: Positive for dizziness. Negative for syncope, weakness and light-headedness. Hematological: Does not bruise/bleed easily. Psychiatric/Behavioral: Negative for confusion and hallucinations. Vitals: BP 138/88 (BP Site: Left Arm, BP Position: Sitting) Pulse 74 Ht 185.4 cm (6' 1) Wt 106.3 kg (234 lb 5.6 oz) BMI 30.92 kg/m? PHYSICAL EXAMINATION: BP 138/88 (BP Site: Left Arm, BP Position: Sitting) Pulse 74 Ht 185.4 cm (6' 1) Wt 106.3 kg (234 lb 5.6 oz) BMI 30.92 kg/m? Last 3 Encounter BP Readings: Date: BP: 05/10/2024 130/88 05/07/2023 142/84 05/01/2022 132/84 Last 3 Encounter Pulse Readings: Date: Pulse: 05/10/2024 72 05/07/2023 62 05/01/2022 73 Last 3 Encounter Wt Readings: Date: Wt: 05/10/2024 105.7 kg (233 lb 0.4 oz) 05/07/2023 103.9 kg (229 lb 1.3 oz) 05/01/2022 102.1 kg (225 lb) Physical Exam Vitals [...] soft. Tenderness: There is no abdominal tenderness. Musculoskelet (more content not included)... [facility] 05-18-2025 History of Presen t illness Narrative Images from the original note were not included. Referring Provider: No ref. provider found Date: May 18, 2025 Chief Complaint: Established Patient (1 year follow-up HTN) HISTORY OF PRESENT ILLNESS: Carlos Bacon is a 60 year old male who presents for Established Patient (1 year follow-up HTN). ALLERGIES Allergen Reactions Atorvastatin Myalgia PAST [...] Migraines Father Coronary Artery Disease Father other (HI in 50's) Father SOCIAL HISTORY: Tobacco Use: Never Alcohol Use: Approximately .78 oz/week [which includes 1 Mixed Drinks per week] (Occasional) Drug Use: Never Employer And Job Title: None on file Years Of Education Completed: Not specified Marital Status: MEDICATIONS: Current Outpatient Medications Medication Sig pantoprazole DR (PROTONIX) 40 mg tablet Take 40 mg by mouth once daily. ALPRAZolam (XANAX) 0.5 mg tablet Take 0.5 mg by mouth twice daily as needed. DULoxetine (CYMBALTA) 30 mg capsule Take 30 mg by mouth once daily. MULTIVITAMIN ORAL Take by mouth once daily. calcium polycarbophil (FIBERCON ORAL) Take by mouth once daily. pravastatin (PRAVACHOL) 80 mg tablet Take 1 tablet by mouth every evening. amLODIPine-benazepril (LOTREL) 10-20 mg per capsule Take 1 capsule by mouth every evening. traZODone (DESYREL) 50 mg tablet Take 75 mg by mouth daily at bedtime. BABY ASPIRIN ORAL Take 81 mg by mouth once daily. Cholecalciferol, Vitamin D3, 50 mcg (2,000 unit) cap Take 2,000 Units by mouth once daily. Flaxseed Oil 1,000 mg cap Take 1,000 mg by mouth once daily. famotidine (PEPCID) 20 mg tablet Take 20 mg by mouth as needed. (Patient not taking: Reported on 05/18/2025) No current facility-administered medications for this visit. I have personally reviewed the patients past medical history including social, family, surgical, diagnostics, and medications. REVIEW OF SYSTEMS: Review of Systems Constitutional: Negative for chills and fatigue. Respiratory: Negative for chest tightness and shortness of breath. Cardiovascular: Negative for chest pain, palpitations and leg swelling. Neurological: Positive for dizziness. Negative for syncope, weakness and light-headedness. Hematological: Does not bruise/bleed easily. Psychiatric/Behavioral: Negative for confusion and hallucinations. Vitals: BP 138/88 (BP Site: Left Arm, BP Position: Sitting) Pulse 74 Ht 185.4 cm (6' 1) Wt 106.3 kg (234 lb 5.6 oz) BMI 30.92 kg/m PHYSICAL EXAMINATION: BP 138/88 (BP Site: Left Arm, BP Position: Sitting) Pulse 74 Ht 185.4 cm (6' 1) Wt 106.3 kg (234 lb 5.6 oz) BMI 30.92 kg/m Last 3 Encounter BP Readings: Date: BP: 05/10/2024 130/88 05/07/2023 142/84 05/01/2022 132/84 Last 3 Encounter Pulse Readings: Date: Pulse: 05/10/2024 72 05/07/2023 62 05/01/2022 73 Last 3 Encounter Wt Readings: Date: Wt: 05/10/2024 105.7 kg (233 lb 0.4 oz) 05/07/2023 103.9 kg (229 lb 1.3 oz) 05/01/2022 102.1 kg (225 lb) Physical Exam Vitals [...] Triglyceride (mg/dL) Date Value 07/03/2018 76 EKG: ASSESSMENT/PLAN: 1. Essential hypertension, benign - ICD9: 401.1, ICD10: I10 (primary diagnosis) Patient's blood pressure in the office today was recorded as 138/88. Target systolic BP 140 or less and diastolic BP 90 or less. Continue current medications. Patient currently on amlodipine - ECG COMPLETE 2. Mixed hyperlipidemia - ICD9: 272.2, ICD10: E78.2 Patient is currently taking Pravastatin every day. Patients last BW was 07/03/2018 and the LDL was 96. He brought new blood work in from just several weeks ago. LDL was under 80. Will scanned it into the chart. He is on pravastatin 80 mg daily 3. History of cardiac cath - ICD9: V45.89, ICD10: Z98.890 Cardiac cath done on 01/18/2010 showed, normal L ventricular function normal L ventricular hemodynamics normal coronary cineangiography 4. History of stress test - ICD9: V15.89, ICD10: Z92.89 Stress test done on 05/03/2020 showed, no evidence of reversible ischemia or infarction EF 59% 5. Non-smoker - ICD9: V49.89, ICD10: Z78.9 Patient is a non-smoker ISilvia MA , scribing for Dr. Lew Rosales, was present in the room during the examination Follow up in: 1 year with Shanti Prior to entering the room, I reviewed the last progress note including the diagnosis and plan of action. When available, I then reviewed the last heart catheterization, stress test, echocardiogram and EKG. I proceeded to review the medial therapy and any side effects the patient may have had in the past. I was able to look at the last several EKGs. A new EKG was performed today and an interetation was performed. I reviewed its interpretation with the family and compared it to the previous EKGs that we have in the medical records. Changes were described to the patient. In a pictorial format; I described the HI and QRS intervals. This was to show the effects of antiarrhythmic therapy on the electrical system. I was able to look at the [...] one hundred percent of my time in [id number] conversation with the patient. I answered all the questions and explained the diagnosis of hypertension hyperlipidemia. Greater that 51% of my time was spent with [id number] conversation with the patient. I have discussed the recommended treatment, alternative therapies and other options in detail. I've discussed the best benefit and side effects of these recommended treatments. I've attempted to answer all the questions to the patient's satisfaction and understanding. With approval, we would recommend an pursue the current therapy such as no change. After leaving the exam room, I went [...] greater than 15 minutes I, Dr. Lew Rosales, have reviewed and agree with the information in the medical record. Lew Rosales DO documented in this encounter [facility] 02-23-2025 Evaluation note Diagnosis Onset Date Resolution GERD (gastroesophageal reflux disease) acute February 23, 2025 8:54am Gluten-sensitive enteropathy acute February 23, 2025 8:54am Irritable bowel syndrome with constipation acute February 23, 2025 8:54am [facility] Work Phone: 1(618) 523-749512-27-2024 Evaluation note* Diagnosis Onset Date Resolution Status Admit Date GERD (gastroesophageal reflu x disease) acute November 26, 8:15am Irritable bowel syndrome wit h constipation acute November 26 8:15am [facility] Work Phone: 1(437) 450-779911-26-2024 [facility] Medical Records Department [address] [place] [address] History Physical Exam 10/26/24 1223 MR#: [id number] Acct: [id number] Name: CARLOS BACON Rep #: [id number] : 1965 59 From: Boyd Friend DO PCP: Dr. Ck Kc, DO Status:[facility] Location: [place] [address] History and Physical Date of Admission: 10/26/24 CARLOS BACON, is a 59 M who presents to the office today for initial consult. PCP referred for acid reflux. States he's had reflux for over 20 years. Is controlled with prn OTC Omeprazole. Denied nausea, vomiting or dysphagia. Also has IBS. Intermittent abdominal pain and cramping. Will have constipation for 5-6 days and then will have a day of diarrhea. Says last scopes were 5 years ago. He was told he Has a tortuous colon. He feels like his IBS is getting worse. He has worsening abdominal pain, bloating and some intermittent nausea. He has a 30-year history of hypertension. He has not lost any weight. He does not have any chest pain or shortness of breath. He does not take any medicines for IBS. He does eat a very high fiber diet and tries to maintain good nutritional health. He does get full sometimes. He denies any rashes, arthralgia or weakness. He does struggle with anxiety, stress and depression. I do not think he has been in a vicious cycle between recurrent IBS, helplessness, avoidance of responsibility,and anxious/stressful conditions. ROS Const Constitutional: No fatigue, fever(s) or weight change ENT ENT: No difficulty swallowing Gastro GI: Positive for abdominal pain and constipation; No belching, bloating, change in bowel habits, change in stool character, coffee ground emesis, cramping, diarrhea, heartburn, difficulty swallowing, feeling full early, excessive flatus, incontinent of stools, Vomiting blood/hematemesis, Blood in stool, loose stools, Black,tarry stools, nausea/dyspepsia, pain with swallowing, vomiting or other Musc Musculoskeletal: No joint pain Skin Skin: No yellowing of the eye or itchy eyes Psych Psychiatric: Positive for anxiety and No depression Endo Endocrine: No fatigue or weight change Aller/Imm Allergy/Immunologic: No itchy eyes Daniel/Lymp Hematologic/Lymphatic: No easy bleeding or easy bruising Exam Const General: cooperative and comfortable Nutritional Appearance: average body habitus and well nourished HENNE Head: normal to inspection Ears: hearing grossly normal bilaterally Nose: external nose normal Face and sinus: normal facial exam Mouth: oral mucosae normal Throat: posterior oropharynx normal Eyes General: appearance normal, both eyes and all related structures Neck Neck: normal visual inspection Chest Chest palpation inspection: normal inspection of the chest and normal palpation of entire chest wall Resp Effort Inspection: normal respiratory effort Auscultation: Bilateral: Clear to Auscultation Cardio Palpation: normal PMI Rate: regular rate Rhythm: regular rhythm GI Inspection: normal to inspection Auscultation: normal bowel sounds Percussion: normal to percussion Palpation: no hepatosplenomegaly Skin General: no rashes or lesions noted Neuro General: patient alert Extrem General: normal to inspection Psych Affect: normal affect Assessment and Plan Assessment and Plan (1) GERD (gastroesophageal reflux disease): Status: Acute (2) Irritable bowel syndrome with constipation: Status: Acute Plan: 59-year-old gentleman with past medical history of anxiety and depression presents with a longstanding history of abdominal pain, bloating and chronic idiopathic constipation. We will undergo biochemical testing along with a sits marker test to hopefully determine his colonic transit and whether it is slow transit constipation or pelvic floor dysfunction or both. Once he undergoes endoscopic evaluation and biochemical testing along with functional testing hopefully will have a better hold on his GI motility problems. Orders: Orders Abdomen Single View 09/17/24 K59.00 - Constipation, unspecified Abdomen Single View 3 Days K59.00 - Constipation, unspecified I have examined the patient and the H P has been reviewed. There are no clinical changes since date of exam. 10/26/24 1223 Cosigner Signature (if applicable): CC: Dr. Ck Kc, DO; Boyd Gama, [facility]ignedWKettering [facility] Telephone encounter Note* Telephone Encounter - Kathryn Davila APRN.CNP - 07/05/2024 1:28 PM EDT Reviewed case with Dr. Marshall who states growth is so minimalover 2yr. At this rate of growth, hewould expect it would take >10yr more likely 15-20yr to reach his eye nerves and start causing any symptoms also offered GK.Patient wishes to continue with observation and will get new MRI in two years. Kathryn Davila APRN.CNP [facility] Work Phone: [phone]) 329-100708-05-2024 Miscellaneous Notes* Telephone Encounter - Kathryn Davila APRN.CNP - 07/05/2024 1:28 PM EDT Reviewed case with Dr. Marshall who states growth is so minimalover 2yr. At this rate of growth, hewould expect it would take >10yr more likely 15-20yr to reach his eye nerves and start causing any symptoms also offered GK.Patient wishes to continue with observation and will get new MRI in two years. Kathryn Davila APRN.CNP * Telephone Encounter - Teri Almaraz - 07/05/2024 12:19 PM EDT General Call Caller : Jania Contact Reason for Call : Wanted to make sure you reviewed CT results with Dr. Palm. Is he concerned about growth? Patient requesting return call ? Yes documented in this encounterSub[facility] Telephone encounter Note * Telephone Encounter - Teri Almaraz - 07/05/2024 12:19 PM EDT General Call Caller : Jania Contact Reason for Call : Wanted to make sure you reviewed CT results with Dr. Palm. Is he concerned about growth? Patient requesting return call ? Yes [facility]07-03-2024 History of Present illness Narrative* Kathryn Davila APRN.YOSELYN - 06/02/2024 8:45 AM EDT Images from the original note were not included. [facility] NEURO-ONCOLOGY VIRTUAL VISIT NOTE I have communicated my name and active licensure. The patient's identity and physical location wereverified at the time of this visit. Either the patient or their legal vendor representatives has been informed of the risks and benefits of -- and alternatives to -- treatment through a remote evaluation andconsents to proceed with the evaluation remotely. This is a virtual visit using Game[employer]ol[employer] Zoom Video Visit. It required patient- provider interaction for the medical decision making as [...] in 01/2002 (pathology c/w non-secretory benign pituitary adenoma)and right amblyopia (baseline poor vision in right eye). The patient last saw Dr. Marshall on 05/31/22 and the residual tumor showed a slight interval growth since 2010. The plan was observation with anew MRI pituitary in 2 years. He follows with Dr. Marquez from endocrine. He presents today for follow up. INTERVAL HISTORY 06/02/24 He is feeling well. Saw Dr. Marquez from endocrine and had a full endocrine panel and states all labsnormal. SOCIAL HISTORY: Social History Tobacco Use Smoking [...] Migraines Father Coronary Artery Disease Father other (HI in 50's) Father Current Outpatient Medications Medication [...] DATE OF EXAM: May 31 2024 8:57AM WRM [id number] - MRI PITUITARY WO/W IVCON / [...] mild invasion of the cavernous sinuses bilaterally. Manager Filter: DEVONTE Transcribe Date/Time: May 31 2024 9:25A Dictated by : HE HERNANDEZ MD This examination was interpreted and the report reviewed and electronically signed by: HE HERNANDEZ MD on May 31 2024 9:36AM EST KPS and ECOG Provider Data Form MEDICAL DECISION MAKING Assessment & Plan 1. Non-functional pituitary adenoma s/p resection in 01/2002 (pathology c/w non- secretory benign pituitary adenoma) - MRI Pituitary today [...] and obtaining and/or reviewing separately obtained history Kathryn Davila APRN.CNP Certified Nurse Practitioner cc: Madie Marshall MD--EPIC documented in this encounterSub[facility] NoteHNO ID: [id number] Author: KATHRYN DAVILA APRN.CNP Service: ? Author Type: Nurse Practitioner Type: Progress Notes Filed: 06/02/2024 08:50 Note Text: [facility] NEURO-ONCOLOGY VIRTUAL VISIT NOTE I have communicated my name and active licensure. The patient's identity and physical location were verified at the time of this visit. Either the patient or their legal vendor representatives has been informed of the risks and benefits of -- and alternatives to -- treatment through a remote evaluation and consents to proceed with the evaluation remotely. This is a virtual visit using [employer] Anderaom Video Visit. It required patient-provider interaction for [...] right eye). The patient last saw Dr. Marshall on 05/31/22 and the residual tumor showed [...] Migraines Father Coronary Artery Disease Father other (HI in 50's) Father Current Outpatient Medications Medication [...] Fund of Knowledge: Good. (more content not included)...[facility]07-01-2024 History of Present illness Narrative* Teri Gutierrez RT(R) - 05/31/2024 8:40 AM EDT Radiology Service Progress Note DATE OF SERVICE: [...] PATIENT PRESENTS WITH AN IMPLANTABLE OR ATTACHED ELEMENTARY SCHOOL PRINCIPAL: No ALLERGIES: Reviewed and unchanged CONTRAST ALLERGY: NO. EXAM: MRI - CONTRAST TYPE: GROUP II PERIPHERAL IV DATA: Ambulatory: A peripheral IV was started in the Right antecubital site with a Angio cath: 22 gauge. RADIOLOGY DEPARTMENT: MR; Exam(s) Completed: Head: Pituitary SIGNATURE: QUINCY Wells) PATIENT NAME: Carlos Bacon DATE: May 31, 2024 TIME: 8:46 AM documented in this encounterSub[facility]24 NoteHNO ID: [id number] Author: TERI GUTIERREZ RT (R) Service: ? [...] PATIENT PRESENTS WITH AN IMPLANTABLE OR ATTACHED ELEMENTARY SCHOOL PRINCIPAL: No ALLERGIES: Reviewed and unchanged CONTRAST ALLERGY: NO. EXAM: MRI - CONTRAST TYPE: GROUP II PERIPHERAL IV DATA: Ambulatory: A peripheral IV was started in the Right antecubital site with a Angio cath: 22 gauge. RADIOLOGY DEPARTMENT: MR; Exam(s) Completed: Head: Pituitary SIGNATURE: RT Russell(Juan Pablo) PATIENT NAME: Carlos Bacon DATE: May 31, 2024 TIME: 8:46 [facility]06-10-2024 History of Present illness Narrative* Shanti Haddad APRN.RESTAURANT GENERAL MANAGER - 05/10/2024 7:44 AM EDT Images from the original note were not included. [facility] Department of Cardiology Referring Provider: No ref. [...] Migraines Father Coronary Artery Disease Father other (HI in 50's) Father SOCIAL HISTORY: Tobacco Use: [...] Sitting) Pulse 72 Ht 185.4 cm (6' 1) Wt 105.7 kg (233 lb 0.4 oz) BMI 30.74 kg/m PHYSICAL EXAMINATION: BP 130/88 (BP Site: Left Arm, BP Position: Sitting) Pulse 72 Ht 185.4 cm (6' 1) Wt 105.7 kg (233 lb 0.4 oz) [...] smoked cigarettes - ICD9: V49.89, ICD10: Z78.9 Shanti Haddad APRN.RESTAURANT GENERAL MANAGER Follow up in: 1 year-hypertension/hyperlipidemia Greater than 50% of this > 20 minute visit was spent face to face discussing current diagnosis and treatment plan consisting of above outlined plan. Follow- up as documented above. I have discussed the [...] and reviewed the results with the patient. Shanti Dover CNP have reviewed and agree with the information in the medical record transcribed by Magali Loo. Shanti Haddad APRN.CNP This patient note was partially generated from using the LOVEFiLM voice recognition system. There maybe some incorrect words, spelling, and punctuation that were not noted in checking the note prior to saving documented in this encounterSub[facility] History of Present illness Narrative* Madie Marshall MD - 05/31/2022 8:20 AM EDT Images from the original note were not included. SECTION OF SKULL BASE SURGERY MINIMALLY INVASIVE CRANIAL BASE & PITUITARY SURGERY PROGRAM [facility] TELEMEDICINE FOLLOW-UP VISIT This is a virtual visit. It required patient-provider interaction for the medical decision making as documented below. Carlos Bacon has consented for this telemedicine encounter CC: Patient Care Team: Ck Gale DO as PCP - General (Internal Medicine) Dr. Ana Marquez ([facility]) Eliel Michael (Ophtho) Assessment/Plan: Carlos Bacon presents for follow-up of recurrent Non- functional pituitary adenoma s/p resection in 01/2002 (pathology c/w non- secretory benign pituitary adenoma) and right amblyopia (baseline poor vision in right eye). 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 We discussed observation vs radiosurgery vs surgery. We agreed for observation with repeat MRI pituitary wwo in 2 yr ([facility]) and virtual visit with our VERENA. He will see Dr. Marquez for continued endocrine follow-up. I spent approximately 20 minutes of total time for evaluation and management services provided on the date of the encounter which included preparing to see the patient, [id number] patient care, completing clinical documentation, performing a medically appropriate examination, counseling and educating the patient/family/caregiver, communicating with other HCPs, independently interpreting resultsand care coordination. Madie Marshall MD Staff, Skull Base & Cerebrovascular Surgery Department of Neurological Surgery [facility] Subjective: Patient is accompanied by . 1wk ago sinoplasty by local [facility] No KURTZ, no vision complaints No [...] 2010; no suprasellar extension documented in this encounterSub[facility]06-[facility] History of Present illness Narrative* Teri Gutierrez, RT(R) - 05/22/2022 9:20 AM EDT Radiology Service Progress Note DATE OF SERVICE: [...] 2022 TIME: 9:16 AM documented in this encounterSub[facility]06-[facility] Miscellaneous Notes* Telephone Encounter - Mercedes Coats RN - 05/07/2022 11:16 AM EDT Called and spoke with Jania. Ok to reschedule MRI and appointment with Dr. Marshall. Patient is agreeable to this plan and verbalized understanding. Patient is aware to call with any change in condition, questions or concerns. AMISH Boyd, RN Assistant City Attorney * Telephone Encounter - María Elena Julian - 05/07/2022 8:49 AM EDT General Call Caller : Patient's spouse/Jania Contact Reason for Call : Patient is expected to have MRI on 05/22, but is also scheduled to have a balloon sinuplasty on 05/20. Spouse would like to know if patient should still have MRI post sinuplasty procedure Patient requesting return call ? Yes documented in this encounterSub[facility]06-[facility] History of Present illness Narrative* Lew Rosales DO - 05/01/2022 12:58 PM EDT Referring Provider: Lew Rosales DO Date: May 01, 2022 Chief Complaint: Established [...] 132/84 Pulse 73 Ht 185.4 cm (6' 1) Wt 102.1 kg (225 lb) BMI 29.69 kg/m PHYSICAL EXAMINATION: BP 132/84 Pulse 73 Ht 185.4 cm (6' 1) Wt 102.1 kg (225 lb) BMI 29.69 [...] QTC Calculation (Bazett) 436 ms Calculated P [place] 23 degrees Calculated R [place] -32 degrees Calculated T [place] 1 degrees Narrative NAME : CARLOS BACON PID : [id number] : 1965 Gender : Male Race : ORD : [id number] Procedure Date : May 01 2022 13:13:45 Edit Date : May 01 2022 13:14:47 Diagnosis: NORMAL SINUS RHYTHM LEFT AXIS DEVIATION LEFT VENTRICULAR HYPERTROPHY NONSPECIFIC ST ABNORMALITY ABNORMAL ECG Test Reason : Location : [facility] : [facility] Overread By : , Edited By : , Referred By : LEW ROSALES Acquired by : [id number], Impression NORMAL SINUS RHYTHM LEFT AXIS DEVIATION LEFT VENTRICULAR HYPERTROPHY NONSPECIFIC ST ABNORMALITY ABNORMAL ECG ASSESSMENT/PLAN: 1. Essential hypertension, benign - ICD9: 401.1, ICD10: I10 (primary diagnosis) Patient's blood pressure in the office today was recorded as 132/84. Target systolic BP 140 or lessand diastolic BP 90 or less. Continue current [...] Nasrin Javier MA, scribing for Dr. Lew Rosales. Follow up in: 1 year follow up [...] one hundred percent of my time in fa ce-to-face conversation with the patient. I answered all the questions and explained the diagnosis of high blood pressure. Greater that 51% of my time was spent with [id number] conversation with the patient. I have discussed the recommended treatment, alternative therapies and other options in detail. I've discussed the best benefit and side effects of these recommended treatments. I've attempted to answer all the questions to the patient's satisfaction and understanding. With approval, we would recommend an pursuethe current therapy such as no change . After leaving the exam room, I went back into the patient's chart and coordinated care with my nurse ordering the proper testing and medicinal changes. Letter was performed with voice recognition algorithms and sent to the referring team. The chart was completed. Including the pre-exam, exam and post- exam, the total time spent in the patient's management was greater than 15 minutes I, Dr. Lew Rosales, have reviewed and agree with the information in the medical record. Lew Rosales DO documented in this encounterSuburban [facility]09-[facility] History of Past illness Narrative* Problem Noted Date Resolved Date Hypertension 08/19/2019 04/25/2022 documented as of this encounter (statuses as of 05/01/2022) [place] [address]-19-2019 History of Past illness Narrative* Problem Noted Date Resolved Date Hypertension 08/19/2019 04/25/2022 documented as of this encounter (statuses as of 05/01/2022) [place] [address]19-2019 History of Past illness Narrative* Problem Noted Date Resolved Date Hypertension 08/19/2019 04/25/2022 documented as of this encounter (statuses as of 05/01/2022) [place] [address]19-2019 History of Past illness Narrative* Problem Noted Date Resolved Date Hypertension 08/19/2019 04/25/2022 documented as of this encounter (statuses as of 05/05/2022) [place] [address]-19-2019 History of Past illness Narrative* Problem Noted Date Resolved Date Hypertension 08/19/2019 04/25/2022 documented as of this encounter (statuses as of 05/07/2022) [address]19-2019 History of Past illness Narrative* Problem Noted Date Resolved Date Hypertension 08/19/2019 04/25/2022 documented as of this encounter (statuses as of 05/23/2022) [address]19-2019 History of Past illness Narrative* Problem Noted Date Resolved Date Hypertension 08/19/2019 04/25/2022 documented as of this encounter (statuses as of 06/13/2022) [address]19-2019 History of Past illness Narrative* Problem Noted Date Diagnosed Date Resolved Date Hypertension 08/19/2019 04/25/2022 documented as of this encounter (statuses as of 08/21/2023) [address]19-2019 History of Past illness Narrative* Problem Noted Date Diagnosed Date Resolved Date Hypertension 08/19/2019 04/25/2022 documented as of this encounter (statuses as of 08/22/2023) [facility] noteNo assessment information availableWKettering Health [facility] Work Phone: Evaluation note* Diagnosis Essential hypertension, benign- Primary documented in this encounter [facility]* Diagnosis Essential hypertension, benign- Primary documented in this encounter [facility]* Diagnosis Essential hypertension, benign- Primary documented in this encounter [facility]* Diagnosis Essential hypertension, benign- Primary Mixed hyperlipidemia History of stress test Other specified conditions influencing health status History of cardiac cath Other postprocedural status Non-smoker Other specified conditions influencing health status documented in this encounter [facility]* Diagnosis Pituitary adenoma (HCC) Benign neoplasm of pituitary gland and craniopharyngeal duct (pouch) documented in this encounter [facility]* Diagnosis Pituitary adenoma (HCC)- Primary Benign neoplasm of pituitary gland and craniopharyngeal duct (pouch) documented in this encounter [facility]* Diagnosis Essential hypertension, benign- Primary Mixed hyperlipidemia History of cardiac cath Other postprocedural status History of stress test Other specified conditions influencing health status Never smoked cigarettes Other specified conditions influencing health status documented in this encounter [facility]* Diagnosis Pituitary adenoma (HCC) Benign neoplasm of pituitary gland and craniopharyngeal duct (pouch) documented in this encounter [facility]* Diagnosis Pituitary tumor- Primary Neoplasm of unspecified nature of endocrine glands and other parts of nervous system documented in this encounter [facility]* Diagnosis Essential hypertension, benign- Primary Mixed hyperlipidemia History of cardiac cath Other postprocedural status History of stress test Other specified conditions influencing health status Non-smoker Other specified conditions influencing health status documented in this encounter [facility] for referral (narrative)* Outpatient Procedure (Routine) - Pending Review Specialty Diagnoses / Procedures Referred By Contac t Referred To Contact [facility] Diagnoses Essential hypertension, benign Procedures ECG COMPLETE ECG ROUTINE ECG W/LEAST 12 LDS W/I&R Lew Rosales DO [address] [place] [address] [facility] [address] [place] [address] Referral ID Status Reason Start Date Expiration Date Visits Requested Visits Authorized [id number] Pending Review Auto-Generat ed Referral 05/01/2022 05/01/2023 1 1 [facility] for referral (narrative)* Outpatient Procedure (Routine) - Pending Review Specialty Diagnoses / Procedures Referred By Contla t Referred To Contact [facility] Diagnoses Essential hypertension, benign Procedures ECG COMPLETE ECG ROUTINE ECG W/LEAST 12 LDS W/I&R Lew Rosales DO [address] [place] [address] [facility] [address] [place] [address] Referral ID Status Reason Start Date Expiration Date Visits Requested Visits Authorized [id number] Pending Review Auto-Generat ed Referral 05/01/2022 05/01/2023 1 1 [facility] for referral (narrative)* Diagnostic Procedure Only (Routine) - Closed Specialty Diagnoses / Procedures Referred By Contac t Referred To Contact MR IMAGING Diagnoses Pituitary adenoma (HCC) Procedures MRI PITUITARY WO/W IVCON MRI BRAIN Madie Sarmiento MD [address] [place] [address] Mr Imaging Referral ID Status Reason Start Date Expiration Date V isits Requested Visits Authorized [id number] Closed Auto-Generat ed Referral Clearance Not Met - Admin/Chairm an/Director Advise to Postpone/Res chedule or Not Proceed 05/22/2022 06/21/2022 1 1 [facility] for referral (narrative)* Outpatient Procedure (Routine) - Pending Review Specialty Diagnoses / Procedures Referred By Wendy t Referred To Contact [facility] Diagnoses Essential hypertension, benign Procedures ECG COMPLETE ECG ROUTINE ECG W/LEAST 12 LDS W/I&R Shanti Haddad APRN.CNP [address] [place] [id number] [facility] Vascular [address] [address] Referral ID Status Reason Start Date Expiration Date Visits Requested Visits Authorized [id number] Pending Review Auto-Generat ed Referral 05/10/2024 05/10/2025 1 1 [facility] for referral (narrative)No reason for referral information availableWKettering Health [facility] Work Phone: Reason for visit Narrative* Diagnostic Procedure Only (Routine) - Closed Specialty Diagnoses / Procedures Referred By Wendy t Referred To Contact MR IMAGING Diagnoses Pituitary adenoma (HCC) Procedures MRI PITUITARY WO/W IVCON MRI BRAIN Madie Sarmiento MD [address] [place] [address] Mr Imaging Referral ID Status Reason Start Date Expiration Date V isits Requested Visits Authorized [id number] Closed Auto-Generat ed Referral Clearance Not Met - Admin/Chairm an/Director Advise to Postpone/Res chedule or Not Proceed 05/22/2022 06/21/2022 1 1 [facility] Narrative* Diagnostic Procedure Only (Routine) - Closed Specialty Diagnoses / Procedures Referred By Wendy houston Referred To Contact [facility] Diagnoses Pituitary adenoma (HCC) Pituitary adenoma (HCC) [D35.2] Procedures MRI BRAIN BRAIN STEM W/O W/CONTRAST MATERIAL MRI WWO NEU1 B 300 MRI PITUITARY WO/W IVCON Madie Marshall MD [address] [place] [address] Radio M[facility] [address] [place] [address] Referral ID Status Reason Start Date Expiration Date V isits Requested Visits Authorized [id number] Closed Patient Cleared - Admin/Chairm an/Director advise to proceed or did not respond 05/27/2024 05/31/2024 1 1 [facility] Summary Purpose Family History No Family History Records Found Relationship Condition Age at Onset Recorded Date/T josefina mother Hypertension Unknown father Cardiac disease Unknown Relationship Condition Age at Onset Recorded Date/T josefina mother Hypertension Unknown father Cardiac disease Unknown Parkinson's disease Unknown Myocardial infarction Unknown Advance Directives No Advanced Directives Records Found Advance Directive Response Recorded Date/ Time Living Will Yes July 01, 2021 5:10pm Power of Information Technology Analyst Yes July 01 5:10pm Documents on File Type Date Recorded Patient 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 Yes October 21, 2024 4:39pm Name of Medical Power of Information Technology Analyst spouse - jania October 21, 2024 4:39pm Reason for Referral Specialty Diagnoses / Procedures Referred By Wendy houston Referred To Contact MR IMAGING Diagnoses Pituitary adenoma (HCC) Procedures MRI PITUITARY WO/W IVCON MRI BRAIN BRAIN STEM W/O W/CONTRAST MATERIAL Madie Marshall MD [address] [place] [address] [place] [id number] Referral ID Status Reason Start Date Expiration Date V isits Requested Visits Authorized [id number] Closed Auto-Generate d Referral 05/27/2024 05/31/2024 1 1 Chief Complaint and Reason for Visit Chief Complaint Admit Date 1 M FU November 26, 2024 8:15am INT LABS February 09, 2025 7:1 9am Reason for Visit Admit Date GERD (gastroesophageal reflux disease) D ecember 2023 8:15am Irritable bowel syndrome with constipati on November 26, 2024 8:15am Chief Complaint Admit Date INT LABS February 09, 2025 7:1 9am 3 M FU February 23, 2025 8:5 4am Reason for Visit Admit Date GERD (gastroesophageal reflux disease) M arch 2024 8:54am Gluten-sensitive enteropathy February 23, 2025 8:54am Irritable bowel syndrome with constipati on February 23, 2025 8:54am Additional Source Comments (unrecognized sect ion and content) No Status Records FoundNo Status Records FoundNo Status Records FoundNo Status Records FoundNo Status Records FoundNo Status Records FoundNo Status Records FoundNo Status Records Found INFORMATION SOURCE (unrecogn ized section and content) DATE CREATED AUTHOR [facility]26/[facility] DATE CREATED AUTHOR AUTHOR'S ORGANIZ ATION 11/09/2018 [facility] DATE CREATED AUTHOR AUTHOR'S ORGANIZ ATION 05/11/2020 [facility] DATE CREATED AUTHOR AUTHOR'S ORGANIZ ATION 08/03/2021 [facility] DATE CREATED AUTHOR AUTHOR'S ORGANIZ ATION 10/28/2022 [facility] DATE CREATED AUTHOR AUTHOR'S ORGANIZ ATION 07/07/2024 [facility] DATE CREATED AUTHOR AUTHOR'S ORGANIZ ATION 04/17/2025 [facility] DATE CREATED AUTHOR AUTHOR'S ORGANIZ ATION 05/23/2025 [facility] Goals (unrecognized section and content) Goals may be documented in a n alternate sectionGoals may be documented in an alternate sectionGoals may be documented in an alternate sectionGoals may be documented in an alternate sectionGoals may be documented in an alternate sectionGoals may be documented in an alternate sectionGoals may be documented in an alternate section Source Comments (unrecognize d section and content) In the event this informatio n is protected by the Federal Confidentiality of Alcohol and Drug Abuse Patient Records regulations: The Federal rules restrict any use of the information to criminally investigate or prosecute any alcohol or drug abuse patient.[facility] the event this information is protected by the Federal Confidentiality of Alcohol and Drug Abuse Patient Records regulations: The Federal rules restrict any use of the information to criminally investigate or prosecute any alcohol or drug abuse patient.[facility] the event this information is protected by the Federal Confidentiality of Alcohol and Drug Abuse Patient Records regulations: The Federal rules restrict any use of the information to criminally investigate or prosecute any alcohol or drug abuse patient.[facility] the event this information is protected by the Federal Confidentiality of Alcohol and Drug Abuse Patient Records regulations: The Federal rules restrict any use of the information to criminally investigate or prosecute any alcohol or drug abuse patient.[facility] the event this information is protected by the Federal Confidentiality of Alcohol and Drug Abuse Patient Records regulations: The Federal rules restrict any use of the information to criminally investigate or prosecute any alcohol or drug abuse patient.[facility] the event this information is protected by the Federal Confidentiality of Alcohol and Drug Abuse Patient Records regulations: The Federal rules restrict any use of the information to criminally investigate or prosecute any alcohol or drug abuse patient.[facility] the event this information is protected by the Federal Confidentiality of Alcohol and Drug Abuse Patient Records regulations: The Federal rules restrict any use of the information to criminally investigate or prosecute any alcohol or drug abuse patient.[facility] the event this information is protected by the Federal Confidentiality of Alcohol and Drug Abuse Patient Records regulations: The Federal rules restrict any use of the information to criminally investigate or prosecute any alcohol or drug abuse patient.[facility] the event this information is protected by the Federal Confidentiality of Alcohol and Drug Abuse Patient Records regulations: The Federal rules restrict any use of the information to criminally investigate or prosecute any alcohol or drug abuse patient.[facility] the event this information is protected by the Federal Confidentiality of Alcohol and Drug Abuse Patient Records regulations: The Federal rules restrict any use of the information to criminally investigate or prosecute any alcohol or drug abuse patient.[facility] the event this information is protected by the Federal Confidentiality of Alcohol and Drug Abuse Patient Records regulations: The Federal rules restrict any use of the information to criminally investigate or prosecute any alcohol or drug abuse patient.[facility] the event this information is protected by the Federal Confidentiality of Alcohol and Drug Abuse Patient Records regulations: The Federal rules restrict any use of the information to criminally investigate or prosecute any alcohol or drug abuse patient.[facility] the event this information is protected by the Federal Confidentiality of Alcohol and Drug Abuse Patient Records regulations: The Federal rules restrict any use of the information to criminally investigate or prosecute any alcohol or drug abuse patient.[facility] the event this information is protected by the Federal Confidentiality of Alcohol and Drug Abuse Patient Records regulations: The Federal rules restrict any use of the information to criminally investigate or prosecute any alcohol or drug abuse patient.[facility] the event this information is protected by the Federal Confidentiality of Alcohol and Drug Abuse Patient Records regulations: The Federal rules restrict any use of the information to criminally investigate or prosecute any alcohol or drug abuse patient.[facility] the event this information is protected by the Federal Confidentiality of Alcohol and Drug Abuse Patient Records regulations: The Federal rules restrict any use of the information to criminally investigate or prosecute any alcohol or drug abuse patient.[facility] Care Teams (unrecognized sec tion and content) Computer Network Engineer Relationship Specialty Start Date End Date Ck Gale DO PCP - General Internal Medicine 08/18/19 Computer Network Engineer Relationship Specialty Start Date End Date Ck Gale DO PCP - General Internal Medicine 08/18/19 Computer Network Engineer Relationship Specialty Start Date End Date Ck Gale DO PCP - General Internal Medicine 08/18/19 Computer Network Engineer Relationship Specialty Start Date End Date Ck Gale DO PCP - General Internal Medicine 08/18/19 Computer Network Engineer Relationship Specialty Start Date End Date Ck Gale DO PCP - General Internal Medicine 08/18/19 Computer Network Engineer Relationship Specialty Start Date End Date Ck Gale DO PCP - General Internal Medicine 08/18/19 Computer Network Engineer Relationship Specialty Start Date End Date Ck Gale DO PCP - General Internal Medicine 08/18/19 Team Status: Active Member Role Status Dates CK KC Family Provider Active Dr. Ck Kc , DO Primary Care Provider Active Team Status: Inactive Member Role Status Dates Dr. Ck Kc , DO Primary Care Pr ovider, Attending Provider, Referring Provider Active [address] Other Provider Active Team Status: Inactive Member Role Status Dates Dr. Ck Kc , DO Primary Care Provider Active Dr. Ana Marquez MD Attending Provider, Referring Pr ovider Active Computer Network Engineer Relationship Specialty Start Date End Date Ck Gale, DO PCP - General Internal Medicine 08/18/19 Team Status: Inactive Member Role Status Dates Dr. Ck Kc , DO Primary Care Pr ovider, Attending Provider, Referring Provider Active Computer Network Engineer Relationship Specialty Start Date End Date Ck Gale, DO PCP - General Internal Medicine 08/18/19 Computer Network Engineer Relationship Specialty Start Date End Date Ck Gale DO PCP - General Internal Medicine 08/18/19 Computer Network Engineer Relationship Specialty Start Date End Date Ck Gale DO PCP - General Internal Medicine 08/18/19 Team Status: Inactive Member Role Status Dates Dr. Boyd Gama , Attending Provider Active Start: October 26, 2024 End: October 26, 2024 Dr. Ck Kc , Primary Care Provider Active Start: October 26, 2024 End: October 26, 2024 Dr. Ck Kc DO Referring Provider Active Start: October 26, 2024 End: October 26, 2024 Team Status: Active Member Role Status Dates Dr. Boyd Gama DO Attending Provider Active Start: October 26, 2024 Dr. Boyd Gama DO Other Provider Active St art: October 26, 2024 Dr. Ck Kc DO Primary Care Provider Active Start: October 26, 2024 Dr. Ck Kc DO Referring Provider Active Start: October 26, 2024 Team Status: Inactive Member Role Status Dates Dr. kC Kc DO Referring Provider Active Start: November 26, 2024 End: November 26, 2024 Dr. Boyd Gama DO Attending Provider Active Start: November 26, 2024 End: November 26, 2024 Team Status: Inactive Member Role Status Dates Dr. Ck Kc DO Primary Care Provider Active Start: February 09, 2025 End: February 09, 2025 Dr. Boyd Gama DO Attending Provider Active Start: February 09, 2025 End: February 09, 2025 Dr. Boyd Gama DO Referring Provider Active Start: February 09, 2025 End: February 09, 2025 Team Status: Inactive Member Role Status Dates Dr. Boyd Gama DO Attending Provider Active Start: February 23, 2025 End: February 23, 2025 Dr. Ck Kc DO Primary Care Provider Active Start: February 23, 2025 End: February 23, 2025 Dr. Ck Kc DO Referring Provider Active Start: February 23, 2025 End: February 23, 2025 Team Status: Inactive Member Role Status Dates Dr. Ck Kc DO Primary Care Provider Active Start: April 13, 2025 End: April 13, 2025 Dr. Ck Kc DO Attending Provider Active Start: April 13, 2025 End: April 13, 2025 Dr. Ck Kc DO Referring Provider Active Start: April 13, 2025 End: April 13, 2025 Computer Network Engineer Relationship Specialty Start Date End Date Ck Kc DO PCP - General Internal Medicine 08/18/19 Reason for Visit (unrecogniz ed section and content) Reason Comments Established Patient Follow-Up 1 year fol low up for HTN Reason Comments Patient Question Reason Comments Established Patient Reason Comments Established Patient 1 yr follow up Reason Comments Follow Up Reason Comments Established Patient 1 year follow-up HTN FOR RECORDS PERTAINING TO PATIENTS WHO ARE [...] BE BASED ON THE PRIMARY CLINICAL RECORDS. [employer] [facility]. provides no warranty or guarantee of the accuracy or completeness of information in this document.
[2025-06-14 08:33] LABS: Anion Gap 12 (5-15); BUN 21 mg/dL (4-19); BUN/Creat Ratio 19.9 RATIO (10-20); CORTISOL AM 14.10 ug/dL (6.02-18.40); Calcium,Total 9.3 mg/dL (7.6-11.0); Carbon Dioxide 23.0 mmol/L (21.0-32.0); Chloride 102 mmol/L (98-108); Glucose 102 mg/dL (70-99); Potassium 4.0 mmol/L (3.3-5.1)
== END | disposition home or self-care (01) ==
LOC: LAB 07:16
PROVIDERS: PCP Nurse Practitioner Family; Referring Provider Internal Medicine Endocrinology, Diabetes & Metabolism; Visit Provider Internal Medicine Endocrinology, Diabetes & Metabolism
DX: D35.2 Benign neoplasm of pituitary gland (principal); E29.1 Testicular hypofunction
CPT/HCPCS: 36415; 80048; 82533; 84146; 84305; 84402; 84403; 84443

== ENCOUNTER 2025-10-07 08:30 | Outpatient (RCR) | payer OTHER, SELFPAY ==
--- NOTE | 2025-09-09 09:26 | HP.PTEVAL_ITS ---
Patient's Visit Information Visit Information Visit Information: CARLOS MACKEY is a 60 year old M referred to Physical Therapy by Dr. Gilmer House DO with a diagnosis of ADHESIVE CAPSULITIS RIGHT SHOULDER. Date of Evaluation: 09/09/25 Physical Therapist: Bairon An, PT, Cert MDT, OCS Visit Plan Frequency: 2x /Week Duration: 4 Weeks Plan: PT INTERVENTIONS MANAUAL THERAPY G-H JOINT MOBS GRADE 2-3 ,PROM/STRETCHING ,AROM/AAROM ,STRENGTHENING RTC/SCAPULAR AND POSTURAL EX'S Subjective Subjective: This 60 y/o male presents to physical therapy with right shoulder adhesive capsulitis .Patient developed shoulder pain 6 weeks then developed frozen shoulder . Seen DR x-rays - . Did 2 cortisone injection and anti- inflammatory. Patient global to shoulder radiates to elbow . Patient aggravating factors reaching behind back ,[place] activities ,reaching in cupboard affects ADLS and housework tasks . Patient alleviating factors rest and anti-inflammatory. Patient denies paresthesia/tingling. Pain affects sleeping. Patient to RTD 6 weeks if no improvement. Patient is some better. Patient condition affects ol and function. SOCIAL: VOCATION: retired Pain Right Shoulder: Pain Intensity (Out of 10): 4 Pain Intensity Range: 10 Objective Objective: POSTURE: mild forward posture PALPATION: unremarkable NEURO: denies paresthesia/tingling AROM: shoulder flexion 105 degrees ,abduction 90 degrees ,ER 80 degrees ,IR S1 PROM: shoulder flexion 130 degrees,abduction in scapular 135 degrees CAPSULAR RESTRICTION: G-H mod restricted SCAPULAR HUMERAL : < 1:1 ratio MMT: 4/5 RTC ,DELTOID Special Tests R Shoulder Neer - Impingement: Positive R Shoulder Llamas Jose Luis - Impingement: Positive R Shoulder Shrug Sign - OA/Adhesive Capsulitis: Positive Balance/Special Test Scores Quick DASH Score: 50.0000 Goals Goal 1:: Patient to be I with HEP for shoulder frozen Goal Time Frame: 4-6 Weeks Goal 2:: Patient to improve PROM shoulder flexion /abduction 150 degrees , ER 90 degrees to improve function Goal Time Frame: 4-6 Weeks Goal 3:: Patient to improve quick dash by 5 points to improve QOL and function with ADLS [place] Goal Time Frame: 4-6 Weeks Goal 4:: Patient to improve AROM shoulder flexion/[id number] degrees , 90 ER and IR L1-T12 to improve function Goal Time Frame: 4-6 Weeks Goal 5:: Patient to demonstrate 70 % improvement with less pain and improved function with ADL Goal Time Frame: 4-6 Weeks Rehabilitation Potential Physical Therapy Diagnosis: This patient has adhesive capsulitis with decrease ROM ,pain ,capsular restriction G-H joint impairs ADL's and [place] activities thus benefit from skilled PT Anticipated Interventions Patient/Client Instruction: Educate patient on: Condition and Plan of Care For the Purpose of:: To decrease pain, To increase ROM, To improve muscle performance and motor function, To improve ability to perform ADL's, To increase tolerance to activity/condition/position, To improve ability of physical actions for home/community/work/leisure, To improve health of tissue, To decrease soft tissue restriction, To increase flexibility/ROM and To improve tolerance to ADL's Therapeutic Exercise to Include: Strength training, Postural training, Flexibilty training, Passive ROM, Active ROM and Scapular Strength/Stabilization For the Purpose of:: To decrease pain, To increase ROM, To improve nutrient delivery to tissue, To increase oxygenation perfusion, To improve muscle performance and motor function, To increase tolerance to activity/condition/position, To improve ability of physical actions for home/community/work/leisure, To improve health of tissue, To decrease soft tissue restriction and To increase flexibility/ROM Manual Therapy Techniques to Include: Mobilization and Passive ROM Comment: H-H GRADE 2-3 For the Purpose of:: To decrease pain, To increase ROM, To improve health of tissue, To decrease soft tissue restriction and To increase flexibility/ROM Text: Thank you for the opportunity to evaluate your patient. For Medicare and Medicare HMO plans, please review the plan of care and approve it. It will need to be FAXED BACK to us at [phone] for Medicare purposes. For Medicare only, by signing this I certify the plan of care. Please let me know if there are questions or concerns regarding this plan of care. Physician Signature: Date:
--- NOTE | 2025-10-07 08:59 | HP.PTDCSUM ---
Discharge Summary D/C summary: It has been my pleasure to treat CARLOS MACKEY referred by Dr. Gilmer House DO, with the diagnosis of ADHESIVE CAPSULITIS RIGHT SHOULDER for a total of 9 visit(s). Discharge Date: Please see the following information for a summary of their discharge status. Subjective Subjective: Doing alot better No pain -good ROM Pain Right Shoulder: Pain Intensity (Out of 10): 0 Overall Improvement % Improvement: 95 Objective Objective/Function: POSTURE: mild forward posture PALPATION: unremarkable NEURO: denies paresthesia/tingling AROM: shoulder flexion 150 degrees ,abduction 9150 degrees ,ER90 degrees ,T10 CAPSULAR RESTRICTION: G-H WFL SCAPULAR HUMERAL : < 1:1 ratio MMT: 4/5 RTC ,DELTOID Goals Goal 1:: Patient to be I with HEP for shoulder frozen Goal Progress: Goal Met Goal 2:: Patient to improve PROM shoulder flexion /abduction 150 degrees , ER 90 degrees to improve function Goal Progress: Goal Met Goal 3:: Patient to improve quick dash by 5 points to improve QOL and function with ADLS [place] Goal Progress: Goal Met Goal 4:: Patient to improve AROM shoulder flexion/[id number] degrees , 90 ER and IR L1-T12 to improve function Goal Progress: Goal Met Goal 5:: Patient to demonstrate 70 % improvement with less pain and improved function with ADL Goal Progress: Goal Met Plan Plan: D/C D/C Information d/c sentence: If there are questions or concerns regarding this patient's physical therapy, please feel free to call me at [phone]. Thank you for the referral of this patient. Sincerely, Bairon An, PT, Cert MDT, OCS Balance/Gait/Functional tests Balance/Special Test Scores Quick DASH Score: 2.2725 Improvement % Improvement: 95
== END 2025-10-07 19:00 | disposition home or self-care (01) ==
LOC: PT 08:30
PROVIDERS: PCP Nurse Practitioner Family; Referring Provider Orthopaedic Surgery; Visit Provider Orthopaedic Surgery
DX: M75.01 Adhesive capsulitis of right shoulder (principal)
CPT/HCPCS: 97110; 97140; 97162; 97530